=== PATIENT | female | born 1960 | race Caucasian/White ===

== ENCOUNTER 2019-09-04 18:54 | Emergency (ER) | payer OTHER, SELFPAY ==
[2019-09-04 18:58] VITALS: BP 138/65; PULSE 106; RESP 16; TEMP 36.7; O2SAT 99
--- NOTE | 2019-09-04 19:03 | ED.LOWEXIN ---
HPI - Extremity Injury (Lower) General Chief Complaint: Back Pain/Injury Stated Complaint: shooting pain from butt down leg Time Seen by Provider: 09/04/19 19:04 Source: patient and RN notes reviewed History of Present Illness HPI Narrative: Patient is a 58-year-old female presents the urgent care with complaints of right low back pain radiating down the right leg to the ankle. Patient states she has a history of low back pain. States the pain feels like a burning ache. Denies any recent fall, injury, trauma. Patient states she is also having pain through the buttocks. Patient states that she is taken Tylenol and Advil for the pain. Patient states that she normally takes Vicodin for her pain but she is between pain management doctors at this time and is requesting a refill of her Vicodin. No other acute complaints. No acute distress noted. Patient read the plan of care. Related Data Home Medications Medication Instructions Recorded Confirmed atorvastatin 40 mg tablet 40 mg PO DAILY 07/25/19 09/04/19 lisinopril 20 1 tablet PO DAILY 07/25/19 09/04/19 mg-hydrochlorothiazide 25 mg tablet metformin 1,000 mg tablet 1,000 mg PO BID 07/25/19 09/04/19 ranitidine HCl 300 mg tablet 300 mg PO DAILY 07/25/19 09/04/19 Allergies Allergy/AdvReac Type Severity Reaction Status Date / Time Penicillins Allergy Unknown Unknown Verified 09/04/19 19:06 Review of Systems Review of Systems: Narrative: CONSTITUTIONAL: Denies fever, chills, or sweats. EYES: Denies visual changes, redness, or discharge. ENT: Denies rhinorrhea, congestion, sore throat, or otalgia. CARDIOVASCULAR: Denies chest pain, palpitations, or edema. RESPIRATORY: Denies cough or dyspnea. GASTROINTESTINAL: Denies abdominal pain, nausea, vomiting, or diarrhea. GENITOURINARY: Denies dysuria or hematuria. SKIN: Denies rash or itching. MUSCULOSKELETAL: Reports of right-sided low back pain radiating down the right leg NEUROLOGIC: Denies headache, numbness, or weakness. [facility] Social History Social History Smoking packs per day: 1 Smoking cigarettes per day: 20.0 Years smoked: 35 Smoking pack-years: 35.00 Smoking status: Current every day smoker Tobacco type: cigarettes Second hand tobacco smoke exposure: No Alcohol intake: never Additional living arrangements comments: Lives with partner of over 30yrs Vinny Deng. 1 son. 1 daughter. 4 grandkids. 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 Gender identity (if verbalized by the patient): Female Comments At the time of my signature, I reviewed and agree with the nursing past medical, surgical, social, and family history. There is no relevant family history pertinent to the patient complaint. Exam Narrative: Exam Narrative: GENERAL: This is a well-nourished, well-developed patient, in no apparent distress. HEAD: normocephalic, atraumatic. EYES: PERRL. Sclera clear/white. Vision is grossly intact. EARS: External ears normal NOSE: External nose normal with no obvious nasal discharge THROAT: Mucous membranes moist NECK: Neck supple CARDIOVASCULAR: Regular rate and rhythm without murmurs, gallops, or rubs. RESPIRATORY: Clear to auscultation. Breath sounds equal bilaterally. No wheezes, rales, or rhonchi. SKIN: warm, intact with no suspicious lesions or rash, good texture and turgor. NEURO: awake, alert, and oriented to person, place and time. There were no obvious focal neurologic abnormalities. EXTREMITIES: No clubbing, cyanosis, or edema. BACK: Moderate tenderness to the right piriformis region with right-sided positive SLE Course Vital Signs Vital signs: Vital Signs Temperature 98.0 F 09/04/19 18:58 Pulse Rate 106 H 09/04/19 18:58 Respiratory Rate 16 09/04/19 18:58 Blood Pressure 138/65 09/04/19 18:58 Pulse Oximetry 99 09/04/19 18:58 Temperature 98.0
== END 2019-09-04 19:17 | disposition home or self-care (01) ==
PROVIDERS: Emergency Provider Nurse Practitioner Family
DX: M54.31 Sciatica, right side (principal); I10 Essential (primary) hypertension; E78.00 Pure hypercholesterolemia, unspecified
CPT/HCPCS: 99213; G0463

== ENCOUNTER 2020-02-02 13:36 | Outpatient (CLI) | payer OTHER, SELFPAY ==
[2020-02-02 14:02] LABS: Hemoglobin A1C 7.6 % (<5.7)
[2020-02-02 14:39] LABS: Alanine Aminotransferase 48 U/L (14-59); Alkaline Phosphatase 83 U/L (46-116); Anion Gap 12.1 mmol/L (7-16); Aspartate Amino Transferase 27 U/L (15-37); Bilirubin,Total 0.3 mg/dL (0.00-1.00); Blood Urea Nitrogen 15 mg/dL (7-18); Calcium 9.5 mg/dL (8.5-10.1); Carbon Dioxide 32 mmol/L (21-32); Chloride 97 mmol/L (98-108); Estimated Glomerular Filt Rate > 60; Glucose 146 mg/dL (70-99); Osmolality Calculated 287 mOsm/kg (285-295); Potassium 4.1 mmol/L (3.5-5.1); Sodium 137 mmol/L (136-145); Total Protein 7.5 g/dL (6.4-8.2)
== END 2020-02-02 13:37 | disposition home or self-care (01) ==
LOC: CHSLAB 13:41
PROVIDERS: PCP Family Medicine; Visit Provider Family Medicine
DX: E11.9 Type 2 diabetes mellitus without complications (principal)
CPT/HCPCS: 36415; 80053; 83036

== ENCOUNTER → 2020-02-03 12:18 | Outpatient (CLI) | payer OTHER, SELFPAY ==
--- NOTE | ~2020-02-03 | XR_ITS ---
[id number] 02/03/2020 12:40 Indication: Neck pain Procedure: 5 views cervical spine Comparison: No prior studies for comparison. Findings: Vertebral body heights are maintained. No significant disc narrowing. No prevertebral soft tissue swelling. There are mild facet degenerative changes at C5-6 and C6-7. Odontoid process within normal limits. Impression: 1: Mild cervical spondylosis. Reviewed, dictated and finalized at location A. Impression: 1: Mild cervical spondylosis.
== END ==
PROVIDERS: PCP Family Medicine; Visit Provider Family Medicine
DX: E11.9 Type 2 diabetes mellitus without complications (principal); M47.812 Spondylosis without myelopathy or radiculopathy, cervical region
CPT/HCPCS: 72040

== ENCOUNTER 2020-09-30 13:35 | Outpatient (CLI) | payer OTHER, SELFPAY ==
--- NOTE | ~2020-09-30 | MM_ITS ---
EXAMINATION: MM screening [facility] BI w eli HISTORY: Screening mammogram TECHNIQUE: Craniocaudal and mediolateral oblique 3-D tomosynthesis images were obtained and synthetic 2-D images were generated. CAD analysis was submitted and interpreted. COMPARISON: 08/16/2015, 08/09/2007 BREAST PARENCHYMAL COMPOSITION: The breasts are heterogeneously dense, which may obscure small masses . FINDINGS: There is no evidence of suspicious mass, calcification, or architectural distortion to sugg est malignancy in either breast. There has been no suspicious interval change. IMPRESSION: 1. No mammographic evidence of malignancy. 2. Recommend routine screening mammography in one year. BI-RADS Category 1: Negative Reviewed, dictated and finalized at location A. PSYCH
== END 2020-09-30 13:36 | disposition home or self-care (01) ==
LOC: CHSIMG 13:36
PROVIDERS: PCP Family Medicine; Visit Provider Obstetrics & Gynecology
DX: Z12.31 Encounter for screening mammogram for malignant neoplasm of breast (principal)
CPT/HCPCS: 77063; 77067

== ENCOUNTER 2020-12-29 12:55 | Emergency (ER) | payer OTHER, SELFPAY ==
[2020-12-29 13:04] VITALS: BP 145/58; PULSE 120; RESP 16; TEMP 36.7; O2SAT 98
--- NOTE | 2020-12-29 13:14 | ED.FEMALEGU ---
HPI - Female Genitourinary General Chief complaint: Urogenital-Female Stated complaint: bladder and yeast infection Time Seen by Provider: 12/29/20 13:15 Source: patient and RN notes reviewed Mode of arrival: ambulatory Limitations: no limitations History of Present Illness HPI Narrative: 60-year-old female presents with concern for yeast infection and possible UTI. Reports she was seen by her tax assessor yesterday for yeast infection, she was given fluconazole. Reports she is taken 1 pill and symptoms have worsened. She reports labial redness, swelling, itching. She also reports yesterday she started having burning with urination, difficulty urinating. She denies using any [id number] interventions. She denies fever, flank pain, abnormal vaginal discharge, abnormal vaginal bleeding, abdominal pain, nausea. Denies any sexual activity, no concern for STDs. MD elicited complaint: UTI Related Data Allergies Allergy/AdvReac Type Severity Reaction Status Date / Time Penicillins Allergy Unknown Unknown Verified 12/29/20 13:14 Review of Systems Review of Systems: Narrative: CONSTITUTIONAL: Denies malaise, chills, sweats, or fever. CARDIOVASCULAR: Denies chest pain, palpitations, or edema. RESPIRATORY: Denies cough or dyspnea. GASTROINTESTINAL: Denies abdominal pain, nausea, vomiting, diarrhea GENITOURINARY: Reports dysuria, difficulty urinating. Denies urgency, frequency, flank pain, or hematuria. SKIN: Reports red, irritated, swollen, itchy labia, vagina MUSCULOSKELETAL: Denies back pain, joint pain, or myalgia. All systems reviewed & are unremarkable except as noted in HPI and below PMFSH Past Medical History Medical History (Updated 12/29/20 @ 13:26 by Kiera Diggs NP) Asthma B12 deficiency Chronic low back pain DM2 (diabetes mellitus, type 2) GERD (gastroesophageal reflux disease) Hypertension Nicotine dependence Overweight Surgical History Surgical History No history of previous surgery Family History Family History Father , Age 62 Carcinoma of colon, Onset Age: 61 Mother , Age 92 Family history of dementia, Onset Age: 92 Sibling , Age 63 Liver cancer Social History Social History (Reviewed 08/19/20 @ 08:00 by Ladi Cooper Smoking packs per day: 1 Smoking cigarettes per day: 20.0 Years smoked: 35 Smoking pack-years: 35.00 Smoking status: Current every day smoker Tobacco type: cigarettes Second hand tobacco smoke exposure: No Alcohol intake: never Additional living arrangements comments: Lives with partner of over 30yrs Vinny Deng. 1 son. 1 daughter. 4 grandkids. 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 Gender identity (if verbalized by the patient): Female Comments At time of signature, agree with nursing past medical, surgical, social and family history. There is no relevant family history pertinent to the presenting complaint Exam Narrative: Exam Narrative: GENERAL: Well-appearing, well-nourished, and in no acute distress. HEAD: Normocephalic. EYES: PERRLA, conjunctivae clear. NECK: Supple. No lymphadenopathy CHEST: Clear to auscultation. No respiratory distress. HEART: Regular rate and rhythm. ABDOMEN: Soft, nontender upon palpation, nondistended, normal active bowel sounds, no palpable or pulsatile masses, no guarding. No CVA tenderness SKIN: Warm, dry, no rash. NEURO: Alert and oriented x3. PSYCH: Normal mood and affect : External Female Exam: erythema and external swelling Speculum Exam - Vagina: abnormal vaginal discharge white and erythematous Course Course Emergency Course: Patient is aware of diagnosis, understands and agrees to treatment plan. Anticipatory guidance given. Patient agrees to follow-up as directed and is aware of r
== END 2020-12-29 13:30 | disposition home or self-care (01) ==
PROVIDERS: Emergency Provider Nurse Practitioner; PCP Family Medicine
DX: R30.0 Dysuria (principal); R39.198 Other difficulties with micturition; N76.0 Acute vaginitis; F17.210 Nicotine dependence, cigarettes, uncomplicated; J45.909 Unspecified asthma, uncomplicated; E11.9 Type 2 diabetes mellitus without complications; K21.9 Gastro-esophageal reflux disease without esophagitis; I10 Essential (primary) hypertension
CPT/HCPCS: 81003; 87077; 87086; 87088; 99213; G0463

== ENCOUNTER 2021-02-06 13:55 | Emergency (ER) | payer OTHER, SELFPAY ==
--- NOTE | ~2021-02-06 | XR_ITS ---
EXAMINATION: XR chest 2V EXAM DATE: 02/06/2021 14:36 INDICATION: Cough and wheezing. TECHNIQUE: Frontal and lateral projections of the chest obtained and reviewed. Comparison is made to prior examination from 02/04/2014. FINDINGS: The lungs are clear. There are no pleural effusions. The cardiomediastinal silhouette is within normal limits. There is no pneumothorax suspected. The bones and soft tissues are unremarkab le. There are cholecystectomy clips. IMPRESSION: No acute cardiopulmonary findings. Reviewed, dictated and finalized at location A.
[2021-02-06 14:01] VITALS: BP 140/68; PULSE 103; RESP 20; TEMP 37.1; O2SAT 98
--- NOTE | 2021-02-06 14:19 | ED.URI ---
HPI - URI/Sore Throat General Chief Complaint: Upper Respiratory Infection Stated Complaint: nose eyes throat Time Seen by Provider: 02/06/21 14:15 Source: patient, RN notes reviewed and old records reviewed Mode of arrival: ambulatory Limitations: no limitations History of Present Illness HPI Narrative: 60 year old [facility] complaints of cough, sneezing and watery eyes since Sunday. Patient states that she has been taking Benadryl for her symptoms and some Robitussin cough syrup. Patient states that she thinks she might of had a fever last night and she took some Tylenol. Patient does have a history of asthma denies needing to use her inhaler, continues to use Tobacco daily. Patient states that her head feels like it is underwater. MD elicited complaint: cough and other Onset (ago): day(s) (3) Consistency: progressively worsening Able to tolerate fluids by mouth: Yes Exacerbating factors: exertion Relieving factors: nothing Associated symptoms: fever, cough and other (sneezing, watery eyes) Treatments prior to arrival: other (benadryl and Robitussin cough syrup and Tylenol) Related Data Home Medications Medication Instructions Recorded Confirmed pregabalin 75 mg PO HS 02/06/21 02/06/21 Allergies Allergy/AdvReac Type Severity Reaction Status Date / Time Penicillins Allergy Unknown Unknown Verified 02/06/21 14:18 Review of Systems Review of Systems: Narrative: CONSTITUTIONAL: reports tactile fever, chills, or sweats. EYES: Denies visual changes, redness, or discharge. ENT: Positive rhinorrhea, congestion, no sore throat, no otalgia just pressure CARDIOVASCULAR: Denies chest pain, palpitations, or edema. RESPIRATORY: Positive cough denies any acute dyspnea. GASTROINTESTINAL: Denies abdominal pain, nausea, vomiting, or diarrhea. GENITOURINARY: Denies dysuria or hematuria. SKIN: Denies rash or itching. MUSCULOSKELETAL: Denies acute back pain, joint pain, or myalgia. NEUROLOGIC: Denies headache, numbness, or weakness. PSYCHIATRIC: Denies anxiety or depression. All systems reviewed & are unremarkable except as noted in HPI and below PMFSH Past Medical History Medical History (Updated 02/06/21 @ 15:04 by Saba Martínez NP) Asthma B12 deficiency Chronic low back pain DM2 (diabetes mellitus, type 2) Elevated cholesterol GERD (gastroesophageal reflux disease) Hypertension Nicotine dependence Overweight Surgical History Surgical History (Updated 02/06/21 @ 15:04 by Saba Martínez NP) Hx of cholecystectomy Previous section Family History Family History Father , Age 62 Carcinoma of colon, Onset Age: 61 Mother , Age 92 Family history of dementia, Onset Age: 92 Sibling , Age 63 Liver cancer Social History Social History Smoking packs per day: 1 Smoking cigarettes per day: 20.0 Years smoked: 35 Smoking pack-years: 35.00 Smoking status: Current every day smoker Tobacco type: cigarettes Second hand tobacco smoke exposure: No Alcohol intake: never Additional living arrangements comments: Lives with partner of over 30yrs Vinny Deng. 1 son. 1 daughter. 4 grandkids. 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 Gender identity (if verbalized by the patient): Female Comments At time of signature, agree with nursing past medical, surgical, social and family history. There is no relevant family history pertinent to the presenting complaint Exam Narrative: Exam Narrative: GENERAL: Well-appearing, well-nourished, and in no acute distress. HEAD: Normocephalic, atraumatic. EYES: PERRLA and EOMI. ENT: Nares light red with some clear nasal drainage, no epistaxis. Mucous membranes moist. TM's normal with dull light reflex, throat pink with no
== END 2021-02-06 15:07 | disposition home or self-care (01) ==
PROVIDERS: Emergency Provider Registered Nurse
DX: J06.9 Acute upper respiratory infection, unspecified (principal); J20.9 Acute bronchitis, unspecified; F17.210 Nicotine dependence, cigarettes, uncomplicated; J45.909 Unspecified asthma, uncomplicated; E11.9 Type 2 diabetes mellitus without complications; E78.00 Pure hypercholesterolemia, unspecified; K21.9 Gastro-esophageal reflux disease without esophagitis; I10 Essential (primary) hypertension
CPT/HCPCS: 71046; 99213; G0463

== ENCOUNTER 2021-07-18 11:12 | Outpatient (CLI) | payer OTHER, SELFPAY ==
--- NOTE | 2021-07-18 11:17 | ECG_ITS ---
Measurements Intervals [place] Rate: 101 P: 77 [place]: 154 QRS: 85 QRSD: 102 T: 37 QT: 344 QTc: 447 Interpretive Statements SINUS TACHYCARDIA MINIMAL Q WAVES- INFERIOR LEADS NONSPECIFIC T-WAVE ABNORMALITY- INFERIOR LEADS BORDERLINE ECG Electronically Signed On 07-18-2021 12:12:21 BACK CLOSER by lCifford Mensah D.O.
== END 2021-07-18 11:13 | disposition home or self-care (01) ==
LOC: CHSCARD 11:17
PROVIDERS: PCP Family Medicine; Visit Provider Family Medicine
DX: R00.0 Tachycardia, unspecified (principal)
CPT/HCPCS: 93005

== ENCOUNTER 2021-09-22 10:10 | Emergency (ER) | payer OTHER, SELFPAY ==
--- NOTE | ~2021-09-22 | XR_ITS ---
EXAMINATION: XR knee LT 2V DATE: 09/22/2021 10:49 INDICATION: Left knee pain TECHNIQUE: Two views of the left knee were obtained. COMPARISON: 08/22/2012 FINDINGS: Alignment is normal. No fracture or osteochondral lesion. There is mild tricompartmental os teoarthritis characterized by tiny marginal osteophytes. No joint effusion/synovitis. Soft tissues a re unremarkable. IMPRESSION: 1. No acute osseous abnormality. Reviewed, dictated and finalized at location A. Y LEVEL ACCOUNTING CLERK
--- NOTE | 2021-09-22 10:38 | ED.LOWEXIN ---
HPI - Extremity Injury (Lower) General Chief Complaint: Extremity Injury, Lower Stated Complaint: heard a pop in lt leg, cannot walk now Time Seen by Provider: 09/22/21 10:38 Source: patient Mode of arrival: ambulatory Limitations: no limitations History of Present Illness HPI Narrative: this is a 60-year-old female that inadvertently twisted her knee and heard a pop in the posterior knee has limited range of motion secondary to pain with some posterior knee tenderness, has some no calf swelling no redness no erythema no calf tenderness, denies any hip pain has good range of motion in her left hip. complaint: knee injury Onset (ago): day(s) Injury: Left: knee ( knee pain) Type of Injury: other Place: home Severity: moderate Severity scale (1-10): 6 Relieving factors: nothing Exacerbating factors: movement and palpation Associated symptoms: snap/pop sensation Other symptoms: none Related Data Home Medications Medication Instructions Recorded Confirmed pregabalin 75 mg PO HS 02/06/21 09/22/21 Allergies Allergy/AdvReac Type Severity Reaction Status Date / Time Penicillins Allergy Unknown Unknown Verified 07/18/21 06:48 Review of Systems Review of Systems: All systems reviewed & are unremarkable except as noted in HPI and below PMFSH Past Medical History Medical History Asthma B12 deficiency Chronic low back pain DM2 (diabetes mellitus, type 2) Elevated cholesterol GERD (gastroesophageal reflux disease) Hypertension Nicotine dependence Overweight Surgical History Surgical History Hx of cholecystectomy Previous section Family History Family History Father , Age 62 Carcinoma of colon, Onset Age: 61 Mother , Age 92 Family history of dementia, Onset Age: 92 Sibling , Age 63 Liver cancer Social History Social History Smoking packs per day: 1 Smoking cigarettes per day: 20.0 Years smoked: 35 Smoking pack-years: 35.00 Smoking status: Current every day smoker Tobacco type: cigarettes Second hand tobacco smoke exposure: No Alcohol intake: never Additional living arrangements comments: Lives with partner of over 30yrs Vinny Deng. 1 son. 1 daughter. 4 grandkids. 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 Gender identity (if verbalized by the patient): Female Exam Const: General: no acute distress and alert Orientation/consciousness: patient oriented x3 HENMT: Head: normal to inspection Eyes: Conjunctivae: conjunctivae normal Pupils: Equal, round and reactive pupils present Neck: Neck: normal visual inspection, no lymphadenopathy and no meningeal signs Chest: Chest palpation & inspection: normal inspection of the chest Resp: Effort & Inspection: normal respiratory effort Auscultation: clear to auscultation bilaterally Cardio: Rate: regular rate Rhythm: regular rhythm GI: GI Palp: Yes Soft to palpation : General: Yes no CVA tenderness Back/Spine/Pelvis: Back: no CVA tenderness Skin: General skin exam: normal color Rashes: no rashes Neuro: General: patient oriented x3 and moves all extremities Extrem: General: normal to inspection and no pedal edema Other: Tenderness posteriorly with palpation is limited range of motion secondary to pain with no calf swelling no calf redness no erythema no warmth or tenderness in the calf. Psych: Mental Status: mental status grossly normal Affect: normal affect Attitude: cooperative Course Course Emergency Course: Patient received IM Toradol 60mg, had x-ray performed of the left knee and reviewed with patient. Critical Care Time Critical Care Time Critical Care Time: No Discharg
[2021-09-22] MEDS: KETOROLAC (*BKC) 60 MG/2 ML VIAL IM (10:54)
[2021-09-22 11:00] VITALS: BP 123/74; PULSE 103; RESP 20; TEMP 36.3; O2SAT 97
[2021-09-22 11:01] VITALS: BP 129/64; PULSE 103; RESP 20; TEMP 36.3; O2SAT 97
== END 2021-09-22 11:11 | disposition home or self-care (01) ==
PROVIDERS: Emergency Provider Emergency Medicine; PCP Family Medicine
DX: S86.912A Strain of unspecified muscle(s) and tendon(s) at lower leg level, left leg, initial encounter (principal)
CPT/HCPCS: 73560; 96372; 99283; J1885

== ENCOUNTER 2021-12-26 11:28 | Outpatient (CLI) | payer OTHER, SELFPAY | END 2021-12-26 11:29 | disposition home or self-care (01) | LOC: CHSLAB 11:31 | PROVIDERS: PCP Family Medicine; Visit Provider Family Medicine | DX: E11.9 Type 2 diabetes mellitus without complications (principal) | CPT/HCPCS: 99199; 80053; 80061 ==

== ENCOUNTER 2022-03-10 10:38 | Emergency (ER) | payer OTHER, SELFPAY ==
[2022-03-10 10:51] VITALS: BP 106/81; PULSE 115; RESP 16; TEMP 36.5; O2SAT 97
--- NOTE | 2022-03-10 11:26 | ED.GENADULT ---
HPI - General Adult General Chief complaint: Extremity Injury, Lower Stated complaint: pain in left leg cant put weight on it History of Present Illness HPI narrative: The patient is a 61-year-old woman who saw her primary care provider 03/01/2022 for pain in the left knee that had been ongoing for several days prior. An MRI was scheduled. Her examination at that time was unremarkable. There was no swelling. No history of recent trauma. She did fall 2 months prior but there was no immediate pain in the left knee or elsewhere at that time. She now presents due to continued pain in the left, for the past week, making it difficult for her to ambulate and bear weight on the left knee. The MRI has not been performed yet. She takes Advil 2 tablets every 6 hours as needed, most recently at 8 am today. There is no relief in the pain. No pain in the right knee. No pain elsewhere in the left or right legs. She took several doses of Advil yesterday for the same. She is not on any other pain medications. No swelling of the legs. No difficulty breathing. No other complaints. Related Data Home Medications Medication Instructions Recorded Confirmed vit A 5,000 unit-vit C 60 mg-vit E 1 tablet PO BID 03/10/22 03/10/22 30 [id number]-[id number]-yuxrakio-copper tablet (Prosight) Allergies Allergy/AdvReac Type Severity Reaction Status Date / Time Penicillins Allergy Unknown Unknown Verified 03/10/22 10:56 Review of Systems Review of Systems: All systems reviewed & are unremarkable except as noted in HPI and below Constitutional: Constitutional: Reports no additional constitutional complaints, Denies anorexia, Denies body ache(s), Denies chills, Denies excessive sweating, Denies fatigue, Denies fever(s), Denies frequent falls, Denies headache(s), Denies malaise and Denies poor appetite Eyes: Eyes: Reports no additional eye complaints, Denies blurry vision, Denies change in vision, Denies irritation, Denies itchy eyes and Denies photophobia ENT: Reports system reviewed and no additional complaints, except as documented, Reports Normal hearing present, Denies change in voice, Denies dysphagia, Denies vertigo, Denies dizziness, Denies ear discharge, Denies headache(s), Denies hearing loss, Denies hoarseness, Denies nasal congestion, Denies neck pain, Denies sinus pressure, Denies sore throat and Denies throat swelling Cardiovascular: Cardiovascular: Reports no additional cardiovascular complaints, Denies chest pain, Denies syncope, Denies rapid heart rate, Denies irregular heart rhythm, Denies leg edema, Denies dyspnea and Denies slow heart rate Respiratory: Respiratory: Reports no additional respiratory complaints, Denies cough, Denies dyspnea, Denies stridor and Denies wheezing Gastrointestinal: Gastrointestinal: Reports no additional gastrointestinal complaints, Denies abdominal pain, Denies melena, Denies hematochezia, Denies dysphagia, Denies diarrhea, Denies nausea and Denies vomiting Genitourinary: Genitourinary: Denies hematuria, Denies urinary frequency, Denies dysuria, Denies flank pain and Denies urinary urgency Musculoskeletal: Musculoskeletal: Reports no additional musculoskeletal complaints, Reports abnormal gait (due to left knee pain), Denies back pain, Denies myalgias, Reports arthralgias (in left knee), Denies joint swelling, Reports limited range of motion (in the left knee secondary to pain), Denies muscle cramps, Denies muscle weakness, Denies neck pain and Denies numbness Integumentary/Breasts: Skin/Breast: Reports system reviewed and no additional complaints, except as docu, Denies breast pain, Denies change in pigmentation, Denies pruritus, Denies erythema and Denies wounds Neurologic: Reports system reviewed and no additional complaints, except as documented, Reports Normal hearing present, Denies Abnormal speech present, Denies abnormal gait, Denies confusion, Denies vertigo, Denies dizziness, Denies syncope, Denies frequent falls,
[2022-03-10] MEDS: ACETAMINOPHEN 500 MG TABLET 1000 MG PO (11:39)
[2022-03-10] MEDS: traMADol HCL (*CRX) 50 MG TABLET 100 MG PO (11:40)
[2022-03-10] MEDS: KETOROLAC (*BKC) 60 MG/2 ML VIAL IM (11:43)
[2022-03-10 12:26] VITALS: BP 132/83; PULSE 107; RESP 16; TEMP 36.2; O2SAT 97
--- NOTE | 2022-03-10 12:32 | PC.NURSE ---
Originally only took one Tramadol from Pyxis. Clarified with THEODORA NGUYEN to give 100 mg total. Override in OCT to take additional tramadol to administer prescribed dose.
== END 2022-03-10 12:26 | disposition home or self-care (01) ==
PROVIDERS: Emergency Provider Emergency Medicine; PCP Family Medicine
DX: M25.562 Pain in left knee (principal)
CPT/HCPCS: 96372; 99283; A9270; J1885

== ENCOUNTER 2022-03-13 13:43 | Outpatient (CLI) | payer OTHER, SELFPAY ==
--- NOTE | ~2022-03-13 | MR_ITS ---
EXAMINATION: MR knee LT wo con DATE: 03/13/2022 14:33 INDICATION: Left knee pain. TECHNIQUE: Magnetic resonance imaging (MRI) of the left knee was performed without intravenous contra st. Sequences included axial PD-weighted FS FSE, coronal PD-weighted FSE and PD-weighted FS FSE, sagi ttal PD-weighted FSE, and sagittal T2-weighted FS FSE. COMPARISON: Left knee radiographs 09/22/2021 FINDINGS: Medial compartment: There is a radial tear of posterior horn of medial meniscus. There is full-thickness cartilage loss o f tibial condyle involving the central and medial articular surface with cortical irregularity and mi ld subchondral edema-like marrow signal intensity. There is full-thickness cartilage loss of femoral condyle involving the central, medial, and posterior articular surface with cortical irregularity. Os teophytes are noted. Lateral compartment: There is a vertical tear of body of lateral meniscus. There is cartilage surface irregularity of tibi al condyle and femoral condyle. Osteophytes are noted. Patellofemoral compartment: There is full-thickness cartilage loss of patellar median ridge and medial facet and partial thicknes s cartilage loss of patellar lateral facet with mild subchondral edema-like marrow signal intensity. There is shallow partial-thickness cartilage loss of trochlea. Osteophytes are noted. Ligaments and tendons: The anterior and posterior cruciate ligaments are normal. There are changes of prior sprains of media l collateral ligament and fibular collateral ligament characterized by thickening and increased signa l intensity proximally. There is mild patellar tendinopathy. Fluid: There is a moderate-sized knee joint effusion with loose body. There is a small Key's cyst. There i s a 1.7 x 1.1 cm ganglion cyst posterior to the knee joint. There is mild prepatellar and superficial infrapatellar bursitis. IMPRESSION: 1. Severe chondrosis of medial and patellofemoral compartments and mild chondrosis of lateral compart ment. 2. Tears of medial and lateral menisci. 3. Moderate-sized knee joint effusion with loose body. 4. Small Key's cyst. 5. Ganglion cyst posterior to the knee joint. Reviewed, dictated and finalized at location A. IMPRESSION: 1. Severe chondrosis of medial and patellofemoral compartments and mild chondro sis of lateral compartment. 2. Tears of medial and lateral menisci. 3. Moderate-sized knee joint effusion with loose body. 4. Small Key's cyst. 5. Ganglion cyst posterior to the knee joint.
== END 2022-03-13 13:44 | disposition home or self-care (01) ==
PROVIDERS: PCP Family Medicine; Visit Provider Family Medicine
DX: S83.289A Other tear of lateral meniscus, current injury, unspecified knee, initial encounter (principal); M22.2X2 Patellofemoral disorders, left knee; S83.282A Other tear of lateral meniscus, current injury, left knee, initial encounter; S83.242A Other tear of medial meniscus, current injury, left knee, initial encounter; M25.462 Effusion, left knee; M23.42 Loose body in knee, left knee; M71.22 Synovial cyst of popliteal space [Baker], left knee; M67.462 Ganglion, left knee
CPT/HCPCS: 73721

== ENCOUNTER 2022-09-28 11:16 | Outpatient (CLI) | payer OTHER, SELFPAY ==
--- NOTE | ~2022-09-28 | XR_ITS ---
Lumbosacral Spine: AP and lateral views Clinical History: Pain Findings: The normal lordotic curve is maintained. The vertebral bodies and posterior elements are i ntact. There is mild degenerative disc change at L2-L3, L3-L4, L4-L5. Probable facet joint degenerati ve changes are present from L3 through S1. The sacroiliac joints are normally outlined. Impression: Mild degenerative spondylitic changes, as above. Reviewed, dictated and finalized at location M. [facility] Impression: Mild degenerative spondylitic changes, as above.
== END 2022-09-28 11:17 | disposition home or self-care (01) ==
LOC: CHSIMG 11:18
PROVIDERS: PCP Family Medicine; Visit Provider Nurse Practitioner Family
DX: M54.32 Sciatica, left side (principal)
CPT/HCPCS: 72100

== ENCOUNTER → 2023-01-13 12:27 | Outpatient (CLI) | payer OTHER, SELFPAY ==
--- NOTE | ~2023-01-13 | XR_ITS ---
[id number] 01/13/2023 12:42 Indication: Left knee pain Procedure: 2 views left knee Comparison: No prior studies for comparison. Findings: There is mild osteoarthritis of the left knee. There is an old proximal fibular avulsion fr acture. No significant joint effusion. No acute fracture or traumatic malalignment. Impression: 1: No acute bone or joint abnormality. Reviewed, dictated and finalized at location A. Impression: 1: No acute bone or joint abnormality.
== END ==
PROVIDERS: PCP Nurse Practitioner Family; Visit Provider Nurse Practitioner Family
DX: M25.562 Pain in left knee (principal)
CPT/HCPCS: 73560

== ENCOUNTER 2023-01-23 15:52 | Outpatient (CLI) | payer OTHER, SELFPAY ==
--- NOTE | ~2023-01-23 | MR_ITS ---
MRI of the lumbar spine Clinical History: Back pain, left sciatica Technique: Axial T2-weighted images, and sagittal T1-weighted, T2-weighted, and T2 fat-sat images wer e acquired. COMPARISON: 02/17/2019 Findings: No fracture. 3 mm anterolisthesis of L4 over L5 present. No bone marrow signal abnormality seen. At L1-L2, there is advanced facet arthropathy. No disc bulge or herniation. No spinal canal stenosis or neural foraminal narrowing. At L2-L3, there is diffuse disc bulge with advanced facet arthropathy, resulting in moderate to sever e spinal canal stenosis/thecal sac compression. There is moderate left neural foraminal narrowing and mild right neural foraminal narrowing. At L3-L4, disc bulge and facet arthropathy result in moderate to severe spinal canal stenosis/thecal sac compression. There is mild to moderate right neural foraminal narrowing. Left neural foramen pres erved. At L4-L5, disc bulge and facet arthropathy result in severe spinal canal stenosis/thecal sac compress ion. There is severe left neural foraminal narrowing and mild to moderate right neural foraminal narr owing. At L5-S1, there is no disc bulge or herniation. There is moderate facet arthropathy. No spinal canal stenosis or neural foraminal narrowing. Paravertebral soft tissues are unremarkable. Impression: Advanced degenerative spondylosis, as detailed above. There is multilevel moderate to severe spinal c anal stenosis/thecal sac compression, as well as multilevel neural foraminal narrowing. 3 mm anterolisthesis of L4 over L5. Reviewed, dictated and finalized at location . Impression: Advanced degenerative spondylosis, as detailed above. There is multilevel moder ate to severe spinal canal stenosis/thecal sac compression, as well as multilev el neural foraminal narrowing. 3 mm anterolisthesis of L4 over L5.
== END 2023-01-23 15:53 | disposition home or self-care (01) ==
PROVIDERS: PCP Nurse Practitioner Family
DX: M48.061 Spinal stenosis, lumbar region without neurogenic claudication (principal); M47.816 Spondylosis without myelopathy or radiculopathy, lumbar region; M43.16 Spondylolisthesis, lumbar region; M54.42 Lumbago with sciatica, left side; G89.29 Other chronic pain; M51.36 Other intervertebral disc degeneration, lumbar region
CPT/HCPCS: 72148

== ENCOUNTER 2023-02-22 14:40 | Emergency (ER) | payer OTHER, SELFPAY ==
[2023-02-22 14:43] VITALS: BP 121/66; PULSE 20; RESP 20; TEMP 35.8; O2SAT 97
--- NOTE | 2023-02-22 14:52 | ED.FEMALEGU ---
HPI - Female Genitourinary General Chief complaint: Urogenital-Female Stated complaint: POss UTI Time Seen by Provider: 02/22/23 14:52 Source: patient Mode of arrival: ambulatory Limitations: no limitations History of Present Illness HPI Narrative: 62-year-old female presents with complaint of burning, itching to vaginal area for the past 2-3 days. Reports some swelling to labia. States history vaginal yeast infections. Patient unable to check her blood sugars at home, does not have a machine. Patient has been taking metformin for approximately 15 years and also recently started on Jardiance. Does not feel her blood sugar is high. All systems reviewed and negative except as noted above. Related Data Home Medications Medication Instructions Recorded Confirmed empagliflozin 10 mg tablet 10 mg PO DAILY 02/22/23 02/22/23 (Jardiance) Allergies Allergy/AdvReac Type Severity Reaction Status Date / Time Penicillins Allergy Unknown Unknown Verified 02/22/23 14:51 Review of Systems Review of Systems: CONSTITUTIONAL: Denies fever, chills, or sweats. EYES: Denies visual changes, redness, or discharge. ENT: Denies rhinorrhea, congestion, sore throat, or otalgia. CARDIOVASCULAR: Denies chest pain, palpitations, or edema. RESPIRATORY: Denies cough or dyspnea. GASTROINTESTINAL: Denies abdominal pain, nausea, vomiting, or diarrhea. GENITOURINARY: Denies dysuria or hematuria. reports vaginal itching and burning SKIN: Denies rash or itching. MUSCULOSKELETAL: Denies back pain, joint pain, or myalgia. NEUROLOGIC: Denies headache, numbness, or weakness. PSYCHIATRIC: Denies anxiety or depression. All other systems reviewed are negative, except as documented in HPI. [facility] Past Medical History Medical History Asthma B12 deficiency Chronic low back pain DM2 (diabetes mellitus, type 2) Elevated cholesterol GERD (gastroesophageal reflux disease) Hypertension Nicotine dependence Overweight Surgical History Surgical History Hx of cholecystectomy Previous section Family History Family History Father , Age 62 Carcinoma of colon, Onset Age: 61 Mother , Age 92 Family history of dementia, Onset Age: 92 Sibling , Age 63 Liver cancer Social History Social History Smoking packs per day: 1 Smoking cigarettes per day: 20.0 Years smoked: 35 Smoking pack-years: 35.00 Smoking status: Current every day smoker Tobacco type: cigarettes Second hand tobacco smoke exposure: No Alcohol intake: never Lack of Transportation: No Lack of Food: Never True Current Housing: I Have Housing Concerned About Future Housing: No Difficulty Paying Gas/Electric Bills: No Difficulty Paying for Meds: No Currently Unemployed: No Education: High School Diploma/GED Difficulty w/ Childcare or Family Care: No Additional living arrangements comments: Lives with partner of over 30yrs Vinny Deng. 1 son. 1 daughter. 4 grandkids. 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 Gender identity (if verbalized by the patient): Female Comments At time of signature, agree with nursing past medical, surgical, social and family history. There is no relevant family history pertinent to the presenting complaint. Exam Narrative: GENERAL: This is a well-nourished, well-developed patient, in no apparent distress. HEAD: normocephalic, atraumatic. EYES: PERRL. Sclera clear/white. Vision is grossly intact. EARS: External ears normal NOSE: External nose normal NECK: Neck supple, non-tender without lymphadenopathy, masses or thyromegaly. CARDIOVASCULAR: Regular rate and rhythm without murmurs, gallops, or rubs.
[2023-02-22 14:53] VITALS: BP 121/66; PULSE 20; RESP 20; TEMP 35.8; O2SAT 97
[2023-02-22 15:05] LABS: Glucose Point of Care 129 mg/dl (65-105)
== END 2023-02-22 15:10 | disposition home or self-care (01) ==
PROVIDERS: Emergency Provider Nurse Practitioner Family
DX: B37.31 Acute candidiasis of vulva and vagina (principal); F17.210 Nicotine dependence, cigarettes, uncomplicated; J45.909 Unspecified asthma, uncomplicated; E11.9 Type 2 diabetes mellitus without complications; E78.00 Pure hypercholesterolemia, unspecified; K21.9 Gastro-esophageal reflux disease without esophagitis; I10 Essential (primary) hypertension
CPT/HCPCS: 81003; 82948; 87077; 87086; 87088; 99213; G0463

== ENCOUNTER 2023-04-30 08:47 | Outpatient (CLI) | payer OTHER, SELFPAY ==
--- NOTE | 2023-04-30 08:57 | ECHO_ITS ---
Patient Info Name: Dilia Molina Age: 62 years : 1960 Gender: Female Ht: 62 in Wt: 165 lbs BSA: 1.84 m2 HR: 95 bpm BP: 136 / 73 mmHg Heart Rhythm: Sinus Rhythm Technical Quality: Fair Exam Date: 04/30/2023 9:11 AM Exam Location: [facility] Patient Status: Outpatient Admit Date: 04/30/2023 Staff Ordering Physician: Clifford Mensah DO Administrative Services Coordinator: Mari Clemons RDCS Attending Provider: Clifford Mensah DO Referring Physician: Rodrick REGAN; Exam Type: CA echo doppler color flow Study Info Indications R01.1 - Cardiac murmur, unspecified Complete two-dimensional, color flow and Doppler transthoracic echocardiogram is performed. Summary 1. Complete two-dimensional, color flow and Doppler transthoracic echocardiogram is performed. 2. Left ventricular chamber dimension is normal. 3. Left ventricular systolic function is normal, estimated at 60-65%. 4. There is mild concentric increased left ventricular wall thickness. 5. The left ventricular diastolic function is grade I diastolic dysfunction. 6. E/e' 6 is not elevated. 7. There is moderate aortic valve sclerosis. 8. There is mild to moderate aortic valve stenosis with a peak velocity of 173 cm/s, mean gradient of 6 mmHg, and aortic valve area of 1.4 cm2. 9. There is trace mitral valve regurgitation. 10. No pulmonary hypertension, estimated pulmonary arterial systolic pressure is 21 mmHg. Left Ventricle E/e' 6 is not elevated. Left ventricular chamber dimension is normal. Left ventricular systolic function is normal, estimated at 60-65%. There is mild concentric increased left ventricular wall thickness. The left ventricular diastolic function is grade I diastolic dysfunction. Right Ventricle Right ventricular systolic function is normal and with normal TAPSE 2.5 cm. Right ventricular chamber dimension is normal. Left Atria Left atrial chamber dimension is normal. Right Atria Right atrial chamber dimension is normal. Aortic Valve The aortic valve is trileaflet. There is moderate aortic valve sclerosis. There is mild to moderate aortic valve stenosis with a peak velocity of 173 cm/s, mean gradient of 6 mmHg, and aortic valve area of 1.4 cm2. There is no aortic valve regurgitation. Pulmonic Valve There is no pulmonic regurgitation. Mitral Valve There is no mitral valve stenosis. There is trace mitral valve regurgitation. Tricuspid Valve There is no tricuspid valve regurgitation. No pulmonary hypertension, estimated pulmonary arterial systolic pressure is 21 mmHg. Pericardium/Pleural There is no pericardial effusion. Inferior Vena Cava Normal inferior vena cava with >50% collapse upon inspiration consistent with normal right atrial pressure, 5 mmHg. Aorta The aortic root size at the sinus of Valsalva is normal. Left Ventricular Outflow Tract Name Value Normal LVOT 2D LVOT Diameter 2.0 cm LVOT Doppler LVOT Peak Gradient 3 mmHg LVOT Mean Gradient 1 mmHg LVOT VTI 15 cm LVOT VTI/AV VTI Ratio 0.5 LVOT Stroke Volume 44 ml LVOT CO 3.6 l/min
== END 2023-04-30 08:48 | disposition home or self-care (01) ==
LOC: ANHCARD 08:48
PROVIDERS: PCP Family Medicine; Visit Provider Internal Medicine Cardiovascular Disease
DX: R01.1 Cardiac murmur, unspecified (principal); I51.7 Cardiomegaly; R93.1 Abnormal findings on diagnostic imaging of heart and coronary circulation; I35.8 Other nonrheumatic aortic valve disorders; I35.0 Nonrheumatic aortic (valve) stenosis; I34.0 Nonrheumatic mitral (valve) insufficiency
CPT/HCPCS: 93306

== ENCOUNTER 2023-06-21 09:56 | Outpatient (CLI) | payer OTHER, SELFPAY ==
--- NOTE | ~2023-06-21 | NM_ITS ---
EXAMINATION: NM demi stress w perfusion DATE: 06/21/2023 12:14 INDICATION: Dyspnea on exertion. TECHNIQUE: Rest images were obtained following intravenous administration of 9.0 mCi Tc99m tetrofosmi n (Myoview). The patient was infused intravenously with Lexiscan (regadenoson). Then, 27.0 mCi Tc99m tetrofosmin (Myoview) was administered intravenously, and stress images were obtained. Data was recon structed into short axis and horizontal and vertical long axis SPECT images. Gated SPECT images were also obtained. COMPARISON: None. FINDINGS: There is no definite reversible or fixed perfusion abnormality to suggest ischemia or infar ction. There is no segmental wall motion abnormality. Left ventricular ejection fraction measures 6 6%. IMPRESSION: 1. No definite ischemia or infarct. 2. Normal left ventricular ejection fraction measuring 66%. Reviewed, dictated and finalized at location A. CENTER NURSE
--- NOTE | 2023-06-21 09:53 | EST_ITS ---
Patient Info Name: Dilia Molina Age: 62 years : 1960 Gender: Female Ht: 62 in Wt: 165 lbs BSA: 1.84 m2 Heart Rhythm: Sinus Rhythm Exam Date: 06/21/2023 11:08 AM Exam Location: Echo Lab Patient Status: Outpatient Admit Date: 06/21/2023 Staff Ordering Physician: Clifford Mensah DO Attending Provider: Clifford Mensah DO Exercise Technologist: Dinorah Miramontes CT Exercise Physician: Clifford Mensah DO Exam Type: CA stress demi w NM Study Info Indications R06.09 - Other forms of dyspnea A regadenoson stress test was performed. Summary 1. 1. Negative lexiscan stress test for ischemic ST changes by ECG criteria. 2. 2. Stable hemodynamics throughout the test. 3. 3. Nuclear scan to follow and will be reported separately. Please correlate with it. 4. 4. Patient informed of the above results. Protocol: Lexiscan Stress ECG Details Stage: REST Duration (min): 0 min : 50 sec HR (bpm): 90 SBP (mmHg): 128 DBP (mmHg): 65 Stage: REST Duration (min): 5 min : 7 sec HR (bpm): 92 SBP (mmHg): 128 DBP (mmHg): 65 Stage: STAGE 1 Duration (min): 1 min : 0 sec HR (bpm): 109 SBP (mmHg): 132 DBP (mmHg): 68 Stage: RECOVERY Duration (min): 1 min : 0 sec HR (bpm): 111 SBP (mmHg): 132 DBP (mmHg): 68 Stage: RECOVERY Duration (min): 2 min : 0 sec HR (bpm): 104 SBP (mmHg): 132 DBP (mmHg): 68 Stage: RECOVERY Duration (min): 3 min : 0 sec HR (bpm): 106 SBP (mmHg): 126 DBP (mmHg): 65 Stage: RECOVERY Duration (min): 3 min : 52 sec HR (bpm): 98 SBP (mmHg): 126 DBP (mmHg): 65 Rest HR: 92 bpm Peak HR: 116 bpm Rest Sys BP: 128 mmHg Peak Sys BP: 132 mmHg Max Pred HR: 157 bpm % Max Pred HR: 74 % Target HR: 133 bpm Max RPP: 15,312 bpm*mmHg Termination Reason: Completed protocol Cardiac Symptoms: Shortness of breath Total Time: 1 min : 0 sec Rest Florez BP: 65 mmHg Peak Florez BP: 68 mmHg Total Dose: 0.4 mg Resting ECG Sinus rhythm. Stress ECG No ST changes. Arrhythmias None. Report Signatures
[2023-06-21 11:12] LABS: Alanine Aminotransferase 32 U/L (6-35); Albumin Level 4.6 g/dL (3.5-5.1); Alkaline Phosphatase 60 U/L (38-126); Anion Gap 13 mmol/L (8-16); Aspartate Amino Transferase 26 U/L (14-36); Bilirubin,Total 0.5 mg/dL (0.2-1.3); Blood Urea Nitrogen 15 mg/dL (7-17); Carbon Dioxide 25 mmol/L (22-30); Chloride 102 mmol/L (98-107); Cholesterol 104 mg/dL (0-200); Estimated Glomerular Filt Rate > 60; Glucose 165 mg/dL (65-110); HDL Direct 36 mg/dL; Potassium 4.2 mmol/L (3.4-5.0); Sodium 140 mmol/L (137-145); Triglycerides 148 mg/dL (<150)
[2023-06-21 11:23] LABS: LDL Cholesterol Direct 52 mg/dL
== END 2023-06-21 09:57 | disposition home or self-care (01) ==
PROVIDERS: PCP Family Medicine; Visit Provider Internal Medicine Cardiovascular Disease
DX: R06.09 Other forms of dyspnea (principal); E78.00 Pure hypercholesterolemia, unspecified
CPT/HCPCS: 36415; 78452; 80053; 80061; 93017; A9502; J2785

== ENCOUNTER 2023-09-10 17:45 | Emergency (ER) | payer OTHER, SELFPAY ==
[2023-09-10 17:54] VITALS: BP 138/75; PULSE 112; RESP 20; TEMP 36.5; O2SAT 98
--- NOTE | 2023-09-10 18:07 | ED.GENADULT ---
HPI - General Adult General Chief complaint: Urogenital-Female Stated complaint: Poss kidney infection Source: patient, RN notes reviewed and old records reviewed Mode of arrival: ambulatory Limitations: no limitations History of Present Illness HPI narrative: 62-year-old female presents to [facility] with complaints of urinary frequency, urinary urgency, burning with urination this started today. Patient denies back pain, abdominal pain, fever. Patient states worried she has UTI. Related Data Home Medications Medication Instructions Recorded Confirmed omega 6-tgh-irf-fish oil 1,000 mg 2 cap PO DAILY 03/22/23 08/09/23 (120 mg-180 mg) capsule (Fish Oil) hydrocodone 7.5 mg-acetaminophen 1 tablet PO QHS PRN 08/09/23 08/09/23 325 mg tablet vit A 5,000 unit-vit C 60 mg-vit E 1 tablet PO DAILY 08/09/23 08/09/23 30 cmnl-micr-ryyibrbz-copper tablet (Prosight) Allergies Allergy/AdvReac Type Severity Reaction Status Date / Time Penicillins Allergy Unknown Unknown Verified 07/25/23 11:59 Review of Systems Constitutional: Constitutional: Reports no additional constitutional complaints, Denies body ache(s), Denies chills, Denies fatigue, Denies fever(s) and Denies headache(s) Eyes: Eyes: Reports no additional eye complaints and Denies blurry vision ENT: Reports system reviewed and no additional complaints, except as documented, Denies vertigo, Denies dizziness, Denies ear discharge, Denies otalgia, Denies facial pain, Denies headache(s), Denies nasal congestion, Denies nasal discharge, Denies sinus pain, Denies sinus pressure and Denies sore throat Cardiovascular: Cardiovascular: Reports no additional cardiovascular complaints, Denies chest pain, Denies chest pain at rest, Denies rapid heart rate and Denies dyspnea Respiratory: Respiratory: Reports no additional respiratory complaints, Denies chest congestion, Denies cough, Denies pain on inspiration, Denies pain with cough and Denies dyspnea Gastrointestinal: Gastrointestinal: Denies abdominal pain, Denies diarrhea, Denies nausea and Denies vomiting Genitourinary: Genitourinary: Reports as per HPI, Reports nocturia, Reports dysuria and Reports urinary urgency Integumentary/Breasts: Skin/Breast: Denies rash Neurologic: Reports system reviewed and no additional complaints, except as documented, Denies vertigo, Denies dizziness and Denies headache(s) Endocrine: Endocrine: Denies fatigue PMFSH Past Medical History Medical History Asthma B12 deficiency Chronic low back pain DM2 (diabetes mellitus, type 2) Elevated cholesterol GERD (gastroesophageal reflux disease) Hypertension Nicotine dependence Overweight Surgical History Surgical History History of knee surgery left Hx of cholecystectomy Previous section Family History Family History Father , Age 62 Carcinoma of colon, Onset Age: 61 Mother , Age 92 Family history of dementia, Onset Age: 92 Sibling , Age 63 Liver cancer Social History Social History Smoking packs per day: 1 Smoking cigarettes per day: 20.0 Years smoked: 35 Smoking pack-years: 35.00 Smoking status: Current every day smoker Tobacco type: cigarettes Second hand tobacco smoke exposure: No Alcohol intake: never Substance use type: does not use Do You Feel Safe in your Home?: Yes Lack of Transportation: No Lack of Food: Never True Current Housing: I Have Housing Concerned About Future Housing: No Difficulty Paying Gas/Electric Bills: No Difficulty Paying for Meds: No Currently Unemployed: No Education: High School Diploma/GED Difficulty w/ Childcare or Family Care: No Living arrangements: alone Occupation/Education: unemployed
== END 2023-09-10 18:20 | disposition home or self-care (01) ==
PROVIDERS: Emergency Provider Registered Nurse; PCP Family Medicine
DX: N30.01 Acute cystitis with hematuria (principal); B96.89 Other specified bacterial agents as the cause of diseases classified elsewhere; E11.9 Type 2 diabetes mellitus without complications; E78.00 Pure hypercholesterolemia, unspecified; K21.9 Gastro-esophageal reflux disease without esophagitis; I10 Essential (primary) hypertension; J45.909 Unspecified asthma, uncomplicated
CPT/HCPCS: 81003; 87077; 87086; 87186; 99213; G0463

== ENCOUNTER 2023-09-19 19:18 | Emergency (ER) | payer OTHER, SELFPAY ==
[2023-09-19 19:24] VITALS: BP 121/52; PULSE 100; RESP 18; TEMP 36.7; O2SAT 98
--- NOTE | 2023-09-19 19:39 | ED.GENADULT ---
HPI - General Adult General Chief complaint: Upper Respiratory Infection Stated complaint: cough/aches/fever Source: patient, RN notes reviewed and old records reviewed Mode of arrival: ambulatory Limitations: no limitations History of Present Illness HPI narrative: 62-year-old female presents to [facility] with complaints cough, congestion, myalgia, fever this started 2 days ago. Patient taking zflo-mmc-odsqxxc medications with headache. Patient denies chest pain, shortness of breath, dizziness, weakness. Related Data Home Medications Medication Instructions Recorded Confirmed omega 6-pzb-tag-fish oil 1,000 mg 2 cap PO DAILY 03/22/23 09/19/23 (120 mg-180 mg) capsule (Fish Oil) vit A 5,000 unit-vit C 60 mg-vit E 1 tablet PO DAILY 08/09/23 09/19/23 30 ligm-xrek-kicmijhb-copper tablet (Prosight) lisinopril 20 1 tablet PO DAILY 09/19/23 09/19/23 mg-hydrochlorothiazide 25 mg tablet vit A 5,000 unit-vit C 60 mg-vit E tablet 09/19/23 09/19/23 30 nvxd-xizp-smiamhog-copper tablet (Prosight) Allergies Allergy/AdvReac Type Severity Reaction Status Date / Time Penicillins Allergy Unknown Unknown Verified 07/25/23 11:59 Review of Systems Constitutional: Constitutional: Reports no additional constitutional complaints, Reports body ache(s), Denies chills, Reports fatigue, Reports fever(s) and Denies headache(s) Eyes: Eyes: Reports no additional eye complaints and Denies blurry vision ENT: Reports system reviewed and no additional complaints, except as documented, Denies vertigo, Denies dizziness, Denies ear discharge, Denies otalgia, Denies facial pain, Denies headache(s), Reports nasal congestion, Denies nasal discharge, Denies sinus pain, Denies sinus pressure and Denies sore throat Cardiovascular: Cardiovascular: Reports no additional cardiovascular complaints, Denies chest pain, Denies chest pain at rest, Denies rapid heart rate and Denies dyspnea Respiratory: Respiratory: Reports no additional respiratory complaints, Reports chest congestion, Reports cough, Denies pain on inspiration, Denies pain with cough and Denies dyspnea Gastrointestinal: Gastrointestinal: Denies abdominal pain, Denies diarrhea, Denies nausea and Denies vomiting Integumentary/Breasts: Skin/Breast: Denies rash Neurologic: Reports system reviewed and no additional complaints, except as documented, Denies vertigo, Denies dizziness and Denies headache(s) Endocrine: Endocrine: Denies fatigue PMFSH Past Medical History Medical History Asthma B12 deficiency Chronic low back pain DM2 (diabetes mellitus, type 2) Elevated cholesterol GERD (gastroesophageal reflux disease) Hypertension Nicotine dependence Overweight Surgical History Surgical History History of knee surgery left Hx of cholecystectomy Previous section Family History Family History Father , Age 62 Carcinoma of colon, Onset Age: 61 Mother , Age 92 Family history of dementia, Onset Age: 92 Sibling , Age 63 Liver cancer Social History Social History Smoking packs per day: 1 Smoking cigarettes per day: 20.0 Years smoked: 35 Smoking pack-years: 35.00 Smoking status: Current every day smoker Tobacco type: cigarettes Second hand tobacco smoke exposure: No Alcohol intake: never Substance use type: does not use Do You Feel Safe in your Home?: Yes Lack of Transportation: No Lack of Food: Never True Current Housing: I Have Housing Concerned About Future Housing: No Difficulty Paying Gas/Electric Bills: No Difficulty Paying for Meds: No Currently Unemployed: No Education: High School Diploma/GED Difficulty w/ Childcare or Family Care: No Living arrangements: alone
== END 2023-09-19 19:45 | disposition home or self-care (01) ==
PROVIDERS: Emergency Provider Registered Nurse
DX: J10.1 Influenza due to other identified influenza virus with other respiratory manifestations (principal); Z20.822 Contact with and (suspected) exposure to COVID-19; F17.210 Nicotine dependence, cigarettes, uncomplicated; E11.9 Type 2 diabetes mellitus without complications; E78.00 Pure hypercholesterolemia, unspecified; K21.9 Gastro-esophageal reflux disease without esophagitis; I10 Essential (primary) hypertension; J45.909 Unspecified asthma, uncomplicated
CPT/HCPCS: 87426; 87804; 99213; G0463

== ENCOUNTER 2024-01-17 13:18 | Outpatient (CLI) | payer OTHER, SELFPAY ==
--- NOTE | ~2024-01-17 | MM_ITS ---
EXAMINATION: MM screening sana BI w eli HISTORY: Screening TECHNIQUE: Craniocaudal and mediolateral oblique 3-D tomosynthesis images were obtained and synthetic 2-D images were generated. CAD analysis was submitted and interpreted. COMPARISON: Comparison to multiple prior studies sequentially, with oldest reviewed study dated 08/16. BREAST PARENCHYMAL COMPOSITION: Not dense: There are scattered areas of fibroglandular density. FINDINGS: There is no evidence of suspicious mass, calcification, or architectural distortion to sugg est malignancy in either breast. There has been no suspicious interval change. IMPRESSION: 1. No mammographic evidence of malignancy. 2. Recommend routine screening mammography in one year. BI-RADS Category 1: Negative Reviewed, dictated and finalized at location B.
== END 2024-01-17 13:19 | disposition home or self-care (01) ==
PROVIDERS: PCP Internal Medicine Gastroenterology; Visit Provider Internal Medicine Gastroenterology
DX: Z12.31 Encounter for screening mammogram for malignant neoplasm of breast (principal)
CPT/HCPCS: 77063; 77067

== ENCOUNTER 2024-02-06 14:01 | Emergency (ER) | payer OTHER, SELFPAY ==
[2024-02-06 14:15] VITALS: BP 133/59; PULSE 100; RESP 18; TEMP 36.7; O2SAT 98
--- NOTE | 2024-02-06 14:22 | ED.GENADULT ---
HPI - General Adult General Chief complaint: Extremity Injury, Lower Stated complaint: left ankle swollen Source: patient Mode of arrival: ambulatory Limitations: no limitations History of Present Illness HPI narrative: 63-year-old female presents for complaint of left ankle pain and swelling. Onset today when she woke up. She denies known injury; pt states she has does minimal activity due to chronic left knee pain. Pain is worse when up walking. Denies redness, warmth or decreased range of motion to the ankle, denies numbness, tingling or weakness of the extremity, toes and foot with normal sensation reported. Has not taken anything for pain. Rates pain 12/13. Related Data Home Medications Medication Instructions Recorded Confirmed omega 8-yem-ykf-fish oil 1,000 mg 2 cap PO DAILY 03/22/23 02/06/24 (120 mg-180 mg) capsule (Fish Oil) vit A 5,000 unit-vit C 60 mg-vit E 1 tablet PO DAILY 08/09/23 02/06/24 30 fxzj-otwl-gcyojjrj-copper tablet (Prosight) lisinopril 20 1 tablet PO DAILY 09/19/23 02/06/24 mg-hydrochlorothiazide 25 mg tablet vit A 5,000 unit-vit C 60 mg-vit E See Rx Instructions .Route .COMPLEX 09/19/23 02/06/24 30 njml-irqz-mckpweok-copper tablet (Prosight) hydrocodone 7.5 mg-acetaminophen See Rx Instructions .Route 02/06/24 02/06/24 325 mg tablet .COMPLEX PRN Pain Allergies Allergy/AdvReac Type Severity Reaction Status Date / Time Penicillins Allergy Unknown Unknown Verified 02/06/24 14:15 Review of Systems Review of Systems: CONSTITUTIONAL: Denies body aches, fever, chills CARDIOVASCULAR: Denies chest pain, palpitations, or edema. RESPIRATORY: Denies cough or dyspnea. GASTROINTESTINAL: Denies abdominal pain, nausea, vomiting, or diarrhea. SKIN: Denies rash, itching, or wounds. MUSCULOSKELETAL: reports left ankle pain, swelling Denies back pain, or myalgia. NEUROLOGIC: Denies headache, numbness, tingling, or weakness. All systems reviewed & are unremarkable except as noted in HPI and below PMFSH Past Medical History Medical History Asthma B12 deficiency Chronic low back pain DM2 (diabetes mellitus, type 2) Elevated cholesterol GERD (gastroesophageal reflux disease) Hypertension Nicotine dependence Overweight Surgical History Surgical History History of knee surgery left Hx of cholecystectomy Previous section Family History Family History Father , Age 62 Carcinoma of colon, Onset Age: 61 Mother , Age 92 Family history of dementia, Onset Age: 92 Sibling , Age 63 Liver cancer Social History Social History Smoking packs per day: 1 Smoking cigarettes per day: 20.0 Years smoked: 35 Smoking pack-years: 35.00 Smoking status: Current every day smoker Tobacco type: cigarettes Second hand tobacco smoke exposure: No Alcohol intake: never Substance use type: does not use Do You Feel Safe in your Home?: Yes Lack of Transportation: No Lack of Food: Never True Current Housing: I Have Housing Concerned About Future Housing: No Difficulty Paying Gas/Electric Bills: No Difficulty Paying for Meds: No Currently Unemployed: No Education: High School Diploma/GED Difficulty w/ Childcare or Family Care: No Living arrangements: alone Occupation/Education: unemployed Gender identity (if verbalized by the patient): Female Comments At time of signature, I have reviewed and agree with nursing past medical, surgical, social and family history unless otherwise noted. Please see nursing chart for further information. There is no relevant family history pertinent to the presenting complaint Exam Narrative: GENERAL: Well-appearing CHEST: Speaks in full sentences. No respirat
== END 2024-02-06 14:40 | disposition home or self-care (01) ==
PROVIDERS: Emergency Provider Nurse Practitioner Family; PCP Internal Medicine Gastroenterology
DX: M25.572 Pain in left ankle and joints of left foot (principal); M25.472 Effusion, left ankle; F17.210 Nicotine dependence, cigarettes, uncomplicated; J45.909 Unspecified asthma, uncomplicated; E11.9 Type 2 diabetes mellitus without complications; E78.00 Pure hypercholesterolemia, unspecified; K21.9 Gastro-esophageal reflux disease without esophagitis; I10 Essential (primary) hypertension
CPT/HCPCS: 99212; G0463

== ENCOUNTER 2024-03-08 11:57 | Emergency (ER) | payer OTHER, SELFPAY ==
[2024-03-08 12:02] VITALS: BP 135/65; PULSE 93; RESP 20; TEMP 36.7; O2SAT 99
--- NOTE | 2024-03-08 12:36 | ED.GENADULT ---
HPI - General Adult General Chief complaint: Upper Respiratory Infection Stated complaint: Fever/Body Ache Source: patient Mode of arrival: ambulatory Limitations: no limitations History of Present Illness HPI narrative: Patient presents for evaluation of sick symptoms since yesterday. Symptoms include fever, scratchy throat, generalized body aches, sinus congestion and rhinorrhea. No shortness of breath, nausea, vomiting diarrhea cough. No recent sick contacts to her knowledge. She is not taking any medication to assist with her symptoms. She smokes quarter pack per day. Related Data Home Medications Medication Instructions Recorded Confirmed omega 4-fep-tal-fish oil 1,000 mg 2 cap PO DAILY 03/22/23 02/06/24 (120 mg-180 mg) capsule (Fish Oil) vit A 5,000 unit-vit C 60 mg-vit E 1 tablet PO DAILY 08/09/23 02/06/24 30 bqbv-lnvd-itgerbbr-copper tablet (Prosight) lisinopril 20 1 tablet PO DAILY 09/19/23 02/06/24 mg-hydrochlorothiazide 25 mg tablet vit A 5,000 unit-vit C 60 mg-vit E See Rx Instructions .Route .COMPLEX 09/19/23 02/06/24 30 urps-fhos-eqftfupu-copper tablet (Prosight) hydrocodone 7.5 mg-acetaminophen See Rx Instructions .Route 02/06/24 02/06/24 325 mg tablet .COMPLEX PRN Pain Allergies Allergy/AdvReac Type Severity Reaction Status Date / Time Penicillins Allergy Unknown Unknown Verified 03/08/24 12:00 Review of Systems Review of Systems: CONSTITUTIONAL: Reports fever. Denies chills, or sweats. EYES: Denies visual changes, redness, or discharge. ENT: Reports sinus congestion, scratchy throat and rhinorrhea. Denies otalgia CARDIOVASCULAR: Denies chest pain, palpitations, or edema. RESPIRATORY: Denies cough or dyspnea. GASTROINTESTINAL: Denies abdominal pain, nausea, vomiting, or diarrhea. GENITOURINARY: Denies dysuria or hematuria. SKIN: Denies rash or itching. MUSCULOSKELETAL: Reports generalized body aches NEUROLOGIC: Denies headache, numbness, dizziness, or weakness. PSYCHIATRIC: Denies anxiety or depression. [facility] Past Medical History Medical History Asthma B12 deficiency Chronic low back pain DM2 (diabetes mellitus, type 2) Elevated cholesterol GERD (gastroesophageal reflux disease) Hypertension Nicotine dependence Overweight Surgical History Surgical History History of knee surgery left Hx of cholecystectomy Previous section Family History Family History Father , Age 62 Carcinoma of colon, Onset Age: 61 Mother , Age 92 Family history of dementia, Onset Age: 92 Sibling , Age 63 Liver cancer Social History Social History Smoking packs per day: 0.25 Smoking cigarettes per day: 5.0 Years smoked: 35 Smoking pack-years: 8.75 Smoking status: Current every day smoker Tobacco type: cigarettes Second hand tobacco smoke exposure: No Alcohol intake: never Substance use type: does not use Do You Feel Safe in your Home?: Yes Lack of Transportation: No Lack of Food: Never True Current Housing: I Have Housing Concerned About Future Housing: No Difficulty Paying Gas/Electric Bills: No Difficulty Paying for Meds: No Currently Unemployed: No Education: High School Diploma/GED Difficulty w/ Childcare or Family Care: No Living arrangements: alone Occupation/Education: unemployed Gender identity (if verbalized by the patient): Female Exam Narrative: GENERAL: Well-appearing, well-nourished, and in no acute distress. HEAD: Normocephalic, atraumatic. EYES: PERRLA and EOMI. ENT: Nares clear, no rhinorrhea or epistaxis. Mucous membranes moist. Oropharynx without tonsillar hypertrophy exudate or other lesions. Bilateral TMs pearly reyes nonbulg
[2024-03-08 12:41] LABS: EDINFLUASCREEN Negative; EDINFLUBSCREEN Negative
== END 2024-03-08 12:33 | disposition home or self-care (01) ==
PROVIDERS: Emergency Provider Nurse Practitioner
DX: U07.1 COVID-19 (principal); F17.210 Nicotine dependence, cigarettes, uncomplicated; J45.909 Unspecified asthma, uncomplicated; E11.9 Type 2 diabetes mellitus without complications; E78.00 Pure hypercholesterolemia, unspecified; K21.9 Gastro-esophageal reflux disease without esophagitis; I10 Essential (primary) hypertension
CPT/HCPCS: 87426; 87804; 99213; G0463

== ENCOUNTER 2024-05-07 08:51 | Emergency (ER) | payer OTHER, SELFPAY ==
[2024-05-07 08:59] VITALS: BP 132/61; PULSE 92; RESP 16; TEMP 36.5; O2SAT 98
--- NOTE | 2024-05-07 09:54 | ED.FEMALEGU ---
HPI - Female Genitourinary General Chief complaint: Urogenital-Female Stated complaint: poss bladder infection Time Seen by Provider: 05/07/24 09:54 Source: patient Mode of arrival: ambulatory Limitations: no limitations History of Present Illness HPI Narrative: 63-year-old female presents with complaint of suprapubic cramping, dysuria, urinary frequency and urgency since yesterday. Denies nausea vomiting. Afebrile. All systems reviewed and negative except as noted above. Related Data Home Medications Medication Instructions Recorded Confirmed omega 0-acv-voy-fish oil 1,000 mg 2 cap PO DAILY 03/22/23 05/07/24 (120 mg-180 mg) capsule (Fish Oil) vit A 5,000 unit-vit C 60 mg-vit E 1 tablet PO DAILY 08/09/23 05/07/24 30 jwmg-khzz-ugmuociu-copper tablet (Prosight) lisinopril 20 1 tablet PO DAILY 09/19/23 05/07/24 mg-hydrochlorothiazide 25 mg tablet vit A 5,000 unit-vit C 60 mg-vit E See Rx Instructions .Route .COMPLEX 09/19/23 05/07/24 30 yfwn-evre-qfwhfuep-copper tablet (Prosight) hydrocodone 7.5 mg-acetaminophen See Rx Instructions .Route 02/06/24 05/07/24 325 mg tablet .COMPLEX PRN Pain Allergies Allergy/AdvReac Type Severity Reaction Status Date / Time Penicillins Allergy Unknown Unknown Verified 05/07/24 09:24 Review of Systems Review of Systems: CONSTITUTIONAL: Denies fever, chills, or sweats. EYES: Denies visual changes, redness, or discharge. ENT: Denies rhinorrhea, congestion, sore throat, or otalgia. CARDIOVASCULAR: Denies chest pain, palpitations, or edema. RESPIRATORY: Denies cough or dyspnea. GASTROINTESTINAL: Reports suprapubic abdominal pain. Denies nausea, vomiting, or diarrhea. GENITOURINARY: Reports dysuria, urgency, frequency. SKIN: Denies rash or itching. MUSCULOSKELETAL: Denies back pain, joint pain, or myalgia. NEUROLOGIC: Denies headache, numbness, or weakness. PSYCHIATRIC: Denies anxiety or depression. All other systems reviewed are negative, except as documented in HPI. [facility] Past Medical History Medical History Asthma B12 deficiency Chronic low back pain DM2 (diabetes mellitus, type 2) Elevated cholesterol GERD (gastroesophageal reflux disease) Hypertension Nicotine dependence Overweight Surgical History Surgical History History of knee surgery left Hx of cholecystectomy Previous section Family History Family History Father , Age 62 Carcinoma of colon, Onset Age: 61 Mother , Age 92 Family history of dementia, Onset Age: 92 Sibling , Age 63 Liver cancer Social History Social History Smoking packs per day: 0.25 Smoking cigarettes per day: 5.0 Years smoked: 35 Smoking pack-years: 8.75 Smoking status: Current every day smoker Tobacco type: cigarettes Second hand tobacco smoke exposure: No Alcohol intake: never Substance use type: does not use Do You Feel Safe in your Home?: Yes Lack of Transportation: No Lack of Food: Never True Current Housing: I Have Housing Concerned About Future Housing: No Difficulty Paying Gas/Electric Bills: No Difficulty Paying for Meds: No Currently Unemployed: No Education: High School Diploma/GED Difficulty w/ Childcare or Family Care: No Living arrangements: alone Occupation/Education: unemployed Gender identity (if verbalized by the patient): Female Comments At time of signature, agree with nursing past medical, surgical, social and family history. There is no relevant family history pertinent to the presenting complaint. Exam Narrative: GENERAL: This is a well-nourished, well-developed patient, in no apparent distress. HEAD: normocephalic, atraumatic. EYES: PERRL. Sclera christopher
[2024-05-07 10:03] LABS: EDUAAPPEAR Clots; EDUABILI Negative (Negative); EDUABLOOD 3+ (Negative); EDUACOLOR1 Dark; EDUAGLUCOSE Negative (Negative); EDUAKETONE Negative (Negative); EDUALEUKO 2+ (Negative); EDUANITRATE Negative (Negative); EDUAPH 5.5; EDUAPROTEIN 2+ (Negative); EDUAUROBILI 0.2
== END 2024-05-07 10:05 | disposition home or self-care (01) ==
PROVIDERS: Emergency Provider Nurse Practitioner Family; PCP Internal Medicine Gastroenterology
DX: N39.0 Urinary tract infection, site not specified (principal); B96.20 Unspecified Escherichia coli [E. coli] as the cause of diseases classified elsewhere; F17.210 Nicotine dependence, cigarettes, uncomplicated; J45.909 Unspecified asthma, uncomplicated; E11.9 Type 2 diabetes mellitus without complications; E78.00 Pure hypercholesterolemia, unspecified; K21.9 Gastro-esophageal reflux disease without esophagitis; I10 Essential (primary) hypertension
CPT/HCPCS: 81003; 87077; 87086; 87186; 99213; G0463

== ENCOUNTER 2024-05-19 19:02 | Emergency (ER) | payer OTHER, SELFPAY ==
[2024-05-19 19:10] VITALS: BP 140/64; PULSE 103; RESP 20; TEMP 36.9; O2SAT 98
--- NOTE | 2024-05-19 19:21 | ED.FEMALEGU ---
HPI - Female Genitourinary General Chief complaint: Urogenital-Female Stated complaint: bladder infection Time Seen by Provider: 05/19/24 19:21 Source: patient, RN notes reviewed and old records reviewed Mode of arrival: ambulatory Limitations: no limitations History of Present Illness HPI Narrative: 63 year old female presents to [facility] care with complaints of symptoms of urinary tract infection which includes urgency of urination,then seems to not be able to go and just dribbles for the past 4 days. She also states that she has burning with urination and some suprapubic discomfort. Patient reports that she was recently treated for an UTI but doesn't think it cleared completely. She reports that she also thinks she has yeast infection with some thick white discharge that is itchy. Patient reports no known fevers chills or sweats and denies any CVA tenderness. MD elicited complaint: dysuria Pertinent past history: other (previous uti) Onset (ago): day(s) (4) Location of symptoms: suprapubic and urethra Severity scale (1-10): 4 Vaginal discharge: thick/cheesy Vaginal bleeding: none Urinary symptoms: Dysuria, Urgency and Difficulty Urinating Treatment prior to arrival: none Related Data Home Medications Medication Instructions Recorded Confirmed omega 4-jsx-ofn-fish oil 1,000 mg 2 cap PO DAILY 03/22/23 05/07/24 (120 mg-180 mg) capsule (Fish Oil) vit A 5,000 unit-vit C 60 mg-vit E 1 tablet PO DAILY 08/09/23 05/07/24 30 ruqj-fhun-zjhrgigr-copper tablet (Prosight) lisinopril 20 1 tablet PO DAILY 09/19/23 05/07/24 mg-hydrochlorothiazide 25 mg tablet vit A 5,000 unit-vit C 60 mg-vit E See Rx Instructions .Route .COMPLEX 09/19/23 05/07/24 30 wzof-qtgg-acztdjwu-copper tablet (Prosight) hydrocodone 7.5 mg-acetaminophen See Rx Instructions .Route 02/06/24 05/07/24 325 mg tablet .COMPLEX PRN Pain Allergies Allergy/AdvReac Type Severity Reaction Status Date / Time Penicillins Allergy Unknown Unknown Verified 05/07/24 09:24 Review of Systems Review of Systems: CONSTITUTIONAL: Denies fever, chills, or sweats. CARDIOVASCULAR: Denies chest pain, palpitations, or edema. RESPIRATORY: Denies cough or dyspnea. GASTROINTESTINAL: Reports suprapubic pain,no nausea, vomiting, or diarrhea. GENITOURINARY: Reports dysuria, frequency, urgency. Denies flank pain or hematuria.reports thick white discharge that is itchy SKIN: Denies rash or itching. MUSCULOSKELETAL: Denies back pain or myalgia. Denies CVA tenderness NEUROLOGIC: Denies headache All systems reviewed & are unremarkable except as noted in HPI and below PMFSH Past Medical History Medical History Asthma B12 deficiency Chronic low back pain DM2 (diabetes mellitus, type 2) Elevated cholesterol GERD (gastroesophageal reflux disease) Hypertension Nicotine dependence Overweight Surgical History Surgical History History of knee surgery left Hx of cholecystectomy Previous section Family History Family History Father , Age 62 Carcinoma of colon, Onset Age: 61 Mother , Age 92 Family history of dementia, Onset Age: 92 Sibling , Age 63 Liver cancer Social History Social History Smoking packs per day: 0.25 Smoking cigarettes per day: 5.0 Years smoked: 35 Smoking pack-years: 8.75 Smoking status: Current every day smoker Tobacco type: cigarettes Second hand tobacco smoke exposure: No Alcohol intake: never Substance use type: does not use Do You Feel Safe in your Home?: Yes Lack of Transportation: No Lack of Food: Never True Current Housing: I Have Housing Concerned About Future Housing: No Difficulty Paying Gas/Electric Bills: No Difficulty Paying for Meds: No
[2024-05-19 19:40] LABS: EDUAAPPEAR Clear; EDUABILI Negative (Negative); EDUABLOOD 3+ (Negative); EDUACOLOR1 Yellow; EDUAGLUCOSE Negative (Negative); EDUAKETONE Negative (Negative); EDUALEUKO 1+ (Negative); EDUANITRATE Negative (Negative); EDUAPROTEIN Trace (Negative); EDUASPGRAVITY 1.015; EDUAUROBILI 0.2
== END 2024-05-19 19:56 | disposition home or self-care (01) ==
PROVIDERS: Emergency Provider Registered Nurse; PCP Internal Medicine Gastroenterology
DX: N39.0 Urinary tract infection, site not specified (principal); B37.31 Acute candidiasis of vulva and vagina; F17.210 Nicotine dependence, cigarettes, uncomplicated; J45.909 Unspecified asthma, uncomplicated; E11.9 Type 2 diabetes mellitus without complications; E78.00 Pure hypercholesterolemia, unspecified; I10 Essential (primary) hypertension; K21.9 Gastro-esophageal reflux disease without esophagitis
CPT/HCPCS: 81003; 87086; 99213; G0463

== ENCOUNTER 2024-06-30 15:09 | Outpatient (CLI) | payer OTHER, SELFPAY ==
--- NOTE | 2024-06-30 15:15 | ECHO_ITS ---
Patient Info Name: Dilia Molina Age: 63 years : 1960 Gender: Female Ht: 62 in Wt: 165 lbs BSA: 1.84 m2 HR: 70 bpm BP: 130 / 78 mmHg Heart Rhythm: Sinus Rhythm Technical Quality: Good Exam Date: 06/30/2024 3:42 PM Exam Location: Echo Lab Patient Status: Outpatient Admit Date: 06/30/2024 Staff Ordering Physician: Clifford Mensah DO [employer] Head: Della Miner RDCS Attending Provider: Clifford Mensah DO Referring Physician: Rodrick REGAN; Exam Type: CA echo doppler color flow Study Info Indications - nonrheumatic aortic valve stenosis Complete two-dimensional, color flow and Doppler transthoracic echocardiogram is performed. Summary 1. Complete two-dimensional, color flow and Doppler transthoracic echocardiogram is performed. 2. Left ventricular chamber dimension is normal. 3. Left ventricular systolic function is normal, estimated at 60-65%. 4. The left ventricular diastolic function is grade I diastolic dysfunction. 5. E/e' 13 is mildly elevated. 6. The aortic valve is not well visualized. Cannot determine number of aortic valve leaflets. 7. There is mild aortic valve stenosis based on a peak velocity of 224 cm/s, mean gradient of 10 mmHg, and aortic valve area of 1.6 cm2. 8. There is mild aortic valve sclerosis. 9. No pulmonary hypertension, estimated pulmonary arterial systolic pressure is 23 mmHg. Left Ventricle E/e' 13 is mildly elevated. Left ventricular chamber dimension is normal. Left ventricular systolic function is normal, estimated at 60-65%. The left ventricular diastolic function is grade I diastolic dysfunction. Right Ventricle Right ventricular systolic function is normal and with normal TAPSE 2.8 cm. Right ventricular chamber dimension is normal. Left Atria Left atrial chamber dimension is normal. Right Atria Right atrial chamber dimension is normal. Aortic Valve The aortic valve is not well visualized. Cannot determine number of aortic valve leaflets. There is mild aortic valve stenosis based on a peak velocity of 224 cm/s, mean gradient of 10 mmHg, and aortic valve area of 1.6 cm2. There is mild aortic valve sclerosis. There is no aortic valve regurgitation. Pulmonic Valve There is no pulmonic regurgitation. Mitral Valve There is no mitral valve stenosis. There is no mitral valve regurgitation. Tricuspid Valve There is no tricuspid valve regurgitation. No pulmonary hypertension, estimated pulmonary arterial systolic pressure is 23 mmHg. Pericardium/Pleural There is no pericardial effusion. Inferior Vena Cava Normal inferior vena cava with >50% collapse upon inspiration consistent with normal right atrial pressure, 5 mmHg. Aorta The aortic root size at the sinus of Valsalva is normal. Left Ventricular Outflow Tract Name Value Normal LVOT 2D LVOT Diameter 1.8 cm LVOT Doppler LVOT Peak Gradient 5 mmHg LVOT Mean Gradient 3 mmHg LVOT VTI 26 cm LVOT VTI/AV VTI Ratio 0.6 LVOT Stroke Volume 67 ml LVOT CO 6.0 l/min LVOT CI 3.3 l/min/m2 Mitral Valve Name Value Normal MV Doppler MV Decel Hunt 595 cm/s2 MV PHT 38 ms MV Area (PHT) 5.7 cm2 4.0-5.0 MV Diastolic Function MV E Peak Velocity 79 cm/s MV A Peak Velocity 81 cm/s MV E/A 1.0 MV Decel Time 132 ms MV Annular TDI MV E/e' (Septal) 18.7 <=8.0 MV E/e' (Lateral) 10.1 <=8.0 MV E/e' (Average) 14.4 Tricuspid Valve Name Value Normal TV Regurgitation Doppler TR Peak Velocity 209 cm/s TR Peak Gradient 18 mmHg Estimated PAP/RSVP RA Pressure 5 mmHg <=5 PA Systolic Pressure 23 mmHg <36 RV Systolic Pressure 23 mmHg <36 Aortic Valve Name Value Normal AV Doppler AV Peak Velocity 224 cm/s AV Peak Gradient 17 mmHg AV Mean Gradient 10 mmHg AV VTI 42 cm AV Area (Cont Eq VTI) 1.6 cm2 >=3.0 AV Area (Cont Eq Francisco) 1.4 cm2 AV Regurgitation 2D LVOT Area 2.6 cm2 Ventricles Name Value Normal LV Dimensions 2D/MM IVS Diastolic Thickness (2D) 1.1 cm 0.6-1.0 LVID Diastole (2D) 4.4 cm 3.8-5.2 LVIW Diastolic Thickness (2D) 1.1 cm 0.6-0.9 LVID Systole (2D) 2.5 cm 2.2-3.5 LVOT Diameter 1.8 cm LV Mass (2D Cubed) 167.35 g 67.00-162.00 LV Mass Index (2D Cubed) 91 g/m2 43-95 Relative Wall Thickness (2D) 0.50 LV Fractional Shortening/Ejection Fraction 2D/MM LV Fractional Shortening (2D) 42 % 27-45 LV EF (2D Teicholz) 73 % 54-74 LV Diastolic Volume (4C MOD) 115 ml LV EF (4C MOD) 57 % LV Diastolic Volume (2C MOD) 104 ml LV EF (2C MOD) 60 % LV Diastolic Volume (BP MOD) 112 ml 46-106 LV Diastolic Volume Index (BP MOD) 61 ml/m2 29-61 LV Systolic Volume (BP MOD) 46 ml 14-42 LV Systolic Volume Index (BP MOD) 25 ml/m2 8-24 LV EF (BP MOD) 59 % 54-74 LV Diastolic Length (4C) 7.4 cm LV Systolic Length (4C) 5.4 cm LV Stroke Volume (4C MOD) 65 ml Atria Name Value Normal LA Dimensions LA Volume (4C A-L) 26 ml LA Volume (BP A-L) 29 ml RA Dimensions RA Area (4C) 12.5 cm2 <=18.0 Report Signatures
== END 2024-06-30 15:10 | disposition home or self-care (01) ==
LOC: ANHCARD 15:10
PROVIDERS: PCP Internal Medicine Gastroenterology; Visit Provider Internal Medicine Cardiovascular Disease
DX: I35.0 Nonrheumatic aortic (valve) stenosis (principal); I35.8 Other nonrheumatic aortic valve disorders
CPT/HCPCS: 93306

== ENCOUNTER 2024-10-30 19:04 | Emergency (ER) | payer OTHER, SELFPAY ==
--- OUTSIDE RECORDS SUMMARY | 2024-10-30 19:06 | XMS_ITS | Data Portability ---
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 Plan of Treatment Reminders Order Date Submit Date Provider Last Modified By Organization Details Last Modified Time Details Appointments ANY 15 2024 01:45P M Nereida Oneill MD Not available Not available Not available Lab HbA1c (hemoglob in A1c), blood 2023 024 [place] [id number] In-Office Order, Internal Use Only DO Not Attach Compendium DO Not Attach Compendium, Do Not Delete/merge, [id number] 06/23/2024 13:05:11 HbA1c (hemoglob in A1c), blood 2023 024 [place] In-Office Order, Internal Use Only DO Not Attach Compendium DO Not Attach Compendium, Do Not Delete/merge, [id number] 11/26/2023 13:19:53 Referral orthopedi c surgeon referral [address] [facility], [address], [place], [address], 07/09/2024 16:26:01 Procedures None recorded. Surgeries None recorded. Imaging None recorded. Medication Orders naproxen 500 mg tablet 2023 024 [facility], [address], [place], [address], 06/23/2024 13:08:07 hydrocodo ne 7.5 mg-acetam inophen 325 mg tablet 2023 024 [facility] [place] [address], [place], [address], 03/05/2024 16:12:43 lisinopri l 20 mg-hydroc hlorothia zide 12.5 mg tablet 2023 024 [place] [address], [place], [address], 03/05/2024 16:12:31 Patient TargetsNo targets recorded. Patient Instructions Encounter Date Encounter Id Patient Instructions Last Modified By Organization Details Last Modified Time 11/26/2023 [id number] learning about high blood pressure [email or web address] Not available 11/26/2023 13:13:12 12/24/2023 [id number] learning about high blood pressure [email or web address] Not available 12/24/2023 18:12:50 03/05/2024 [id number] learning about high blood pressure [email or web address] Not available 03/05/2024 16:12:25 04/16/2024 [id number] learning about high blood pressure Not available 04/16/2024 15:06:06 06/23/2024 [id number] A healthy lifestyle: care instructions [email or web address] Not available 06/23/2024 14:12:07 A healthy lifestyle: care instructions [email or web address] Not available 06/23/2024 13:08:05 learning about high blood pressure [email or web address] Not available 06/23/2024 13:05:09 Reason for Referral Orthopedic Surgeon Referral for Pain of left knee region Increased left knee pain. Had repair medial meniscus tear in 2021 Referring Physician: Nereida Oneill, Internal Medicine, Encounter Date: 06/23/2024 Results Created Date Observation Date Name Description Value Unit Range Abnormal Flag Note LastModifiedBy Organization Detail LastModifiedTime 11/26/19 24 11/26/2023 HbA1c (hemo globi n A1c), blood HbA1c 7.9% Not Available In-Office Order Internal Use Only DO Not Attach Compendium DO Not Attach Compendium, Do Not Delete/merge, [id number] 11/26/2023 13:11:22 06/23/20 24 06/23/2024 HbA1c (hemo globi n A1c), blood HbA1c 7.5 Not Available In-Office Order Internal Use Only DO Not Attach Compendium DO Not Attach Compendium, Do Not Delete/merge, [id number] 06/23/2024 13:04:57 01/17/20 24 01/17/2024 MAMMO , scree neftali, digit al, bilat eral No observ ation record ed. [facility] [address] [place], [address], 01/29/2024 09:21:11 01/18/20 24 01/17/2024 MAMMO , scree neftali, digit al, bilat eral No observ ation record ed. [facility] [address] [place], [address], 01/29/2024 09:21:12 06/30/20 24 06/30/2024 trans -thor acic echoc ardio gram (TTE) (PROC ) No observ ation record ed. [place] [address], [place], [address], 07/22/2024 13:53:20 Result Notes None recorded. Problems Name Problem SNOMED Code Status Onset Date Resolution Date Notes Provider Name and Address Organization Details Recorded Time Diverticu lar disease 945553467 Active 2023 Nereida Oneill MD Attn: Shayne donato,[address] [facility], [place], [address], [place] - [facility] 4 14:35:32 Medicatio n monitorin g Active 2023 Nereida Oneill MD Attn: Shayne donato,[address] [facility], [place], [address], [facility] - [facility] 4 14:41:19 Multiple joint pain 76192712 Active 2023 Back/L knee Nereida Oneill MD Attn: Shayne kinga,[address] [facility], [place], [address], [place] - [facility] 4 14:45:35 Pain of left knee region 054681574803 109 Active 2023 Nereida Oneill MD Attn: Patrickvng donato,[address] [facility], [place], [address], [place] [facility] 4 13:04:37 Diabetes mellitus 61907012 Active Jordan Moreno MD Attn: Shayne kinga,[address] [facility], [place], [address], [place] [facility] 6 11:16:28 Essential hypertens ion 00726585 Active Jordan Moreno MD Attn: Patrickvng donato,[address] [facility], [place], [address], [place] - [facility] 6 11:16:28 Gastroeso phageal reflux disease 121277060 Completed 09/04/2023 Nereida Oneill MD Attn: Shayne kinga,[address] [facility], [place], [address], [place] [facility] 4 14:35:49 Asthma 815460914 Completed 09/04/2023 Nereida Oneill MD Attn: Shayne kinga,[address] [facility], [place], [address], [place] - [facility] 4 14:46:23 Pain in left lower limb 890605495 Active Carlie Storey MA null, [place] - [facility] 6 10:46:19 Diverticu litis 249748748 Completed 09/04/2023 Nereida Oneill MD Attn: Patrickvng donato,[address] [facility], [place], [address], [place] - [facility] 4 14:41:43 Problem Notes None recorded. Procedures Surgical History Date Name Laterality Status Provider Name and Address Organization Details Recorded Time Most Recent Mammogram completed Ute Boyce [place] - [place] 12/28/2020 14:46:04 1 Date of Last Pap Smear completed Ute Boyce MA [facility] 12/28/2020 14:45:31 1 cataract surgery completed Ute Boyce MA [facility] 09/29/2020 08:57:05 9 colonoscopy completed Ute Boyce MA [facility] 09/29/2020 08:57:29 5 Colonoscopy with biopsy completed Jordan Moreno MD Attn: Accounting,[address] [facility], [place], [address], [facility] 07/26/2015 11:04:39 Caesarean Section completed Ute Boyce [facility] 11/15/2015 11:51:59 Other completed Ute Boyce [facility] 11/15/2015 11:51:59 Imaging Results Imaging Date Name Status LastModified by Organization Details LastModified Time 01/17/2024 MAMMO, screening, digital, bilateral completed [facility] [address] [place], [address], 01/29/2024 09:21:11 01/17/2024 MAMMO, screening, digital, bilateral completed [facility] [address] [place], [address], 01/29/2024 09:21:12 06/30/2024 trans-thoracic echocardiogram (TTE) (PROC) completed [address], [address], 07/22/2024 13:53:20 Procedure Notes None recorded. Medical Equipment None Reported. Allergies Allergen ID Allergen Name Allergen Category Reaction Reaction Severity Criticality Documentation Date Start Date Code Code System Note Provider Name and Address Organization Details Recorded Time 39465 Product containin g penicilli n (product) medicatio n hives Not available Not available 10/02/2016 71279 [id number] SNOMED Not Available Not Available Not Available Medications Name Sig Start Date Stop Date Status Note LastModified by Organization Details LastModified Time celecoxib 200 mg capsule active Not Available Not Available Not Available cyclobenzap rine 10 mg tablet TK 1 T PO TID PRF MUSCLE SPASM 09/04 completed Not Available Not Available Not Available atorvastati n 40 mg tablet TAKE 1 TABLET BY MOUTH DAILY 09/04 completed Not Available Not Available Not Available metformin 500 mg tablet Take 1 tablet twice a day by oral route for 30 days. active Not Available Not Available No t Available atorvastati n 80 mg tablet TAKE 1 TABLET EVERY DAY BY MOUTH IN THE EVENING. 2024 active Not Available Not Available Not Avai lable prednisone 10 mg tablet 04/16 completed Not Available Not Available Not Available doxycycline hyclate 100 mg capsule 04/16 completed Not Available Not Available Not Available loperamide 2 mg capsule 09/04 completed Not Available Not Available Not Available lisinopril 20 mg-hydrochl orothiazide 12.5 mg tablet TAKE TWO (2) TABLETS EVERY DAY BY ORAL ROUTE. 2024 active Not Available Not Available Not Avai lable azithromyci n 250 mg tablet 09/29 completed Not Available Not Available Not Available ibuprofen 800 mg tablet 05/13 completed Not Available Not Available Not Available ofloxacin 0.3 % eye drops 12/28 completed Not Available Not Available Not Available tizanidine 4 mg tablet active Not Available Not Available Not Available fluconazole 150 mg tablet TAKE 1 TABLET EVERY WEEK BY ORAL ROUTE. 06/23 completed Not Available Not Available Not Available ranitidine 300 mg tablet TAKE 1 TABLET BY MOUTH DAILY 05/13 completed Not Available Not Available Not Available hydrocodone 5 mg-acetamin ophen 325 mg tablet TAKE 1 TABLET BY MOUTH EVERY 8 HOURS NEEDED FOR PAIN 09/04 completed Not Available Not Available Not Available meloxicam 15 mg tablet Take 1 tablet every day by oral route as needed with meal for pain. active Not Available Not Available No t Available phenazopyri dine 200 mg tablet active Not Available Not Available Not Available ondansetron HCl 4 mg tablet 10/02 completed Not Available Not Available Not Available prednisone 20 mg tablet 09/04 completed Not Available Not Available Not Available ciprofloxac in 500 mg tablet 10/02 completed Not Available Not Available Not Available sulfamethox azole 800 mg-trimetho prim 160 mg tablet TAKE 1 TABLET BY MOUTH EVERY 12 HOURS 06/23 completed Not Available Not Available Not Available triamcinolo ne acetonide 0.1 % topical cream APPLY BY TOPICAL ROUTE TO AFFECTED AREA THREE TIMES A DAY FOR 7 DAYS (MIX EQUAL AMOUNTS OF NYSTATIN CREAM) 09/04 completed Not Available Not Available Not Available glimepiride 1 mg tablet active Not Available Not Available Not Available ketorolac 0.5 % eye drops 12/28 completed Not Available Not Available Not Available meloxicam 7.5 mg tablet pain mx 05/13 completed Not Available Not Available Not Available amitriptyli ne 25 mg tablet 09/29 completed Not Available Not Available Not Available prednisolon e acetate 1 % eye drops,suspe nsion SHAKE LIQUID AND INSTILL 1 DROP SURGICAL EYE THREE TIMES DAILY STARTING AFTER SURGERY 12/28 completed Not Available Not Available Not Available Flagyl 500 mg tablet Take 1 tablet twice a day by oral route for 7 days. 09/29 completed Not Available Not Available Not Available hydrocodone 7.5 mg-acetamin ophen 325 mg tablet TAKE 1 TABLET TWICE a DAY BY ORAL ROUTE NEEDED. active Not Available Not Available No t Available cephalexin 500 mg capsule TAKE ONE CAPSULE BY MOUTH FOUR TIMES A DAY FOR 10 DAYS 06/23 completed Not Available Not Available Not Available metformin 1,000 mg tablet TAKE ONE TABLET BY MOUTH TWO TIMES a DAY active Not Available Not Available No t Available nystatin 100,000 unit/gram topical cream APPLY TO AFFECTED AREA(S) BY TOPICAL ROUTE THREE TIMES A DAY FOR 7 DAYS (MIX EQUAL AMOUNTS OF TRIAMCINO LONE CREAM) 09/04 completed Not Available Not Available Not Available lidocaine 5 % topical patch 09/04 completed Not Available Not Available Not Available diclofenac potassium 50 mg tablet 05/13 completed Not Available Not Available Not Available gabapentin 300 mg capsule pain mx 09/04 completed Not Available Not Available Not Available lisinopril 20 mg-hydrochl orothiazide 25 mg tablet TAKE 1 TABLET BY MOUTH DAILY 04/16 completed Not Available Not Available Not Available pravastatin 20 mg tablet TAKE ONE TABLET BY MOUTH AT BEDTIME 10/02 completed Not Available Not Available Not Available diclofenac sodium 50 mg tablet,samara yed release TK 1 T PO TID PRF PAIN 09/04 completed Not Available Not Available Not Available levofloxaci n 500 mg tablet active Not Available Not Available Not Available methylpredn isolone 4 mg tablets in a dose pack 09/29 completed Not Available Not Available Not Available naproxen 500 mg tablet Take 1 tablet twice a day by oral route with meal(s). active Not Available Not Available No t Available Ventolin HFA 90 mcg/actuati on aerosol inhaler INHALE 2 PUFFS BY MOUTH THREE TIMES DAILY NEEDED 09/29 completed Not Available Not Available Not Available nitrofurant oin monohydrate /macrocryst als 100 mg capsule TAKE 1 CAPSULE BY MOUTH EVERY 12 HOURS FOR 7 DAYS 11/25 completed Not Available Not Available Not Available pregabalin 75 mg capsule TAKE ONE CAPSULE BY MOUTH AT BEDTIME 09/04 completed Not Available Not Available Not Available diclofenac 1 % topical gel 09/04 completed Not Available Not Available Not Available Jardiance 10 mg tablet 09/04 completed Not Available Not Available Not Available Prosight 5,000 unit-60 mg-30 unit tablet TAKE ONE TABLET BY MOUTH TWO TIMES A DAY active Not Available Not Available No t Available Vitals Date Recorded Body height Body temperature Oxygen saturation Oxygen saturation in Arterial blood by Pulse oximetry Body mass index (BMI) Body weight Heart rate Systolic blood pressure Diastolic blood pressure Provider Name and Address Organization Details Last Updated DateTime 4 157.48 cm 98 [degF] 98 % 98 % 30.5 kg/m2 83083.9 3 g 113 /min 150 mm[Hg] 68 mm[Hg] Tiki Arizmendi [place] - [facility] 4 12:49:33 Date Recorded Body height Body mass index (BMI) Body weight Oxygen saturation Oxygen saturation in Arterial blood by Pulse oximetry Heart rate Systolic blood pressure Diastolic blood pressure Provider Name and Address Organization Details Last Updated DateTime 4 157.48 cm 30.4 kg/m2 43565.3 3 g 98 % 98 % 110 /min 156 mm[Hg] 80 mm[Hg] Tiki Arizmendi [place] [facility] 4 17:52:35 Date Recorded Body height Body mass index (BMI) Body weight Oxygen saturation Oxygen saturation in Arterial blood by Pulse oximetry Heart rate Systolic blood pressure Diastolic blood pressure Provider Name and Address Organization Details Last Updated DateTime 4 157.48 cm 30 kg/m2 03860.1 5 g 98 % 98 % 105 /min 156 mm[Hg] 74 mm[Hg] Tiki Arizmendi MA [facility] 4 15:31:40 Date Recorded Body height Body mass index (BMI) Body weight Heart rate Oxygen saturation Oxygen saturation in Arterial blood by Pulse oximetry Systolic blood pressure Diastolic blood pressure Provider Name and Address Organization Details Last Updated DateTime 4 157.48 cm 30.7 kg/m2 20753.4 4 g 89 /min 95 % 95 % 133 mm[Hg] 72 mm[Hg] Alok Rivas MA [facility] 4 14:55:49 Date Recorded Body height Body mass index (BMI) Body weight Oxygen saturation Oxygen saturation in Arterial blood by Pulse oximetry Heart rate Systolic blood pressure Diastolic blood pressure Provider Name and Address Organization Details Last Updated DateTime 4 157.48 cm 30 kg/m2 35712.1 5 g 95 % 95 % 92 /min 129 mm[Hg] 74 mm[Hg] Alok Rivas MA [facility] 4 12:38:18 Social History Question Answer Notes LastModified by Organizat ion Details LastModified Time Tobacco Smoking Status Current Every Day Smoker Ute Boyce MA [facility] 09/29/2020 08:56:02 What Is Your Level Of Alcohol Consumption? None [email or web address] Information not available 10/28/2014 Is Blood Transfusion Acceptable In An Emergency? Yes Information not available 11/15/2015 What Is Your Level Of Caffeine Consumption? Heavy Information not available 11/15/2015 How Much Tobacco Do You Chew? None Information not available 11/15/2015 In The 14 Days Before Symptom Onset, Have You Had Close Contact With A Laboratory-confirm ed COVID-19 While That Case Was Ill? No Information n ot available 09/29/2020 In The 14 Days Before Symptom Onset, Have You Had Close Contact With A Person Who Is Under Investigation For COVID-19 While That Person Was Ill? No Information not available 09/29/2020 Have You Been To An Area Known To Be High Risk For COVID-19? No Information not available 09/29/2020 Are You Currently Employed? No Information not available 11/15/2015 What Type Of Diet Are You Following? REGULAR Information n ot available 11/15/2015 Which Illicit Or Recreational Drugs Have You Used? No Information not available 11/15/2015 Education 12 Information no t available 11/15/2015 What Is The Highest Grade Or Level Of School You Have Completed Or The Highest Degree You Have Received? [id number] Information not available 09/29/2020 Live Alone Or With Others? Alone Information not available 11/15/2015 What Was The Date Of Your Most Recent Tobacco Screening? 06/23/2024 Information not available 06/23/2024 How Many Children Do You Have? 2 Information not available 11/15/2015 What Is Your Current Pack Years? 30ormorepack years Information not available 09/29/2020 Performs Monthly Self-breast Exam? No Information no t available 11/15/2015 Do You Use Protection During Sex? No Information not available 11/15/2015 What Is Your Relationship Status? Single Information not available 11/15/2015 Do You Use Your Seat Belt Or Car Seat Routinely? Yes Information not available 09/29/2020 Seat Belts Used Routinely Yes Information not available 11/15/2015 Are You Sexually Active? Yes Information not available 11/15/2015 At What Age Did You Start Smoking Tobacco? 24 Information not available 11/15/2015 How Much Tobacco Do You Smoke? 0.25 PPD [email or web address] Information not available 03/05/2024 General Stress Level Low Information not available 11/15/2015 Do You Feel Stressed (tense, Restless, Nervous, Or Anxious, Or Unable To Sleep At Night)? [id number] Information not available 09/29/2020 Do You Use Any Illicit Or Recreational Drugs? No Information not available 09/29/2020 Do You Use Sunscreen Routinely? No Information not available 11/15/2015 Has Tobacco Cessation Counseling Been Provided? Yes Information not available 09/29/2020 On What Date Was Tobacco Cessation Counseling Provided? 06/23/2024 Information not available 06/23/2024 How Many Years Have You Smoked Tobacco? 35 Information not available 09/29/2020 Do You Or Have You Ever Used Any Other Forms Of Tobacco Or Nicotine? No Information not available 09/29/2020 Sex: Female Functional Status Question Answer Note LastModified by Organization D etails LastModified Time What is your exercise level? None Information not available 09/29/2020 Mental Status None recorded. Family History Relationship Description Onset Age of this Age Resolved Age Notes LastModified by Organization Details LastModified Time Father Hypertensive disorder [email or web address] Not available 2015 10:46:19 Father Malignant tumor of colon [email or web address] Not available 2015 10:46:19 Mother Hypertensive disorder sattebery Not available 2015 10:46:19 Mother Heart disease [email or web address] Not available 2015 10:46:19 Mother Diabetes mellitus [email or web address] Not available 09/29 08:55:01 Sister Malignant tumor of ovary x2 sattebery Not available 2015 10:46:19 Sister Malignant neoplasm of liver sattebery Not available 2015 10:46:19 Sister Malignant tumor of lung sattebery Not available 2015 10:46:19 Paternal Grandmother Malignant neoplasm of brain sattebery Not available 2015 10:46:19 Medical History Condition Response Other N High Blood Pressure Y Breast Cancer N Thyroid Problems N Kidney or Bladder Problems N GI Problems N Depression N Blood Clots N Lung Disease N Acne Y Eating Disorder N Breast Problem N Anemia N Anesthesia Complications N Headaches/Migraines N Anxiety Disorder N Diabetes Y Ovarian Cancer N Muscle, Joint, or Bone Problems Y Blood Transfusions N Seizures/Epilepsy N Polyps N Infertility N Acid Reflux (GERD) Y Cancer Y Abuse/Domestic Violence N Asthma Y Endometriosis N High Cholesterol Y Hepatitis N Liver Disease N Heart Disease N Pre-Eclampsia N Osteoporosis N Gynecological History Statement/Question Response Abnormal Pap N On BCP's at Conception? N STIs/STDs N HPV Vaccine N Most Recent Mammogram 09/30/2020 Age at Menarche 12 Current Control Method Menopause Age at First Child 19 If Post Menopausal, Age at Menopause 47 Sexually Active? Y Menses Monthly N Date of Last Pap Smear 09/29/2020 Sexual Problems? N LMP Approximate Obstetrics History GPAL:G 2 P 2 0 0 2 Type Value Multiple Births 0 Full Term 2 Induced 0 Spontaneous 0 Premature 0 Living 2 Ectopics 0 Total 2 Immunizations Vaccine Type Date Status Note Provider Nam e and Address Organization Details Recorded Time pneumococcal polysaccharide PPV23 5 completed Not Available [facility] 08/23/2019 02:49:51 Past Encounters Encounter ID Performer Location Encounter Start Date Encounter Closed Date Diagnosis/Indication Diagnosis SNOMED-CT Code Diagnosis ICD10 Code Diagnosis Note [id number] [facility] [address] [place] [address] 10/28/2014 10:53:55 10/28/2014 12:33:57 Diabetes mellitus 22475602 Continue same Essential hypertension 42610968 continue same Gastroesop hageal reflux disease 597307395 stable on Ranitine Family his tory of cancer of colon 591916355 last colonoscop y 11/16 pt is going to have another one this spring Asthma 536885334 stable on Albuterol prn [id number] Yesi Scott RN [facility] (Adult Med) [address] [place] [address] 11/26/2014 10:48:44 11/26/2014 12:02:00 Diabetes mellitus 63234727 A1c-7.2 Increase Metformine 1000mg bid Add statin Essential hypertension 63512997 continue same Screening mammography 49385477 Family his tory of cancer of colon 283605047 last colonoscop y 11/16 pt is going to have another one in 12/18 Administra tion of pneumococcal vaccine 77913478 [id number] [facility] [address] [place] [address] 03/29/2015 10:49:18 03/29/2015 11:23:12 Essential hypertension 96283729 continue same Diabetes mellitus 28493636 A1c-7.2 Increased Metformine 1000mg bid continue statin Family his tory of cancer of colon 020213534 last colonoscop y 11/16 pt supposed to have another one in 12/18-will do the referral [id number] Jordan Moreno MD [facility] (Adult Med) [address] [place] [address] 07/14/2015 08:58:36 07/16/2015 17:01:42 Pain in left lower limb 243940118 M79.605 possibly related to chronic back problem for which pt is seeing pain mx -on gabapentin /Zanaflex/ hydrocodon e Add Mobic pt to f/u with pain mx-has apt on 07/23 [id number] MD Fara [facility] (Adult Med) [address] [place] [address] 07/26/2015 10:49:26 07/28/2015 11:03:04 Essential hypertension 53909714 I10 continue same Diabetes mellitus 825815 09 E11.9 A1c-7.0 Increased Metformine 1000mg bid continue statin [id number] Carlos Boyle (3RD MATE) [address] [place] [address] 11/15/2015 11:25:48 11/15/2015 15:45:02 Gynecologic examination 27731992 Z01.419 Screening for malignant neoplasm of breast 347722191 Z12.39 UTD Screening for malignant neoplasm of colon 372824779 Z12.11 UTD [id number] [facility] [address] [place] [address] 11/25/2015 10:32:52 11/25/2015 11:34:25 Diverticulitis 565706444 K57.92 with LLQ tenderness and diarrhea pt to continue Cipro and Flagyl pt to hold Metformine for now Diabetes mellitus 051789 09 E11.9 A1c-7.0 Hold Metformine 1000mg bid due to diarrhea continue statin Essential hypertension 33763600 I10 continue same [id number] Carlos Boyle (3RD MATE) [address] [facility] [address] 10/02/2016 10:54:34 10/03/2016 11:20:42 Tinea corporis 49985687 B35.4 Pt. with yeast in the skin of the vulva, dwp. Rx sent to pharmacy. Walt bennett discussed. Pruritus of vulva 708646 00 L29.2 culture sent [id number] Carlos Boyle (3RD MATE) [address] [place] [address] 05/13/2018 11:02:42 06/13/2018 16:38:35 Vaginal discharge 547559428 N89.8 Normal exam dwp. Culture sent. [id number] Carlos Boyle (3RD MATE) [address] [place] [address] 09/29/2020 08:34:57 10/01/2020 06:33:39 Gynecologic examination 81201130 Z01.419 Last pap done 04/23/13 was negative with negative hr-HPV. Therefore, pap due. Pap done. STD testing declined Screening for malignant neoplasm of breast 901884289 Z12.39 Last mammogram 2015. Mammogram ordered. Screening for malignant neoplasm of colon 340017656 Z12.11 UTD. Due 2021 Cigarette smoker 1346038 7 F17.210 Pt. down from 1 PPD to 1/2 PPD Type 2 maribeth betes mellitus 14054154 E11.9 Last HbA1c 2 mo ago and good P.t sees Dr Mayco Koch in [place] Candidal vulvovaginitis 90865045 B37.3 Diagnosis d/w pt. Rx sent to pharmacy. Instructio ns discussed. Obesity 042077567 E66.9 Nutrition and exercise discussed. [id number] Carlos Boyle (3RD MATE) [address] [place] [address] 12/28/2020 14:27:22 12/30/2020 09:42:22 Tinea corporis 62703500 B35.4 Pt. with yeast in the skin of the vulva, dwp. Rx sent to pharmacy. Instructio sabrina discussed. Pruritus of vulva 295557 00 L29.2 culture sent [id number] MD Jorge Alberto Becerra (Adult Med) [address] [place] [phone] 09/04/2023 13:41:27 09/06/2023 15:44:37 Diabetes mellitus 42323540 E11.9 Essential hypertension 05441453 I10 Gastroesop hageal reflux disease 058833020 K21.00 Diverticular disease 397 952235 K57.90 Suggested stool softener Medication monitoring 39 4617549 Z51.81 Stool softener recommende d Multiple joint pain 3567 8005 M25.50 [id number] Nereida [facility]ill [facility] [address] [place] [phone] 11/26/2023 12:40:21 11/28/2023 12:40:33 Diabetes mellitus 80163723 E11.9 Cont current regimen Diverticular disease 397 113703 K57.90 Suggested stool softener Multiple joint pain 3567 8005 M25.50 Essential hypertension 45270142 I10 Continue to monitor BP [id number] [facility] [address] [place] [phone] 12/24/2023 16:44:02 12/26/2023 14:11:23 Essential hypertension 63259211 I10 Continue to monitor BP Medication monitoring 39 3474627 Z51.81 Stool softener recommende d Multiple joint pain 3567 8005 M25.50 Pain in le ft lower limb 768985556 M79.605 Diverticular disease 397 165981 K57.90 Suggested stool softener Diabetes mellitus 427970 09 E11.9 Cont current regimen [id number] MD Jorge Alberto Becerra (Adult Med) [address] [place] [phone] 03/05/2024 15:20:16 03/06/2024 12:48:38 Essential hypertension 91160975 I10 Unchanged . Will start lisinopril /Hct 25/07.5 twice daily Multiple joint pain 3567 8005 M25.50 [id number] MD Jorge Alberto Becerra (Adult Med) [address] [place] [phone] 0 04/16/2024 14:34:15 04/17/2024 12:11:48 Essential hypertension 07192808 I10 Well controlled Diabetes mellitus 240523 09 E11.9 Cont current regimen Diverticular disease 397 155746 K57.90 Suggested stool softener [id number] MD Jorge Alberto Becerra (Adult Med) [address] [place] [phone] 06/23/2024 12:22:47 07/01/2024 15:16:59 Obesity 264027333 E66.9 Diabetes mellitus 236525 09 E11.9 Cont current regimen Essential hypertension 94178248 I10 Well controlled Pain of le ft knee region 7708791289 85104 M25.562 Health Concerns Section Related Observation LastModified by Organization Detai ls LastModified Time None Recorded Concern Status LastModified by Organization Details LastModified Time None Recorded Advance Directives Directive None Recorded Payers Encounter Date Sequence Insurance Name Policy Number Policy Padilla Covered Member ID Padilla Member ID Guarantor Name 11/26/2023 1 [facility] ON OR AFTER 02/03/21 (MEDICAID REPLACEMENT - HMO) Dilia S Molina [id number] Dilia S Molina 12/24/2023 1 [facility] ON OR AFTER 02/03/21 (MEDICAID REPLACEMENT - HMO) Dilia S Molina [id number] Dilia S Molina 03/05/2024 1 [facility] ON OR AFTER 02/03/21 (MEDICAID REPLACEMENT - HMO) Dilia S Molina [id number] Dilia S Molina 04/16/2024 1 [facility] ON OR AFTER 02/03/21 (MEDICAID REPLACEMENT - HMO) Dilia S Molina [id number] Dilia S Molina 06/23/2024 1 [facility] ON OR AFTER 02/03/21 (MEDICAID REPLACEMENT - HMO) Dilia S Molina [id number] Dilia S Molina Notes Date Note Type Note Provider Name and Address Organization Details Recorded Time 11/26/2023 text/html Here for regular check up. No new complaints. Left knee continues to swell Nereida Oneill MD Attn: [address] [place], [address], [facility] 11/26/2023 13:25:28 12/24/2023 text/html Complaining of pain in her legs. She pain ion the left from hip to ankle. Nereida Oneill MD Attn: Accounting[address] [place], [address], [facility] 12/24/2023 18:13:18 03/05/2024 text/html Here for BP f/u. No headaches, dizziness. Nereida Oneill MD Attn: [address] [place], [address], [place] [facility] 03/05/2024 16:13:39 04/16/2024 text/html Here for BP f/u. Tolerating med well Nereida Oneill MD Attn: Accounting[address] [facility], [place], [address], [place] [facility] 04/16/2024 15:06:09 06/23/2024 text/html has increased pa in in her left knee. pt is s/p repair of medial meniscus two years ago Nereida Oneill MD Attn: Accounting[address] [facility], [place], [address], [place] [facility] 06/23/2024 13:09:46 OBGyn Episode Ob Episode Information Episode Created Date Number of Fetuses Patient Bloodtype Patient rh Status Prepregnancy Weight lbs Domestic Partner Domestic Partner Phone Father Name Claims Consultant Status 11/15/19 16 1 CLOSED Fetus Data First Name Last Name Admitted to NICU Weight (g) Sex Living Outcome Pediatric Complications Fetus ID Race Codes Race Delivery Type 3685.43 5 M Full Term [id number] Miguel A Calculation Initial Miguel A Date Initial Exam Date Initial Exam Provider Initial Ultrasound Date Last Menstrual Period Date Ultra Sound Weeks Gestation 0 Eighteen To Twenty Week Miguel A Update Ultra Sound Date Fundal Height At Umbil Quickening Date Ultra Sound Latest Weeks Gestation Final Miguel A Confirmed By Final Miguel A Confirmed Date Final Miguel A Date Ultra Sound Latest Days Gestation 0 0 Menstrual History Last Menstrual Date Menses Monthly On Bcp Conception Prior Menses Frequency Hcg Plus Date Menarche Onset Age Delivery Information Delivery Date Delivery Type Labor Anesthesia Weeks Gestation Incision Type Labor Labor Length Hrs Delivered By Post Complications Tubal Sterilization Discharge Date Comments 3 Discharge Information Feeding Method Contraceptive Method Maternal HG B and HCT Levels Ob Episode Information Episode Created Date Number of Fetuses Patient Bloodtype Patient rh Status Prepregnancy Weight lbs Domestic Partner Domestic Partner Phone Father Name Claims Consultant Status 11/15/19 16 1 CLOSED Fetus Data First Name Last Name Admitted to NICU Weight (g) Sex Living Outcome Pediatric Complications Fetus ID Race Codes Race Delivery Type 3883.88 15 F Full Term [id number] Miguel A Calculation Initial Miguel A Date Initial Exam Date Initial Exam Provider Initial Ultrasound Date Last Menstrual Period Date Ultra Sound Weeks Gestation 0 Eighteen To Twenty Week Miguel A Update Ultra Sound Date Fundal Height At Umbil Quickening Date Ultra Sound Latest Weeks Gestation Final Miguel A Confirmed By Final Miguel A Confirmed Date Final Miguel A Date Ultra Sound Latest Days Gestation 0 0 Menstrual History Last Menstrual Date Menses Monthly On Bcp Conception Prior Menses Frequency Hcg Plus Date Menarche Onset Age Delivery Information Delivery Date Delivery Type Labor Anesthesia Weeks Gestation Incision Type Labor Labor Length Hrs Delivered By Post Complications Tubal Sterilization Discharge Date Comments 1 Discharge Information Feeding Method Contraceptive Method Maternal HG B and HCT Levels
--- OUTSIDE RECORDS SUMMARY | 2024-10-30 19:06 | XMS_ITS | Clinical Summary ---
Author Organization [facility] Address [address] [place] [address] Phone Care Team Providers Care Molding Machine Operator Name Role Phone KHAI TOLBERT, HAYLIE Jhaveri Unavailable [phone] HERI SHANKS Primary Care Provider [phone] BARRY SANTA MD Unavailable [phone] Reason for Visit and Chief Complaint RX ISSUE/REFILL Plan of Treatment No Plan of Treatment Recorded Assessments Includes: Assessments from this encounter No Assessments Recorded Medical Equipment - Implanted Devices Includes: Current Devices No Medical Equipment Recorded Medications Includes: Medications discussed during this encounter and other current Medications Discontinued / Stopped on this date HAYLIE TOLBERT on 08/15/2021 HYDROcodone-Acetaminophen 7. 5-325 MG Oral Tablet Provider: HAYLIE TOLBERT Diagnosis: Other spondylosi s with radiculopathy, lumbar region Last Documented On 2 12:03PM By HAYLIE TOLBERT ; [facility] New / Renewed during this visit HAYLIE TOLBERT on 09/19/2021 HYDROcodone-Acetaminophen 7. 5-325 MG Oral Tablet Provider: HAYLIE TOLBERT 30 day supply: 90 tablet, 0 refills Diagnosis: Other spondylosis with radiculopathy, lumbar region 1 po TID prn Pharmacy: [facility] [address] [place] [address], [address] - Last Documented On 2 2:16PM By CATHY DICK ; [facility] Current Medications (continue as prescribed) HYDROcodone-Acetaminophen 7. 5-325 MG Oral Tablet 10/21/2021 Provider: CATHY [facility]- Diagnosis: Other spondylosi s with radiculopathy, lumbar region 1 po TID prn Last Documented On 2 2:25PM By CATHY GUDINO DOORS PREFITTER- ; [facility] Pregabalin 75 MG Oral Capsule 07/05/2021 Provider: HAYLIE ESPITIA Diagnosis: One tablet at bed time Last Documented On 1 8:31AM By HAYLIE ESPITIA ; [facility] Gabapentin 300MG Oral Capsule 09/30/2018 Provider: HAYLIE ESPITIA Diagnosis: TAKE 1 CAPSULE BY MOUTH THREE TIMES DAILY Last Documented On 2 10:40AM By Leyda Aj Alec ; [facility] Ventolin HFA 108 (90 Base)MCG/ACT Inhalation Aer osol, solution 12/20/2017 Provider: Diagnosis: Last Documented On 8 2:23PM By YONATHAN DONNELLY Alec ; [facility] Medications Administered Includes: Administered Medications from this encounter No Administered Medications Recorded Results Includes: Results discussed during this encounter No Results Recorded For Specified Dates History of Present Illness Includes: History of Present Illness from this encounter No History of Present Illness Recorded Social History Description Last Updated Current smoker 10/11/2020 Last Documented On 2 11:53AM ; [facility] Smoker 12/16/2019 Last Documented On 2 11:53AM ; [facility] Single 12/20/2017 Last Documented On 2 11:53AM ; [facility] Smoking status : Current everyday smoker 12/20/2017 Last Documented On 2 11:53AM ; [facility] Medical History Includes: Medical History addressed during this encounter No Medical History Recorded Family History Includes: Family History addressed during this encounter No Family History Recorded Review of Systems Includes: Review of Systems from this encounter No Review of Systems Recorded Mental Status Includes: Mental Status from this encounter No Mental Status Recorded Functional Status Includes: Functional Status from this encounter No Functional Status Recorded Physical Exam Includes: Physical Exam from this encounter No Physical Exam Recorded Allergies Includes: Active Allergies Substance Type Reaction Onset Date Resolved Date Statu s Penicillins Allergy Hives / Urticaria 11/14/2018 Active Last Documented On 10:26AM ; [facility] Encounters Encounter Provider Location Date Check-In Time Check-Out Time Diagnosis RX ISSUE/REFILL HAYLIE ALMANZAR-CYNTHIA 09/19/2021 11:52AM 11:59PM Insurance Includes: Active Insurance Policies Plan Name Member ID Group # Subscriber Relationship Effect tawanna Dates 1 - [facility] [id number] RALEIGH BERMUDEZ Self Clinical Notes Includes: Clinical Notes from this encounter No Clinical Notes Recorded
--- OUTSIDE RECORDS SUMMARY | 2024-10-30 19:06 | XMS_ITS | Clinical Summary ---
Author Organization [facility] Address [address] [place] [address] Phone Care Team Providers Care Customer Professional Name Role Phone KHAI TOLBERT, HAYLIE Jhaveri Unavailable [phone] HERI SHANKS Primary Care Provider [phone] BARRY ASNTA MD Unavailable [phone] Reason for Visit and Chief Complaint * PHONE CALL Plan of Treatment No Plan of Treatment Recorded Assessments Includes: Assessments from this encounter No Assessments Recorded Medical Equipment - Implanted Devices Includes: Current Devices No Medical Equipment Recorded Medications Includes: Medications discussed during this encounter and other current Medications Current Medications (continue as prescribed) HYDROcodone-Acetaminophen 7. 5-325 MG Oral Tablet 10/21/2021 Provider: MAYELIN HOPSON Diagnosis: Other spondylosi s with radiculopathy, lumbar region 1 po TID prn Last Documented On 2 2:25PM By CATHY DICK ; [facility] Pregabalin 75 MG Oral Capsule 07/05/2021 Provider: HAYLIE TOLBERT Diagnosis: One tablet at bed time Last Documented On 1 8:31AM By HAYLIE TOLBERT ; [facility] Gabapentin 300MG Oral Capsule 09/30/2018 Provider: HAYLIE TOLBERT Diagnosis: TAKE 1 CAPSULE BY MOUTH THREE TIMES DAILY Last Documented On 2 10:40AM By Leyda FELIPE ; [facility] Ventolin HFA 108 (90 Base)MCG/ACT Inhalation Aer osol, solution 12/20/2017 Provider: Diagnosis: Last Documented On 8 2:23PM By YONATHAN FELIPE ; [facility] Medications Administered Includes: Administered Medications from this encounter No Administered Medications Recorded Results Includes: Results discussed during this encounter No Results Recorded For Specified Dates History of Present Illness Includes: History of Present Illness from this encounter No History of Present Illness Recorded Social History Description Last Updated Current smoker 10/11/2020 Last Documented On 2 9:25AM ; [facility] Smoker 12/16/2019 Last Documented On 2 9:25AM ; [facility] Single 12/20/2017 Last Documented On 2 9:25AM ; [facility] Smoking status : Current everyday smoker 12/20/2017 Last Documented On 2 9:25AM ; [facility] Medical History Includes: Medical History addressed [...] / Urticaria 11/14/2018 Active Last Documented On 2 10:26AM ; [facility] Encounters Encounter Provider Location Date Check-In Time Check-Out Time Diagnosis * PHONE CALL HAYLIE ALMANZAR-CYNTHIA 11/10/2021 9:25AM 11:59PM Insurance Includes: Active Insurance Policies Plan Name Member ID Group # Subscriber Relationship Effect tawanna Dates 1 - [facility] [id number] RALEIGH BERMUDEZ Self Clinical Notes Includes: Clinical Notes from this encounter No Clinical Notes Recorded
--- OUTSIDE RECORDS SUMMARY | 2024-10-30 19:07 | XMS_ITS | Clinical Summary ---
Author Organization [facility] Address [address] [place] [address] Phone Care Team Providers Care Patient Support Associate Name Role Phone KHAI TOLBERT, HAYLIE Jhaveri Unavailable [phone] HERI SHANKS Primary Care Provider [phone] BARRY SANTA MD Unavailable [phone] Reason for Visit and Chief Complaint RX ISSUE/REFILL Plan of Treatment No Plan of Treatment Recorded Assessments Includes: Assessments from this encounter No Assessments Recorded Medical Equipment - Implanted Devices Includes: Current Devices No Medical Equipment Recorded Medications Includes: Medications discussed during this encounter and other current Medications Discontinued / Stopped on this date HAYLIE TOLBERT on 09/19/2021 HYDROcodone-Acetaminophen 7. 5-325 MG Oral Tablet Provider: HAYLIE TOLBERT Diagnosis: Other spondylosi s with radiculopathy, lumbar region Last Documented On 2 2:16PM By CATHY DICK ; [facility] New / Renewed during this visit MYAELIN HOPSON on 10/21/2021 HYDROcodone-Acetaminophen 7. 5-325 MG Oral Tablet Provider: MAYELIN HOPSON 30 day supply: 90 tablet, 0 refills Diagnosis: Other spondylosis with radiculopathy, lumbar region 1 po TID prn Pharmacy: [facility] ([place] - [address] , [facility], [phone] - Last Documented On 2 2:25PM By CATHY VENEGAS-BC ; [facility] Current Medications (continue as prescribed) Pregabalin 75 MG Oral Capsule 07/05/2021 Provider: HAYLIE TOLBERT Diagnosis: One tablet at bed time Last Documented On 1 8:31AM By HAYLIE TOLBERT ; [facility] Gabapentin 300MG Oral Capsule 09/30/2018 Provider: HAYLIE TOLBERT Diagnosis: TAKE 1 CAPSULE BY MOUTH THREE TIMES DAILY Last Documented On 2 10:40AM By Leyda Aj Alec ; [facility] Ventolin HFA 108 (90 Base)MCG/ACT Inhalation Aer osol, solution 12/20/2017 Provider: Diagnosis: Last Documented On 8 2:23PM By YONATHAN DONNELLY Alec ; [facility] Medications Administered Includes: Administered Medications from this encounter No Administered Medications Recorded Results Includes: Results discussed during this encounter No Results Recorded For Specified Dates History of Present Illness Includes: History of Present Illness from this encounter No History of Present Illness Recorded Social History Description Last Updated Current smoker 10/11/2020 Last Documented On 2 8:46AM ; [facility] Smoker 12/16/2019 Last Documented On 2 8:46AM ; [facility] Not using drugs 12/20/2017 Last Documented On 2 8:46AM ; [facility] Single 12/20/2017 Last Documented On 2 8:46AM ; [facility] Smoking status : Current everyday smoker 12/20/2017 Last Documented On 2 8:46AM ; [facility] Medical History Includes: Medical History addressed during this encounter Description Last Updated Has had no fall in the last 12 months. 0 08/15/2021 Last Documented On 2 8:46AM ; [facility] Denies a fear of falling. 08/15/2021 Last Documented On 2 8:46AM ; [facility] Reviewed and Unchanged 10/16/2019 Last Documented On 2 8:46AM ; [facility] Currently wearing eyeglasses 12/20/2017 Last Documented On 2 8:46AM ; [facility] Wearing contact lenses 12/20/2017 Last Documented On 2 8:46AM ; [facility] History of cancer skin 12/20/2017 Last Documented On 2 8:46AM ; [facility] History of hypertension 12/20/2017 Last Documented On 2 8:46AM ; [facility] Asthma 12/20/2017 Last Documented On 2 8:46AM ; [facility] History of diabetes mellitus 12/20/2017 Last Documented On 2 8:46AM ; [facility] Born by section 12/20/2017 Last Documented On 2 8:46AM ; [facility] Family History Includes: Family History addressed during this encounter Description Last Updated Family history of cancer 12/20/2017 Last Documented On 2 8:46AM ; [facility] Review of Systems Includes: Review of Systems [...] Active Last Documented On 2 10:26AM ; [facility] Encounters Encounter Provider Location Date Check-In Time Check-Out Time Diagnosis RX ISSUE/REFILL CATHY GUDINO [facility] [employer], HOSPITAL CHIEF EXECUTIVE OFFICER-BC 10/21/2021 8:46AM 11:59PM Insurance Includes: Active Insurance Policies Plan Name Member ID Group # Subscriber Relationship Effect tawanna Dates - [facility] [id number] RALEIGH BERMUDEZ Self Clinical Notes Includes: Clinical Notes from this encounter No Clinical Notes Recorded
--- OUTSIDE RECORDS SUMMARY | 2024-10-30 19:07 | XMS_ITS | CONTINUITY OF CARE DOCUMENT ---
Author Name mark flores Address Unknown Organization [facility] Address [address] [place] [address] Phone [phone] Care Team Providers Care Manager Quality Improvement Name Role Phone Lane Babra MD Unavailable [phone] Barba MD Unavailable [phone] [employer] Payer name Policy type / Coverage type [employer] party ID [place] MED[place] (2) Medicaid [id number]
--- OUTSIDE RECORDS SUMMARY | 2024-10-30 19:07 | XMS_ITS ---
Author Organization [facility] Address [address] [place] [address] Phone Care Team Providers Care Conveyor Man Name Role Phone KHAI TOLBERT, HAYLIE Jhaveri Unavailable [phone] HERI SHANKS Primary Care Provider [phone] BARRY SANTA MD Unavailable [phone] Plan of Treatment Referrals To Diagnosis Pain Management [facility] - [address], [place] - Radiculopathy, lumbar region Note: consent for right L3-4 , L4-5 transforaminal epidural Last Documented On 8 2:06PM ; [facility] Pain Management [facility] - [address] [place] [address] - Radiculopathy, lumbar region Note: consent for right L3-4 , L4-5 transforaminal epiduralneeds a Sunday appt Last Documented On 9 11:44AM ; [facility] Pain Management [facility] - [address] [place] [address] - Radiculopathy, lumbar region Note: consent for right L3-4 , L4-5 transforaminal epidural Last Documented On 0 3:15PM ; [facility] Pain Management [facility] - [address] [place] [address] - Other spondylosis with radiculopathy, lumbar region Note: consent for right L3-4 , L4-5 transforaminal epidural Last Documented On 0 3:14PM ; [facility] Instructions to patient Intervention and counseling on cessation of tobacco use : Patient recieved smoking cessation handout Last Documented On 2 10:25AM ; [facility] Intervention and counseling on cessation of tobacco use : Patient recieved smoking cessation handout Last Documented On 1 2:00PM ; [facility] Intervention and counseling on cessation of tobacco use : Patient recieved smoking cessation handout Last Documented On 1 3:33PM ; [facility] Intervention and counseling on cessation of tobacco use : Patient recieved smoking cessation handout Last Documented On 1 11:43AM ; [facility] Intervention and counseling on cessation of tobacco use : Patient recieved smoking cessation handout Last Documented On 0 2:47PM ; [facility] Intervention and counseling on cessation of tobacco use : Patient recieved smoking cessation handout Last Documented On 0 1:48PM ; [facility] Intervention and counseling on cessation of tobacco use : Patient recieved smoking cessation handout Last Documented On 0 2:53PM ; [facility] Intervention and counseling on cessation of tobacco use : Patient recieved smoking cessation handout Last Documented On 0 4:07PM ; [facility] Intervention and counseling on cessation of tobacco use : Patient recieved smoking cessation handout Last Documented On 0 2:49PM ; [facility] Education and Decision Aids were provided during visit for: Pill Count: 20 Hydrocodone Last Documented On 2 10:39AM ; [facility] Pill Count: twelve Appropria te Last Documented On 1 2:01PM ; [facility] Pill Count: two Appropriate Last Documented On 1 3:33PM ; [facility] Pill Count: 89 Appropriate Last Documented On 1 11:17PM ; [facility] Pill Count: two Appropriate Last Documented On 1 11:56AM ; [facility] No Pill Count: two Appropria te Last Documented On 0 2:49PM ; [facility] Pill Count: two Appropriate Last Documented On 0 2:05PM ; [facility] Pill Count: Patient did not bring pain medication to appointment for pill count, per policy. Advised in order to continue to safely prescribe opioids, medication must be brought to each appointment Last Documented On 0 2:54PM ; [facility] Pill Count: eight Appropriat e PT COUNTED Last Documented On 0 4:32PM ; [facility] Pill Count: Patient did not bring pain medication to appointment for pill count, per policy. Advised in order to continue to safely prescribe opioids, medication must be brought to each appointment Last Documented On 0 4:09PM ; [facility] Pill Count: one Appropriate Last Documented On 0 10:15AM ; [facility] Pill Count: Patient did not bring pain medication to appointment for pill count, per policy. Advised in order to continue to safely prescribe opioids, medication must be brought to each appointment Last Documented On 0 4:11PM ; [facility] Assessments Includes: Assessments for all patient encounters Findings Encounter Date Chronic pain syndrome PAIN MANAGEMENT FO LLOW UP with HAYLIE ALMANZAR- 08/15/2021 Last Documented On 2 1:24PM ; [facility] assisted 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 PAIN M ANAGEMENT FOLLOW UP with HAYLIE [facility] 08/15/2021 Last Documented On 2 1:24PM ; [facility] Lumbar spondylosis with radiculopathy PA IN MANAGEMENT FOLLOW UP with HAYLIE RIDLEY ANP-BC 08/15/2021 Last Documented On 2 1:24PM ; [facility] Lumbosacral spinal stenosis PAIN MANAGEM ENT FOLLOW UP with HAYLIE RIDLEY ANP-BC 08/15/2021 Last Documented On 2 1:24PM ; [facility] Myalgia PAIN MANAGEMENT FOLLOW UP with Azul ALMANZAR-BC 08/15/2021 Last Documented On 2 1:24PM ; [facility] Sacroiliitis PAIN MANAGEMENT FOLLOW UP with T CHIKIS HERNANDEZS [facility] 08/15/2021 Last Documented On 2 1:24PM ; [facility] Chronic pain syndrome PAIN MANAGEMENT FO LLOW UP with HAYLIE L KHAI [facility] 04/20/2021 Last Documented On 1 2:28PM ; [facility] assisted 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 PAIN M ANAGEMENT FOLLOW UP with HAYLIE L KHAI [facility] 04/20/2021 Last Documented On 1 2:28PM ; [facility] Lumbar spondylosis with radiculopathy PA IN MANAGEMENT FOLLOW UP with HAYLIE L KHAI [facility] 04/20/2021 Last Documented On 1 2:28PM ; [facility] Lumbosacral spinal stenosis PAIN MANAGEM ENT FOLLOW UP with HAYLIE L KHAI [facility] 04/20/2021 Last Documented On 1 2:28PM ; [facility] Myalgia PAIN MANAGEMENT FOLLOW UP with T CHIKIS L KHAI [facility] 04/20/2021 Last Documented On 1 2:28PM ; [facility] Sacroiliitis PAIN MANAGEMENT FOLLOW UP with T CHIKIS L KHAI [facility] 04/20/2021 Last Documented On 1 2:28PM ; [facility] Chronic pain syndrome PAIN MANAGEMENT FO LLOW UP with HAYLIE L KHAI [facility] 02/17/2021 Last Documented On 1 4:37PM ; [facility] terminal superintendent 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 PAIN M ANAGEMENT FOLLOW UP with HAYLIE L KHAI [facility] 02/17/2021 Last Documented On 1 4:37PM ; [facility] Lumbar spondylosis with radiculopathy PA IN MANAGEMENT FOLLOW UP with HAYLIE L KHAI [facility] 02/17/2021 Last Documented On 1 4:37PM ; [facility] Lumbosacral spinal stenosis PAIN MANAGEM ENT FOLLOW UP with HAYLIE L KAHI [facility] 02/17/2021 Last Documented On 1 4:37PM ; [facility] Myalgia PAIN MANAGEMENT FOLLOW UP with T CHIKIS L KHAI ANP-BC 02/17/2021 Last Documented On 1 4:37PM ; [facility] Sacroiliitis PAIN MANAGEMENT FOLLOW UP with T CHIKIS L KHAI ANP-BC 02/17/2021 Last Documented On 1 4:37PM ; [facility] Chronic pain syndrome FOLLOW UP with HAYLIE L BL EVINS ANP-BC 11/11/2020 Last Documented On 1 11:17PM ; [facility] assisted 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 FOLLOW UP with HAYLIE L KHAI ANP-BC 11/11/2020 Last Documented On 1 11:17PM ; [facility] Lumbar spondylosis with radiculopathy FO LLOW UP with HAYLIE L KHAI ANP-BC 11/11/2020 Last Documented On 1 11:17PM ; [facility] Lumbosacral spinal stenosis FOLLOW UP with GERALD E L KHAI ANP-BC 11/11/2020 Last Documented On 1 11:17PM ; [facility] Myalgia FOLLOW UP with HAYLIE L KHAI ANP-BC 11/11/2020 Last Documented On 1 11:17PM ; [facility] Sacroiliitis FOLLOW UP with HAYLIE L KHAI ANP-BC 11/11/2020 Last Documented On 1 11:17PM ; [facility] Chronic pain syndrome TELEHEALTH with HAYLIE L B LEXIE ANP-BC 10/11/2020 Last Documented On 1 11:58AM ; [facility] assisted 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 TELEHEALTH wit h HAYLIE L KHAI ANP-BC 10/11/2020 Last Documented On 1 11:58AM ; [facility] Lumbar spondylosis with radiculopathy TE LEHEALTH with HAYLIE L KHAI ANP-BC 10/11/2020 Last Documented On 1 11:58AM ; [facility] Lumbosacral spinal stenosis TELEHEALTH with TAMM IE L KHAI ANP-BC 10/11/2020 Last Documented On 1 11:58AM ; [facility] Myalgia TELEHEALTH with HAYLIE Shakila HERNANDEZS [facility] 10/11/2020 Last Documented On 1 11:58AM ; [facility] Oriented to time, place, and person TELE HEALTH with HAYLIE Shakila BATISTAKHAI [facility] 10/11/2020 Last Documented On 1 11:58AM ; [facility] Sacroiliitis TELEHEALTH with HAYLIE Shakila HERNANDEZS [facility] 10/11/2020 Last Documented On 1 11:58AM ; [facility] Chronic pain syndrome PAIN MANAGEMENT FO LLOW UP with HAYLIE L KHAI [facility] 07/13/2020 Last Documented On 0 1:09PM ; [facility] terminal superintendent 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 PAIN M ANAGEMENT FOLLOW UP with HAYLIE L KHAI [facility] 07/13/2020 Last Documented On 0 1:09PM ; [facility] Lumbar spondylosis with radiculopathy PA IN MANAGEMENT FOLLOW UP with HAYLIE L KHAI [facility] 07/13/2020 Last Documented On 0 1:09PM ; [facility] Lumbosacral spinal stenosis PAIN MANAGEM ENT FOLLOW UP with HAYLIE L KHAI [facility] 07/13/2020 Last Documented On 0 1:09PM ; [facility] Myalgia PAIN MANAGEMENT FOLLOW UP with T CHIKIS L KHAI [facility] 07/13/2020 Last Documented On 0 1:09PM ; [facility] Sacroiliitis PAIN MANAGEMENT FOLLOW UP with T CHIKIS L KHAI [facility] 07/13/2020 Last Documented On 0 1:09PM ; [facility] Chronic pain syndrome PAIN MANAGEMENT FO LLOW UP with HAYLIE L KHAI [facility] 04/14/2020 Last Documented On 0 2:09PM ; [facility] assisted 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 PAIN M ANAGEMENT FOLLOW UP with HAYLIE L KHAI [facility] 04/14/2020 Last Documented On 0 2:09PM ; [facility] Lumbar spondylosis with radiculopathy PA IN MANAGEMENT FOLLOW UP with HAYLIE Shakila BATISTAKHAI [facility] 04/14/2020 Last Documented On 0 2:09PM ; [facility] Lumbosacral spinal stenosis PAIN MANAGEM ENT FOLLOW UP with HAYLIE Shakila BATISTAKHAI [facility] 04/14/2020 Last Documented On 0 2:09PM ; [facility] Myalgia PAIN MANAGEMENT FOLLOW UP with T CHIKIS L KHAI [facility] 04/14/2020 Last Documented On 0 2:09PM ; [facility] Sacroiliitis PAIN MANAGEMENT FOLLOW UP with T CHIKIS L KHAI [facility] 04/14/2020 Last Documented On 0 2:09PM ; [facility] Chronic pain syndrome PAIN MANAGEMENT FO LLOW UP with HAYLIE Shakila KHAI [facility] 03/15/2020 Last Documented On 0 3:12PM ; [facility] assisted 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 PAIN M ANAGEMENT FOLLOW UP with HAYLIE Shakila KHAI [facility] 03/15/2020 Last Documented On 0 3:12PM ; [facility] Lumbar spondylosis with radiculopathy PA IN MANAGEMENT FOLLOW UP with HAYLIE Shakila BATISTAKHAI [facility] 03/15/2020 Last Documented On 0 3:12PM ; [facility] Lumbosacral spinal stenosis PAIN MANAGEM ENT FOLLOW UP with HAYLIE Shakila BATISTAKHAI [facility] 03/15/2020 Last Documented On 0 3:12PM ; [facility] Myalgia PAIN MANAGEMENT FOLLOW UP with T CHIKIS L KHAI [facility] 03/15/2020 Last Documented On 0 3:12PM ; [facility] Sacroiliitis PAIN MANAGEMENT FOLLOW UP with T CHIKIS L KHAI [facility] 03/15/2020 Last Documented On 0 3:12PM ; [facility] Chronic pain syndrome TELEHEALTH with HAYLIEABBY OWEN [facility] 02/12/2020 Last Documented On 0 4:34PM ; [facility] assisted 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 TELEHEALTH wit h HAYLIE Shakila HERNANDEZS [facility] 02/12/2020 Last Documented On 0 4:34PM ; [facility] Lumbar spondylosis with radiculopathy TE LEHEALTH with HAYLIE L KHAI [facility] 02/12/2020 Last Documented On 0 4:34PM ; [facility] Lumbosacral spinal stenosis TELEHEALTH with TAMTaylor IE Shakila KHAI [facility] 02/12/2020 Last Documented On 0 4:34PM ; [facility] Myalgia TELEHEALTH with HAYLIE L KHAI [facility] 02/12/2020 Last Documented On 0 4:34PM ; [facility] Oriented to time, place, and person TELE HEALTH with HAYLIE L KHAI [facility] 02/12/2020 Last Documented On 0 4:34PM ; [facility] Sacroiliitis TELEHEALTH with HAYLIE L KHAI [facility] 02/12/2020 Last Documented On 0 4:34PM ; [facility] Chronic pain syndrome PAIN MANAGEMENT FO LLOW UP with HAYLIE L KHAI [facility] 01/13/2020 Last Documented On 0 4:36PM ; [facility] assisted 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 PAIN M ANAGEMENT FOLLOW UP with HAYLIE L KHAI [facility] 01/13/2020 Last Documented On 0 4:36PM ; [facility] Lumbar spondylosis with radiculopathy PA IN MANAGEMENT FOLLOW UP with HAYLIE L KHAI [facility] 01/13/2020 Last Documented On 0 4:36PM ; [facility] Lumbosacral spinal stenosis PAIN MANAGEM ENT FOLLOW UP with HAYLIE L KHAI [facility] 01/13/2020 Last Documented On 0 4:36PM ; [facility] Myalgia PAIN MANAGEMENT FOLLOW UP with T CHIKIS L KHAI [facility] 01/13/2020 Last Documented On 0 4:36PM ; [facility] Sacroiliitis PAIN MANAGEMENT FOLLOW UP with T CHIKIS L KHAI [facility] 01/13/2020 Last Documented On 0 4:36PM ; [facility] Chronic pain syndrome TELEHEALTH with HAYLIE L B LEXIE [facility] 12/16/2019 Last Documented On 0 10:17AM ; [facility] assisted 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 TELEHEALTH wit h HAYLIE L KHAI [facility] 12/16/2019 Last Documented On 0 10:17AM ; [facility] Lumbar spondylosis with radiculopathy TE LEHEALTH with HAYLIE L KHAI [facility] 12/16/2019 Last Documented On 0 10:17AM ; [facility] Lumbosacral spinal stenosis TELEHEALTH with TAMM IE L KHAI [facility] 12/16/2019 Last Documented On 0 10:17AM ; [facility] Myalgia TELEHEALTH with HAYLIE L KHAI [facility] 12/16/2019 Last Documented On 0 10:17AM ; [facility] Sacroiliitis TELEHEALTH with HAYLIE L KHAI [facility] 12/16/2019 Last Documented On 0 10:17AM ; [facility] Chronic pain syndrome PAIN MANAGEMENT FO LLOW UP with HAYLIE L KHAI [facility] 10/16/2019 Last Documented On 0 4:36PM ; [facility] terminal superintendent 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 PAIN M ANAGEMENT FOLLOW UP with HAYLIE L KHAI [facility] 10/16/2019 Last Documented On 0 4:36PM ; [facility] Lumbar spondylosis with radiculopathy PA IN MANAGEMENT FOLLOW UP with HAYLIE L KHAI [facility] 10/16/2019 Last Documented On 0 4:36PM ; [facility] Lumbosacral spinal stenosis PAIN MANAGEM ENT FOLLOW UP with HAYLIE L KHAI [facility] 10/16/2019 Last Documented On 0 4:36PM ; [facility] Myalgia PAIN MANAGEMENT FOLLOW UP with T CHIKIS L KHAI [facility] 10/16/2019 Last Documented On 0 4:36PM ; [facility] Sacroiliitis PAIN MANAGEMENT FOLLOW UP with T CHIKIS L KHAI [facility] 10/16/2019 Last Documented On 0 4:36PM ; [facility] Lumbar radiculopathy PAIN MANAGEMENT FOL LOW UP with HAYLIE L KHAI ANP-BC 09/01/2019 Last Documented On 0 11:04AM ; [facility] Lumbar spondylosis with radiculopathy PA IN MANAGEMENT FOLLOW UP with HAYLIE L KHAI ANP-BC 09/01/2019 Last Documented On 0 11:04AM ; [facility] Lumbosacral spinal stenosis PAIN MANAGEM ENT FOLLOW UP with HAYLIE L KHAI ANP-BC 09/01/2019 Last Documented On 0 11:04AM ; [facility] Myalgia PAIN MANAGEMENT FOLLOW UP with T CHIKIS L KHAI ANP-BC 09/01/2019 Last Documented On 0 11:04AM ; [facility] Sacroiliitis PAIN MANAGEMENT FOLLOW UP with T CHIKIS L KHAI ANP-BC 09/01/2019 Last Documented On 0 11:04AM ; [facility] Lumbar radiculopathy PAIN MANAGEMENT FOL LOW UP with HAYLIE L KHAI ANP-BC 11/14/2018 Last Documented On 9 11:16AM ; [facility] Lumbar spondylosis with radiculopathy PA IN MANAGEMENT FOLLOW UP with HAYLIE L KHAI ANP-BC 11/14/2018 Last Documented On 9 11:16AM ; [facility] Lumbosacral spinal stenosis PAIN MANAGEM ENT FOLLOW UP with HAYLIE L KHAI ANP-BC 11/14/2018 Last Documented On 9 11:16AM ; [facility] Myalgia PAIN MANAGEMENT FOLLOW UP with T CHIKIS L KHAI ANP-BC 11/14/2018 Last Documented On 9 11:16AM ; [facility] Sacroiliitis PAIN MANAGEMENT FOLLOW UP with T CHIKIS L KHAI ANP-BC 11/14/2018 Last Documented On 9 11:16AM ; [facility] Lumbar radiculopathy PAIN MANAGEMENT FOL LOW UP with HAYLIE L KHAI ANP-BC 10/09/2018 Last Documented On 9 11:17AM ; [facility] Lumbar spondylosis with radiculopathy PA IN MANAGEMENT FOLLOW UP with HAYLIE L KHAI ANP-BC 10/09/2018 Last Documented On 9 11:17AM ; [facility] Lumbosacral spinal stenosis PAIN MANAGEM ENT FOLLOW UP with HAYLIE L KHAI ANP-BC 10/09/2018 Last Documented On 9 11:17AM ; [facility] Myalgia PAIN MANAGEMENT FOLLOW UP with T CHIKIS L KHAI ANP-BC 10/09/2018 Last Documented On 9 11:17AM ; [facility] Sacroiliitis PAIN MANAGEMENT FOLLOW UP with T CHIKIS L KHAI ANP-BC 10/09/2018 Last Documented On 9 11:17AM ; [facility] Lumbar radiculopathy PAIN MANAGEMENT FOL LOW UP with HAYLIE L KHAI ANP-BC 09/11/2018 Last Documented On 9 2:12PM ; [facility] Lumbar spondylosis with radiculopathy PA IN MANAGEMENT FOLLOW UP with HAYLIE L KHAI ANP-BC 09/11/2018 Last Documented On 9 2:12PM ; [facility] Lumbosacral spinal stenosis PAIN MANAGEM ENT FOLLOW UP with HAYLIE L KHAI ANP-BC 09/11/2018 Last Documented On 9 2:12PM ; [facility] Myalgia PAIN MANAGEMENT FOLLOW UP with T CHIKIS L KHAI ANP-BC 09/11/2018 Last Documented On 9 2:12PM ; [facility] Sacroiliitis PAIN MANAGEMENT FOLLOW UP with T CHIKIS L KHAI ANP-BC 09/11/2018 Last Documented On 9 2:12PM ; [facility] Lumbar radiculopathy PAIN MANAGEMENT FOL LOW UP with HAYLIE L KHAI ANP-BC 07/09/2018 Last Documented On 8 11:25AM ; [facility] Lumbar spondylosis with radiculopathy PA IN MANAGEMENT FOLLOW UP with HAYLIE L KHAI ANP-BC 07/09/2018 Last Documented On 8 11:25AM ; [facility] Lumbosacral spinal stenosis PAIN MANAGEM ENT FOLLOW UP with HAYLIE L KHAI ANP-BC 07/09/2018 Last Documented On 8 11:25AM ; [facility] Myalgia PAIN MANAGEMENT FOLLOW UP with T CHIKIS L KHAI ANP-BC 07/09/2018 Last Documented On 8 11:25AM ; [facility] Sacroiliitis PAIN MANAGEMENT FOLLOW UP with T CHIKIS L KHAI ANP-BC 07/09/2018 Last Documented On 8 11:25AM ; [facility] Lumbar radiculopathy PAIN MANAGEMENT FOL LOW UP with HAYLIE L KHAI ANP-BC 04/16/2018 Last Documented On 8 1:50PM ; [facility] Lumbar spondylosis with radiculopathy PA IN MANAGEMENT FOLLOW UP with HAYLIE L KHAI ANP-BC 04/16/2018 Last Documented On 8 1:50PM ; [facility] Lumbosacral spinal stenosis PAIN MANAGEM ENT FOLLOW UP with HAYLIE L KHAI ANP-BC 04/16/2018 Last Documented On 8 1:50PM ; [facility] Myalgia PAIN MANAGEMENT FOLLOW UP with T CHIKIS L KHAI ANP-BC 04/16/2018 Last Documented On 8 1:50PM ; [facility] Sacroiliitis PAIN MANAGEMENT FOLLOW UP with T CHIKIS L KHAI ANP-BC 04/16/2018 Last Documented On 8 1:50PM ; [facility] Lumbar radiculopathy PAIN MANAGEMENT FOL LOW UP with HAYLIE L KHAI ANP-BC 03/05/2018 Last Documented On 8 11:21AM ; [facility] Lumbar spondylosis with radiculopathy PA IN MANAGEMENT FOLLOW UP with HAYLIE L KHAI ANP-BC 03/05/2018 Last Documented On 8 11:21AM ; [facility] Lumbosacral spinal stenosis PAIN MANAGEM ENT FOLLOW UP with HAYLIE L KHAI ANP-BC 03/05/2018 Last Documented On 8 11:21AM ; [facility] Myalgia PAIN MANAGEMENT FOLLOW UP with T CHIKIS L KHAI ANP-BC 03/05/2018 Last Documented On 8 11:21AM ; [facility] [facility] Sacroiliitis PAIN MANAGEMENT FOLLOW UP with T CHIKIS L KHAI ANP-BC 03/05/2018 Last Documented On 8 11:21AM ; [facility] Lumbar radiculopathy PAIN MANAGEMENT FOL LOW UP with HAYLIE L KHAI ANP-BC 01/22/2018 Last Documented On 8 4:46PM ; [facility] Lumbar spondylosis with radiculopathy PA IN MANAGEMENT FOLLOW UP with HAYLIE L KHAI ANP-BC 01/22/2018 Last Documented On 8 4:46PM ; [facility] Lumbosacral spinal stenosis PAIN MANAGEM ENT FOLLOW UP with HAYLIE L KHAI ANP-BC 01/22/2018 Last Documented On 8 4:46PM ; [facility] Myalgia PAIN MANAGEMENT FOLLOW UP with T CHIKIS L KHAI ANP-BC 01/22/2018 Last Documented On 8 4:46PM ; [facility] Sacroiliitis PAIN MANAGEMENT FOLLOW UP with T CHIKIS L KHAI ANP-BC 01/22/2018 Last Documented On 8 4:46PM ; [facility] Lumbar radiculopathy PAIN MANAGEMENT NEW CONSULT with HAYLIE L KHAI ANP-BC 12/20/2017 Last Documented On 8 1:05PM ; [facility] Lumbar spondylosis with radiculopathy PA IN MANAGEMENT NEW CONSULT with HAYLIE L KHAI ANP-BC 12/20/2017 Last Documented On 8 1:05PM ; [facility] Lumbosacral spinal stenosis PAIN MANAGEM ENT NEW CONSULT with HAYLIE L KHAI ANP-BC 12/20/2017 Last Documented On 8 1:05PM ; [facility] Myalgia PAIN MANAGEMENT NEW CONSULT with HAYLIE L KHAI ANP-BC 12/20/2017 Last Documented On 8 1:05PM ; [facility] Sacroiliitis PAIN MANAGEMENT NEW CONSULT with HAYLIE L KHAI ANP-CYNTHIA 12/20/2017 Last Documented On 8 1:05PM ; [facility] Instructions Includes: Instructions for all patient encounters Instructions to patient Intervention and counseling on cessation of tobacco use : Patient recieved smoking cessation handout Last Documented On 2 10:25AM ; [facility] Intervention and counseling on cessation of tobacco use : Patient recieved smoking cessation handout Last Documented On 1 2:00PM ; [facility] Intervention and counseling on cessation of tobacco use : Patient recieved smoking cessation handout Last Documented On 1 3:33PM ; [facility] Intervention and counseling on cessation of tobacco use : Patient recieved smoking cessation handout Last Documented On 1 11:43AM ; [facility] Intervention and counseling on cessation of tobacco use : Patient recieved smoking cessation handout Last Documented On 0 2:47PM ; [facility] Intervention and counseling on cessation of tobacco use : Patient recieved smoking cessation handout Last Documented On 0 1:48PM ; [facility] Intervention and counseling on cessation of tobacco use : Patient recieved smoking cessation handout Last Documented On 0 2:53PM ; [facility] Intervention and counseling on cessation of tobacco use : Patient recieved smoking cessation handout Last Documented On 0 4:07PM ; [facility] Intervention and counseling on cessation of tobacco use : Patient recieved smoking cessation handout Last Documented On 0 2:49PM ; [facility] Education and Decision Aids were provided during visit for: Pill Count: 20 Hydrocodone Last Documented On 2 10:39AM ; [facility] Pill Count: twelve Appropria te Last Documented On 1 2:01PM ; [facility] Pill Count: two Appropriate Last Documented On 1 3:33PM ; [facility] Pill Count: 89 Appropriate Last Documented On 1 11:17PM ; [facility] Pill Count: two Appropriate Last Documented On 1 11:56AM ; [facility] No Pill Count: two Appropria te Last Documented On 0 2:49PM ; [facility] Pill Count: two Appropriate Last Documented On 0 2:05PM ; [facility] Pill Count: Patient did not bring pain medication to appointment for pill count, per policy. Advised in order to continue to safely prescribe opioids, medication must be brought to each appointment Last Documented On 0 2:54PM ; [facility] Pill Count: eight Appropriat e PT COUNTED Last Documented On 0 4:32PM ; [facility] Pill Count: Patient did not bring pain medication to appointment for pill count, per policy. Advised in order to continue to safely prescribe opioids, medication must be brought to each appointment Last Documented On 0 4:09PM ; [facility] Pill Count: one Appropriate Last Documented On 0 10:15AM ; [facility] Pill Count: Patient did not bring pain medication to appointment for pill count, per policy. Advised in order to continue to safely prescribe opioids, medication must be brought to each appointment Last Documented On 0 4:11PM ; [facility] Medical Equipment - Implanted Devices Includes: Current and historical Devices No Medical Equipment Recorded Medications Includes: Current and historical Medications Current Medications (continue as prescribed) HYDROcodone-Acetaminophen 7. 5-325 MG Oral Tablet 10/21/2021 Provider: CATHY GUDINO APRN-MARY GRACE, ROLLOUT MANAGER-BC Diagnosis: Other spondylosi s with radiculopathy, lumbar region 1 po TID prn Last Documented On 2 2:25PM By CATHY MAHARAJP-BC ; [facility] Pregabalin 75 MG Oral Capsule 07/05/2021 Provider: HAYLIE RIDLEY ANP-BC Diagnosis: One tablet at bed time Last Documented On 1 8:31AM By HAYLIE ALMANZAR-BC ; [facility] Gabapentin 300MG Oral Capsule 09/30/2018 Provider: HAYLIE RIDLEY ANP-BC Diagnosis: TAKE 1 CAPSULE BY MOUTH THREE TIMES DAILY Last Documented On 2 10:40AM By Leyda Aj Alec ; [facility] Ventolin HFA 108 (90 Base)MCG/ACT Inhalation Aer osol, solution 12/20/2017 Provider: Diagnosis: Last Documented On 8 2:23PM By YONATHAN FELIPE ; [facility] Past Medications on file HYDROcodone-Acetaminophen 7. 5-325 MG Oral Tablet 09/19/2021 - 10/21/2021 Provider: HAYLIE TOLBERT Diagnosis: Other spondylosi s with radiculopathy, lumbar region 1 po TID prn Last Documented On 2 2:16PM By CATHY MAHARAJP-BC ; [facility] HYDROcodone-Acetaminophen 7. 5-325 MG Oral Tablet 08/15/2021 - 09/19/2021 Provider: HAYLIE TOLBERT Diagnosis: Other spondylosi s with radiculopathy, lumbar region 1 po TID prn Last Documented On 2 12:03PM By HAYLIE TOLBERT ; [facility] HYDROcodone-Acetaminophen 7. 5-325 MG Oral Tablet 07/21/2021 - 08/15/2021 Provider: HAYLIE TOLBERT Diagnosis: 1 po TID prn Last Documented On 2 11:01AM By HAYLIE TOLBERT ; [facility] Pregabalin 75 MG Oral Capsule 07/04/2021 - 07/05/2021 Provider: HAYLIE TOLBERT Diagnosis: TAKE ONE CAPSULE BY MOUTH AT BEDTIME Last Documented On 1 8:22AM By HAYLIE TOLBERT ; [facility] HYDROcodone-Acetaminophen 7. 5-325 MG Oral Tablet 06/20/2021 - 07/20/2021 Provider: HAYLIE TOLBERT Diagnosis: 1 po TID prn1/17 Last Documented On 1 2:03PM By HAYLIE TOLBERT ; [facility] HYDROcodone-Acetaminophen 7. 5-325 MG Oral Tablet 05/23/2021 - 06/20/2021 Provider: HAYLIE TOLBERT Diagnosis: Other spondylosis, lumbar region 1 po TID prn9/20 Last Documented On 1 1:49PM By HAYLIE TOLBERT ; [facility] HYDROcodone-Acetaminophen 7. 5-325 MG Oral Tablet 04/20/2021 - 05/19/2021 Provider: HAYLIE TOLBERT Diagnosis: 1 po TID pr Last Documented On 1 8:22AM By HAYLIE TOLBERT ; [facility] HYDROcodone-Acetaminophen 7. 5-325 MG Oral Tablet 03/24/2021 - 04/20/2021 Provider: HAYLIE TOLBERT Diagnosis: Radiculopathy, lumbar region 1 po TID prnfill 03/26 Last Documented On 1 2:28PM By HAYLIE TOLBERT ; [facility] HYDROcodone-Acetaminophen 7. 5-325 MG Oral Tablet 03/23/2021 - 03/24/2021 Provider: HAYLIE TOLBERT Diagnosis: 1 po TID prnfill 03/26 Last Documented On 1 4:18PM By HAYLIE TOLBERT ; [facility] HYDROcodone-Acetaminophen 7. 5-325 MG Oral Tablet 02/22/2021 - 03/23/2021 Provider: HAYLIE TOLBERT Diagnosis: Other spondylosi s with radiculopathy, lumbar region 1 po TID prnfill 02/24 Last Documented On 1 1:14PM By HAYLIE TOLBERT ; [facility] HYDROcodone-Acetaminophen 7. 5-325 MG Oral Tablet 02/17/2021 - 02/22/2021 Provider: HAYLIE TOLBERT Diagnosis: 1 po TID prnfill 02/10 Last Documented On 1 9:48AM By HAYLIE TOLBERT ; [facility] Pregabalin 75 MG Oral Capsule 02/17/2021 - 07/04/2021 Provider: HAYLIE TOLBERT Diagnosis: TAKE ONE CAPSULE BY MOUTH AT BEDTIME Last Documented On 1 2:28PM By HAYLIE TOLBERT ; [facility] Pregabalin 75 MG Oral Capsule 02/08/2021 - 02/17/2021 Provider: HAYLIE TOLBERT Diagnosis: Other spondylosi s with radiculopathy, lumbar region TAKE ONE CAPSULE BY MOUTH AT BEDTIME Last Documented On 1 3:49PM By HAYLIE TOLBERT ; [facility] HYDROcodone-Acetaminophen 7. 5-325 MG Oral Tablet 02/08/2021 - 02/17/2021 Provider: HAYLIE TOLBERT Diagnosis: 1 po TID prnfill 02/10 Last Documented On 1 3:50PM By HAYLIE TOLBERT ; [facility] HYDROcodone-Acetaminophen 7. 5-325 MG Oral Tablet 01/06/2021 - 02/08/2021 Provider: HAYLIE TOLBERT Diagnosis: Other spondylosi s with radiculopathy, lumbar region 1 po TID prn Last Documented On 1 1:08PM By HAYLIE TOLBERT ; [facility] Pregabalin 75 MG Oral Capsule 12/14/2020 - 02/08/2021 Provider: HAYLIE TOLBERT Diagnosis: Other spondylosi s with radiculopathy, lumbar region TAKE ONE CAPSULE BY MOUTH AT BEDTIME Last Documented On 1 1:35PM By HAYLIE TOLBERT ; [facility] HYDROcodone-Acetaminophen 7. 5-325 MG Oral Tablet 12/07/2020 - 01/06/2021 Provider: HAYLIE TOLBERT Diagnosis: Other spondylosi s with radiculopathy, lumbar region 1 po TID prn Last Documented On 1 2:18PM By HAYLIE TOLBERT ; [facility] HYDROcodone-Acetaminophen 7. 5-325 MG Oral Tablet 11/11/2020 - 12/07/2020 Provider: HAYLIE TOLBERT Diagnosis: Other spondylosi s with radiculopathy, lumbar region 1 po TID prn Last Documented On 1 2:02PM By HAYLIE TOLBERT ; [facility] HYDROcodone-Acetaminophen 7. 5-325 MG Oral Tablet 10/11/2020 - 11/09/2020 Provider: HAYLIE TOLBERT Diagnosis: Other spondylosi s with radiculopathy, lumbar region 1 po TID prn Last Documented On 1 8:17AM By HAYLIE TOLBERT ; [facility] Pregabalin 75 MG Oral Capsule 09/15/2020 - 12/14/2020 Provider: HAYLIE TOLBERT Diagnosis: Other spondylosi s with radiculopathy, lumbar region One tablet at bed time Last Documented On 1 10:23AM By HAYLIE TOLBERT ; [facility] HYDROcodone-Acetaminophen 7. 5-325 MG Oral Tablet 09/09/2020 - 10/11/2020 Provider: HAYLIE TOLBERT Diagnosis: Other spondylosi s with radiculopathy, lumbar region 1 po TID prnto fill 09/11/20 Last Documented On 1 11:57AM By HAYLIE TOLBERT ; [facility] HYDROcodone-Acetaminophen 7. 5-325 MG Oral Tablet 08/12/2020 - 09/09/2020 Provider: HAYLIE TOLBERT Diagnosis: Other spondylosi s with radiculopathy, lumbar region 1 po TID prnfill when due Last Documented On 1 2:27PM By HAYLIE TOLBERT ; [facility] HYDROcodone-Acetaminophen 7. 5-325 MG Oral Tablet 07/14/2020 - 08/12/2020 Provider: HAYLIE TOLBERT Diagnosis: Other spondylosi s with radiculopathy, lumbar region 1 po TID prnfill when due Last Documented On 1 12:21PM By HAYLIE TOLBERT ; [facility] Pregabalin 75 MG Oral Capsule 06/15/2020 - 09/14/2020 Provider: HAYLIE TOLBERT Diagnosis: Other spondylosi s with radiculopathy, lumbar region One tablet at bed time Last Documented On 1 1:41PM By HAYLIE TOLBERT ; [facility] HYDROcodone-Acetaminophen 7. 5-325 MG Oral Tablet 06/11/2020 - 07/13/2020 Provider: HAYLIE TOLBERT Diagnosis: Other spondylosi s with radiculopathy, lumbar region 1 po TID prnfill when due Last Documented On 0 1:08PM By HAYLIE TOLBERT ; [facility] HYDROcodone-Acetaminophen 7. 5-325 MG Oral Tablet 05/13/2020 - 06/11/2020 Provider: HAYLIE TOLBERT Diagnosis: Other spondylosi s with radiculopathy, lumbar region 1 po TID prnfill when due Last Documented On 0 1:00PM By HAYLIE TOLBERT ; [facility] HYDROcodone-Acetaminophen 7. 5-325 MG Oral Tablet 04/14/2020 - 05/13/2020 Provider: HAYLIE TOLBERT Diagnosis: Other spondylosi s with radiculopathy, lumbar region 1 po TID prn Last Documented On 0 11:59AM By HAYLIE TOLBERT ; [facility] Lyrica 75 MG Oral Capsule 03/15/2020 - 06/15/2020 Provider: HAYLIE TOLBERT Diagnosis: Other spondylosi s with radiculopathy, lumbar region One tablet at bed time Last Documented On 0 9:37AM By HAYLIE TOLBERT ; [facility] HYDROcodone-Acetaminophen 7. 5-325 MG Oral Tablet 03/15/2020 - 04/14/2020 Provider: HAYLIE TOLBERT Diagnosis: Other spondylosi s with radiculopathy, lumbar region 1 po TID prn Last Documented On 0 2:08PM By HAYLIE TOLBERT ; [facility] HYDROcodone-Acetaminophen 7. 5-325 MG Oral Tablet 02/12/2020 - 03/15/2020 Provider: HAYLIE TOLBERT Diagnosis: Other spondylosi s with radiculopathy, lumbar region 1 po TID prnto fill 02/14/20 Last Documented On 0 3:11PM By HAYLIE TOLBERT ; [facility] HYDROcodone-Acetaminophen 7. 5-325 MG Oral Tablet 01/13/2020 - 02/12/2020 Provider: HAYLIE TOLBERT Diagnosis: Other spondylosi s with radiculopathy, lumbar region 1 po TID prnto fill 01/16/20 Last Documented On 0 4:34PM By HAYLIE TOLBERT ; [facility] Lyrica 75 MG Oral Capsule 01/13/2020 - 03/15/2020 Provider: HAYLIE TOLBERT Diagnosis: Chronic pain syn drome 1 po qhs x 7 days then BID Last Documented On 0 3:11PM By HAYLIE TOLBERT ; [facility] HYDROcodone-Acetaminophen 7. 5-325 MG Oral Tablet 12/17/2019 - 01/13/2020 Provider: HAYLIE TOLBERT Diagnosis: Other spondylosi s with radiculopathy, lumbar region 1 po TID prn Last Documented On 0 4:26PM By HAYLIE TOLBERT ; [facility] HYDROcodone-Acetaminophen 7. 5-325 MG Oral Tablet 11/13/2019 - 12/16/2019 Provider: HAYLIE TOLBERT Diagnosis: Other spondylosi s with radiculopathy, lumbar region 1 po TID prnto fill 11/14/19 Last Documented On 0 10:16AM By HAYLIE TOLBERT ; [facility] HYDROcodone-Acetaminophen 7. 5-325 MG Oral Tablet 10/16/2019 - 11/13/2019 Provider: HAYLIE TOLBERT Diagnosis: Other spondylosi s with radiculopathy, lumbar region 1 po TID prn Last Documented On 0 4:16PM By HAYLIE TOLBERT ; [facility] HYDROcodone-Acetaminophen 7. 5-325 MG Oral Tablet 10/01/2019 - 10/16/2019 Provider: HAYLIE TOLBERT Diagnosis: Low back pain 1 po TID prn Last Documented On 0 4:35PM By HAYLIE TOLBERT ; [facility] HYDROcodone-Acetaminophen 7. 5-325 MG Oral Tablet 09/17/2019 - 10/01/2019 Provider: HAYLIE ESPITIABC Diagnosis: Low back pain 1 po TID prn Last Documented On 0 12:27PM By HAYLIE ALMANZAR-BC ; [facility] HYDROcodone-Acetaminophen 7.5-325MG Oral Tablet 11/20/2018 - 09/01/2019 Provider: HAYLIE RIDLEY ANP- Diagnosis: Chronic pain syndrome 1 po q 8 hours prn/ max 2 per day Last Documented On 0 2:48PM By Concepcion Cross Alec ; [facility] Lyrica 150MG Oral Capsule, conventional 11/14/2018 - 09/01/2019 Provider: HAYLIE ESPITIABC Diagnosis: Radiculopathy, l umbar region 1 CAPSULE TWO TIMES A DAY Last Documented On 0 2:48PM By Concepcion FELIPE ; [facility] Lyrica 75MG Oral Capsule, conventional 11/14/2018 - 09/01/2019 Provider: HAYLIE ESPITIA Diagnosis: Radiculopathy, l umbar region 1 CAPSULE TWO TIMES A DAY Last Documented On 0 2:48PM By Concepcion FELIPE ; [facility] HYDROcodone-Acetaminophen 7.5-325MG Oral Tablet 10/23/2018 - 11/20/2018 Provider: HAYILE ESPITIABC Diagnosis: Chronic pain syndrome 1 po q 8 hours prn/ max 2 per day Last Documented On 9 3:15PM By HAYLIE ALMANZAR-BC ; [facility] HYDROcodone-Acetaminophen 7.5-325MG Oral Tablet 09/27/2018 - 10/23/2018 Provider: HAYLIE RIDLEY ANP-BC Diagnosis: Chronic pain syndrome 1 po q 8 hours prn/ max 2 per day Last Documented On 9 4:33PM By HAYLIE ALMANZAR-BC ; [facility] Gabapentin 300MG Oral Capsule 09/04/2018 - 09/30/2018 Provider: HAYLIE RIDLEY ANP-BC Diagnosis: One tablet three times a day Last Documented On 9 2:17PM By HAYLIE ALMANZAR- ; [facility] Hydrocodone-Acetaminophen 7.5-325MG Oral Tablet 08/29/2018 - 09/26/2018 Provider: HAYLIE RIDLEY ANP- Diagnosis: Chronic pain syndrome 1 po q 8 hours prn Last Documented On 9 8:24AM By HAYLIE ALMANZAR- ; [facility] Hydrocodone-Acetaminophen 7.5-325MG Oral Tablet 08/01/2018 - 08/01/2018 Provider: LUCY CARMONA MD Diagnosis: Chronic pain syndrome 1 po q 8 hours prn Last Documented On 8 12:21PM By Benton BELL ; [facility] Hydrocodone-Acetaminophen 7.5-325MG Oral Tablet 08/01/2018 - 08/29/2018 Provider: BENTON BELL Diagnosis: Chronic pain syndrome 1 po q 8 hours prn Last Documented On 9 1:09PM By HAYLIE RIDLEY [facility] ; [facility] Hydrocodone-Acetaminophen 7.5-325MG Oral Tablet 07/02/2018 - 08/01/2018 Provider: HAYLIE ALMANZAR- Diagnosis: Chronic pain syndrome 1 po q 8 hours prn Last Documented On 08/01/2018 9:48AM By LUCY CARMONA MD ; [facility] Gabapentin 300MG Oral Capsule, conventional 05/31/2018 - 09/04/2018 Provider: HAYLIE BROOKS ANP- Diagnosis: TAKE 1 CAPSULE BY MOUTH THREE TIMES DAILY Last Documented On 9 10:52AM By HAYLIE RIDLEY [facility]- ; [facility] Hydrocodone-Acetaminophen 7.5-325MG Oral Tablet 05/29/2018 - 07/02/2018 Provider: HAYLIE RIDLEY ANP- Diagnosis: Chronic pain syndrome 1 po q 8 hours prnto fill 06/02/18 Last Documented On 8 12:10PM By HAYLIE ALMANZAR- ; [facility] Gabapentin 300MG Oral Capsule 05/02/2018 - 05/31/2018 Provider: HAYLIEABBY TOLBERT Diagnosis: TAKE 1 CAPSULE BY MOUTH THREE TIMES DAILY Last Documented On 8 8:31AM By HAYLIE TOLBERT ; [facility] Hydrocodone-Acetaminophen 7.5-325MG Oral Tablet 05/02/2018 - 05/29/2018 Provider: HAYLIE TOLBERT Diagnosis: Chronic pain syndrome 1 po q 8 hours prnto fill 05/03/18 Last Documented On 8 11:13AM By HAYLIE TOLBERT ; [facility] Gabapentin 300MG Oral Capsule 04/02/2018 - 05/02/2018 Provider: HAYLIE TOLBERT Diagnosis: One tablet three times a day Last Documented On 8 4:10PM By HAYLIE TOLBERT ; [facility] Hydrocodone-Acetaminophen 7.5-325MG Oral Tablet 04/01/2018 - 05/01/2018 Provider: HAYLIE TOLBERT Diagnosis: Chronic pain syndrome 1 po q 8 hours prnto fill 04/03/18 Last Documented On 8 11:01AM By HAYLIE TOLBERT ; [facility] Gabapentin 300MG Oral Capsule 03/05/2018 - 04/02/2018 Provider: HAYLIE TOLBERT Diagnosis: Radiculopathy, l umbar region as directed QHS x 3 days, BI D x 3 days then TID Last Documented On 8 4:06PM By HAYLIE TOLBERT ; [facility] Hydrocodone-Acetaminophen 7.5-325MG Oral Tablet 02/27/2018 - 04/01/2018 Provider: HAYLIE TOLBERT Diagnosis: Chronic pain syndrome 1 po q 8 hours prnto fill 03/03/18 Last Documented On 8 1:09PM By HAYLIE TOLBERT ; [facility] Hydrocodone-Acetaminophen 7.5-325MG Oral Tablet 01/31/2018 - 02/27/2018 Provider: HAYLIE TOLBERT Diagnosis: Chronic pain syndrome 1 po q 8 hours prn Last Documented On 8 9:46AM By HAYLIE TOLBERT ; [facility] Hydrocodone-Acetaminophen 7.5-325MG Oral Tablet 01/01/2018 - 01/31/2018 Provider: HAYLIE TOLBERT Diagnosis: Chronic pain syndrome 1 po q 8 hours prn Last Documented On 8 3:36PM By HAYLIE TOLBERT ; [facility] Amitriptyline HCl 25MG Oral Tablet 12/20/2017 - 2018 Provider: Diagnosis: 1 tab at bedtime Last Documented On 9 11:48AM By HAYLIE TOLBERT ; [facility] Hydrocodone-Acetaminophen 7.5-325MG Oral Tablet 12/20/2017 - 01/01/2018 Provider: Diagnosis: 1 tab every 8 hours as needed Last Documented On 8 11:39AM By HAYLIE TOLBERT ; [facility] MetFORMIN HCl 1000MG Oral Tablet 12/20/2017 - 07/05/20 Provider: Diagnosis: 1 tab BID Last Documented On 1 8:23AM By HAYLIE TOLBERT ; [facility] Lisinopril-Hydrochlorothiazi de 20-25MG Oral Tablet 12/20/2017 - 09/01/2019 Provider: Diagnosis: 1 tab daily Last Documented On 0 2:49PM By Concepcion FELIPE ; [facility] RaNITidine HCl 300MG Oral Tablet 12/20/2017 - 04/20/20 Provider: Diagnosis: 1 tab daily Last Documented On 04/20/2021 2:00PM By Peggy FELIPE ; [facility] Medications Administered Includes: Administered Medications in patient's chart No Administered Medications Recorded Results Includes: Results from 10/31/2023 through 10/30/2024 No Results Recorded For Specified Dates History of Present Illness History of Present Illness not supported for this document type No History of Present Illness Recorded Social History Description Last Updated Current smoker 10/11/2020 Last Documented On 1 11:58AM ; [facility] Smoker 12/16/2019 Last Documented On 0 10:17AM ; [facility] Not using drugs 12/20/2017 Last Documented On 8 1:05PM ; [facility] Single 12/20/2017 Last Documented On 8 1:05PM ; [facility] Smoking status : Current everyday smoker 12/20/2017 Last Documented On 8 1:05PM ; [facility] Medical History Includes: Medical History in patient's chart Description Last Updated Has had no fall in the last 12 months. 0 08/15/2021 Last Documented On 2 1:24PM ; [facility] Denies a fear of falling. 08/15/2021 Last Documented On 2 1:24PM ; [facility] Reviewed and Unchanged 10/16/2019 Last Documented On 0 4:36PM ; [facility] Currently wearing eyeglasses 12/20/2017 Last Documented On 8 1:05PM ; [facility] Wearing contact lenses 12/20/2017 Last Documented On 8 1:05PM ; [facility] History of cancer skin 12/20/2017 Last Documented On 8 1:05PM ; [facility] History of hypertension 12/20/2017 Last Documented On 8 1:05PM ; [facility] Asthma 12/20/2017 Last Documented On 8 1:05PM ; [facility] History of diabetes mellitus 12/20/2017 Last Documented On 8 1:05PM ; [facility] Born by section 12/20/2017 Last Documented On 8 1:05PM ; [facility] Family History Includes: Family History in patient's chart Description Last Updated Family history of cancer 12/20/2017 Last Documented On 8 1:05PM ; [facility] Review of Systems Review of Systems not supported for this document type No Review of Systems Recorded Mental Status No Mental Status Recorded Functional Status No Functional Status Recorded Physical Exam Physical Exam not supported for this document type No Physical Exam Recorded Allergies Includes: Active, inactive, and resolved Allergies Substance Type Reaction Onset Date Resolved Date Statu s Penicillins Allergy Hives / Urticaria 11/14/2018 Active Last Documented On 2 10:26AM ; [facility] Insurance Includes: Active Insurance Policies Plan Name Member ID Group # Subscriber Relationship Effect tawanna Dates 1 - [facility] [id number] RALEIGH BERMUDEZ Self Clinical Notes Includes: Signed Clinical Notes starting from 08/25/2022 No Clinical Notes Recorded
--- OUTSIDE RECORDS SUMMARY | 2024-10-30 19:07 | XMS_ITS | Clinical Summary ---
Author Organization [facility] Address [address] [place] [address] Phone Care Team Providers Care Scheduler Conveyor Name Role Phone Mayco Belcher MD Primary Care Provider [phone] Allergies No known active allergies Medications metFORMIN (GLUCOPHAGE) 1000 MG Tablet Take 1,000 mg by mouth 2 times daily (with meals). Active lisinopril-hydro chlorothiazide (PRINZIDE, ZESTORETIC) 20-25 MG Tablet Take 1 Tab by mouth daily. 10/27/2015 Active ranitidine (ZANTAC) 300 MG Tablet Take 300 mg by mouth daily. 10/27/2015 Active metroNIDAZOLE (FLAGYL) 500 MG Tablet Take 1 Tab by mouth 3 times daily. 30 Tab 0 11/21/2015 Active ondansetron (ZOFRAN) 4 MG Tablet Take 1 Tab by mouth every 8 hours as needed for Nausea. 10 Tab 0 11/21/2015 Active Family History Medical History Relation Name Comments Breast Cancer Maternal Aunt 1 Breast Cancer Maternal Aunt 2 Relation Name Status Comments Maternal Aunt 1 Maternal Aunt 2 Social History Tobacco Use Types Packs/Day Years Used Date Smoking Tobacco: Every Day Cigarettes Alcohol Use Standard Drinks/Week Comments No 0 (1 standard drink = 0.6 oz pur e alcohol) Comments No Sex and Gender Information Value Date Recorded Sex Assigned at Not on file Legal Sex Female 9:29 PM CDT Gender Identity Not on file Sexual Orientation Not on file Last Filed Vital Signs Vital Sign Reading Time Taken Comments Blood Pressure 145/86 11/21/2015 12:49 PM CDT Pulse 114 11/21/2015 12:49 PM CDT Temperature 37 C (98.6 F) 11/21/2015 12:49 PM CDT Respiratory Rate 18 11/21/2015 12:49 PM CDT Oxygen Saturation 98% 11/21/2015 12:49 PM CDT Inhaled Oxygen Concentration - - Weight 81.6 kg (180 lb) 11/21/2015 12:49 PM CDT Height 157.5 cm (5' 2 ) 11/21/2015 12:49 PM CDT Body Mass Index 32.92 11/21/2015 12:49 PM CDT Plan of Treatment Health Maintenance Due Date Last Done Comments Hepatitis C Virus (HCV) Screening 1960 TdaP Immunization 1960 Cologuard 11/16/2009 Immunochemical Fecal Occult Blood 11/16/2009 Zoster Immunization (1 of 2) 11/16/2009 Pneumococcal Immunization (5 0+ years) (2 of 2 - PCV) 12/03/2015 12/02/2014 Influenza Immunization (#1) 2024 SARS-COV-2 Immunization (3 - season) 2024 11/19/2020, 10/22/2020 Colonoscopy 06/06/2025 06/06/2015 Colorectal Cancer Screening 06/06/2025 Respiratory Syncytial Virus (RSV) Immunization (Adult) (1 - 1-dose 75+ series) 11/16/2034 06/06/2015 Pneumococcal Immunization Combined Discontinued 12/02/2014 Mammogram Discontinued 08/16/2015 Hepatitis B Immunization Aged Out No longer eligible based on patient's age to complete this topic Meningococcal Immunization (ACWY) Aged Out No longer eligible based on patient's age to complete this topic Rotavirus Immunization Aged Out No lo nger eligible based on patient's age to complete this topic Procedures Procedure Name Priority Date/Time Associated Diagnosis Comments MINI SCREENING BILATERAL DIGITAL W CAD Routine 08/16/2015 10:44 AM PHYSIOGNOMIST Visit for screening mammogram from Last 3 Months or Most Recently Relevant to Health Maintenance Results * MINI SCREENING BILATERAL DIGITAL W CAD (08/16/2015 10:44 AM PHYSIOGNOMIST) Anatomical Region Laterality Modality breast Bilateral Mammography 08/16/2015 10:2 4 AM PHYSIOGNOMIST Narrative 08/21/2015 7:55 AM PHYSIOGNOMIST - [facility] SCREENING BILATERAL DIGITAL W CAD BILATERAL DIGITAL SCREENING MAMMOGRAM WITH CAD WITH MEDIOLATERAL OBLIQUE CRANIOCAUDAL: 08/16/2015 The study was acquired using digital technology and interpreted from soft copy. Current study was also evaluated with ICAD version 7.2. CLINICAL: Routine screening. Patient has no complaints. No personal history of cancer. Two maternal aunts and five maternal cousins have had breast cancer. COMPARISONS: Comparison is made to exam dated: 04/29/2013 [facility]. BREAST TISSUE:There are scattered fibroglandular densities in both breasts. FINDINGS: No significant masses, calcifications, or other findings are seen in either breast. There has been no significant interval change. IMPRESSION: BI-RAD 1 NEGATIVE There is no mammographic evidence of malignancy. A 1 year screening mammogram is recommended. The patient has been or will be contacted. The patient will be entered into an automated reminder system to schedule a mammogram in one year. Electronically signed by: Jose love/loren:08/19/2015 16:07:52 Coating And Baking Operator: Roseann SUAZO(Kizzy)(Taylor), [facility] letter sent: Normal Exam Reading location: [facility] BI-RADS: 1 Negative Procedure Note Jose Randolph MD - 08/21/2015 - [facility] SCREENING BILATERAL DIGITAL W CAD BILATERAL DIGITAL SCREENING MAMMOGRAM WITH CAD WITH MEDIOLATERAL OBLIQUE CRANIOCAUDAL: 08/16/2015 The study was acquired using digital technology and interpreted from soft copy. Current study was also evaluated with ICAD version 7.2. CLINICAL: Routine screening. Patient has no complaints. No personal history of cancer. Two maternal aunts and five maternal cousins have had breast cancer. COMPARISONS: Comparison is made to exam dated: 04/29/2013 [facility]. BREAST TISSUE:There are scattered fibroglandular densities in both breasts. FINDINGS: No significant masses, calcifications, or other findings are seen in either breast. There has been no significant interval change. IMPRESSION: BI-RAD 1 NEGATIVE There is no mammographic evidence of malignancy. A 1 year screening mammogram is recommended. The patient has been or will be contacted. The patient will be entered into an automated reminder system to schedule a mammogram in one year. Electronically signed by: Jose love/loren:08/19/2015 16:07:52 Coating And Baking Operator: Roseann Cortez RT(R)(M), [facility] letter sent: Normal Exam Reading location: [facility] BI-RADS: 1 Negative us Jordan Moreno MD IMG MAMMO ORDERABLES Final Re sult from Last 3 Months or Most Recently Relevant to Health Maintenance Insurance MEDICAID [employer] Care Teams Scheduler Conveyor Relationship Specialty Start Date End Date Mayco Belcher MD [address] [place] [address] PCP - General Family Medicine 02/22/18
--- OUTSIDE RECORDS SUMMARY | 2024-10-30 19:07 | XMS_ITS | Clinical Summary ---
Author Organization [facility] Address [facility] [place] [address] Care Team Providers Care General Production Worker Name Role Phone Mayco Belcher MD Primary Care Provider [phone] Social History Tobacco Use Types Packs/Day Years Used Date Smoking Tobacco: Never Assessed Comments Unknown Sex and Gender Information Value Date Recorded Sex Assigned at Not on file Legal Sex Female 2:23 PM CDT Gender Identity Not on file Sexual Orientation Not on file Plan of Treatment Health Maintenance Due Date Last Done Comments Cervical Cancer Screening Pa p Smear (Age 30 to 64) Every 3 Years 1960 Colorectal Cancer Screening Colonoscopy (10 Years) 1960 Annual Physical 11/16/1962 Hepatitis C 11/16/1977 DTaP, Tdap and Td Vaccines ( 1 - Tdap) 11/16/1978 Cervical Cancer Screening Pa p with HPV Testing (Age 30 to 64) Every 5 Years 11/16/1989 Cervical Cancer Screening with HPV 11/16/1989 Mammogram Screening 1999 Zoster Vaccines (1 of 2) 11/16/2009 COVID-19 Vaccine (2023-2 5 season) 2024 Influenza Adult (#1) 2024 RSV Immunization or 60+ Years (1 - 1-dose 75+ series) 11/16/2034 Meningococcal B Vaccine Aged Out No l onger eligible based on patient's age to complete this topic Meningococcal Vaccine Aged Out No chelly cinthia eligible based on patient's age to complete this topic Pneumococcal Vaccine: Pediat rics (0 to 5 Years) and At-Risk Patients (6 to 64 Years) Aged Out No longer eligible b ased on patient's age to complete this topic RSV Immunizations Under 20 Months Aged Out No longer eligible based on patient's age to complete this topic Insurance Care Teams General Production Worker Relationship Specialty Start Date End Date Mayco Belcher MD [address] [place] [address] PCP - General FAMILY PRACTICE 01/11/19
--- OUTSIDE RECORDS SUMMARY | 2024-10-30 19:07 | XMS_ITS | Referral Summary ---
Author Organization [facility] [address] Address [address] [place] [address] Phone Care Team Providers Care Car Porter Name Role Phone Pritesh Lew Primary Care Provider Allergies Active Allergy Reactions Criticality Noted Date Comments Penicillins Hives,Urticaria Medium 09/05/2019 Medications metFORMIN (GLUCOPHAGE) 1,000 mg tablet metformin 1,000 mg tablet TAKE ONE TABLET BY MOUTH TWO TIMES A DAY Active lisinopril-hydr oCHLOROthiazide (ZESTORETIC) 20-25 mg per tablet 6 Active atorvastatin (LIPITOR) 40 mg tablet Take 1 tablet (40 mg total) by mouth daily 2 Active Prosight 5,000-60-30 [id number] tablet Take 1 tablet by mouth 2 (two) times a day 2 Active acetaminophen (TYLENOL) 500 mg tablet Take 3 tablets (1,500 mg total) by mouth every 6 (six) hours as needed for pain Active HYDROcodone-jade taminophen (NORCO) 5-325 mg per tabletIndicatio ns:Pain Take 1-2 tablets every 4-6 hours as needed for pain 50 tablet 2 Active diclofenac sodium (VOLTAREN) 1 % gel Apply 4 g topically 4 (four) times a day 150 g 2 2 Active ibuprofen (ADVIL,MOTRIN) 600 mg tablet Take 1 tablet (600 mg total) by mouth every 6 (six) hours as needed for pain 60 tablet 2 Active naproxen (Naprosyn) 500 mg tabletIndicatio ns:Anti-inflamm atory Take 1 tablet (500 mg total) by mouth 2 (two) times a day with meals 60 tablet 3 Active cyclobenzaprine (FLEXERIL) 10 mg tablet [address] (VOLTAREN) 50 mg EC tablet 3 Active Active Problems Problem Noted Date Diagnosed Date Patellar tendonitis of left knee 08/23/2022 Left hip pain 08/23/2022 Asthma 04/27/2022 Diabetes mellitus 04/27/2022 Diverticulitis 04/27/2022 Essential hypertension 04/27/2022 Gastroesophageal reflux disease 04/27/2022 Pain of left lower extremity 04/27/2022 Acute medial meniscus tear of left knee 04/11/20 Complex tear of lateral meniscus of left knee Immunizations Immunization Administration Dates Next Due Pneumococcal Polysaccharide PPV23 12/02/2014 Social History Tobacco Use Types Packs/Day Years Used Date Smoking Tobacco: Every Day Cigarettes Smokeless Tobacco: Never Tobacco Cessation:Ready to Q uit: Not Asked; Counseling Given: Not Answered AUDIT-C Answer Date Recorded Q1: How often do you have a drink containing alc ohol? Never 10/27/2022 Average Number of Drinks Not on file 023 Q3: How often do you have si x or more drinks on one occasion? Never 10/27/2022 Comments Unknown Sex and Gender Information Value Date Recorded Sex Assigned at Not on file Legal Sex Female 3:37 PM APNS Gender Identity Not on file Sexual Orientation Not on file Occupation Industry Job Start Date Job End Date disabled Not on file Not on file Not on file Last Filed Vital Signs Vital Sign Reading Time Taken Comments Blood Pressure 140/84 03/14/2024 11:32 AM CDT Pulse 91 03/14/2024 11:32 AM CDT Temperature 36.7 C (98 F) 03/14/2024 11:32 AM CDT Respiratory Rate 16 03/14/2024 11:32 AM CDT Oxygen Saturation 98% 03/14/2024 11:32 AM CDT Inhaled Oxygen Concentration - - Weight 78.5 kg (173 lb) 03/14/2024 11:32 AM CDT Height 157.5 cm (5' 2 ) 03/14/2024 11:32 AM CDT Body Mass Index 31.64 03/14/2024 11:32 AM CDT Plan of Treatment Not on file Procedures Procedure Name Priority Date/Time Associated Diagnosis Comments EGFR Routine 04/03/2022 10:32 AM CDT Preop testing from Last 3 Months or Most Recently Relevant to Health Maintenance Results * eGFR (04/03/2022 10:32 AM CDT) eGFR 99 mL/min/1. 73 m2 CHELI MANUEL ([facility]BERT) Comment: Interpretive Data Reference Interval Normal >/= 90 mL/min/1.73m2 Mildly decreased* 60 - 89 mL/min/1.73m2 Mildly to moderately decreased 45 - 59 mL/min/1.73m2 Moderately to severely decreased 30 - 44 mL/min/1.73m2 Severely decreased 15 - 29 mL/min/1.73m2 Kidney Failure < 15 mL/min/1.73m2 *Relative to young adult level Estimated glomerular filtration rate is determined by the 2020 CKD-EPI equation recommended by the National Kidney Foundation (A Unifying Approach to GFR Estimation: Recommendations of the NKF-ASK Task Force on Reassessing the Inclusion of Race in Diagnosing Kidney Disease, JASN 2020). The CKD-EPI equation should not be used for patients with unstable renal function and has not been validated in children and those over 70. Current interpretive data was last reviewed 2021. Testing performed by: [place] [facility], [address] [place] [address]., [id number] Blood 04/03/2022 10:3 2 AM CDT 04/03/2022 5:14 PM CDT us Wili Restrepo Jr., MD LAB BLOOD ORDERABLE S Final Result CHELI KALEB ([facility]) [facility] Department [place] [address] from Last 3 Months or Most Recently Relevant to Health Maintenance Insurance [facility] [place] [facility] Care Teams Car Porter Relationship Specialty Start Date End Date Pritesh Lew DO [address] [place] [address] PCP - General Family Medicine 03/15/22
--- OUTSIDE RECORDS SUMMARY | 2024-10-30 19:07 | XMS_ITS | Continuity of Care Document ---
Author Organization [facility] Address [address] [place] [address] Phone Care Team Providers Care Pantograph Machine Operator Name Role Phone Alexys Navarro MD Unavailable Unavailable Allergies, Adverse Reactions, Alerts Substance Reaction Status Criticality penicillin G Active No Information Medications Medication Instructions Dosage Effective Dates (start - stop) Status Comments lisinopril 20 mg-hydrochlorothiaz davida 25 mg tablet take 1 tablet by oral route every day 1.00 tablet - Active metformin 1,000 mg tablet take 1 tablet by oral route 2 times every day with morning and evening meals 1000 MG - Active Zantac 300 mg tablet take 1 tablet (300MG) by oral route every day at bedtime - Active Procedures Procedure Date OFFICE/OUTPATIENT VISIT, EST PREV VISIT, EST, AGE 40-64 OFFICE/OUTPATIENT VISIT, EST OFFICE/OUTPATIENT VISIT, EST OFFICE/OUTPATIENT VISIT, EST OFFICE/OUTPATIENT VISIT, EST OFFICE/OUTPATIENT VISIT, EST OFFICE/OUTPATIENT VISIT, EST OFFICE/OUTPATIENT VISIT, EST OFFICE/OUTPATIENT VISIT, EST OFFICE/OUTPATIENT VISIT, EST PREV VISIT, NEW, AGE 40-64 Advance Directives Directive Yes / No Effective Date File Name No Information Encounters Encounter Description Practice Location Reason(s) For Visit Diagnoses Date Provider Providers Copied on Encounter OFFICE/OUTPA TIENT VISIT, EST [facility], [address] [place], [id number], [place] tel:[phone] [facility] back pain (chief complaint) Low back pain 7 Ramon Reardon. [address], [place], [place], [address] , [place]. [phone] Referring Provider: Anand Brar [address], [place], [place], [address]. tel:[phone] PREV VISIT, EST, AGE 40-64 [facility], [address], [place], [place], [address], [place] [phone] [facility] PHysical (chief complaint) Encounter for general adult medical exam w abnormal findingsGERD w/o esophagitisType 2 diabetes mellitus without complicationsLow back pain 7 Ramon Moralez [address], [address], [place], [place], [address] , [place]. [phone] Referring Provider: Anand Brar [address], [place], [place], [address]. tel:[phone] OFFICE/OUTPA TIENT VISIT, EST [facility], [address], [place], [place], [address], [place] [phone] [facility] DM (chief complaint) chornic pain (chief complaint) GERD (chief complaint) COPD (chief complaint) Dietary surveillance and counselingDiabetes Mellitus, Adult Onset, UncontrolledLumbago COPD [address], [place], [place], [address] , [place]. [phone] Referring Provider: Anand Brar [address], [place], [place], [address]. tel:[phone] OFFICE/OUTPA TIENT VISIT, EST [facility], [address], [place], [place], [address], [place] [phone] [facility] pneumonia (chief complaint) back pain (chief complaint) DM (chief complaint) Dietary surveillance and counselingPneumonia LumbagoDiabetes Mellitus, Adult Onset, Uncontrolled 4 Navarro Alexys. [address], [address], [place], [place], [address] , [place]. tel:[phone] Referring Provider: Anand Brar [address], [place], [place], [address]. tel:[phone] OFFICE/OUTPA TIENT VISIT, [facility], [address], [place], [place], [address], [place] tel:[phone] [facility] chornic pain (chief complaint) HTN (chief complaint) GERD (chief complaint) COPD (chief complaint) Dietary surveillance and counselingCOPDLumba goHypertension, UnspecifiedGERD Jan-0 9 4 Ramon Moralez [address], [address], [place], [place], [address] , [place]. [phone] Referring Provider: Anand Brar [address], [place], [place], [address]. tel:[phone] OFFICE/OUTPA TIENT VISIT, [facility], [address], [place], [place], [address], [place] tel:[phone] [facility] back pain (chief complaint) knee pain (chief complaint) GERD (chief complaint) DM (chief complaint) Dietary surveillance and counselingLumbagoGE RDPain in joint involving lower leg 0 4 Ramon Moralez [address], [place], [place], [address] , [place]. [phone] Referring Provider: Anand Brar [address], [place], [place], [address]. tel:[phone] OFFICE/OUTPA TIENT VISIT, [facility], [address], [place], [place], [address], [place] tel:[phone] [facility] GERD (chief complaint) back pain (chief complaint) DM (chief complaint) HTN (chief complaint) Dietary surveillance and counselingGERDLumba goHypertension, UnspecifiedDiabetes Mellitus, Adult Onset, Uncontrolled Nov-0 4 Ramon Moralez [address], [place], [place], [address] , [place]. tel:[phone] Referring Provider: Anand Brar [address], [place], [place], [address]. tel:[phone] OFFICE/OUTPA TIENT VISIT, [facility], [address], [place], [place], [address], [place] tel:[phone] [facility] edema (chief complaint) back pain (chief complaint) HTN (chief complaint) COPD (chief complaint) Dietary surveillance and counselingEdemaCOPD Hypertension, UnspecifiedLumbago 4 Ramon Reardon. [address], [place], [place], [address] , [place]. [phone] Referring Provider: Anand Brar [address], [place], [place], [address]. tel:[phone] OFFICE/OUTPA TIENT VISIT, [facility], [address], [place], [place], [address], [place] tel:[phone] [facility] DM (chief complaint) cough (chief complaint) back pain (chief complaint) HTN (chief complaint) Dietary surveillance and counselingDiabetes Mellitus, Adult Onset, UncontrolledBronchi tis, AcuteLumbagoHyperte nsion, Unspecified 4 Ramon Reardon. [address], [place], [place], [address] , [place]. tel: [phone] Referring Provider: Anand Brar [address], [place], [place], [address]. tel:[phone] OFFICE/OUTPA TIENT VISIT, [facility], [address], [place], [place], [address], [place] tel:[phone] [facility] back pain (chief complaint) DM (chief complaint) COPD (chief complaint) COPDDietary surveillance and counselingLumbagoDi abetes Mellitus, Adult Onset, Uncontrolled 4 Ramon Reardon. [address], [place], [place], [address] , [place]. [phone] Referring Provider: Anand Brar [address], [place], [place], [address]. tel:[phone] PREV VISIT, NEW, AGE 40-64 [facility], [address], [place], [place], [address], tel:[phone] [facility] Medicine Physical (chief complaint) Dietary surveillance and counselingRoutine Medical ExamRoutine Medical Exam 3 Ramon Reardon. [address], [place], [place], [address] , [place]. tel:[phone] Family History Family Member Type Diagnosis Age At Onset Father Problem (finding) Cancer - colon CA Brother Problem (finding) Coronary artery disease Mother Problem (finding) CHF and dementia Payers Payer name Insurance type Covered republican ID Authoriza tion(s) No Information Social History Type Description Quantity Date Captured Comments Alcohol Use Details No Caffeine Use Details Unknown Tobacco Use Status Cigarette smoker Smoking Status Current every day smoker 2016 Sex Female Vital Signs Date / Time: Height Weight BMI Pulse Rate Blood Pressure Temperature Respiratory Rate Body Surface Area Head Circumference BMI percentile Pulse Ox Inhaled Ox 12:42 PM 158.75 cm 181.80 lbs 32.7 2 kg/m eter (2) 99 /min 130/73 mm[Hg] 98.0 F 18 /min Chief Complaint And Reason For Visit From encounter dated '12/21/2016 11:00'. back pain (chief complaint). Description: Additional information: Pt has sil chornic low back pain .Pt denies any worsening pain. Pt denies any loss of bowel or bladder control. Plan Of Treatment Date Type Action Status Goal FOBT. Due on due Goal Td vaccine. Due on 17 due Goal Sigmoidoscopy. Due on due Goal Tdap. Due on due Goal Colonoscopy. Due on 017 due Goal Influenza vaccine. Due on due Goal Pap/HPV testing. Due on due Goal Depression screening. Due on due Goal Colonoscopy. Due on 017 due Goal Depression screening. Due on due Goal FOBT. Due on due Goal Influenza vaccine. Due on due Goal Pap/HPV testing. Due on due Goal Sigmoidoscopy. Due on due Goal Td vaccine. Due on 17 due Goal Tdap. Due on due Goal Tobacco cessation counseling completed Goal Tobacco cessation counseling completed Goal Tobacco cessation counseling completed Goal Tobacco cessation counseling completed Goal Tobacco cessation counseling completed Goal Tobacco cessation counseling completed Goal Tobacco cessation counseling completed Goal Tobacco cessation counseling completed Goal Tobacco cessation counseling completed Referral Ordered: MAMMOGRAM, SCREENING ordered Referral Ordered: Referral: Ortho Surg. Evaluate and treat. ordered Referral Ordered: MRI LOWER EXTREMITY W/O DYE ordered Referral Ordered: UPPER GI W/ SMALL BOWEL SERIES ordered Referral Ordered: CHEST X-RAY PA/LAT TWO-VIEWS ordered History Of Present Illness Encounter Date Complaint History Of Prese nt Illness back pain Additional infor mation: Pt has sil chornic low back pain .Pt denies any worsening pain. Pt denies any loss of bowel or bladder control. PHysical Pt needs annual physical. Pt has DM. Pt take metfrmin only now. Pt just moved back in town. Pt states that her BG is around 120s. Pt no longer takes amaryl. Pt also has chronic GERd and she takes zatnac and doing ok. Pt also takes lisinopril.hctz for HTN. Pt has chronic low back pain. Pt denies any worsening pain. Pt denies any loss of bladder control Pt has sciatica and right leg numbness sometimes. Her BP is stable Pt denies any other complaints Instructions Date Instruction Additional Infor mation Prescribed Diet Educ ation/Lifestyle Education Regarding Diet Related to Dietary Surveillance and Counseling Prescribed Activity and Exercise Education Related to Dietary Surveillance and Counseling Decrease caloric intake Related to Dietary surveillance counseling Dietary counseling Related to Di etary surveillance counseling Dietary counseling Related to Di etary surveillance counseling Decrease caloric intake Related to Dietary surveillance counseling Dietary counseling Related to Di etary surveillance counseling Decrease caloric intake Related to Dietary surveillance counseling Decrease caloric intake Related to Dietary surveillance counseling Dietary counseling Related to Di etary surveillance counseling Dietary counseling Related to Di etary surveillance counseling Decrease caloric intake Related to Dietary surveillance counseling Dietary counseling Related to Di etary surveillance counseling Decrease caloric intake Related to Dietary surveillance counseling Decrease caloric intake Related to Dietary surveillance counseling Dietary counseling Related to Di etary surveillance counseling Dietary counseling Related to Di etary surveillance counseling Decrease caloric intake Related to Dietary surveillance counseling Dietary counseling Related to Di etary surveillance counseling Decrease caloric intake Related to Dietary surveillance counseling Assessments Type Assessment Date assessment Low back pain Mental Status Date Cognitive Assessment Orientation - [place] ed to time, place, person, situation.
--- OUTSIDE RECORDS SUMMARY | 2024-10-30 19:07 | XMS_ITS ---
Care Plan - [facility] Created on: October 30, 2024 AIDANRALEIGH Nathan : 1960 Sex: Female Author Organization [facility] Address [address] [place] [address] Phone Care Team Providers Care Technical Recruiter Name Role Phone HAYLIE RUTLEDGE Unavailable [phone] HERI SHANKS Primary Care Provider [phone] BARRY SANTA MD Unavailable [phone]
--- OUTSIDE RECORDS SUMMARY | 2024-10-30 19:07 | XMS_ITS | Clinical Summary ---
Author Organization [facility] [address] Address [address] [place] [address] Phone Care Team Providers Care Funeral Home Location Manager Name Role Phone Pritesh Lew Primary Care [...] by mouth daily 2 Active Prosight 5,000-60-30 [id number]-[id number] tablet Take 1 tablet by mouth 2 [...] Dates Next Due Pneumococcal Polysaccharide PPV23 12/02/2014 Surgical History Surgery Date Site/Laterality Comments CHOLECYSTECTOMY SECTION X2 KNEE ARTHROSCOPY 04/11/2022 Left ARTHROSCOPY left KNEE PARTIAL MEDIAL / lateral MENISECTOMY Medical History Medical History Date Comments Hyperlipidemia Hypertension Covid 12/2021 Type 2 diabetes mellitus (HCC) Anterolisthesis of lumbar sp ine, grade 1 L2 on L3, L3 on L4, L4 on L5 10/27/2022 DDD (degenerative disc disease), lumbar Lumbar facet arthropathy Family History Medical History Relation Name Comments Colon cancer Father Dementia Mother Relation Name Status Comments Father Mother Social History Tobacco Use Types Packs/Day Years [...] on file 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 Gender Identity Not on file Sexual Orientation Not on file Occupation Industry Job Start Date Job End Date disabled Not on file Not on file Not on file Obstetrics History Last Filed Vital Signs Vital Sign [place] [...] 03/14/2024 11:32 AM CDT Plan of Treatment Health Maintenance Due Date Last Done Comments Albumin Creatinine Ratio, Urine 1960 Cervical Cancer Screening 1960 Colon Cancer Screening-Colonoscopy 1960 Depression Screening 1960 Hemoglobin A1C 1960 Hepatitis C Screening 1960 Dilated Eye Exam 1960 Foot Exam 1960 Lipid Panel 1960 DTaP/Tdap/Td Vaccine (1 - Tdap) 11/16/1970 Hepatitis B Screening 11/16/1977 Regular Well Visit/Exam 18-64 11/16/1977 Zoster Vaccine (1 of 2) 11/16/2009 Pneumococcal vaccine <65 (2 of 2 - PCV) 12/03/2015 0 12/02/2014 Breast Cancer Screening-Mammogram 08/16/2016 016, 08/16/2015 eGFR 04/03/2023 04/03/2022 Covid-19 Vaccine ( season) 2024, 10/22/2020 Influenza Vaccine (#1) 2024 Procedures Procedure Name Priority Date/Time Associated Diagnosis [...] was last reviewed 2021. Testing performed by: [facility], [address] [place] [address]., [id number] Blood 04/03/2022 10:3 2 AM CDT 04/03/2022 5:14 PM CDT Wili Restrepo Jr., MD LAB BLOOD ORDERABLE S Final Result [facility] Department [place] [address] from Last 3 Months or Most Recently Relevant to Health Maintenance Insurance [facility] Care Teams Funeral Home Location Manager Relationship Specialty Start Date End Date Pritesh Lew DO [address] [place] [address] PCP - General Family Medicine 03/15/22
--- OUTSIDE RECORDS SUMMARY | 2024-10-30 19:07 | XMS_ITS | Clinical Summary ---
Author Organization [facility] Address [address] [place] [address] Phone Care Team Providers Care Motion Study Engineer Name Role Phone KHAI TOLBERT, HAYLIE Jhaveri Unavailable [phone] HERI SHANKS Primary Care Provider [phone] BARRY SANTA MD Unavailable [phone] Reason for Visit and Chief Complaint [Patient Encounter] Plan of Treatment No Plan of Treatment [...] On 2 2:25PM By CATHY DICK ; [facility] Pregabalin 75 MG Oral Capsule 07/05/2021 Provider: HAYLIE TOLBERT Diagnosis: One tablet at bed time Last Documented On 1 8:31AM By HAYLIE TOLBERT ; [facility] Gabapentin 300MG Oral Capsule 09/30/2018 Provider: HAYLIE TOLBERT Diagnosis: TAKE 1 CAPSULE BY MOUTH THREE TIMES DAILY Last Documented On 2 10:40AM By Leyda FELIPE ; [facility] Ventolin HFA 108 (90 Base)MCG/ACT Inhalation Aer osol, solution 12/20/2017 Provider: Diagnosis: Last Documented On 8 2:23PM By YONATHAN FELIPE ; [facility] Medications Administered Includes: Administered Medications from this encounter No Administered Medications Recorded Results Includes: Results discussed during this encounter No Results Recorded For Specified Dates History of Present Illness Includes: History of Present Illness from this encounter No History of Present Illness Recorded Social History No Social History Recorded - Smoking Status Unknown Medical History Includes: Medical History addressed during [...] Active Last Documented On 2 10:26AM ; [facility] Encounters Encounter Provider Location Date Check-In Time Check-Out Time Diagnosis [Patient Encounter] HAYLIE ALMANZAR- 11/10/2021 3:18PM 11:59PM Insurance Includes: Active Insurance Policies Plan Name Member ID Group # Subscriber Relationship Effect tawanna Dates 1 - [facility] [id number] RALEIGH Hatch Clinical Notes Includes: Clinical Notes from this encounter No Clinical Notes Recorded
--- OUTSIDE RECORDS SUMMARY | 2024-10-30 19:08 | XMS_ITS | Clinical Summary ---
Author Organization [facility] Address [address] [place] [address] Phone Care Team Providers Care Relief Salesperson Name Role Phone KHAI TOLBERT, HAYLIE Jhaveri Unavailable [phone] HERI SHANKS Primary Care Provider [phone] BARRY SANTA MD Unavailable [phone] Reason for Visit and Chief [...] On 2 2:16PM By CATHY DICK ; [facility] New / Renewed during this visit MAYELIN HOPSON on 10/21/2021 HYDROcodone-Acetaminophen 7. 5-325 MG Oral Tablet Provider: MAYELIN HOPSON 30 day supply: 90 tablet, 0 refills Diagnosis: Other spondylosis with radiculopathy, lumbar region 1 po TID prn Pharmacy: [facility] ([facility] - [address] , [facility], [id number] - Last Documented On 2 2:25PM By CATHY VENEGAS-BC ; [facility] Current Medications (continue as prescribed) Pregabalin 75 MG Oral Capsule 07/05/2021 Provider: HAYLIE TOLBERT Diagnosis: One tablet at bed time Last Documented On 1 8:31AM By HAYLIE TOLBERT ; [facility] Gabapentin 300MG Oral Capsule 09/30/2018 Provider: HAYLIE TOLBERT Diagnosis: TAKE 1 CAPSULE BY MOUTH THREE TIMES DAILY Last Documented On 2 10:40AM By Leyda Aj Alec ; [facility] Ventolin HFA 108 (90 Base)MCG/ACT Inhalation Aer osol, solution 12/20/2017 Provider: Diagnosis: Last Documented On 8 2:23PM By YONATHAN DONNELLY Alec ; [facility] Medications Administered Includes: Administered Medications from this encounter No Administered Medications Recorded Results Includes: Results discussed during this encounter No Results Recorded For Specified Dates History of Present Illness Includes: History of Present Illness from this encounter No History of Present Illness Recorded Social History Description Last Updated Current smoker 10/11/2020 Last Documented On 2 8:46AM ; [facility] Smoker 12/16/2019 Last Documented On 2 8:46AM ; [facility] Not using drugs 12/20/2017 Last Documented On 2 8:46AM ; [facility] Single 12/20/2017 Last Documented On 2 8:46AM ; [facility] Smoking status : Current everyday smoker 12/20/2017 Last Documented On 2 8:46AM ; [facility] Medical History Includes: Medical History addressed during this encounter Description Last Updated Has had no fall in the last 12 months. 0 08/15/2021 Last Documented On 2 8:46AM ; [facility] Denies a fear of falling. 08/15/2021 Last Documented On 2 8:46AM ; [facility] Reviewed and Unchanged 10/16/2019 Last Documented On 2 8:46AM ; [facility] Currently wearing eyeglasses 12/20/2017 Last Documented On 2 8:46AM ; [facility] Wearing contact lenses 12/20/2017 Last Documented On 2 8:46AM ; [facility] History of cancer skin 12/20/2017 Last Documented On 2 8:46AM ; [facility] History of hypertension 12/20/2017 Last Documented On 2 8:46AM ; [facility] Asthma 12/20/2017 Last Documented On 2 8:46AM ; [facility] History of diabetes mellitus 12/20/2017 Last Documented On 2 8:46AM ; [facility] Born by section 12/20/2017 Last Documented On 2 8:46AM ; [facility] Family History Includes: Family History addressed during this encounter Description Last Updated Family history of cancer 12/20/2017 Last Documented On 2 8:46AM ; [facility] Review of Systems Includes: Review of [...] Active Last Documented On 2 10:26AM ; [facility] Encounters Encounter Provider Location Date Check-In Time Check-Out Time Diagnosis RX ISSUE/REFILL CATHY GUDINO ACCOUNTING INSTRUCTOR-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
--- OUTSIDE RECORDS SUMMARY | 2024-10-30 19:08 | XMS_ITS ---
Care Plan - [facility] Created on: October 30, 2024 AIDANRALEIGH Nathan : 1960 Sex: Female Author Organization [facility] Address [address] [place] [address] Phone Care Team Providers Care Embroidery Cutter Name Role Phone HAYLIE RUTLEDGE Unavailable [phone] HERI SHANKS Primary Care Provider [phone] BARRY SANTA MD Unavailable [phone]
--- OUTSIDE RECORDS SUMMARY | 2024-10-30 19:08 | XMS_ITS | Clinical Summary ---
Author Organization [facility] Address [address] [place] [address] Care Team Providers Care Steam Service Inspector Name Role Phone Unavailable Primary Care Provider Unavailabl e Source Comments [facility],non-owned Affiliates and Associated Physician Practices is amultiple site organization consisting of ambulatory clinics and hospital sitesin [place], [place], [place] and [place]. This disclosure is being madepursuant to the Care Everywhere program and may not contain all information available regarding this patient. Last updated 18.[facility] Allergies Active Allergy Reactions Criticality Noted Date Comments Penicillins Urticaria Medium 09/05/2019 Medications * Be aware that medications may not be up to date on this document. Alwaysverify current medications with the patient. Medication Sig Dispensed Refills Start Date End Date Status LISINOPRIL PO Active METFORMIN HCL ER, MOD, PO Active meloxicam (MOBIC) 15 MG tablet Take 1 tablet by mouth once daily 30 tablet 09/05/2019 Active tiZANidine (ZANAFLEX) 4 MG tablet Take 1 tablet by mouth every 8 hours as needed for Muscle Spasms 30 tablet 09/05/2019 Active Social History Tobacco Use Types Packs/Day Years Used Date Smoking Tobacco: Every Day Cigarettes 0.5 30 Smokeless Tobacco: Never Sex and Gender Information Value Date Recorded Sex Assigned at Not on file Gender Identity Not on file Sexual Orientation Not on file Last Filed Vital Signs Vital Sign Reading Time Taken Comments Blood Pressure 133/76 09/05/2019 1:47 PM CRA OFFICER Pulse 86 09/05/2019 1:47 PM CRA OFFICER Temperature 36.3 C (97.4 F) 09/05/2019 1:47 PM CRA OFFICER Respiratory Rate 16 09/05/2019 1:47 PM CRA OFFICER Oxygen Saturation 100% 09/05/2019 1:47 PM CRA OFFICER Inhaled Oxygen Concentration - - Weight 81.6 kg (180 lb) 09/05/2019 1:47 PM CRA OFFICER Height 160 cm (5' 3 ) 09/05/2019 1:47 PM CRA OFFICER Body Mass Index 31.89 09/05/2019 1:47 PM CRA OFFICER Plan of Treatment Health Maintenance Due Date Last Done Comments COLOGUARD (AGES 45-75) - COL ON CA SCREENING [address] COLONOGRAPHY - COLON CA SCREENING 1959 FIT - COLON CA SCREENING 1959 FLEX SIG - COLON CA SCREENING 1959 LIPID TESTING 1959 MAMMOGRAM 1959 PAP SMEAR 1959 HIV SCREENING 11/16/1974 HEPATITIS C SCREENING 11/12/1977 DTAP/TDAP/TD VACCINES (1 - Tdap) 11/16/1978 PNEUMOCOCCAL VACCINE (1 of 2 - PCV) 11/16/1978 PNEUMOCOCCAL VACCINE 50+ (1 of 1 - PCV) 11/16/2009 ZOSTER VACCINE (1 of 2) 11/16/2009 COVID-19 VACCINE ( - 2023-2 5 season) 2024 INFLUENZA VACCINE (#1) 2024 DEPRESSION SCREENING 08/06/2024 COLONOSCOPY - COLON CA SCREENING 06/06/2025 06/06/20 15 Colorectal Cancer Screening 06/06/2025 Respiratory Syncytial Virus (RSV) Vaccine Pt: or over 60 yrs (1 - 1-dose 75+ series) 11/16/2034 HEPATITIS B VACCINE Aged Out No longe r eligible based on patient's age to complete this topic HIB VACCINE Aged Out No longer eligi ble based on patient's age to complete this topic HPV VACCINE Aged Out No longer eligi ble based on patient's age to complete this topic MENINGOCOCCAL (Group B) VACC INE SHARED DECISION-MAKING Aged Out No longer eligibl e based on patient's age to complete this topic MENINGOCOCCAL GROUPS A/C/Y/W VACCINE Aged Out No longer eligible b ased on patient's age to complete this topic
--- OUTSIDE RECORDS SUMMARY | 2024-10-30 19:08 | XMS_ITS | Clinical Summary ---
Author Organization [facility] Address [address] [place] [address] Phone Care Team Providers Care Manager Internet Name Role Phone KHAI TOLBERT, HAYLIE Jhaveri Unavailable [phone] HERI SHANKS Primary Care Provider [phone] BARRY SANTA MD Unavailable [phone] Reason for Visit and Chief [...] On 2 2:25PM By CATHY DICK ; [facility] Pregabalin 75 MG Oral Capsule 07/05/2021 Provider: HAYLIE TOLBERT Diagnosis: One tablet at bed time Last Documented On 1 8:31AM By HAYLIE TOLBERT ; [facility] Gabapentin 300MG Oral Capsule 09/30/2018 Provider: HAYLIE TOLBERT Diagnosis: TAKE 1 CAPSULE BY MOUTH THREE TIMES DAILY Last Documented On 2 10:40AM By Leyda FELIPE ; [facility] Ventolin HFA 108 (90 Base)MCG/ACT Inhalation Aer osol, solution 12/20/2017 Provider: Diagnosis: Last Documented On 8 2:23PM By YONATHAN FELIPE ; [facility] Medications Administered Includes: Administered Medications from this encounter No Administered Medications Recorded Results Includes: Results discussed during this encounter No Results Recorded For Specified Dates History of Present Illness Includes: History of Present Illness from this encounter No History of Present Illness Recorded Social History Description Last Updated Current smoker 10/11/2020 Last Documented On 2 2:58PM ; [facility] Smoker 12/16/2019 Last Documented On 2 2:58PM ; [facility] Single 12/20/2017 Last Documented On 2 2:58PM ; [facility] Smoking status : Current everyday smoker 12/20/2017 Last Documented On 2 2:58PM ; [facility] Medical History Includes: Medical History [...] Active Last Documented On 2 10:26AM ; [facility] Encounters Encounter Provider Location Date Check-In Time Check-Out Time Diagnosis * PHONE CALL HAYLIE TOLBERT 10/05/2021 2:58PM 11:59PM Insurance Includes: Active Insurance Policies Plan Name Member ID Group # Subscriber Relationship Effect tawanna Dates 1 - [facility] [id number] RALEIGH BERMUDEZ Self Clinical Notes Includes: Clinical Notes from this encounter No Clinical Notes Recorded
--- OUTSIDE RECORDS SUMMARY | 2024-10-30 19:08 | XMS_ITS | Continuity of Care Document ---
Author Organization [facility] Address [address] [place] [address] Phone Care Team Providers Care Short Range Air [employer] Artillery Name Role Phone Alexys Navarro MD Unavailable Unavailable Allergies, Adverse Reactions, Alerts Substance Reaction Status Criticality penicillin G Active No Information Medications Medication Instructions Dosage Effective Dates (start - stop) Status Comments Zantac 300 mg tablet take 1 tablet (300MG) by oral route every day at bedtime - Active metformin 1,000 mg tablet take 1 tablet by oral route 2 times every day with morning and evening meals 1000 MG - Active lisinopril 20 mg-hydrochlorothiaz davida 25 mg tablet take 1 tablet by oral route every day 1.00 tablet - Active Procedures Procedure Date OFFICE/OUTPATIENT VISIT, [...] Copied on Encounter OFFICE/OUTPA TIENT VISIT, EST [facility], [address], [address], [place] tel:[phone] [facility] back pain (chief complaint) Low back pain 7 [address] Reardon. [address], [place], [place], [address] , [place]. [phone] Referring Provider: Anand Brar [address], [place], [place], [address]. tel:[phone] PREV VISIT, EST, AGE 40-64 [facility], [address], [place], [place], [address], [place] [phone] [facility] PHysical (chief complaint) Encounter for general adult medical exam w abnormal findingsGERD w/o esophagitisType 2 diabetes mellitus without complicationsLow back pain 7 Ramon Moralez [address], [address], [place], [place], [address] , [place]. tel:[phone] Referring Provider: Anand Brar [address], [place], [place], [address]. tel:[phone] OFFICE/OUTPA TIENT VISIT, EST [facility], [address], [place], [place], [address], [place] [phone] [facility] DM (chief complaint) chornic pain (chief complaint) GERD (chief complaint) COPD (chief complaint) Dietary surveillance and counselingDiabetes Mellitus, Adult Onset, UncontrolledLumbago COPD [address], [place], [place], [address] , [place]. [phone] Referring Provider: Anand Brar [address], [place], [place], [address]. tel:[phone] OFFICE/OUTPA TIENT VISIT, EST [facility], [address], [place], [place], [address], [place] [phone] [facility] pneumonia (chief complaint) back pain (chief complaint) DM (chief complaint) Dietary surveillance and counselingPneumonia LumbagoDiabetes Mellitus, Adult Onset, Uncontrolled 4 Navarro Alexys. [address], [place], [place], [address] , [place]. tel:[phone] Referring Provider: Anand Brar [address], [place], [place], [address]. tel:[phone] OFFICE/OUTPA TIENT VISIT, [facility], [address], [place], [place], [address], [place] tel:[phone] [facility] chornic pain (chief complaint) HTN (chief complaint) GERD (chief complaint) COPD (chief complaint) Dietary surveillance and counselingCOPDLumba goHypertension, UnspecifiedGERD Jan-0 9 4 Ram[address] Moralez [address], [address], [place], [place], [address] , [place]. [phone] Referring Provider: Anand Brar [address], [place], [place], [address]. tel:[phone] OFFICE/OUTPA TIENT VISIT, [facility], [address], [place], [place], [address], [place] tel:[phone] [facility] back pain (chief complaint) knee pain (chief complaint) GERD (chief complaint) DM (chief complaint) Dietary surveillance and counselingLumbagoGE RDPain in joint involving lower leg 0 4 Ram[address] Moralez [address], [place], [place], [address] , [place]. [phone] Referring Provider: Anand Brar [address], [place], [place], [address]. tel:[phone] OFFICE/OUTPA TIENT VISIT, [facility], [address], [place], [place], [address], [place] tel:[phone] [facility] GERD (chief complaint) back pain (chief complaint) DM (chief complaint) HTN (chief complaint) Dietary surveillance and counselingGERDLumba goHypertension, UnspecifiedDiabetes Mellitus, Adult Onset, Uncontrolled Nov-0 4 Ramon Moralez [address], [address], [place], [place], [address] , [place]. tel:[phone] Referring Provider: Anand Brar [address], [place], [place], [address]. tel:[phone] OFFICE/OUTPA TIENT VISIT, [facility], [address], [place], [place], [address], [place] tel:[phone] [facility] edema (chief complaint) back pain (chief complaint) HTN (chief complaint) COPD (chief complaint) Dietary surveillance and counselingEdemaCOPD Hypertension, UnspecifiedLumbago 4 Ramon Reardon. [address], [place], [place], [address] , [place]. [phone] Referring Provider: Anand Brar [address], [place], [place], [address]. tel:[phone] OFFICE/OUTPA TIENT VISIT, [facility], [address], [place], [place], [address], [place] tel:[phone] [facility] DM (chief complaint) cough (chief complaint) back pain (chief complaint) HTN (chief complaint) Dietary surveillance and counselingDiabetes Mellitus, Adult Onset, UncontrolledBronchi tis, AcuteLumbagoHyperte nsion, Unspecified 4 Ram[address] Reardon. [address], [place], [place], [address] , [place]. [phone] Referring Provider: Anand Brar [address], [place], [place], [address]. tel:[phone] OFFICE/OUTPA TIENT VISIT, [facility], [address], [place], [place], [address], [place] tel:[phone] [facility] back pain (chief complaint) DM (chief complaint) COPD (chief complaint) COPDDietary surveillance and counselingLumbagoDi abetes Mellitus, Adult Onset, Uncontrolled 4 Ramon Reardon. [address], [place], [place], [address] , [place]. [phone] Referring Provider: Anand Brar [address], [place], [place], [address]. tel:[phone] PREV VISIT, NEW, AGE 40-64 [facility], [address], [place], [place], [address], tel:[phone] [facility] Medicine Physical (chief complaint) Dietary surveillance and counselingRoutine Medical ExamRoutine Medical Exam 3 Ramon Reardon. [address], [place], [place], [address] , [place]. tel:[phone] Family History Family Member Type Diagnosis Age At Onset Father Problem (finding) Cancer - colon CA Brother Problem (finding) Coronary artery disease Mother Problem (finding) CHF and dementia Payers Payer name Insurance type Covered libertarian ID Authoriza tion(s) No Information Social History [...] Instructions Date Instruction Additional Infor mation Prescribed Activity and Exercise Education Related to Dietary Surveillance and Counseling Prescribed Diet Educ ation/Lifestyle Education Regarding Diet Related to Dietary Surveillance and Counseling Dietary counseling Related to Di etary surveillance [...] Mental Status Date Cognitive Assessment Orientation - Alma ed to time, place, person, situation.
--- OUTSIDE RECORDS SUMMARY | 2024-10-30 19:08 | XMS_ITS | Clinical Summary ---
Author Organization [facility] Address [address] [place] [address] Phone Care Team Providers Care Sample Maker Name Role Phone HKAI TOLBERT, HAYLIE Jhaveri Unavailable [phone] HERI SHANKS Primary Care Provider [phone] BARRY SANTA MD Unavailable [phone] Reason for Visit and Chief [...] On 2 2:25PM By CATHY DICK ; [facility] Pregabalin 75 MG Oral Capsule 07/05/2021 Provider: HAYLIE TOLBERT Diagnosis: One tablet at bed time Last Documented On 1 8:31AM By HAYLIE TOLBERT ; [facility] Gabapentin 300MG Oral Capsule 09/30/2018 Provider: HAYLIE TOLBERT Diagnosis: TAKE 1 CAPSULE BY MOUTH THREE TIMES DAILY Last Documented On 2 10:40AM By Leyda FELIPE ; [facility] Ventolin HFA 108 (90 Base)MCG/ACT Inhalation Aer osol, solution 12/20/2017 Provider: Diagnosis: Last Documented On 8 2:23PM By YONATHAN FELIPE ; [facility] Medications Administered Includes: Administered Medications from this encounter No Administered Medications Recorded Results Includes: Results discussed during this encounter No Results Recorded For Specified Dates History of Present Illness Includes: History of Present Illness from this encounter No History of Present Illness Recorded Social History Description Last Updated Current smoker 10/11/2020 Last Documented On 2 2:58PM ; [facility] Smoker 12/16/2019 Last Documented On 2 2:58PM ; [facility] Single 12/20/2017 Last Documented On 2 2:58PM ; [facility] Smoking status : Current everyday smoker 12/20/2017 Last Documented On 2 2:58PM ; [facility] Medical History Includes: Medical History addressed during [...] Active Last Documented On 2 10:26AM ; [facility] Encounters Encounter Provider Location Date Check-In Time Check-Out Time Diagnosis * PHONE CALL HAYLIE TOLBERT 10/05/2021 2:58PM 11:59PM Insurance Includes: Active Insurance Policies Plan Name Member ID Group # Subscriber Relationship Effect tawanna Dates 1 - [facility] [id number] RALEIGH BERMUDEZ Self Clinical Notes Includes: Clinical Notes from this encounter No Clinical Notes Recorded
--- OUTSIDE RECORDS SUMMARY | 2024-10-30 19:08 | XMS_ITS | CONTINUITY OF CARE DOCUMENT ---
Author Name mark flores Address Unknown Organization [facility] Address [address] [place] [address] Phone [phone] Care Team Providers Care Venetian Blind Installer Name Role Phone Lane Barba MD Unavailable [phone] Barba MD Unavailable [phone] INSURANCE PROVIDERS Payer name Policy type / Coverage type [place]ale red democrat [id number] MEDICAID (2) Medicaid [id number]
--- OUTSIDE RECORDS SUMMARY | 2024-10-30 19:08 | XMS_ITS ---
Author Organization [facility] Address [address] [place] [address] Phone Care Team Providers Care [employer] Applier Name Role Phone KHAI TOLBERT, HAYLIE Jhaveri Unavailable [phone] HERI SHANKS Primary Care Provider [phone] BARRY SANTA MD Unavailable [phone] Plan of Treatment Referrals To Diagnosis Pain Management [facility] - [address], [place] - Radiculopathy, lumbar region Note: consent for right L3-4 , L4-5 transforaminal epidural Last Documented On 8 2:06PM ; [facility] Pain Management [facility] - [address] [place] [address] - Radiculopathy, lumbar region Note: consent for right L3-4 , L4-5 transforaminal epiduralneeds a Sunday appt Last Documented On 9 11:44AM ; [facility] Pain Management [facility] [address] [place] [address] - Radiculopathy, lumbar region Note: consent for right L3-4 , L4-5 transforaminal epidural Last Documented On 0 3:15PM ; [facility] Pain Management [facility] [address] [place] [address] - Other spondylosis with radiculopathy, lumbar region Note: consent for right L3-4 , L4-5 transforaminal epidural Last Documented On 0 3:14PM ; [facility] Instructions to patient Intervention and counseling on cessation of tobacco use : Patient recieved smoking cessation handout Last Documented On 2 10:25AM ; [facility] Intervention and counseling on cessation of tobacco use : Patient recieved smoking cessation handout Last Documented On 1 2:00PM ; [facility] Intervention and counseling on cessation of tobacco use : Patient recieved smoking cessation handout Last Documented On 1 3:33PM ; [facility] Intervention and counseling on cessation of tobacco use : Patient recieved smoking cessation handout Last Documented On 1 11:43AM ; [facility] Intervention and counseling on cessation of tobacco use : Patient recieved smoking cessation handout Last Documented On 0 2:47PM ; [facility] Intervention and counseling on cessation of tobacco use : Patient recieved smoking cessation handout Last Documented On 0 1:48PM ; [facility] Intervention and counseling on cessation of tobacco use : Patient recieved smoking cessation handout Last Documented On 0 2:53PM ; [facility] Intervention and counseling on cessation of tobacco use : Patient recieved smoking cessation handout Last Documented On 0 4:07PM ; [facility] Intervention and counseling on cessation of tobacco use : Patient recieved smoking cessation handout Last Documented On 0 2:49PM ; [facility] Education and Decision Aids were provided during visit for: Pill Count: 20 Hydrocodone Last Documented On 2 10:39AM ; [facility] Pill Count: twelve Appropria te Last Documented On 1 2:01PM ; [facility] Pill Count: two Appropriate Last Documented On 1 3:33PM ; [facility] Pill Count: 89 Appropriate Last Documented On 1 11:17PM ; [facility] Pill Count: two Appropriate Last Documented On 1 11:56AM ; [facility] No Pill Count: two Appropria te Last Documented On 0 2:49PM ; [facility] Pill Count: two Appropriate Last Documented On 0 2:05PM ; [facility] Pill Count: Patient did not bring pain medication to appointment for pill count, per policy. Advised in order to continue to safely prescribe opioids, medication must be brought to each appointment Last Documented On 0 2:54PM ; [facility] Pill Count: eight Appropriat e PT COUNTED Last Documented On 0 4:32PM ; [facility] Pill Count: Patient did not bring pain medication to appointment for pill count, per policy. Advised in order to continue to safely prescribe opioids, medication must be brought to each appointment Last Documented On 0 4:09PM ; [facility] Pill Count: one Appropriate Last Documented On 0 10:15AM ; [facility] Pill Count: Patient did not bring pain medication to appointment for pill count, per policy. Advised in order to continue to safely prescribe opioids, medication must be brought to each appointment Last Documented On 0 4:11PM ; [facility] Assessments Includes: Assessments for all patient encounters Findings Encounter Date Chronic pain syndrome PAIN MANAGEMENT FO LLOW UP with HAYLIE ALMANZAR- 08/15/2021 Last Documented On 2 1:24PM ; [facility] group home 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 PAIN M ANAGEMENT [facility]21 Last Documented On 2 1:24PM ; [facility] Lumbar spondylosis with radiculopathy PA IN MANAGEMENT FOLLOW UP with HAYLIE RIDLEY ANP-BC 08/15/2021 Last Documented On 2 1:24PM ; [facility] Lumbosacral spinal stenosis PAIN MANAGEM ENT FOLLOW UP with HAYLIE RIDLEY ANP-BC 08/15/2021 Last Documented On 2 1:24PM ; [facility] Myalgia PAIN MANAGEMENT FOLLOW UP with Auzl ALMANZAR-BC 08/15/2021 Last Documented On 2 1:24PM ; [facility] Sacroiliitis PAIN MANAGEMENT FOLLOW UP with T CHIKIS HERNANDEZS [facility] 08/15/2021 Last Documented On 2 1:24PM ; [facility] Chronic pain syndrome PAIN MANAGEMENT FO LLOW UP with HAYLIE L KHAI [facility] 04/20/2021 Last Documented On 1 2:28PM ; [facility] group home 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 PAIN M ANAGEMENT FOLLOW UP with HAYLIE L KHAI [facility] 04/20/2021 Last Documented On 1 2:28PM ; [facility] Lumbar spondylosis with radiculopathy PA IN MANAGEMENT FOLLOW UP with HAYLIE L KHAI [facility] 04/20/2021 Last Documented On 1 2:28PM ; [facility] Lumbosacral spinal stenosis PAIN MANAGEM ENT FOLLOW UP with HAYLIE L KHAI [facility] 04/20/2021 Last Documented On 1 2:28PM ; [facility] Myalgia PAIN MANAGEMENT FOLLOW UP with T CHIKIS L KHAI [facility] 04/20/2021 Last Documented On 1 2:28PM ; [facility] Sacroiliitis PAIN MANAGEMENT FOLLOW UP with T CHIKIS L KHAI [facility] 04/20/2021 Last Documented On 1 2:28PM ; [facility] Chronic pain syndrome PAIN MANAGEMENT FO LLOW UP with HAYLIE L KHAI [facility] 02/17/2021 Last Documented On 1 4:37PM ; [facility] 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 PAIN M ANAGEMENT FOLLOW UP with HAYLIE L KHAI [facility] 02/17/2021 Last Documented On 1 4:37PM ; [facility] Lumbar spondylosis with radiculopathy PA IN MANAGEMENT FOLLOW UP with HAYLIE L KHAI [facility] 02/17/2021 Last Documented On 1 4:37PM ; [facility] Lumbosacral spinal stenosis PAIN MANAGEM ENT FOLLOW UP with HAYLIE L KHAI [facility] 02/17/2021 Last Documented On 1 4:37PM ; [facility] Myalgia PAIN MANAGEMENT FOLLOW UP with T CHIKIS L KHAI ANP-BC 02/17/2021 Last Documented On 1 4:37PM ; [facility] Sacroiliitis PAIN MANAGEMENT FOLLOW UP with T CHIKIS L KHAI ANP-BC 02/17/2021 Last Documented On 1 4:37PM ; [facility] Chronic pain syndrome FOLLOW UP with HAYLIE L BL EVINS ANP-BC 11/11/2020 Last Documented On 1 11:17PM ; [facility] group home 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 FOLLOW UP with HAYLIE L KHAI ANP-BC 11/11/2020 Last Documented On 1 11:17PM ; [facility] Lumbar spondylosis with radiculopathy FO LLOW UP with HAYLIE L KHAI ANP-BC 11/11/2020 Last Documented On 1 11:17PM ; [facility] Lumbosacral spinal stenosis FOLLOW UP with GERALD E L KHAI ANP-BC 11/11/2020 Last Documented On 1 11:17PM ; [facility] Myalgia FOLLOW UP with HAYLIE L KHAI ANP-BC 11/11/2020 Last Documented On 1 11:17PM ; [facility] Sacroiliitis FOLLOW UP with HAYLIE L KHAI ANP-BC 11/11/2020 Last Documented On 1 11:17PM ; [facility] Chronic pain syndrome TELEHEALTH with HAYLIE L B LEXIE ANP-BC 10/11/2020 Last Documented On 1 11:58AM ; [facility] group home 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 TELEHEALTH wit h HAYLIE L KHAI ANP-BC 10/11/2020 Last Documented On 1 11:58AM ; [facility] Lumbar spondylosis with radiculopathy TE LEHEALTH with HAYLIE L KHAI ANP-BC 10/11/2020 Last Documented On 1 11:58AM ; [facility] Lumbosacral spinal stenosis TELEHEALTH with TAMM IE L KHAI ANP-BC 10/11/2020 Last Documented On 1 11:58AM ; [facility] Myalgia TELEHEALTH with HAYLIE Shakila HERNANDEZS [facility] 10/11/2020 Last Documented On 1 11:58AM ; [facility] Oriented to time, place, and person TELE HEALTH with HAYLIE Shakila BATISTAKHAI [facility] 10/11/2020 Last Documented On 1 11:58AM ; [facility] Sacroiliitis TELEHEALTH with HAYLIE Shakila HERNANDEZS [facility] 10/11/2020 Last Documented On 1 11:58AM ; [facility] Chronic pain syndrome PAIN MANAGEMENT FO LLOW UP with HAYLIE L KHAI [facility] 07/13/2020 Last Documented On 0 1:09PM ; [facility] 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 PAIN M ANAGEMENT FOLLOW UP with HAYLIE L KHAI [facility] 07/13/2020 Last Documented On 0 1:09PM ; [facility] Lumbar spondylosis with radiculopathy PA IN MANAGEMENT FOLLOW UP with HAYLIE L KHAI [facility] 07/13/2020 Last Documented On 0 1:09PM ; [facility] Lumbosacral spinal stenosis PAIN MANAGEM ENT FOLLOW UP with HAYLIE L KHAI [facility] 07/13/2020 Last Documented On 0 1:09PM ; [facility] Myalgia PAIN MANAGEMENT FOLLOW UP with T CHIKIS L KHAI [facility] 07/13/2020 Last Documented On 0 1:09PM ; [facility] Sacroiliitis PAIN MANAGEMENT FOLLOW UP with T CHIKIS L KHAI [facility] 07/13/2020 Last Documented On 0 1:09PM ; [facility] Chronic pain syndrome PAIN MANAGEMENT FO LLOW UP with HAYLIE L KHAI [facility] 04/14/2020 Last Documented On 0 2:09PM ; [facility] group home 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 PAIN M ANAGEMENT FOLLOW UP with HAYLIE L KHAI [facility] 04/14/2020 Last Documented On 0 2:09PM ; [facility] Lumbar spondylosis with radiculopathy PA IN MANAGEMENT FOLLOW UP with HAYLIE Shakila BATISTAKHAI [facility] 04/14/2020 Last Documented On 0 2:09PM ; [facility] Lumbosacral spinal stenosis PAIN MANAGEM ENT FOLLOW UP with HAYLIE Shakila BATISTAKHAI [facility] 04/14/2020 Last Documented On 0 2:09PM ; [facility] Myalgia PAIN MANAGEMENT FOLLOW UP with T CHIKIS L KHAI [facility] 04/14/2020 Last Documented On 0 2:09PM ; [facility] Sacroiliitis PAIN MANAGEMENT FOLLOW UP with T CHIKIS L KHAI [facility] 04/14/2020 Last Documented On 0 2:09PM ; [facility] Chronic pain syndrome PAIN MANAGEMENT FO LLOW UP with HAYLIE Shakila KHAI [facility] 03/15/2020 Last Documented On 0 3:12PM ; [facility] group home 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 PAIN M ANAGEMENT FOLLOW UP with HAYLIE Shakila KHAI [facility] 03/15/2020 Last Documented On 0 3:12PM ; [facility] Lumbar spondylosis with radiculopathy PA IN MANAGEMENT FOLLOW UP with HAYLIE Shakila BATISTAKHAI [facility] 03/15/2020 Last Documented On 0 3:12PM ; [facility] Lumbosacral spinal stenosis PAIN MANAGEM ENT FOLLOW UP with HAYLIE Shakila BATISTAKHAI [facility] 03/15/2020 Last Documented On 0 3:12PM ; [facility] Myalgia PAIN MANAGEMENT FOLLOW UP with T CHIKIS L KHAI [facility] 03/15/2020 Last Documented On 0 3:12PM ; [facility] Sacroiliitis PAIN MANAGEMENT FOLLOW UP with T CHIKIS L KHAI [facility] 03/15/2020 Last Documented On 0 3:12PM ; [facility] Chronic pain syndrome TELEHEALTH with HAYLIEABBY OWEN [facility] 02/12/2020 Last Documented On 0 4:34PM ; [facility] group home 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 TELEHEALTH wit h HAYLIE Shakila HERNANDEZS [facility] 02/12/2020 Last Documented On 0 4:34PM ; [facility] Lumbar spondylosis with radiculopathy TE LEHEALTH with HAYLIE L KHAI [facility] 02/12/2020 Last Documented On 0 4:34PM ; [facility] Lumbosacral spinal stenosis TELEHEALTH with TAMTaylor IE Shakila KHAI [facility] 02/12/2020 Last Documented On 0 4:34PM ; [facility] Myalgia TELEHEALTH with HAYLIE L KHAI [facility] 02/12/2020 Last Documented On 0 4:34PM ; [facility] Oriented to time, place, and person TELE HEALTH with HAYLIE L KHAI [facility] 02/12/2020 Last Documented On 0 4:34PM ; [facility] Sacroiliitis TELEHEALTH with HAYLIE L KHAI [facility] 02/12/2020 Last Documented On 0 4:34PM ; [facility] Chronic pain syndrome PAIN MANAGEMENT FO LLOW UP with HAYLIE L KHAI [facility] 01/13/2020 Last Documented On 0 4:36PM ; [facility] group home 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 PAIN M ANAGEMENT FOLLOW UP with HAYLIE L KHAI [facility] 01/13/2020 Last Documented On 0 4:36PM ; [facility] Lumbar spondylosis with radiculopathy PA IN MANAGEMENT FOLLOW UP with HAYLIE L KHAI [facility] 01/13/2020 Last Documented On 0 4:36PM ; [facility] Lumbosacral spinal stenosis PAIN MANAGEM ENT FOLLOW UP with HAYLIE L KHAI [facility] 01/13/2020 Last Documented On 0 4:36PM ; [facility] Myalgia PAIN MANAGEMENT FOLLOW UP with T CHIKIS L KHAI [facility] 01/13/2020 Last Documented On 0 4:36PM ; [facility] Sacroiliitis PAIN MANAGEMENT FOLLOW UP with T CHIKIS L KHAI [facility] 01/13/2020 Last Documented On 0 4:36PM ; [facility] Chronic pain syndrome TELEHEALTH with HAYLIE L B LEXIE [facility] 12/16/2019 Last Documented On 0 10:17AM ; [facility] group home 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 TELEHEALTH wit h HAYLIE L KHAI [facility] 12/16/2019 Last Documented On 0 10:17AM ; [facility] Lumbar spondylosis with radiculopathy TE LEHEALTH with HAYLIE L KHAI [facility] 12/16/2019 Last Documented On 0 10:17AM ; [facility] Lumbosacral spinal stenosis TELEHEALTH with TAMM IE L KHAI [facility] 12/16/2019 Last Documented On 0 10:17AM ; [facility] Myalgia TELEHEALTH with HAYLIE L KHAI [facility] 12/16/2019 Last Documented On 0 10:17AM ; [facility] Sacroiliitis TELEHEALTH with HAYLIE L KHAI [facility] 12/16/2019 Last Documented On 0 10:17AM ; [facility] Chronic pain syndrome PAIN MANAGEMENT FO LLOW UP with HAYLIE L KHAI [facility] 10/16/2019 Last Documented On 0 4:36PM ; [facility] 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 PAIN M ANAGEMENT FOLLOW UP with HAYLIE L KHAI [facility] 10/16/2019 Last Documented On 0 4:36PM ; [facility] Lumbar spondylosis with radiculopathy PA IN MANAGEMENT FOLLOW UP with HAYLIE L KHAI [facility] 10/16/2019 Last Documented On 0 4:36PM ; [facility] Lumbosacral spinal stenosis PAIN MANAGEM ENT FOLLOW UP with HAYLIE L KHAI [facility] 10/16/2019 Last Documented On 0 4:36PM ; [facility] Myalgia PAIN MANAGEMENT FOLLOW UP with T CHIKIS L KHAI [facility] 10/16/2019 Last Documented On 0 4:36PM ; [facility] Sacroiliitis PAIN MANAGEMENT FOLLOW UP with T CHIKIS L KHAI [facility] 10/16/2019 Last Documented On 0 4:36PM ; [facility] Lumbar radiculopathy PAIN MANAGEMENT FOL LOW UP with HAYLIE L KHAI ANP-BC 09/01/2019 Last Documented On 0 11:04AM ; [facility] Lumbar spondylosis with radiculopathy PA IN MANAGEMENT FOLLOW UP with HAYLIE L KHAI ANP-BC 09/01/2019 Last Documented On 0 11:04AM ; [facility] Lumbosacral spinal stenosis PAIN MANAGEM ENT FOLLOW UP with HAYLIE L KHAI ANP-BC 09/01/2019 Last Documented On 0 11:04AM ; [facility] Myalgia PAIN MANAGEMENT FOLLOW UP with T CHIKIS L KHAI ANP-BC 09/01/2019 Last Documented On 0 11:04AM ; [facility] Sacroiliitis PAIN MANAGEMENT FOLLOW UP with T CHIKIS L KHAI ANP-BC 09/01/2019 Last Documented On 0 11:04AM ; [facility] Lumbar radiculopathy PAIN MANAGEMENT FOL LOW UP with HAYLIE L KHAI ANP-BC 11/14/2018 Last Documented On 9 11:16AM ; [facility] Lumbar spondylosis with radiculopathy PA IN MANAGEMENT FOLLOW UP with HAYLIE L KHAI ANP-BC 11/14/2018 Last Documented On 9 11:16AM ; [facility] Lumbosacral spinal stenosis PAIN MANAGEM ENT FOLLOW UP with HAYLIE L KHAI ANP-BC 11/14/2018 Last Documented On 9 11:16AM ; [facility] Myalgia PAIN MANAGEMENT FOLLOW UP with T CHIKIS L KHAI ANP-BC 11/14/2018 Last Documented On 9 11:16AM ; [facility] Sacroiliitis PAIN MANAGEMENT FOLLOW UP with T CHIKIS L KHAI ANP-BC 11/14/2018 Last Documented On 9 11:16AM ; [facility] Lumbar radiculopathy PAIN MANAGEMENT FOL LOW UP with HAYLIE L KHAI ANP-BC 10/09/2018 Last Documented On 9 11:17AM ; [facility] Lumbar spondylosis with radiculopathy PA IN MANAGEMENT FOLLOW UP with HAYLIE L KHAI ANP-BC 10/09/2018 Last Documented On 9 11:17AM ; [facility] Lumbosacral spinal stenosis PAIN MANAGEM ENT FOLLOW UP with HAYLIE L KHAI ANP-BC 10/09/2018 Last Documented On 9 11:17AM ; [facility] Myalgia PAIN MANAGEMENT FOLLOW UP with T CHIKIS L KHAI ANP-BC 10/09/2018 Last Documented On 9 11:17AM ; [facility] Sacroiliitis PAIN MANAGEMENT FOLLOW UP with T CHIKIS L KHAI ANP-BC 10/09/2018 Last Documented On 9 11:17AM ; [facility] Lumbar radiculopathy PAIN MANAGEMENT FOL LOW UP with HAYLIE L KHAI ANP-BC 09/11/2018 Last Documented On 9 2:12PM ; [facility] Lumbar spondylosis with radiculopathy PA IN MANAGEMENT FOLLOW UP with HAYLIE L KHAI ANP-BC 09/11/2018 Last Documented On 9 2:12PM ; [facility] Lumbosacral spinal stenosis PAIN MANAGEM ENT FOLLOW UP with HAYLIE L KHAI ANP-BC 09/11/2018 Last Documented On 9 2:12PM ; [facility] Myalgia PAIN MANAGEMENT FOLLOW UP with T CHIKIS L KHAI ANP-BC 09/11/2018 Last Documented On 9 2:12PM ; [facility] Sacroiliitis PAIN MANAGEMENT FOLLOW UP with T CHIKIS L KHAI ANP-BC 09/11/2018 Last Documented On 9 2:12PM ; [facility] Lumbar radiculopathy PAIN MANAGEMENT FOL LOW UP with HAYLIE L KHAI ANP-BC 07/09/2018 Last Documented On 8 11:25AM ; [facility] Lumbar spondylosis with radiculopathy PA IN MANAGEMENT FOLLOW UP with HAYLIE L KHAI ANP-BC 07/09/2018 Last Documented On 8 11:25AM ; [facility] Lumbosacral spinal stenosis PAIN MANAGEM ENT FOLLOW UP with HAYLIE L KHAI ANP-BC 07/09/2018 Last Documented On 8 11:25AM ; [facility] Myalgia PAIN MANAGEMENT FOLLOW UP with T CHIKIS L KHAI ANP-BC 07/09/2018 Last Documented On 8 11:25AM ; [facility] Sacroiliitis PAIN MANAGEMENT FOLLOW UP with T CHIKIS L KHAI ANP-BC 07/09/2018 Last Documented On 8 11:25AM ; [facility] Lumbar radiculopathy PAIN MANAGEMENT FOL LOW UP with HAYLIE L KHAI ANP-BC 04/16/2018 Last Documented On 8 1:50PM ; [facility] Lumbar spondylosis with radiculopathy PA IN MANAGEMENT FOLLOW UP with HAYLIE L KHAI ANP-BC 04/16/2018 Last Documented On 8 1:50PM ; [facility] Lumbosacral spinal stenosis PAIN MANAGEM ENT FOLLOW UP with HAYLIE L KHAI ANP-BC 04/16/2018 Last Documented On 8 1:50PM ; [facility] Myalgia PAIN MANAGEMENT FOLLOW UP with T CHIKIS L KHAI ANP-BC 04/16/2018 Last Documented On 8 1:50PM ; [facility] Sacroiliitis PAIN MANAGEMENT FOLLOW UP with T CHIKIS L KHAI ANP-BC 04/16/2018 Last Documented On 8 1:50PM ; [facility] Lumbar radiculopathy PAIN MANAGEMENT FOL LOW UP with HAYLIE L KHAI ANP-BC 03/05/2018 Last Documented On 8 11:21AM ; [facility] Lumbar spondylosis with radiculopathy PA IN MANAGEMENT FOLLOW UP with HAYLIE L KHAI ANP-BC 03/05/2018 Last Documented On 8 11:21AM ; [facility] Lumbosacral spinal stenosis PAIN MANAGEM ENT FOLLOW UP with HAYLIE L KHAI ANP-BC 03/05/2018 Last Documented On 8 11:21AM ; [facility] Myalgia PAIN MANAGEMENT FOLLOW UP with T CHIKIS L KHAI ANP-BC 03/05/2018 Last Documented On 8 11:21AM ; [facility] Sacroiliitis PAIN MANAGEMENT FOLLOW UP with T CHIKIS L KHAI ANP-BC 03/05/2018 Last Documented On 8 11:21AM ; [facility] Lumbar radiculopathy PAIN MANAGEMENT FOL LOW UP with HAYLIE L KHAI ANP-BC 01/22/2018 Last Documented On 8 4:46PM ; [facility] Lumbar spondylosis with radiculopathy PA IN MANAGEMENT FOLLOW UP with HAYLIE L KHAI ANP-BC 01/22/2018 Last Documented On 8 4:46PM ; [facility] Lumbosacral spinal stenosis PAIN MANAGEM ENT FOLLOW UP with HAYLIE L KHAI ANP-BC 01/22/2018 Last Documented On 8 4:46PM ; [facility] Myalgia PAIN MANAGEMENT FOLLOW UP with T CHIKIS L KHAI ANP-BC 01/22/2018 Last Documented On 8 4:46PM ; [facility] Sacroiliitis PAIN MANAGEMENT FOLLOW UP with T CHIKIS L KHAI ANP-BC 01/22/2018 Last Documented On 8 4:46PM ; [facility] Lumbar radiculopathy PAIN MANAGEMENT NEW CONSULT with HAYLIE L KHAI ANP-BC 12/20/2017 Last Documented On 8 1:05PM ; [facility] Lumbar spondylosis with radiculopathy PA IN MANAGEMENT NEW CONSULT with HAYLIE L KHAI ANP-BC 12/20/2017 Last Documented On 8 1:05PM ; [facility] Lumbosacral spinal stenosis PAIN MANAGEM ENT NEW CONSULT with HAYLIE L KHAI ANP-BC 12/20/2017 Last Documented On 8 1:05PM ; [facility] Myalgia PAIN MANAGEMENT NEW CONSULT with HAYLIE L KHAI ANP-BC 12/20/2017 Last Documented On 8 1:05PM ; [facility] Sacroiliitis PAIN MANAGEMENT NEW CONSULT with HAYLIE L KHAI ANP-CYNTHIA 12/20/2017 Last Documented On 8 1:05PM ; [facility] Instructions Includes: Instructions for all patient encounters Instructions to patient Intervention and counseling on cessation of tobacco use : Patient recieved smoking cessation handout Last Documented On 2 10:25AM ; [facility] Intervention and counseling on cessation of tobacco use : Patient recieved smoking cessation handout Last Documented On 1 2:00PM ; [facility] Intervention and counseling on cessation of tobacco use : Patient recieved smoking cessation handout Last Documented On 1 3:33PM ; [facility] Intervention and counseling on cessation of tobacco use : Patient recieved smoking cessation handout Last Documented On 1 11:43AM ; [facility] Intervention and counseling on cessation of tobacco use : Patient recieved smoking cessation handout Last Documented On 0 2:47PM ; [facility] Intervention and counseling on cessation of tobacco use : Patient recieved smoking cessation handout Last Documented On 0 1:48PM ; [facility] Intervention and counseling on cessation of tobacco use : Patient recieved smoking cessation handout Last Documented On 0 2:53PM ; [facility] Intervention and counseling on cessation of tobacco use : Patient recieved smoking cessation handout Last Documented On 0 4:07PM ; [facility] Intervention and counseling on cessation of tobacco use : Patient recieved smoking cessation handout Last Documented On 0 2:49PM ; [facility] Education and Decision Aids were provided during visit for: Pill Count: 20 Hydrocodone Last Documented On 2 10:39AM ; [facility] Pill Count: twelve Appropria te Last Documented On 1 2:01PM ; [facility] Pill Count: two Appropriate Last Documented On 1 3:33PM ; [facility] Pill Count: 89 Appropriate Last Documented On 1 11:17PM ; [facility] Pill Count: two Appropriate Last Documented On 1 11:56AM ; [facility] No Pill Count: two Appropria te Last Documented On 0 2:49PM ; [facility] Pill Count: two Appropriate Last Documented On 0 2:05PM ; [facility] Pill Count: Patient did not bring pain medication to appointment for pill count, per policy. Advised in order to continue to safely prescribe opioids, medication must be brought to each appointment Last Documented On 0 2:54PM ; [facility] Pill Count: eight Appropriat e PT COUNTED Last Documented On 0 4:32PM ; [facility] Pill Count: Patient did not bring pain medication to appointment for pill count, per policy. Advised in order to continue to safely prescribe opioids, medication must be brought to each appointment Last Documented On 0 4:09PM ; [facility] Pill Count: one Appropriate Last Documented On 0 10:15AM ; [facility] Pill Count: Patient did not bring pain medication to appointment for pill count, per policy. Advised in order to continue to safely prescribe opioids, medication must be brought to each appointment Last Documented On 0 4:11PM ; [facility] Medical Equipment - Implanted Devices Includes: Current and historical Devices No Medical Equipment Recorded Medications Includes: Current and historical Medications Current Medications (continue as prescribed) HYDROcodone-Acetaminophen 7. 5-325 MG Oral Tablet 10/21/2021 Provider: CATHY GUDINO APRN-MARY GRACE, POLYGRAPH EXAMINER-BC Diagnosis: Other spondylosi s with radiculopathy, lumbar region 1 po TID prn Last Documented On 2 2:25PM By CATHY MAHARAJP-BC ; [facility] Pregabalin 75 MG Oral Capsule 07/05/2021 Provider: HAYLIE RIDLEY ANP-BC Diagnosis: One tablet at bed time Last Documented On 1 8:31AM By HAYLIE ALMANZAR-BC ; [facility] Gabapentin 300MG Oral Capsule 09/30/2018 Provider: HAYLIE RIDLEY ANP-BC Diagnosis: TAKE 1 CAPSULE BY MOUTH THREE TIMES DAILY Last Documented On 2 10:40AM By Leyda Aj Alec ; [facility] Ventolin HFA 108 (90 Base)MCG/ACT Inhalation Aer osol, solution 12/20/2017 Provider: Diagnosis: Last Documented On 8 2:23PM By YONATHAN FELIPE ; [facility] Past Medications on file HYDROcodone-Acetaminophen 7. 5-325 MG Oral Tablet 09/19/2021 - 10/21/2021 Provider: HAYLIE TOLBERT Diagnosis: Other spondylosi s with radiculopathy, lumbar region 1 po TID prn Last Documented On 2 2:16PM By CATHY MAHARAJP-BC ; [facility] HYDROcodone-Acetaminophen 7. 5-325 MG Oral Tablet 08/15/2021 - 09/19/2021 Provider: HAYLIE TOLBERT Diagnosis: Other spondylosi s with radiculopathy, lumbar region 1 po TID prn Last Documented On 2 12:03PM By HAYLIE TOLBERT ; [facility] HYDROcodone-Acetaminophen 7. 5-325 MG Oral Tablet 07/21/2021 - 08/15/2021 Provider: HAYLIE TOLBERT Diagnosis: 1 po TID prn Last Documented On 2 11:01AM By HAYLIE TOLBERT ; [facility] Pregabalin 75 MG Oral Capsule 07/04/2021 - 07/05/2021 Provider: HAYLIE TOLBERT Diagnosis: TAKE ONE CAPSULE BY MOUTH AT BEDTIME Last Documented On 1 8:22AM By HAYLIE TOLBERT ; [facility] HYDROcodone-Acetaminophen 7. 5-325 MG Oral Tablet 06/20/2021 - 07/20/2021 Provider: HAYLIE TOLBERT Diagnosis: 1 po TID prn1/17 Last Documented On 1 2:03PM By HAYLIE TOLBERT ; [facility] HYDROcodone-Acetaminophen 7. 5-325 MG Oral Tablet 05/23/2021 - 06/20/2021 Provider: HAYLIE TOLBERT Diagnosis: Other spondylosis, lumbar region 1 po TID prn9/20 Last Documented On 1 1:49PM By HAYLIE TOLBERT ; [facility] HYDROcodone-Acetaminophen 7. 5-325 MG Oral Tablet 04/20/2021 - 05/19/2021 Provider: HAYLIE TOLBERT Diagnosis: 1 po TID pr Last Documented On 1 8:22AM By HAYLIE TOLBERT ; [facility] HYDROcodone-Acetaminophen 7. 5-325 MG Oral Tablet 03/24/2021 - 04/20/2021 Provider: HAYLIE TOLBERT Diagnosis: Radiculopathy, lumbar region 1 po TID prnfill 03/26 Last Documented On 1 2:28PM By HAYLIE TOLBERT ; [facility] HYDROcodone-Acetaminophen 7. 5-325 MG Oral Tablet 03/23/2021 - 03/24/2021 Provider: HAYLIE TOLBERT Diagnosis: 1 po TID prnfill 03/26 Last Documented On 1 4:18PM By HAYLIE TOLBERT ; [facility] HYDROcodone-Acetaminophen 7. 5-325 MG Oral Tablet 02/22/2021 - 03/23/2021 Provider: HAYLIE TOLBERT Diagnosis: Other spondylosi s with radiculopathy, lumbar region 1 po TID prnfill 02/24 Last Documented On 1 1:14PM By HAYLIE TOLBERT ; [facility] HYDROcodone-Acetaminophen 7. 5-325 MG Oral Tablet 02/17/2021 - 02/22/2021 Provider: HAYLIE TOLBERT Diagnosis: 1 po TID prnfill 02/10 Last Documented On 1 9:48AM By HAYLIE TOLBERT ; [facility] Pregabalin 75 MG Oral Capsule 02/17/2021 - 07/04/2021 Provider: HAYLIE TOLBERT Diagnosis: TAKE ONE CAPSULE BY MOUTH AT BEDTIME Last Documented On 1 2:28PM By HAYLIE TOLBERT ; [facility] Pregabalin 75 MG Oral Capsule 02/08/2021 - 02/17/2021 Provider: HAYLIE TOLBERT Diagnosis: Other spondylosi s with radiculopathy, lumbar region TAKE ONE CAPSULE BY MOUTH AT BEDTIME Last Documented On 1 3:49PM By HAYLIE TOLBERT ; [facility] HYDROcodone-Acetaminophen 7. 5-325 MG Oral Tablet 02/08/2021 - 02/17/2021 Provider: HAYLIE TOLBERT Diagnosis: 1 po TID prnfill 02/10 Last Documented On 1 3:50PM By HAYLIE TOLBERT ; [facility] HYDROcodone-Acetaminophen 7. 5-325 MG Oral Tablet 01/06/2021 - 02/08/2021 Provider: HAYLIE TOLBERT Diagnosis: Other spondylosi s with radiculopathy, lumbar region 1 po TID prn Last Documented On 1 1:08PM By HAYLIE TOLBERT ; [facility] Pregabalin 75 MG Oral Capsule 12/14/2020 - 02/08/2021 Provider: HAYLIE TOLBERT Diagnosis: Other spondylosi s with radiculopathy, lumbar region TAKE ONE CAPSULE BY MOUTH AT BEDTIME Last Documented On 1 1:35PM By HAYLIE TOLBERT ; [facility] HYDROcodone-Acetaminophen 7. 5-325 MG Oral Tablet 12/07/2020 - 01/06/2021 Provider: HAYLIE TOLBERT Diagnosis: Other spondylosi s with radiculopathy, lumbar region 1 po TID prn Last Documented On 1 2:18PM By HAYLIE TOLBERT ; [facility] HYDROcodone-Acetaminophen 7. 5-325 MG Oral Tablet 11/11/2020 - 12/07/2020 Provider: HAYLIE TOLBERT Diagnosis: Other spondylosi s with radiculopathy, lumbar region 1 po TID prn Last Documented On 1 2:02PM By HAYLIE TOLBERT ; [facility] HYDROcodone-Acetaminophen 7. 5-325 MG Oral Tablet 10/11/2020 - 11/09/2020 Provider: HAYLIE TOLBERT Diagnosis: Other spondylosi s with radiculopathy, lumbar region 1 po TID prn Last Documented On 1 8:17AM By HAYILE TOLBERT ; [facility] Pregabalin 75 MG Oral Capsule 09/15/2020 - 12/14/2020 Provider: HAYLIE TOLBERT Diagnosis: Other spondylosi s with radiculopathy, lumbar region One tablet at bed time Last Documented On 1 10:23AM By HAYLIE TOLBERT ; [facility] HYDROcodone-Acetaminophen 7. 5-325 MG Oral Tablet 09/09/2020 - 10/11/2020 Provider: HAYLIE TOLBERT Diagnosis: Other spondylosi s with radiculopathy, lumbar region 1 po TID prnto fill 09/11/20 Last Documented On 1 11:57AM By HAYLIE TOLBERT ; [facility] HYDROcodone-Acetaminophen 7. 5-325 MG Oral Tablet 08/12/2020 - 09/09/2020 Provider: HAYLIE TOLBERT Diagnosis: Other spondylosi s with radiculopathy, lumbar region 1 po TID prnfill when due Last Documented On 1 2:27PM By HAYLIE TOLBERT ; [facility] HYDROcodone-Acetaminophen 7. 5-325 MG Oral Tablet 07/14/2020 - 08/12/2020 Provider: HAYLIE TOLBERT Diagnosis: Other spondylosi s with radiculopathy, lumbar region 1 po TID prnfill when due Last Documented On 1 12:21PM By HAYLIE TOLBERT ; [facility] Pregabalin 75 MG Oral Capsule 06/15/2020 - 09/14/2020 Provider: HAYLIE TOLBERT Diagnosis: Other spondylosi s with radiculopathy, lumbar region One tablet at bed time Last Documented On 1 1:41PM By HAYLIE TOLBERT ; [facility] HYDROcodone-Acetaminophen 7. 5-325 MG Oral Tablet 06/11/2020 - 07/13/2020 Provider: HAYLIE TOLBERT Diagnosis: Other spondylosi s with radiculopathy, lumbar region 1 po TID prnfill when due Last Documented On 0 1:08PM By HAYLIE TOLBERT ; [facility] HYDROcodone-Acetaminophen 7. 5-325 MG Oral Tablet 05/13/2020 - 06/11/2020 Provider: HAYLIE TOLBERT Diagnosis: Other spondylosi s with radiculopathy, lumbar region 1 po TID prnfill when due Last Documented On 0 1:00PM By HAYLIE TOLBERT ; [facility] HYDROcodone-Acetaminophen 7. 5-325 MG Oral Tablet 04/14/2020 - 05/13/2020 Provider: HAYLIE TOLBERT Diagnosis: Other spondylosi s with radiculopathy, lumbar region 1 po TID prn Last Documented On 0 11:59AM By HAYLIE TOLBERT ; [facility] Lyrica 75 MG Oral Capsule 03/15/2020 - 06/15/2020 Provider: HAYLIE TOLBERT Diagnosis: Other spondylosi s with radiculopathy, lumbar region One tablet at bed time Last Documented On 0 9:37AM By HAYLIE TOLBERT ; [facility] HYDROcodone-Acetaminophen 7. 5-325 MG Oral Tablet 03/15/2020 - 04/14/2020 Provider: HAYLIE TOLBERT Diagnosis: Other spondylosi s with radiculopathy, lumbar region 1 po TID prn Last Documented On 0 2:08PM By HAYLIE TOLBERT ; [facility] HYDROcodone-Acetaminophen 7. 5-325 MG Oral Tablet 02/12/2020 - 03/15/2020 Provider: HAYLIE TOLBERT Diagnosis: Other spondylosi s with radiculopathy, lumbar region 1 po TID prnto fill 02/14/20 Last Documented On 0 3:11PM By HAYLIE TOLBERT ; [facility] HYDROcodone-Acetaminophen 7. 5-325 MG Oral Tablet 01/13/2020 - 02/12/2020 Provider: HAYLIE TOLBERT Diagnosis: Other spondylosi s with radiculopathy, lumbar region 1 po TID prnto fill 01/16/20 Last Documented On 0 4:34PM By HAYLIE TOLBERT ; [facility] Lyrica 75 MG Oral Capsule 01/13/2020 - 03/15/2020 Provider: HAYLIE TOLBERT Diagnosis: Chronic pain syn drome 1 po qhs x 7 days then BID Last Documented On 0 3:11PM By HAYLIE TOLBERT ; [facility] HYDROcodone-Acetaminophen 7. 5-325 MG Oral Tablet 12/17/2019 - 01/13/2020 Provider: HAYLIE TOLBERT Diagnosis: Other spondylosi s with radiculopathy, lumbar region 1 po TID prn Last Documented On 0 4:26PM By HAYLIE TOLBERT ; [facility] HYDROcodone-Acetaminophen 7. 5-325 MG Oral Tablet 11/13/2019 - 12/16/2019 Provider: HAYLIE TOLBERT Diagnosis: Other spondylosi s with radiculopathy, lumbar region 1 po TID prnto fill 11/14/19 Last Documented On 0 10:16AM By HAYLIE TOLBERT ; [facility] HYDROcodone-Acetaminophen 7. 5-325 MG Oral Tablet 10/16/2019 - 11/13/2019 Provider: HAYLIE TOLBERT Diagnosis: Other spondylosi s with radiculopathy, lumbar region 1 po TID prn Last Documented On 0 4:16PM By HAYLIE TOLBERT ; [facility] HYDROcodone-Acetaminophen 7. 5-325 MG Oral Tablet 10/01/2019 - 10/16/2019 Provider: HAYLIE TOLBERT Diagnosis: Low back pain 1 po TID prn Last Documented On 0 4:35PM By HAYLIE TOLBERT ; [facility] HYDROcodone-Acetaminophen 7. 5-325 MG Oral Tablet 09/17/2019 - 10/01/2019 Provider: HAYLIE ESPITIABC Diagnosis: Low back pain 1 po TID prn Last Documented On 0 12:27PM By HAYLIE ALMANZAR-BC ; [facility] HYDROcodone-Acetaminophen 7.5-325MG Oral Tablet 11/20/2018 - 09/01/2019 Provider: HAYLIE RIDLEY ANP- Diagnosis: Chronic pain syndrome 1 po q 8 hours prn/ max 2 per day Last Documented On 0 2:48PM By Concepcion Cross Alec ; [facility] Lyrica 150MG Oral Capsule, conventional 11/14/2018 - 09/01/2019 Provider: HAYLIE ESPITIABC Diagnosis: Radiculopathy, l umbar region 1 CAPSULE TWO TIMES A DAY Last Documented On 0 2:48PM By Concepcion FELIPE ; [facility] Lyrica 75MG Oral Capsule, conventional 11/14/2018 - 09/01/2019 Provider: HAYLIE ESPITIA Diagnosis: Radiculopathy, l umbar region 1 CAPSULE TWO TIMES A DAY Last Documented On 0 2:48PM By Concepcion FELIPE ; [facility] HYDROcodone-Acetaminophen 7.5-325MG Oral Tablet 10/23/2018 - 11/20/2018 Provider: HAYLIE ESPITIABC Diagnosis: Chronic pain syndrome 1 po q 8 hours prn/ max 2 per day Last Documented On 9 3:15PM By HAYLIE ALMANZAR-BC ; [facility] HYDROcodone-Acetaminophen 7.5-325MG Oral Tablet 09/27/2018 - 10/23/2018 Provider: HAYLIE RIDLEY ANP-BC Diagnosis: Chronic pain syndrome 1 po q 8 hours prn/ max 2 per day Last Documented On 9 4:33PM By HAYLIE ALMANZAR-BC ; [facility] Gabapentin 300MG Oral Capsule 09/04/2018 - 09/30/2018 Provider: HAYLIE RIDLEY ANP-BC Diagnosis: One tablet three times a day Last Documented On 9 2:17PM By HAYLIE ALMANZAR- ; [facility] Hydrocodone-Acetaminophen 7.5-325MG Oral Tablet 08/29/2018 - 09/26/2018 Provider: HAYLIE RIDLEY ANP- Diagnosis: Chronic pain syndrome 1 po q 8 hours prn Last Documented On 9 8:24AM By HAYLIE ALMANZAR- ; [facility] Hydrocodone-Acetaminophen 7.5-325MG Oral Tablet 08/01/2018 - 08/01/2018 Provider: LUCY CARMONA MD Diagnosis: Chronic pain syndrome 1 po q 8 hours prn Last Documented On 8 12:21PM By Benton BELL ; [facility] Hydrocodone-Acetaminophen 7.5-325MG Oral Tablet 08/01/2018 - 08/29/2018 Provider: BENTON BELL Diagnosis: Chronic pain syndrome 1 po q 8 hours prn Last Documented On 9 1:09PM By HAYLIE RIDLEY [facility] ; [facility] Hydrocodone-Acetaminophen 7.5-325MG Oral Tablet 07/02/2018 - 08/01/2018 Provider: HAYLIE ALMANZAR- Diagnosis: Chronic pain syndrome 1 po q 8 hours prn Last Documented On 08/01/2018 9:48AM By LUCY CARMONA MD ; [facility] Gabapentin 300MG Oral Capsule, conventional 05/31/2018 - 09/04/2018 Provider: HAYLIE BROOKS ANP- Diagnosis: TAKE 1 CAPSULE BY MOUTH THREE TIMES DAILY Last Documented On 9 10:52AM By HAYLIE RIDLEY [facility]- ; [facility] Hydrocodone-Acetaminophen 7.5-325MG Oral Tablet 05/29/2018 - 07/02/2018 Provider: HAYLIE RIDLEY ANP- Diagnosis: Chronic pain syndrome 1 po q 8 hours prnto fill 06/02/18 Last Documented On 8 12:10PM By HAYLIE ALMANZAR- ; [facility] Gabapentin 300MG Oral Capsule 05/02/2018 - 05/31/2018 Provider: HAYLIEABBY TOLBERT Diagnosis: TAKE 1 CAPSULE BY MOUTH THREE TIMES DAILY Last Documented On 8 8:31AM By HAYLIE TOLBERT ; [facility] Hydrocodone-Acetaminophen 7.5-325MG Oral Tablet 05/02/2018 - 05/29/2018 Provider: HAYLIE TOLBERT Diagnosis: Chronic pain syndrome 1 po q 8 hours prnto fill 05/03/18 Last Documented On 8 11:13AM By HAYLIE TOLBERT ; [facility] Gabapentin 300MG Oral Capsule 04/02/2018 - 05/02/2018 Provider: HAYLIE TOLBERT Diagnosis: One tablet three times a day Last Documented On 8 4:10PM By HAYLIE TOLBERT ; [facility] Hydrocodone-Acetaminophen 7.5-325MG Oral Tablet 04/01/2018 - 05/01/2018 Provider: HAYLIE TOLBERT Diagnosis: Chronic pain syndrome 1 po q 8 hours prnto fill 04/03/18 Last Documented On 8 11:01AM By HAYLIE TOLBERT ; [facility] Gabapentin 300MG Oral Capsule 03/05/2018 - 04/02/2018 Provider: HAYLIE TOLBERT Diagnosis: Radiculopathy, l umbar region as directed QHS x 3 days, BI D x 3 days then TID Last Documented On 8 4:06PM By HAYLIE TOLBERT ; [facility] Hydrocodone-Acetaminophen 7.5-325MG Oral Tablet 02/27/2018 - 04/01/2018 Provider: HAYLIE TOLBERT Diagnosis: Chronic pain syndrome 1 po q 8 hours prnto fill 03/03/18 Last Documented On 8 1:09PM By HAYLIE TOLBERT ; [facility] Hydrocodone-Acetaminophen 7.5-325MG Oral Tablet 01/31/2018 - 02/27/2018 Provider: HAYLIE TOLBERT Diagnosis: Chronic pain syndrome 1 po q 8 hours prn Last Documented On 8 9:46AM By HAYLIE TOLBERT ; [facility] Hydrocodone-Acetaminophen 7.5-325MG Oral Tablet 01/01/2018 - 01/31/2018 Provider: HAYLIE TOLBERT Diagnosis: Chronic pain syndrome 1 po q 8 hours prn Last Documented On 8 3:36PM By HAYLIE TOLBERT ; [facility] Amitriptyline HCl 25MG Oral Tablet 12/20/2017 - 2018 Provider: Diagnosis: 1 tab at bedtime Last Documented On 9 11:48AM By HAYLIE TOLBERT ; [facility] Hydrocodone-Acetaminophen 7.5-325MG Oral Tablet 12/20/2017 - 01/01/2018 Provider: Diagnosis: 1 tab every 8 hours as needed Last Documented On 8 11:39AM By HAYLIE TOLBERT ; [facility] MetFORMIN HCl 1000MG Oral Tablet 12/20/2017 - 07/05/20 Provider: Diagnosis: 1 tab BID Last Documented On 1 8:23AM By HAYLIE TOLBERT ; [facility] Lisinopril-Hydrochlorothiazi de 20-25MG Oral Tablet 12/20/2017 - 09/01/2019 Provider: Diagnosis: 1 tab daily Last Documented On 0 2:49PM By Concepcion FELIPE ; [facility] RaNITidine HCl 300MG Oral Tablet 12/20/2017 - 04/20/20 Provider: Diagnosis: 1 tab daily Last Documented On 04/20/2021 2:00PM By Peggy FELIPE ; [facility] Medications Administered Includes: Administered Medications in patient's chart No Administered Medications Recorded Results Includes: Results from 10/31/2023 through 10/30/2024 No Results Recorded For Specified Dates History of Present Illness History of Present Illness not supported for this document type No History of Present Illness Recorded Social History Description Last Updated Current smoker 10/11/2020 Last Documented On 1 11:58AM ; [facility] Smoker 12/16/2019 Last Documented On 0 10:17AM ; [facility] Not using drugs 12/20/2017 Last Documented On 8 1:05PM ; [facility] Single 12/20/2017 Last Documented On 8 1:05PM ; [facility] Smoking status : Current everyday smoker 12/20/2017 Last Documented On 8 1:05PM ; [facility] Medical History Includes: Medical History in patient's chart Description Last Updated Has had no fall in the last 12 months. 0 08/15/2021 Last Documented On 2 1:24PM ; [facility] Denies a fear of falling. 08/15/2021 Last Documented On 2 1:24PM ; [facility] Reviewed and Unchanged 10/16/2019 Last Documented On 0 4:36PM ; [facility] Currently wearing eyeglasses 12/20/2017 Last Documented On 8 1:05PM ; [facility] Wearing contact lenses 12/20/2017 Last Documented On 8 1:05PM ; [facility] History of cancer skin 12/20/2017 Last Documented On 8 1:05PM ; [facility] History of hypertension 12/20/2017 Last Documented On 8 1:05PM ; [facility] Asthma 12/20/2017 Last Documented On 8 1:05PM ; [facility] History of diabetes mellitus 12/20/2017 Last Documented On 8 1:05PM ; [facility] Born by section 12/20/2017 Last Documented On 8 1:05PM ; [facility] Family History Includes: Family History in patient's chart Description Last Updated Family history of cancer 12/20/2017 Last Documented On 8 1:05PM ; [facility] Review of Systems Review of Systems not [...] Active Last Documented On 2 10:26AM ; [facility] Insurance Includes: Active Insurance Policies Plan Name Member ID Group # Subscriber Relationship Effect tawanna Dates 1 - [facility] [id number] RALEIGH BERMUDEZ Self Clinical Notes Includes: Signed Clinical Notes starting from 08/25/2022 No Clinical Notes Recorded
--- OUTSIDE RECORDS SUMMARY | 2024-10-30 19:08 | XMS_ITS | Clinical Summary ---
Author Organization [facility] Address [address] [place] [address] Phone Care Team Providers Care Developer Programmer Analyst Name Role Phone KHAI TOLBERT, HAYLIE Jhaveri Unavailable [phone] HERI SHANKS Primary Care Provider [phone] BARRY SANTA MD Unavailable [phone] Reason for Visit and Chief [...] 2:25PM By CATHY DICK ; [facility] Pregabalin 75 MG Oral Capsule 07/05/2021 Provider: HAYLIE TOLBERT Diagnosis: One tablet at bed time Last Documented On 1 8:31AM By HAYLIE TOLBERT ; [facility] Gabapentin 300MG Oral Capsule 09/30/2018 Provider: HAYLIE TOLBERT Diagnosis: TAKE 1 CAPSULE BY MOUTH THREE TIMES DAILY Last Documented On 2 10:40AM By Leyda FELIPE ; [facility] Ventolin HFA 108 (90 Base)MCG/ACT Inhalation Aer osol, solution 12/20/2017 Provider: Diagnosis: Last Documented On 8 2:23PM By YONATHAN FELIPE ; [facility] Medications Administered Includes: Administered [...] Documented On 2 10:26AM ; [facility] Encounters Encounter Provider Location Date Check-In Time Check-Out Time Diagnosis [Patient Encounter] HAYLIE ALMANZAR- 11/10/2021 3:18PM 11:59PM Insurance Includes: Active Insurance Policies Plan Name Member ID Group # Subscriber Relationship Effect tawanna Dates 1 - [facility] [id number] RALEIGH Hatch Clinical Notes Includes: Clinical Notes from this encounter No Clinical Notes Recorded
--- OUTSIDE RECORDS SUMMARY | 2024-10-30 19:08 | XMS_ITS | Clinical Summary ---
Author Organization [facility] Address [address] [place] [address] Phone Care Team Providers Care Coat Padder Name Role Phone KHAI TOLBERT, HAYLIE Jhaveri Unavailable [phone] HERI SHANKS Primary Care Provider [phone] BARRY SANTA MD Unavailable [phone] Reason for Visit and Chief [...] On 2 2:25PM By CATHY DICK ; [facility] Pregabalin 75 MG Oral Capsule 07/05/2021 Provider: HAYLIE TOLBERT Diagnosis: One tablet at bed time Last Documented On 1 8:31AM By HAYLIE TOLBERT ; [facility] Gabapentin 300MG Oral Capsule 09/30/2018 Provider: HAYLIE TOLBERT Diagnosis: TAKE 1 CAPSULE BY MOUTH THREE TIMES DAILY Last Documented On 2 10:40AM By Leyda FELIPE ; [facility] Ventolin HFA 108 (90 Base)MCG/ACT Inhalation Aer osol, solution 12/20/2017 Provider: Diagnosis: Last Documented On 8 2:23PM By YONATHAN FELIPE ; [facility] Medications Administered Includes: Administered Medications from this encounter No Administered Medications Recorded Results Includes: Results discussed during this encounter No Results Recorded For Specified Dates History of Present Illness Includes: History of Present Illness from this encounter No History of Present Illness Recorded Social History Description Last Updated Current smoker 10/11/2020 Last Documented On 2 9:25AM ; [facility] Smoker 12/16/2019 Last Documented On 2 9:25AM ; [facility] Single 12/20/2017 Last Documented On 2 9:25AM ; [facility] Smoking status : Current everyday smoker 12/20/2017 Last Documented On 2 9:25AM ; [facility] Medical History Includes: Medical History addressed [...] Active Last Documented On 2 10:26AM ; [facility] Encounters Encounter Provider Location Date Check-In Time Check-Out Time Diagnosis * PHONE CALL HAYLIE ALMANZAR-CYNTHIA 11/10/2021 9:25AM 11:59PM Insurance Includes: Active Insurance Policies Plan Name Member ID Group # Subscriber Relationship Effect tawanna Dates 1 - [facility] [id number] RALEIGH BERMUDEZ Self Clinical Notes Includes: Clinical Notes from this encounter No Clinical Notes Recorded
--- OUTSIDE RECORDS SUMMARY | 2024-10-30 19:08 | XMS_ITS | Clinical Summary ---
Author Organization [facility] Address [address] [place] [address] Phone Care Team Providers Care White Washer Piler Name Role Phone KHAI TOLBERT, HAYLIE Jhaveri Unavailable [phone] HERI SHANKS Primary Care Provider [phone] BARRY SANTA MD Unavailable [phone] Reason for Visit and Chief [...] On 2 12:03PM By HAYLIE TOLBERT ; [facility] New / Renewed during this visit HAYLIE TOLBERT on 09/19/2021 HYDROcodone-Acetaminophen 7. 5-325 MG Oral Tablet Provider: HAYLIE TOLBERT 30 day supply: 90 tablet, 0 refills Diagnosis: Other spondylosis with radiculopathy, lumbar region 1 po TID prn Pharmacy: [facility] - [address] [place] [address], [id number] - Last Documented On 2 2:16PM By CATHY DICK ; [facility] Current Medications (continue as prescribed) HYDROcodone-Acetaminophen 7. 5-325 MG Oral Tablet 10/21/2021 Provider: CATHY [facility]- Diagnosis: Other spondylosi s with radiculopathy, lumbar region 1 po TID prn Last Documented On 2 2:25PM By CATHY GUDINO RECREATION MANAGER- ; [facility] Pregabalin 75 MG Oral Capsule 07/05/2021 Provider: HAYLIE ESPITIA Diagnosis: One tablet at bed time Last Documented On 1 8:31AM By HAYLIE ESPITIA ; [facility] Gabapentin 300MG Oral Capsule 09/30/2018 Provider: HAYLIE ESPITIA Diagnosis: TAKE 1 CAPSULE BY MOUTH THREE TIMES DAILY Last Documented On 2 10:40AM By Leyda Aj Alec ; [facility] Ventolin HFA 108 (90 Base)MCG/ACT Inhalation Aer osol, solution 12/20/2017 Provider: Diagnosis: Last Documented On 8 2:23PM By YONATHAN DONNELLY Alec ; [facility] Medications Administered Includes: Administered Medications from this encounter No Administered Medications Recorded Results Includes: Results discussed during this encounter No Results Recorded For Specified Dates History of Present Illness Includes: History of Present Illness from this encounter No History of Present Illness Recorded Social History Description Last Updated Current smoker 10/11/2020 Last Documented On 2 11:53AM ; [facility] Smoker 12/16/2019 Last Documented On 2 11:53AM ; [facility] Single 12/20/2017 Last Documented On 2 11:53AM ; [facility] Smoking status : Current everyday smoker 12/20/2017 Last Documented On 2 11:53AM ; [facility] Medical History [...] 11/14/2018 Active Last Documented On 10:26AM ; [facility] Encounters Encounter Provider Location Date Check-In Time Check-Out Time Diagnosis RX ISSUE/REFILL HAYLIE ALMANZAR-CYNTHIA 09/19/2021 11:52AM 11:59PM Insurance Includes: Active Insurance Policies Plan Name Member ID Group # Subscriber Relationship Effect tawanna Dates 1 - [facility] [id number] RALEIGH BERMUDEZ Self Clinical Notes Includes: Clinical Notes from this encounter No Clinical Notes Recorded
[2024-10-30 19:10] VITALS: BP 136/68; PULSE 108; RESP 20; TEMP 36.7; O2SAT 96
--- NOTE | 2024-10-30 19:44 | ED_ITS ---
HPI - Dizziness General Chief Complaint: Ear Stated Complaint: dizzy Time Seen by Provider: 10/30/24 19:44 Source: patient, RN notes reviewed and old records reviewed Mode of arrival: ambulatory Limitations: no limitations Related Data Home Medications ?Medication ?Instructions ?Recorded ?Confirmed ?Last Taken ?Type omega 3-wha-new-fish oil 1,000 mg 2 cap PO DAILY 03/22/23 05/22/24 Unknown History (120 mg-180 mg) capsule (Fish Oil) vit A 5,000 unit-vit C 60 mg-vit E 1 tablet PO DAILY 08/09/23 05/22/24 Unknown History 30 svtw-jzyc-nsnfreea-copper tablet (Prosight) vit A 5,000 unit-vit C 60 mg-vit E See Rx Instructions .Route .COMPLEX 09/19/23 05/22/24 Unknown History 30 tjkn-ndnr-fzuybyjq-copper tablet (Prosight) lisinopril 20 tablet 10/30/24 Unknown History mg-hydrochlorothiazide 12.5 mg tablet Allergies Allergy/AdvReac Type Severity Reaction Status Date / Time Penicillins Allergy Unknown Unknown Verified 10/30/24 19:41 Review of Systems Review of Systems: CONSTITUTIONAL: Denies malaise, chills, sweats, or fever. EYES: Denies visual changes, redness, or discharge. ENT: Reports rhinorrhea, congestion, sinus pain, otalgia and sore throat. CARDIOVASCULAR: Denies chest pain, palpitations, or edema. RESPIRATORY: Reports cough.? Denies dyspnea. GASTROINTESTINAL: Denies abdominal pain, nausea, vomiting, diarrhea SKIN: Denies rash or itching. MUSCULOSKELETAL: Denies myalgia. NEUROLOGIC: Denies headache. All systems reviewed & are unremarkable except as noted in HPI and below PMFSH Past Medical History Medical History Asthma B12 deficiency Chronic low back pain DM2 (diabetes mellitus, type 2) Elevated cholesterol GERD (gastroesophageal reflux disease) Hypertension Nicotine dependence Overweight Surgical History Surgical History History of knee surgery left Hx of cholecystectomy Previous section Family History Family History Father , Age 62 Carcinoma of colon, Onset Age: 61 Mother , Age 92 Family history of dementia, Onset Age: 92 Sibling , Age 63 Liver cancer Social History Social History Smoking packs per day: 0.25 Smoking cigarettes per day: 5.0 Years smoked: 35 Smoking pack-years: 8.75 Smoking status: Current every day smoker Tobacco type: cigarettes Second hand tobacco smoke exposure: No Alcohol intake: never Substance use type: does not use Do You Feel Safe in your Home?: Yes Lack of Transportation: No Lack of Food: Never True Current Housing: I Have Housing Concerned About Future Housing: No Difficulty Paying Gas/Electric Bills: No Difficulty Paying for Meds: No Currently Unemployed: No Education: High School Diploma/GED Difficulty w/ Childcare or Family Care: No Living arrangements: alone Occupation/Education: unemployed Gender identity (if verbalized by the patient): Female Comments At time of signature, agree with nursing past medical, surgical, social and family history. There is no relevant family history pertinent to the presenting complaint Exam Narrative: GENERAL: Well-appearing, well-nourished, and in no acute distress. HEAD: Normocephalic EYES: PERRLA, conjunctivae clear ENT: Nares clear, turbinates edematous and erythematous, clear discharge. Mucous membranes moist. TM pearly reyes with dull light reflex bilaterally; no tragal tenderness. Oropharynx erythematous without lesions. Tonsils not enlarged and without exudate, no drooling, no hoarseness, no trismus, uvula midline. NECK: Supple. No lymphadenopathy CHEST: Clear to auscultation, breath sounds equal. No wheezing, rhonchi, rales, or stridor. No respiratory distress, speaks in full sentences. HEART: Regular rate and rhythm. No murmur heard. SKIN: Warm, dry, no rash. NEURO: Alert and oriented x3. PSYCH: Normal mood and affect Course Course Emergency Course: Patient is aware of diagnosis, understands and agrees to treatment plan.? Anticipatory guidance given.? Patient agrees to follow-up as directed and is aware of reasons to seek care at the emergency department. Portions of this record may have been created with voice recognition software Level of Care: Express Care Visit Vital Signs Vital signs: Vital Signs Temperature 36.7 C 10/30/24 19:10 Pulse Rate 108 H 10/30/24 19:10 Respiratory Rate 20 10/30/24 19:10 Blood Pressure 136/68 10/30/24 19:10 Pulse Oximetry 96 10/30/24 19:10 Oxygen Delivery Room Air 10/30/24 19:10 Temperature 36.7 C 10/30/24 19:10 Pulse Rate 108 H 10/30/24 19:10 Respiratory Rate 20 10/30/24 19:10 Blood Pressure 136/68 10/30/24 19:10 Pulse Oximetry 96 10/30/24 19:10 Oxygen Delivery Room Air 10/30/24 19:10 Reviewed MDM - Dizziness Lab Data Attestation: I reviewed the patient's lab results. Discharge Plan Discharge Clinical Impression: Acute infection of left ear, Dizziness Patient Disposition: Home, Self-Care Condition: Stable Instructions: Antibiotic Form, Ear Infection (GEN), Dizziness (ED) Additional Instructions: Increase fluids especially juices and water Nncb-plx-etalsvb cough and cold medicine of your choice for your symptoms Prescription cough medicine as directed--caution drowsiness and no driving or alcohol Zyrtec Claritin or Jud Antivert as needed for dizziness heat to the face 20-30 minutes 4-6 times a day for pain Salt water gargles, throat lozenges or throat sprays as desired Antibiotic as directed--finished the medication Tylenol or ibuprofen for any fever pain If your symptoms persist, change or worsen significantly before you can contact your personal physician then please, without delay, go to the emergency department for further evaluation. Follow-up with PCP in 7-10 days or sooner if needed Follow up with PCP soon in regards to your blood pressure which is elevated above threshold for referral. Blood pressure above 120/80 may indicate pre- hypertension. Patient Language: Greenlandic Prescriptions: No Action Prosight 5,000-60-30 dzhb-mh-qrqp tablet See Rx Instructions .ROUTE .COMPLEX Rx Instructions: as prescribed lisinopril-hydrochlorothiazide 20-12.5 mg tablet omega 6-qyp-qna-fish oil [Fish Oil] 1,000 mg (120 mg-180 mg) capsule 2 cap PO DAILY Prosight 5,000-60-30 mwdm-lu-wfzk tablet 1 tablet PO DAILY atorvastatin 80 mg tablet 80 mg PO QHS 90 Days Qty: 90 1RF metformin 1,000 mg tablet See Rx Instructions .ROUTE .COMPLEX Qty: 180 3RF Dose Instruction: TAKE ONE TABLET BY MOUTH TWO TIMES a DAY Rx Instructions: TAKE ONE TABLET BY MOUTH TWO TIMES a DAY Follow-up/Referrals: PHYSICIAN NOT ON STAFF,NONSTAFF [Primary Care Provider] -
== END 2024-10-30 20:10 | disposition home or self-care (01) ==
PROVIDERS: Emergency Provider Registered Nurse
DX: H66.92 Otitis media, unspecified, left ear (principal); R42 Dizziness and giddiness; F17.210 Nicotine dependence, cigarettes, uncomplicated; I10 Essential (primary) hypertension; E11.9 Type 2 diabetes mellitus without complications; Z79.84 Long term (current) use of oral hypoglycemic drugs; J45.909 Unspecified asthma, uncomplicated; E78.00 Pure hypercholesterolemia, unspecified; K21.9 Gastro-esophageal reflux disease without esophagitis
CPT/HCPCS: 99213; G0463

== ENCOUNTER 2024-11-26 13:34 | Emergency (ER) | payer OTHER, SELFPAY ==
[2024-11-26 13:43] VITALS: BP 134/69; PULSE 110; RESP 20; TEMP 36.6; O2SAT 95
--- NOTE | 2024-11-26 13:44 | ED_ITS ---
HPI - Ear Problem General Chief complaint: Ear Stated complaint: Ear Pain Time Seen by Provider: 11/26/24 13:47 Source: patient Mode of arrival: ambulatory Limitations: no limitations History of Present Illness HPI Narrative: 64-year-old female presented for complaint of bilateral ear pain and fullness. Onset over 2 weeks. Says the pain is mostly at night. She denies tinnitus, dizziness, nausea, vomiting, fevers or chills. Patient was treated with a Z-Anselmo on 11/02 for URI, left AOM. MD Complaint: ear pain Related Data Home Medications ?Medication ?Instructions ?Recorded ?Confirmed ?Last Taken ?Type omega 2-ovj-vaq-fish oil 1,000 mg 2 cap PO DAILY 03/22/23 11/26/24 Unknown History (120 mg-180 mg) capsule (Fish Oil) vit A 5,000 unit-vit C 60 mg-vit E 1 tablet PO DAILY 08/09/23 11/26/24 Unknown History 30 xezg-mblz-ytwpltua-copper tablet (Prosight) vit A 5,000 unit-vit C 60 mg-vit E See Rx Instructions .Route .COMPLEX 09/19/23 11/26/24 Unknown History 30 qcic-uist-yeinmkye-copper tablet (Prosight) lisinopril 20 tablet 10/30/24 Unknown History mg-hydrochlorothiazide 12.5 mg tablet Allergies Allergy/AdvReac Type Severity Reaction Status Date / Time Penicillins Allergy Unknown Unknown Verified 11/26/24 13:44 Review of Systems Review of Systems: All systems reviewed & are unremarkable except as noted in HPI and below PMFSH Past Medical History Medical History Asthma B12 deficiency Chronic low back pain DM2 (diabetes mellitus, type 2) Elevated cholesterol GERD (gastroesophageal reflux disease) Hypertension Nicotine dependence Overweight Surgical History Surgical History History of knee surgery left Hx of cholecystectomy Previous section Family History Family History Father , Age 62 Carcinoma of colon, Onset Age: 61 Mother , Age 92 Family history of dementia, Onset Age: 92 Sibling , Age 63 Liver cancer Social History Social History Smoking packs per day: 0.25 Smoking cigarettes per day: 5.0 Years smoked: 35 Smoking pack-years: 8.75 Smoking status: Current every day smoker Tobacco type: cigarettes Second hand tobacco smoke exposure: No Alcohol intake: never Substance use type: does not use Do You Feel Safe in your Home?: Yes Lack of Transportation: No Lack of Food: Never True Current Housing: I Have Housing Concerned About Future Housing: No Difficulty Paying Gas/Electric Bills: No Difficulty Paying for Meds: No Currently Unemployed: No Education: High School Diploma/GED Difficulty w/ Childcare or Family Care: No Living arrangements: alone Occupation/Education: unemployed Gender identity (if verbalized by the patient): Female Comments At time of signature, agree with nursing past medical, surgical, social and family history. There is no relevant family history pertinent to the presenting complaint Exam Narrative: GENERAL: Well-appearing EYES: PERRLA, conjunctivae clear ENT: Nares clear. Mucous membranes moist. Right TM without erythema, normal light reflex, small amount cerumen. Left TM unable to visualize due to excess cerumen, no drainage, no tragal tenderness. NECK: Supple. No lymphadenopathy CHEST: Clear to auscultation, breath sounds equal. HEART: Regular rate and rhythm. No murmur heard. SKIN: Warm, dry, no rash. NEURO: Alert and oriented x3. PSYCH: Normal mood and affect Course Course Emergency Course: Patient is aware of diagnosis, understands and agrees to treatment plan. Anticipatory guidance given. Patient agrees to follow-up as directed and is aware of reasons to seek care at the emergency department. Portions of this record may have been created with voice recognition software Level of Care: Express Care Visit Vital Signs Vital signs: Vital Signs Temperature 98 F 11/26/24 13:43 Pulse Rate 110 H 11/26/24 13:43 Respiratory Rate 20 11/26/24 13:43 Blood Pressure 134/69 11/26/24 13:43 Pulse Oximetry 95 11/26/24 13:43 Oxygen Delivery Room Air 11/26/24 13:43 Temperature 98 F 11/26/24 13:43 Pulse Rate 110 H 11/26/24 13:43 Respiratory Rate 20 11/26/24 13:43 Blood Pressure 134/69 11/26/24 13:43 Pulse Oximetry 95 11/26/24 13:43 Oxygen Delivery Room Air 11/26/24 13:43 Reviewed Procedures Ear Wax Removal Left Ear: Ear Wax Removal Date: 11/26/24 Cerumenolytic Used: other ( Equal parts warm water and hydrogen peroxide) Results: Re-examined: cerumen removed completely TM Examination: TM(s) intact, normal appearance Ear Canal Exam: atraumatic Patient Tolerated Procedure: well and no complications Technique: ear canal irrigated and ear canal curetted Additional Comments: Reports improvement in hearing after cerumen is removed from Left. Right Ear: Cerumenolytic Used: other (warm water/hydrogen peroxide) Results: Re-examined: cerumen removed completely TM Examination: TM(s) intact, normal appearance Ear Canal Exam: atraumatic Patient Tolerated Procedure: well and no complications Additional Comments: Small amount of dried cerumen noted to the canal prior to irrigation, pt requested attempt to remove it due to the muffled hearing. Medical Decision Making MDM Narrative Medical decision making narrative: Discussed physical exam findings. Left TM irrigated and pt reported improvement after large amount of cerumen removed. Small amount of dried cerumen noted to the right canal prior to irrigation, pt requested attempt to remove it due to the muffled hearing, no significant change per pt. Advised supportive measures and signs/symptoms to go to the ER. Patient is appropriate for outpatient treatment and follow-up. Differential Diagnosis Differential Diagnosis: Coronavirus, strep pharyngitis, allergic rhinitis, upper respiratory tract infection, sinusitis, rhinosinusitis, nasopharyngitis, viral pharyngitis, otitis media, otitis externa, eustachian tube dysfunction, foreign body, cerumen impaction. Vital Signs Vital Signs: Vital Signs Temperature 98 F 11/26/24 13:43 Pulse Rate 110 H 11/26/24 13:43 Respiratory Rate 20 11/26/24 13:43 Blood Pressure 134/69 11/26/24 13:43 Pulse Oximetry 95 11/26/24 13:43 Oxygen Delivery Room Air 11/26/24 13:43 Temperature 98 F 11/26/24 13:43 Pulse Rate 110 H 11/26/24 13:43 Respiratory Rate 20 11/26/24 13:43 Blood Pressure 134/69 11/26/24 13:43 Pulse Oximetry 95 11/26/24 13:43 Oxygen Delivery Room Air 11/26/24 13:43 Discharge Plan Discharge Clinical Impression: Impacted cerumen of left ear Patient Disposition: Home Condition: Stable Instructions: Antibiotic Form, Earache (ED) Additional Instructions: use a earwax softening agent such as gdpj-wac-bcyagtv Debrox or a mixture of 1 part hydrogen peroxide in 1 part warm water several times weekly to keep your earwax soft and prevent further impaction. Please follow-up with your primary care doctor if you develop new symptoms. If you have urgent concerns please go to the ER. Patient Language: Greenlandic Prescriptions: No Action Prosight 5,000-60-30 xxao-qp-ricj tablet See Rx Instructions .ROUTE .COMPLEX Rx Instructions: as prescribed lisinopril-hydrochlorothiazide 20-12.5 mg tablet omega 5-dla-aae-fish oil [Fish Oil] 1,000 mg (120 mg-180 mg) capsule 2 cap PO DAILY Prosight 5,000-60-30 oeig-gh-bpzf tablet 1 tablet PO DAILY atorvastatin 80 mg tablet 80 mg PO QHS 90 Days Qty: 90 1RF metformin 1,000 mg tablet See Rx Instructions .ROUTE .COMPLEX Qty: 180 3RF Dose Instruction: TAKE ONE TABLET BY MOUTH TWO TIMES a DAY Rx Instructions: TAKE ONE TABLET BY MOUTH TWO TIMES a DAY Follow-up/Referrals: PHYSICIAN NOT ON STAFF,NONSTAFF [Primary Care Provider] - Time of Disposition: 14:22
--- OUTSIDE RECORDS SUMMARY | 2024-11-26 15:19 | XMS_ITS | Data Portability ---
Author Organization [facility] Address [address] [place] [address] Care Team Providers Care It Sales Consultant Name Role Phone CARLOS HARDY Oil Spot Washer NEREIDA ONEILL Primary Care Provider [phone] Assessment No assessment recorded. Plan of Treatment Reminders Order Date Submit Date Provider Last Modified By Organization Details Last Modified Time Details Appointments None recorded. Lab HbA1c (hemoglobi n A1c), blood 2024 025 [facility], [address] [place] [address] [place], [place], [address], 5 15:37:53 lipid panel, serum 2024 025 [facility], [address] [place] [address] 2, [place], [address], 5 15:37:53 CMP, serum or plasma 2024 025 [facility], [address] [place] [address] 2, [place], [address], 5 15:37:53 HbA1c (hemoglobi n A1c), blood 2023 024 [email or web address] In-Office Order, Internal Use Only DO Not Attach Compendium DO Not Attach Compendium, Do Not Delete/merge, [id number] 4 13:05:11 Referral otolaryngo logist referral 2024 025 ATHENAFAX Kurtis Hernadez MD, [address], [place], [address], 5 18:00:53 orthopedic surgeon referral 2023 024 [facility], [address], [place], [address], 4 16:26:01 Procedures None recorded. Surgeries None recorded. Imaging None recorded. Medication Orders hydrocodon e 7.5 mg-acetami nophen 325 mg tablet 2024 025 [place] [address] [place], [address], 5 15:36:47 naproxen 500 mg tablet 2023 024 [place] [address] [place], [address], 4 13:08:07 hydrocodon e 7.5 mg-acetami nophen 325 mg tablet [address] [place] Villavicencio, [place], [address], 4 16:12:43 lisinopril 20 mg-hydroch lorothiazi de 12.5 mg tablet 2023 024 [place] [address] [place], [address], 4 16:12:31 Patient TargetsNo targets recorded. Patient Instructions Encounter Date Encounter Id Patient Instructions Last Modified By Organization Details Last Modified Time 12/24/2023 [id number] learning about high blood pressure [email or web address] Not available 12/24/2023 18:12:50 03/05/2024 [id number] learning about high blood pressure [email or web address] Not available 03/05/2024 16:12:25 04/16/2024 [id number] learning about high blood pressure Not available 04/16/2024 15:06:06 06/23/2024 [id number] A healthy lifestyle: care instructions [email or web address] Not available 06/23/2024 14:12:07 A healthy lifestyle: care instructions [email or web address] Not available 06/23/2024 13:08:05 learning about high blood pressure [email or web address] Not available 06/23/2024 13:05:09 11/24/2024 [id number] learning about high blood pressure [email or web address] Not available 11/24/2024 15:36:46 Reason for Referral Orthopedic Surgeon Referral for Pain of left knee region Increased left knee pain. Had repair medial meniscus tear in 2021 Referring Physician: Nereida Oneill, Internal Medicine, Encounter Date: 06/23/2024 Research/Program Director Referral fo r Impacted cerumen of bilateral ears Persistent pain. recently treated with antibiotics with no improvement. Referring Physician: Nereida Oneill, Internal Medicine, Encounter Date: 11/24/2024 Results Created Date Observation Date Name Description Value Unit Range Abnormal Flag Note LastModifiedBy Organization Detail LastModifiedTime 11/26/19 24 11/26/2023 HbA1c (hemo globi n A1c), blood HbA1c 7.9% Not Available In-Office Order Internal Use Only DO Not Attach Compendium DO Not Attach Compendium, Do Not Delete/merge, [id number] 11/26/2023 13:11:22 06/23/20 24 06/23/2024 HbA1c (hemo globi n A1c), blood HbA1c 7.5 Not Available In-Office Order Internal Use Only DO Not Attach Compendium DO Not Attach Compendium, Do Not Delete/merge, [id number] 06/23/2024 13:04:57 10/29/19 25 11/04/2024 COMPL IANCE DRUG MARQUIS SIS, UR summary report (summary) FINAL ===== ===== ===== ===== ===== ===== ===== ===== ===== ===== ===== ===== ===== === TOXAS SURE COMP DRUG MARQUIS SIS,U R ===== ===== ===== ===== ===== ===== ===== ===== ===== ===== ===== ===== ===== === Test Resul t Flag Units Drug Prese nt [place] codon e 2571 ng/mg creat [place] morph one 2359 ng/mg creat Dihyd rocod eine 374 ng/mg creat Norhy droco done 1109 ng/mg creat Sourc es of hydro codon e inclu de sched uled presc ripti on medic ation s. [place] morph one, dihyd rocod eine and norhy droco done are expec tere metab olite s of hydro codon e. [place] morph one and dihyd rocod eine are also avail able as sched uled presc ripti on medic ation s. Aceta minop hen PRESE NT Napro xen PRESE NT ===== ===== ===== ===== ===== ===== ===== ===== ===== ===== ===== ===== ===== === Test Resul t Flag Units Ref Range Creat inine 76 mg/dL >=20 ===== ===== ===== ===== ===== ===== ===== ===== ===== ===== ===== ===== ===== === Decla red Medic ation s: Medic ation list was not provi ded. ===== ===== ===== ===== ===== ===== ===== ===== ===== ===== ===== ===== ===== === For clini sho consu ltati on, pleas e call . ===== ===== ===== ===== ===== ===== ===== ===== ===== ===== ===== ===== ===== === Not Available [facility] ([facility]) [address] [facility] [address], [place], [address], 11/04/2024 09:14:06 10/29/19 25 11/04/2024 COMPL IANCE DRUG MARQUIS SIS, UR pdf . Not Available [facility] ([facility]) [address] [facility] [address], [place], [address], 11/04/2024 09:14:06 01/17/20 24 01/17/2024 MAMMO , scree neftali, digit al, bilat eral No observ ation record ed. [facility] [address] [place], [address], 01/29/2024 09:21:11 01/18/20 24 01/17/2024 MAMMO , andreae neftali, digit al, bilat eral No observ ation record ed. [facility] [address] [place], [address], 01/29/2024 09:21:12 06/30/20 24 06/30/2024 trans -thor acic echoc ardio gram (TTE) (PROC ) No observ ation record ed. [address], [place], [address], 07/22/2024 13:53:20 Result Notes None recorded. Problems Name Problem SNOMED Code Status Onset Date Resolution Date Notes Provider Name and Address Organization Details Recorded Time Diverticu lar disease 112377374 Active 2023 Nereida Oneill MD Attn: Accountin g,[address], [place], [address], [facility] 14:35:32 Medicatio n monitorin g Active 2023 Nereida Oneill MD Attn: Accountin g,[address] [facility], [place], [address], [place] [facility] 4 14:41:19 Multiple joint pain 40561676 Active 2023 Back/L knee Nereida Oneill MD Attn: Shayne donato,[address] [facility], [place], [address], [place] [facility] 4 14:45:35 Pain of left knee region 817472094565 109 Active 2023 Nereida Oneill MD Attn: Patrickvng donato,[address] [facility], [place], [address], [place] [facility] 4 13:04:37 Diabetes mellitus 03720276 Active Jordan Moreno MD Attn: Shayne kinga,[address] [facility], [place], [address], [place] [facility] 6 11:16:28 Essential hypertens ion 32063074 Active Jordan Moreno MD Attn: Shayne kinga,[address] [facility], [place], [address], [place] [facility] 6 11:16:28 Gastroeso phageal reflux disease 123832538 Completed 09/04/2023 Nereida Oneill MD Attn: Shayne donato,[address] [place], [address], [place] [facility] 4 14:35:49 Asthma 342708869 Completed 09/04/2023 Nereida Oneill MD Attn: Shayne donato,[address] [place], [address], [place] [facility] 4 14:46:23 Bilateral earache 352835715 Active 2024 Nereida Oneill MD Attn: Shayne donato,[address] [place], [address], [place] [facility] 5 15:27:29 Impacted cerumen of bilateral ears 448163828187 9108 Active 2024 Nereida Oneill MD Attn: Shayne donato,[address], [place], [address], [facility] 5 15:30:02 Pain in left lower limb 737427753 Active Carlie Raleigh YULISSA null, [place] - [facility] 6 10:46:19 Diverticu litis 579503411 Completed 09/04/2023 Nereida Oneill MD Attn: Shayne donato,[address], [place], [address], [facility] 4 14:41:43 Problem Notes None recorded. Procedures Surgical History Date Name Laterality Status Provider Name and Address Organization Details Recorded Time 1 Most Recent Mammogram completed Ute Boyce [place] 12/28/2020 14:46:04 1 Date of Last Pap Smear completed Ute Boyce MA [facility] 12/28/2020 14:45:31 1 cataract surgery completed Ute Boyce [place] [facility] 09/29/2020 08:57:05 9 colonoscopy completed Ute YULISSA Boyce [facility] 09/29/2020 08:57:29 5 Colonoscopy with biopsy completed Jordan Moreno MD Attn: Accounting,[address] , [place], [address], [facility] - [facility] 07/26/2015 11:04:39 Caesarean Section completed Ute Olivaford [place] [facility] 11/15/2015 11:51:59 Other completed Ute Olivaford [place] [facility] 11/15/2015 11:51:59 Imaging Results Imaging Date Name Status LastModified by Organization Details LastModified Time 01/17/2024 MAMMO, screening, digital, bilateral completed [facility] [address] [place], [address], 01/29/2024 09:21:11 01/17/2024 MAMMO, screening, digital, bilateral completed [facility] [address] [place], [address], 01/29/2024 09:21:12 06/30/2024 trans-thoracic echocardiogram (TTE) (PROC) completed [place] [address], [place], [address], 07/22/2024 13:53:20 Procedure Notes None recorded. Medical Equipment None Reported. Allergies Allergen ID Allergen Name Allergen Category Reaction Reaction Severity Criticality Documentation Date Start Date Code Code System Note Provider Name and Address Organization Details Recorded Time 86367 Product containin g penicilli n (product) medicatio n hives Not available Not available 10/02/2016 16608 8001 SNOMED Not Available Not Available Not [...] completed Not Available Not Available Not Available meclizine 25 mg tablet TAKE 1 TABLET BY MOUTH THREE TIMES DAILY active Not Available Not Available No t Available hydrocodone 7.5 mg-acetamin ophen 325 mg tablet Take 1 tablet twice a day by oral route as needed. 2024 active Not Available Not Available Not Avai lable cephalexin 500 mg capsule TAKE ONE CAPSULE [...] completed Not Available Not Available Not Available azithromyci n 500 mg tablet TAKE 1 TABLET BY MOUTH ONCE DAILY FOR 5 DAYS. 11/24 completed Not Available Not Available Not Available [...] Available Vitals Date Recorded Body height Body mass index (BMI) Body weight Oxygen saturation Oxygen saturation in Arterial blood by Pulse oximetry Heart rate Systolic blood pressure Diastolic blood pressure Provider Name and Address Organization Details Last Updated DateTime 4 157.48 cm 30.4 kg/m2 33190.3 3 g 98 % 98 % 110 /min 156 mm[Hg] 80 mm[Hg] Tiki Arizmendi MA [facility] 4 17:52:35 Date Recorded Body height Body mass index (BMI) Body weight Oxygen saturation Oxygen saturation in Arterial blood by Pulse oximetry Heart rate Systolic blood pressure Diastolic blood pressure Provider Name and Address Organization Details Last Updated DateTime 4 157.48 cm 30 kg/m2 25236.1 5 g 98 % 98 % 105 /min 156 mm[Hg] 74 mm[Hg] Tiki Arizmendi MA [facility] 4 15:31:40 Date Recorded Body height Body mass index (BMI) Body weight Heart rate Oxygen saturation Oxygen saturation in Arterial blood by Pulse oximetry Systolic blood pressure Diastolic blood pressure Provider Name and Address Organization Details Last Updated DateTime 4 157.48 cm 30.7 kg/m2 57194.4 4 g 89 /min 95 % 95 % 133 mm[Hg] 72 mm[Hg] Alok Rivas MA [facility] 4 14:55:49 Date Recorded Body height Body mass index (BMI) Body weight Oxygen saturation Oxygen saturation in Arterial blood by Pulse oximetry Heart rate Systolic blood pressure Diastolic blood pressure Provider Name and Address Organization Details Last Updated DateTime 4 157.48 cm 30 kg/m2 33246.1 5 g 95 % 95 % 92 /min 129 mm[Hg] 74 mm[Hg] Alok Rivas MA [facility] 4 12:38:18 Date Recorded Body height Body mass index (BMI) Body weight Heart rate Oxygen saturation Oxygen saturation in Arterial blood by Pulse oximetry Systolic blood pressure Diastolic blood pressure Provider Name and Address Organization Details Last Updated DateTime 5 157.48 cm 30.9 kg/m2 25494.1 1 g 117 /min 97 % 97 % 120 mm[Hg] 60 mm[Hg] Therese Booker MA [facility] 5 14:59:39 Social History Question Answer Notes LastModified by Organizat ion Details LastModified Time Tobacco Smoking Status Current Every Day Smoker Ute BoyceUYLISSA [facility] [place] - [facility] 09/29/2020 08:56:02 What Is Your Level Of [...] Or The Highest Degree You Have Received? [id number] Information not available 09/29/2020 Live Alone Or [...] Anxious, Or Unable To Sleep At Night)? [id number] Information not available 09/29/2020 Do You Use [...] High Blood Pressure Y Breast Cancer N Kidney or Bladder Problems N Thyroid Problems N GI Problems N Lung Disease N Depression N Blood Clots N Acne Y Breast Problem N Eating Disorder N Anemia N Anesthesia Complications N Headaches/Migraines N Anxiety Disorder N Ovarian Cancer N Diabetes Y Muscle, Joint, or Bone Problems Y Blood [...] pneumococcal polysaccharide PPV23 5 completed Not [facility] 02:[facility]:51 Past Encounters Encounter ID Performer Location Encounter Start Date Encounter Closed Date Diagnosis/Indication Diagnosis SNOMED-CT Code Diagnosis ICD10 Code Diagnosis Note [id number] MD [place] Johnson (Adult Med) [address] [place] [address] 10/28/2014 10:53:55 10/28/2014 12:33:57 Diabetes mellitus 54815839 Continue same Essential hypertension 64856230 continue same Gastroesop hageal reflux disease 659523534 stable on Ranitine Family his tory of cancer of colon 661717126 last colonoscop y 11/16 pt is going to have another one this spring Asthma 460684942 stable on Albuterol prn [id number] [facility] [address] [facility] [place] [address] 11/26/2014 10:48:44 11/26/2014 12:02:00 Diabetes mellitus 04132056 A1c-7.2 Increase Metformine 1000mg bid Add statin Essential hypertension 64889651 continue same Screening mammography 81684485 Family his tory of cancer of colon 610426943 last colonoscop y 11/16 pt is going to have another one in 12/18 Administra tion of pneumococcal vaccine 15742795 [id number] [facility] [address] [facility] [place] [address] 03/29/2015 10:49:18 03/29/2015 11:23:12 Essential hypertension 24116290 continue same Diabetes mellitus 75680519 A1c-7.2 Increased Metformine 1000mg bid continue statin Family his tory of cancer of colon 174997811 last colonoscop y 11/16 pt supposed to have another one in 12/18-will do the referral [id number] [facility] ([facility] [address] [place] [address] 07/14/2015 08:58:36 07/16/2015 17:01:42 Pain in left lower limb 916843612 M79.605 possibly related to chronic back problem for which pt is seeing pain mx -on gabapentin /Zanaflex/ hydrocodon e Add Mobic pt to f/u with pain mx-has apt on 07/23 [id number] [facility] ([facility] [address] [place] [address] 07/26/2015 10:49:26 07/28/2015 11:03:04 Essential hypertension 69567723 I10 continue same Diabetes mellitus 353551 09 E11.9 A1c-7.0 Increased Metformine 1000mg bid continue statin [id number] [facility] [address] [place] [address] 11/15/2015 11:25:48 11/15/2015 15:45:02 Gynecologic examination 70299188 Z01.419 Screening for malignant neoplasm of breast 595154263 Z12.39 UTD Screening for malignant neoplasm of colon 772179670 Z12.11 UTD [id number] [facility] ([facility] [address] [place] [address] 11/25/2015 10:32:52 11/25/2015 11:34:25 Diverticulitis 123153531 K57.92 with LLQ tenderness and diarrhea pt to continue Cipro and Flagyl pt to hold Metformine for now Diabetes mellitus 479059 09 E11.9 A1c-7.0 Hold Metformine 1000mg bid due to diarrhea continue statin Essential hypertension 96165581 I10 continue same [id number] Carlos Boyle (BUSINESS DEVELOPMENT MANAGER) [address] [place] [address] 10/02/2016 10:54:34 10/03/2016 11:20:42 Tinea corporis 74182479 B35.4 Pt. with yeast in the skin of the vulva, dwp. Rx sent to pharmacy. Walt bennett discussed. Pruritus of vulva 033682 00 L29.2 culture sent [id number] [facility] MA[facility] [address] [facility] [place] [address] 05/13/2018 11:02:42 06/13/2018 16:38:35 Vaginal discharge 224987137 N89.8 Normal exam dwp. Culture sent. [id number] Carlos Boyle (BUSINESS DEVELOPMENT MANAGER) [address] [place] [address] 09/29/2020 08:34:57 10/01/2020 06:33:39 Gynecologic examination 08374979 Z01.419 Last pap done 04/23/13 was negative with negative hr-HPV. Therefore, pap due. Pap done. STD testing declined Screening for malignant neoplasm of breast 605959187 Z12.39 Last mammogram 2016. Mammogram ordered. Screening for malignant neoplasm of colon 454614909 Z12.11 UTD. Due 2021 Cigarette smoker 8728638 7 F17.210 Pt. down from 1 PPD to 1/2 PPD Type 2 maribeth betes mellitus 04671580 E11.9 Last HbA1c 2 mo ago and good P.t sees Dr Mayco Koch in [place] Cand[place] vulvovaginitis 04615830 B37.3 Diagnosis d/w pt. Rx sent to pharmacy. Instructio ns discussed. Obesity 005832956 E66.9 Nutrition and exercise discussed. [id number] [facility] (BUSINESS DEVELOPMENT MANAGER) [address] [place] [address] 12/28/2020 14:27:22 12/30/2020 09:42:22 Tinea corporis 93892775 B35.4 Pt. with yeast in the skin of the vulva, dwp. Rx sent to pharmacy. Instructio ns discussed. Pruritus of vulva 706632 00 L29.2 culture sent [id number] MD Jorge Alberto Becerra (Adult Med) [address] [place] [address] 09/04/2023 13:41:27 09/06/2023 15:44:37 Diabetes mellitus 43719346 E11.9 Essential hypertension 28107317 I10 Gastroesop hageal reflux disease 565688945 K21.00 Diverticular disease 397 138300 K57.90 Suggested stool softener Medication monitoring 39 2755530 Z51.81 Stool softener recommende d Multiple joint pain 3567 8005 M25.50 [id number] [facility]ill [facility] [address] [place] [address] 11/26/2023 12:40:21 11/28/2023 12:40:33 Diabetes mellitus 31171196 E11.9 Cont current regimen Diverticular disease 397 162148 K57.90 Suggested stool softener Multiple joint pain 3567 8005 M25.50 Essential hypertension 42378157 I10 Continue to monitor BP [id number] MD Jorge Alberto Becerra (Adult Med) [address] [place] [address] 12/24/2023 16:44:02 12/26/2023 14:11:23 Essential hypertension 94930730 I10 Continue to monitor BP Medication monitoring 39 6470086 Z51.81 Stool softener recommende d Multiple joint pain 3567 8005 M25.50 Pain in le ft lower limb 913916546 M79.605 Diverticular disease 397 404561 K57.90 Suggested stool softener Diabetes mellitus 419038 09 E11.9 Cont current regimen [id number] [facility]ill [facility] [address] [place] [address] 03/05/2024 15:20:16 03/06/2024 12:48:38 Essential hypertension 93886040 I10 Unchanged . Will start lisinopril /Hct 20/12.5 twice daily Multiple joint pain 3567 8005 M25.50 [id number] MD Jorge Alberto Becerra (Adult Med) [address] [place] [address] 04/16/2024 14:34:15 04/17/2024 12:11:48 Essential hypertension 62507014 I10 Well controlled Diabetes mellitus 051970 09 E11.9 Cont current regimen Diverticular disease 397 771187 K57.90 Suggested stool softener [id number] Nereida Oneill MD [facility] (Adult Med) [address] [place] [address] 06/23/2024 12:22:47 07/01/2024 15:16:59 Obesity 191345386 E66.9 Diabetes mellitus 351238 09 E11.9 Cont current regimen Essential hypertension 18668000 I10 Well controlled Pain of le ft knee region 3355642893 43710 M25.942 [id number] MD Jorge Alberto Becerra (Adult Med) [address] [place] [address] 11/24/2024 14:47:36 11/25/2024 11:32:13 Diverticular disease 098442252 K57.90 Suggested stool softener Essential hypertension 24918698 I10 Well controlled Bilateral earache 557150 003 H92.03 Impacted c erumen of bilateral ears 9144090339 836456 H61.23 Multiple joint pain 3567 8005 M25.50 Diabetes mellitus 288730 09 E11.9 Cont current regimen Health Concerns Section Related Observation LastModified by Organization Detai ls LastModified Time None Recorded Concern Status LastModified by Organization Details LastModified Time None Recorded Advance Directives Directive None Recorded Payers Encounter Date Sequence Insurance Name Policy Number Policy Padilla Covered Member ID Padilla Member ID Guarantor Name 12/24/2023 1 [facility] ON OR AFTER 02/03/21 (MEDICAID REPLACEMENT - HMO) Dilia Evans Molina [id number] Dilia Evans Molina 03/05/2024 1 [facility] ON OR AFTER 02/03/21 (MEDICAID REPLACEMENT - HMO) Dilia Evans Molina [id number] Dilia Evans Molina 04/16/2024 1 [facility] ON OR AFTER 02/03/21 (MEDICAID REPLACEMENT - HMO) Dilia Evans Molina [id number] Dilia Evans Molina 06/23/2024 1 [facility] ON OR AFTER 02/03/21 (MEDICAID REPLACEMENT - HMO) Dilia Evans Molina [id number] Dilia Evans Molina 11/24/2024 1 [facility] ON OR AFTER 02/03/21 (MEDICAID REPLACEMENT - HMO) Dilia Evans Jesse [id number] Dilia Evans Molina Notes Date Note Type Note Provider Name and Address Organization Details Recorded Time 12/24/2023 text/html Complaining of pain in her legs. She pain ion the left from hip to ankle. Nereida Oneill MD Attn: [address]ing[address] [place], [address], [place] [facility] 12/24/2023 18:13:18 03/05/2024 text/html Here for BP f/u. No headaches, dizziness. Nereida Oneill MD Attn: Accounting[address] [place], [address], [place] [facility] 03/05/2024 16:13:39 04/16/2024 text/html Here for BP f/u. Tolerating med well Nereida Oneill MD Attn: Accounting[address] [place], [address], [place] [facility] 04/16/2024 15:06:09 06/23/2024 text/html has increased pa in in her left knee. pt is s/p repair of medial meniscus two years ago Nereida Oneill MD Attn: Accounting[address] [place], [address], [place] [facility] 06/23/2024 13:09:46 11/24/2024 text/html Here for check u p. Seen in one month ago for ear pain. Treated with antibiotics. Her pain has persisted Nereida Oneill MD Attn: Accounting[address] [place], [address], [place] [facility] 11/24/2024 15:39:45 OBGyn Episode Ob Episode Information Episode Created Date Number of Fetuses Patient Bloodtype Patient rh Status Prepregnancy Weight lbs Domestic Partner Domestic Partner Phone Father Name Compressed Gases Tester Status 11/15/19 16 1 CLOSED Fetus Data First Name Last Name Admitted to NICU Weight (g) Sex Living Outcome Pediatric Complications Fetus ID Race Codes Race Delivery Type 3685.43 5 M Full Term [id number] Miguel A Calculation Initial Miguel A Date [...] Domestic Partner Domestic Partner Phone Father Name Compressed Gases Tester Status 11/15/19 16 1 CLOSED Fetus Data First Name Last Name Admitted to NICU Weight (g) Sex Living Outcome Pediatric Complications Fetus ID Race Codes Race Delivery Type 3883.88 15 F Full Term [id number] Miguel A Calculation Initial Miguel A Date [...] Post Complications Tubal Sterilization Discharge Date Comments 01/01/198 1 Discharge Information Feeding Method Contraceptive Method Maternal HG B and HCT Levels
--- OUTSIDE RECORDS SUMMARY | 2024-11-26 15:20 | XMS_ITS ---
Care Plan - [facility] Created on: November 26, 2024 AIDANRALEIGH Nathan : 1960 Sex: Female Author Organization [facility] Address [address] [place] [address] Phone Care Team Providers Care Septic Cleaner Name Role Phone HAYLIE RUTLEDGE Unavailable [phone] HERI SHANKS Primary Care Provider [phone] BARRY SANTA MD Unavailable [phone]
--- OUTSIDE RECORDS SUMMARY | 2024-11-26 15:20 | XMS_ITS | Clinical Summary ---
Author Organization [facility] Address [address] [place] [address] Phone Care Team Providers Care Pullman Conductor Name Role Phone Mayco Belcher MD Primary Care Provider [phone] Allergies No known active allergies Medications metFORMIN [...] DIGITAL W CAD Routine 08/16/2015 10:44 AM NOZZLE TENDER Visit for screening mammogram from Last 3 Months or Most Recently Relevant to Health Maintenance Results * MINI SCREENING BILATERAL DIGITAL W CAD (08/16/2015 10:44 AM NOZZLE TENDER) Anatomical Region Laterality Modality breast Bilateral Mammography 08/16/2015 10:2 4 AM NOZZLE TENDER Narrative 08/21/2015 7:55 AM NOZZLE TENDER - [facility] SCREENING BILATERAL DIGITAL W CAD BILATERAL DIGITAL [...] Comparison is made to exam dated: 04/29/2013 [facility]. BREAST TISSUE:There are scattered fibroglandular densities in [...] year. Electronically signed by: Jose love/loren:08/19/2015 16:07:52 Dye Worker: Roseann SUAZO(Kizzy)(Taylor), [facility] letter sent: Normal Exam Reading location: [facility] BI-RADS: 1 Negative Procedure Note Jose Randolph MD - 08/21/2015 - [facility] SCREENING BILATERAL DIGITAL W CAD BILATERAL DIGITAL [...] Comparison is made to exam dated: 04/29/2013 [facility]. BREAST TISSUE:There are scattered fibroglandular densities in [...] year. Electronically signed by: Jose love/loren:08/19/2015 16:07:52 Dye Worker: Roseann SUAZO(Kizzy)(M), [facility] letter sent: Normal Exam Reading location: [facility] BI-RADS: 1 Negative us Jordan Moreno MD IMG MAMMO ORDERABLES Final Re sult from Last 3 Months or Most Recently Relevant to Health Maintenance Insurance [employer] Care Teams Pullman Conductor Relationship Specialty Start Date End Date Mayco Belcher MD [address] [place] [address] PCP - General Family Medicine 02/22/18
--- OUTSIDE RECORDS SUMMARY | 2024-11-26 15:20 | XMS_ITS | Clinical Summary ---
Author Organization [facility] Address [address] [place] [address] Phone Care Team Providers Care Presiding Steward Name Role Phone KHAI TOLBERT, HAYLIE Jhaveri Unavailable [phone] HERI SHANKS Primary Care Provider [phone] BARRY SANTA MD Unavailable [phone] Reason for Visit and Chief [...] On 2 2:16PM By CATHY DICK ; [facility] New / Renewed during this visit MAYELIN HOPSON on 10/21/2021 HYDROcodone-Acetaminophen 7. 5-325 MG Oral Tablet Provider: MAYELIN HOPSON 30 day supply: 90 tablet, 0 refills Diagnosis: Other spondylosis with radiculopathy, lumbar region 1 po TID prn Pharmacy: [facility] ([facility] - [address] , [facility], [id number] - Last Documented On 2 2:25PM By CATHY VENEGAS-BC ; [facility] Current Medications (continue as prescribed) Pregabalin 75 MG Oral Capsule 07/05/2021 Provider: HAYLIE TOLBERT Diagnosis: One tablet at bed time Last Documented On 1 8:31AM By HAYLIE TOLBERT ; [facility] Gabapentin 300MG Oral Capsule 09/30/2018 Provider: HAYLIE TOLBERT Diagnosis: TAKE 1 CAPSULE BY MOUTH THREE TIMES DAILY Last Documented On 2 10:40AM By Leyda Aj Alec ; [facility] Ventolin HFA 108 (90 Base)MCG/ACT Inhalation Aer osol, solution 12/20/2017 Provider: Diagnosis: Last Documented On 8 2:23PM By YONATHAN DONNELLY Alec ; [facility] Medications Administered Includes: Administered Medications from this encounter No Administered Medications Recorded Results Includes: Results discussed during this encounter No Results Recorded For Specified Dates History of Present Illness Includes: History of Present Illness from this encounter No History of Present Illness Recorded Social History Description Last Updated Current smoker 10/11/2020 Last Documented On 2 8:46AM ; [facility] Smoker 12/16/2019 Last Documented On 2 8:46AM ; [facility] Not using drugs 12/20/2017 Last Documented On 2 8:46AM ; [facility] Single 12/20/2017 Last Documented On 2 8:46AM ; [facility] Smoking status : Current everyday smoker 12/20/2017 Last Documented On 2 8:46AM ; [facility] Medical History Includes: Medical History addressed during this encounter Description Last Updated Has had no fall in the last 12 months. 0 08/15/2021 Last Documented On 2 8:46AM ; [facility] Denies a fear of falling. 08/15/2021 Last Documented On 2 8:46AM ; [facility] Reviewed and Unchanged 10/16/2019 Last Documented On 2 8:46AM ; [facility] Currently wearing eyeglasses 12/20/2017 Last Documented On 2 8:46AM ; [facility] Wearing contact lenses 12/20/2017 Last Documented On 2 8:46AM ; [facility] History of cancer skin 12/20/2017 Last Documented On 2 8:46AM ; [facility] History of hypertension 12/20/2017 Last Documented On 2 8:46AM ; [facility] Asthma 12/20/2017 Last Documented On 2 8:46AM ; [facility] History of diabetes mellitus 12/20/2017 Last Documented On 2 8:46AM ; [facility] Born by section 12/20/2017 Last Documented On 2 8:46AM ; [facility] Family History Includes: Family History addressed during this encounter Description Last Updated Family history of cancer 12/20/2017 Last Documented On 2 8:46AM ; [facility] Review of Systems Includes: Review of Systems [...] Active Last Documented On 2 10:26AM ; [facility] Encounters Encounter Provider Location Date Check-In Time Check-Out Time Diagnosis RX ISSUE/REFILL CATHY [facility] DIRECTOR-FPA, MANAGER ERP-BC 10/21/2021 8:46AM 11:59PM Insurance Includes: Active Insurance Policies Plan Name Member ID Group # Subscriber Relationship Effect tawanna Dates - [facility] [id number] RALEIGH BERMUDEZ Self Clinical Notes Includes: Clinical Notes from this encounter No Clinical Notes Recorded
--- OUTSIDE RECORDS SUMMARY | 2024-11-26 15:20 | XMS_ITS | Clinical Summary ---
Author Organization [facility] Address [address] [place] [address] Phone Care Team Providers Care Civil Engineering Manager Name Role Phone KHAI TOLBERT, HAYLIE Jhaveri Unavailable [phone] HERI SHANKS Primary Care Provider [phone] BARRY SANTA MD Unavailable [phone] Reason for Visit and Chief [...] On 2 2:25PM By CATHY DICK ; [facility] Pregabalin 75 MG Oral Capsule 07/05/2021 Provider: HAYLIE TOLBERT Diagnosis: One tablet at bed time Last Documented On 1 8:31AM By HAYLIE TOLBERT ; [facility] Gabapentin 300MG Oral Capsule 09/30/2018 Provider: HAYLIE TOLBERT Diagnosis: TAKE 1 CAPSULE BY MOUTH THREE TIMES DAILY Last Documented On 2 10:40AM By Leyda FELIPE ; [facility] Ventolin HFA 108 (90 Base)MCG/ACT Inhalation Aer osol, solution 12/20/2017 Provider: Diagnosis: Last Documented On 8 2:23PM By YONATHAN FELIPE ; [facility] Medications Administered Includes: Administered Medications from this encounter No Administered Medications Recorded Results Includes: Results discussed during this encounter No Results Recorded For Specified Dates History of Present Illness Includes: History of Present Illness from this encounter No History of Present Illness Recorded Social History Description Last Updated Current smoker 10/11/2020 Last Documented On 2 2:58PM ; [facility] Smoker 12/16/2019 Last Documented On 2 2:58PM ; [facility] Single 12/20/2017 Last Documented On 2 2:58PM ; [facility] Smoking status : Current everyday smoker 12/20/2017 Last Documented On 2 2:58PM ; [facility] Medical History Includes: Medical History addressed [...] Active Last Documented On 2 10:26AM ; [facility] Encounters Encounter Provider Location Date Check-In Time Check-Out Time Diagnosis * PHONE CALL HAYLIE TOLBERT 10/05/2021 2:58PM 11:59PM Insurance Includes: Active Insurance Policies Plan Name Member ID Group # Subscriber Relationship Effect tawanna Dates 1 - [facility] [id number] RALEIGH BERMUDEZ Self Clinical Notes Includes: Clinical Notes from this encounter No Clinical Notes Recorded
--- OUTSIDE RECORDS SUMMARY | 2024-11-26 15:20 | XMS_ITS | Clinical Summary ---
Author Organization [facility] Address [address] [place] [address] Phone Care Team Providers Care Press Box Custodian Name Role Phone KHAI TOLBERT, HAYLIE Jhaveri Unavailable [phone] HERI SHANKS Primary Care Provider [phone] BARRY SANTA MD Unavailable [phone] Reason for Visit and Chief [...] On 2 2:25PM By CATHY DICK ; [facility] Pregabalin 75 MG Oral Capsule 07/05/2021 Provider: HAYLIE TOLBERT Diagnosis: One tablet at bed time Last Documented On 1 8:31AM By HAYLIE TOLBERT ; [facility] Gabapentin 300MG Oral Capsule 09/30/2018 Provider: HAYLIE TOLBERT Diagnosis: TAKE 1 CAPSULE BY MOUTH THREE TIMES DAILY Last Documented On 2 10:40AM By Leyda FELIPE ; [facility] Ventolin HFA 108 (90 Base)MCG/ACT Inhalation Aer osol, solution 12/20/2017 Provider: Diagnosis: Last Documented On 8 2:23PM By YONATHAN FELIPE ; [facility] Medications Administered Includes: Administered [...] Active Last Documented On 2 10:26AM ; [facility] Encounters Encounter Provider Location Date Check-In Time Check-Out Time Diagnosis [Patient Encounter] HAYLIE ALMANZAR- 11/10/2021 3:18PM 11:59PM Insurance Includes: Active Insurance Policies Plan Name Member ID Group # Subscriber Relationship Effect tawanna Dates 1 - [facility] [id number] RALEIGH Hatch Clinical Notes Includes: Clinical Notes from this encounter No Clinical Notes Recorded
--- OUTSIDE RECORDS SUMMARY | 2024-11-26 15:20 | XMS_ITS | Clinical Summary ---
Author Organization [facility] Address [address] [place] [address] Phone Care Team Providers Care Gearman Name Role Phone KHAI TOLBERT, HAYLIE Jhaveri Unavailable [phone] HERI SHANKS Primary Care Provider [phone] BARRY SANTA MD Unavailable [phone] Reason for Visit and Chief [...] On 2 2:25PM By CATHY DICK ; [facility] Pregabalin 75 MG Oral Capsule 07/05/2021 Provider: HAYLIE TOLBERT Diagnosis: One tablet at bed time Last Documented On 1 8:31AM By HAYLIE TOLBETR ; [facility] Gabapentin 300MG Oral Capsule 09/30/2018 Provider: HAYLIE TOLBERT Diagnosis: TAKE 1 CAPSULE BY MOUTH THREE TIMES DAILY Last Documented On 2 10:40AM By Leyda FELIPE ; [facility] Ventolin HFA 108 (90 Base)MCG/ACT Inhalation Aer osol, solution 12/20/2017 Provider: Diagnosis: Last Documented On 8 2:23PM By YONATHAN FELIPE ; [facility] Medications Administered Includes: Administered Medications from this encounter No Administered Medications Recorded Results Includes: Results discussed during this encounter No Results Recorded For Specified Dates History of Present Illness Includes: History of Present Illness from this encounter No History of Present Illness Recorded Social History Description Last Updated Current smoker 10/11/2020 Last Documented On 2 9:25AM ; [facility] Smoker 12/16/2019 Last Documented On 2 9:25AM ; [facility] Single 12/20/2017 Last Documented On 2 9:25AM ; [facility] Smoking status : Current everyday smoker 12/20/2017 Last Documented On 2 9:25AM ; [facility] Medical History Includes: Medical History [...] Active Last Documented On 2 10:26AM ; [facility] Encounters Encounter Provider Location Date Check-In Time Check-Out Time Diagnosis * PHONE CALL HAYLIE ALMANZAR-CYNTHIA 11/10/2021 9:25AM 11:59PM Insurance Includes: Active Insurance Policies Plan Name Member ID Group # Subscriber Relationship Effect tawanna Dates 1 - [facility] [id number] RALEIGH BERMUDEZ Self Clinical Notes Includes: Clinical Notes from this encounter No Clinical Notes Recorded
--- OUTSIDE RECORDS SUMMARY | 2024-11-26 15:20 | XMS_ITS ---
Author Organization [facility] Address [address] [place] [address] Phone Care Team Providers Care Bomb Loader Name Role Phone KHAI TOLBERT, HAYLIE Jhaveri Unavailable [phone] HERI SHANKS Primary Care Provider [phone] BARRY SANTA MD Unavailable [phone] Plan of Treatment Referrals To Diagnosis Pain Management [facility] - [address], [place] - Radiculopathy, lumbar region Note: consent for right L3-4 , L4-5 transforaminal epidural Last Documented On 8 2:06PM ; [facility] Pain Management [facility] - [address] [place] [address] - Radiculopathy, lumbar region Note: consent for right L3-4 , L4-5 transforaminal epiduralneeds a Sunday appt Last Documented On 9 11:44AM ; [facility] Pain Management [facility] - [address] [place] [address] - Radiculopathy, lumbar region Note: consent for right L3-4 , L4-5 transforaminal epidural Last Documented On 0 3:15PM ; [facility] Pain Management [facility] - [address] [place] [address] - Other spondylosis with radiculopathy, lumbar region Note: consent for right L3-4 , L4-5 transforaminal epidural Last Documented On 0 3:14PM ; [facility] Instructions to patient Intervention and counseling on cessation of tobacco use : Patient recieved smoking cessation handout Last Documented On 2 10:25AM ; [facility] Intervention and counseling on cessation of tobacco use : Patient recieved smoking cessation handout Last Documented On 1 2:00PM ; [facility] Intervention and counseling on cessation of tobacco use : Patient recieved smoking cessation handout Last Documented On 1 3:33PM ; [facility] Intervention and counseling on cessation of tobacco use : Patient recieved smoking cessation handout Last Documented On 1 11:43AM ; [facility] Intervention and counseling on cessation of tobacco use : Patient recieved smoking cessation handout Last Documented On 0 2:47PM ; [facility] Intervention and counseling on cessation of tobacco use : Patient recieved smoking cessation handout Last Documented On 0 1:48PM ; [facility] Intervention and counseling on cessation of tobacco use : Patient recieved smoking cessation handout Last Documented On 0 2:53PM ; [facility] Intervention and counseling on cessation of tobacco use : Patient recieved smoking cessation handout Last Documented On 0 4:07PM ; [facility] Intervention and counseling on cessation of tobacco use : Patient recieved smoking cessation handout Last Documented On 0 2:49PM ; [facility] Education and Decision Aids were provided during visit for: Pill Count: 20 Hydrocodone Last Documented On 2 10:39AM ; [facility] Pill Count: twelve Appropria te Last Documented On 1 2:01PM ; [facility] Pill Count: two Appropriate Last Documented On 1 3:33PM ; [facility] Pill Count: 89 Appropriate Last Documented On 1 11:17PM ; [facility] Pill Count: two Appropriate Last Documented On 1 11:56AM ; [facility] No Pill Count: two Appropria te Last Documented On 0 2:49PM ; [facility] Pill Count: two Appropriate Last Documented On 0 2:05PM ; [facility] Pill Count: Patient did not bring pain medication to appointment for pill count, per policy. Advised in order to continue to safely prescribe opioids, medication must be brought to each appointment Last Documented On 0 2:54PM ; [facility] Pill Count: eight Appropriat e PT COUNTED Last Documented On 0 4:32PM ; [facility] Pill Count: Patient did not bring pain medication to appointment for pill count, per policy. Advised in order to continue to safely prescribe opioids, medication must be brought to each appointment Last Documented On 0 4:09PM ; [facility] Pill Count: one Appropriate Last Documented On 0 10:15AM ; [facility] Pill Count: Patient did not bring pain medication to appointment for pill count, per policy. Advised in order to continue to safely prescribe opioids, medication must be brought to each appointment Last Documented On 0 4:11PM ; [facility] Assessments Includes: Assessments for all patient encounters Findings Encounter Date Chronic pain syndrome PAIN MANAGEMENT FO LLOW UP with HAYLIE ALMANZAR- 08/15/2021 Last Documented On 2 1:24PM ; [facility] half-way 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 PAIN M ANAGEMENT FOLLOW UP with HAYLIE [facility] 08/15/2021 Last Documented On 2 1:24PM ; [facility] Lumbar spondylosis with radiculopathy PA IN MANAGEMENT FOLLOW UP with HAYLIE RIDLEY ANP-BC 08/15/2021 Last Documented On 2 1:24PM ; [facility] Lumbosacral spinal stenosis PAIN MANAGEM ENT FOLLOW UP with HAYLIE RIDLEY ANP-BC 08/15/2021 Last Documented On 2 1:24PM ; [facility] Myalgia PAIN MANAGEMENT FOLLOW UP with Azul ALMANZAR-BC 08/15/2021 Last Documented On 2 1:24PM ; [facility] Sacroiliitis PAIN MANAGEMENT FOLLOW UP with T CHIKIS HERNANDEZS [facility] 08/15/2021 Last Documented On 2 1:24PM ; [facility] Chronic pain syndrome PAIN MANAGEMENT FO LLOW UP with HAYLIE L KHAI [facility] 04/20/2021 Last Documented On 1 2:28PM ; [facility] half-way 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 PAIN M ANAGEMENT FOLLOW UP with HAYLIE L KHAI [facility] 04/20/2021 Last Documented On 1 2:28PM ; [facility] Lumbar spondylosis with radiculopathy PA IN MANAGEMENT FOLLOW UP with HAYLIE L KHAI [facility] 04/20/2021 Last Documented On 1 2:28PM ; [facility] Lumbosacral spinal stenosis PAIN MANAGEM ENT FOLLOW UP with HAYLIE L KHAI [facility] 04/20/2021 Last Documented On 1 2:28PM ; [facility] Myalgia PAIN MANAGEMENT FOLLOW UP with T CHIKIS L KHAI [facility] 04/20/2021 Last Documented On 1 2:28PM ; [facility] Sacroiliitis PAIN MANAGEMENT FOLLOW UP with T CHIKIS L KHAI [facility] 04/20/2021 Last Documented On 1 2:28PM ; [facility] Chronic pain syndrome PAIN MANAGEMENT FO LLOW UP with HAYLIE L KHAI [facility] 02/17/2021 Last Documented On 1 4:37PM ; 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 Lumbar spondylosis with radiculopathy PA IN MANAGEMENT FOLLOW UP with HAYLIE L KHAI [facility] 02/17/2021 Last Documented On 1 4:37PM ; [facility] Lumbosacral spinal stenosis PAIN MANAGEM ENT FOLLOW UP with HAYLIE L KHAI [facility] 02/17/2021 Last Documented On 1 4:37PM ; [facility] Myalgia PAIN MANAGEMENT FOLLOW UP with T CHIKIS L KHAI ANP-BC 02/17/2021 Last Documented On 1 4:37PM ; [facility] Sacroiliitis PAIN MANAGEMENT FOLLOW UP with T CHIKIS L KHAI ANP-BC 02/17/2021 Last Documented On 1 4:37PM ; [facility] Chronic pain syndrome FOLLOW UP with HAYLIE L BL EVINS ANP-BC 11/11/2020 Last Documented On 1 11:17PM ; [facility] half-way 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 FOLLOW UP with HAYLIE L KHAI ANP-BC 11/11/2020 Last Documented On 1 11:17PM ; [facility] Lumbar spondylosis with radiculopathy FO LLOW UP with HAYLIE L KHAI ANP-BC 11/11/2020 Last Documented On 1 11:17PM ; [facility] Lumbosacral spinal stenosis FOLLOW UP with GERALD E L KHAI ANP-BC 11/11/2020 Last Documented On 1 11:17PM ; [facility] Myalgia FOLLOW UP with HAYLIE L KHAI ANP-BC 11/11/2020 Last Documented On 1 11:17PM ; [facility] Sacroiliitis FOLLOW UP with HAYLIE L KHAI ANP-BC 11/11/2020 Last Documented On 1 11:17PM ; [facility] Chronic pain syndrome TELEHEALTH with HAYLIE L B LEXIE ANP-BC 10/11/2020 Last Documented On 1 11:58AM ; [facility] half-way 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 TELEHEALTH wit h HAYLIE L KHAI ANP-BC 10/11/2020 Last Documented On 1 11:58AM ; [facility] Lumbar spondylosis with radiculopathy TE LEHEALTH with HAYLIE L KHAI ANP-BC 10/11/2020 Last Documented On 1 11:58AM ; [facility] Lumbosacral spinal stenosis TELEHEALTH with TAMM IE L KHAI ANP-BC 10/11/2020 Last Documented On 1 11:58AM ; [facility] Myalgia TELEHEALTH with HAYLIE Shakila HERNANDEZS [facility] 10/11/2020 Last Documented On 1 11:58AM ; [facility] Oriented to time, place, and person TELE HEALTH with HAYLIE Shakila BATISTAKHAI [facility] 10/11/2020 Last Documented On 1 11:58AM ; [facility] Sacroiliitis TELEHEALTH with HAYLIE Shakila HERNANDEZS [facility] 10/11/2020 Last Documented On 1 11:58AM ; [facility] Chronic pain syndrome PAIN MANAGEMENT FO LLOW UP with HAYLIE L KHAI [facility] 07/13/2020 Last Documented On 0 1:09PM ; 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 Lumbar spondylosis with radiculopathy PA IN MANAGEMENT FOLLOW UP with HAYLIE L KHAI [facility] 07/13/2020 Last Documented On 0 1:09PM ; [facility] Lumbosacral spinal stenosis PAIN MANAGEM ENT FOLLOW UP with HAYLIE L KHAI [facility] 07/13/2020 Last Documented On 0 1:09PM ; [facility] Myalgia PAIN MANAGEMENT FOLLOW UP with T CHIKIS L KHAI [facility] 07/13/2020 Last Documented On 0 1:09PM ; [facility] Sacroiliitis PAIN MANAGEMENT FOLLOW UP with T CHIKIS L KHAI [facility] 07/13/2020 Last Documented On 0 1:09PM ; [facility] Chronic pain syndrome PAIN MANAGEMENT FO LLOW UP with HAYLIE L KHAI [facility] 04/14/2020 Last Documented On 0 2:09PM ; [facility] half-way 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 PAIN M ANAGEMENT FOLLOW UP with HAYLIE L KHAI [facility] 04/14/2020 Last Documented On 0 2:09PM ; [facility] Lumbar spondylosis with radiculopathy PA IN MANAGEMENT FOLLOW UP with HAYLIE Shakila BATISTAKHAI [facility] 04/14/2020 Last Documented On 0 2:09PM ; [facility] Lumbosacral spinal stenosis PAIN MANAGEM ENT FOLLOW UP with HAYLIE Shakila BATISTAKHAI [facility] 04/14/2020 Last Documented On 0 2:09PM ; [facility] Myalgia PAIN MANAGEMENT FOLLOW UP with T CHIKIS L KHAI [facility] 04/14/2020 Last Documented On 0 2:09PM ; [facility] Sacroiliitis PAIN MANAGEMENT FOLLOW UP with T CHIKIS L KHAI [facility] 04/14/2020 Last Documented On 0 2:09PM ; [facility] Chronic pain syndrome PAIN MANAGEMENT FO LLOW UP with HAYLIE Shakila KHAI [facility] 03/15/2020 Last Documented On 0 3:12PM ; [facility] half-way 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 PAIN M ANAGEMENT FOLLOW UP with HAYLIE Shakila KHAI [facility] 03/15/2020 Last Documented On 0 3:12PM ; [facility] Lumbar spondylosis with radiculopathy PA IN MANAGEMENT FOLLOW UP with HAYLIE Shakila BATISTAKHAI [facility] 03/15/2020 Last Documented On 0 3:12PM ; [facility] Lumbosacral spinal stenosis PAIN MANAGEM ENT FOLLOW UP with HAYLIE Shakila BATISTAKHAI [facility] 03/15/2020 Last Documented On 0 3:12PM ; [facility] Myalgia PAIN MANAGEMENT FOLLOW UP with T CHIKIS L KHAI [facility] 03/15/2020 Last Documented On 0 3:12PM ; [facility] Sacroiliitis PAIN MANAGEMENT FOLLOW UP with T CHIKIS L KHAI [facility] 03/15/2020 Last Documented On 0 3:12PM ; [facility] Chronic pain syndrome TELEHEALTH with HAYLIEABBY OWEN [facility] 02/12/2020 Last Documented On 0 4:34PM ; [facility] half-way 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 TELEHEALTH wit h HAYLIE Shakila HERNANDEZS [facility] 02/12/2020 Last Documented On 0 4:34PM ; [facility] Lumbar spondylosis with radiculopathy TE LEHEALTH with HAYLIE L KHAI [facility] 02/12/2020 Last Documented On 0 4:34PM ; [facility] Lumbosacral spinal stenosis TELEHEALTH with TAMTaylor IE Shakila KHAI [facility] 02/12/2020 Last Documented On 0 4:34PM ; [facility] Myalgia TELEHEALTH with HAYLIE L KHAI [facility] 02/12/2020 Last Documented On 0 4:34PM ; [facility] Oriented to time, place, and person TELE HEALTH with HAYLIE L KHAI [facility] 02/12/2020 Last Documented On 0 4:34PM ; [facility] Sacroiliitis TELEHEALTH with HAYLIE L KHAI [facility] 02/12/2020 Last Documented On 0 4:34PM ; [facility] Chronic pain syndrome PAIN MANAGEMENT FO LLOW UP with HAYLIE L KHAI [facility] 01/13/2020 Last Documented On 0 4:36PM ; [facility] half-way 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 PAIN M ANAGEMENT FOLLOW UP with HAYLIE L KHAI [facility] 01/13/2020 Last Documented On 0 4:36PM ; [facility] Lumbar spondylosis with radiculopathy PA IN MANAGEMENT FOLLOW UP with HAYLIE L KHAI [facility] 01/13/2020 Last Documented On 0 4:36PM ; [facility] Lumbosacral spinal stenosis PAIN MANAGEM ENT FOLLOW UP with HAYLIE L KHAI [facility] 01/13/2020 Last Documented On 0 4:36PM ; [facility] Myalgia PAIN MANAGEMENT FOLLOW UP with T CHIKIS L KHAI [facility] 01/13/2020 Last Documented On 0 4:36PM ; [facility] Sacroiliitis PAIN MANAGEMENT FOLLOW UP with T CHIKIS L KHAI [facility] 01/13/2020 Last Documented On 0 4:36PM ; [facility] Chronic pain syndrome TELEHEALTH with HAYLIE L B LEXIE [facility] 12/16/2019 Last Documented On 0 10:17AM ; [facility] half-way 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 TELEHEALTH wit h HAYLIE L KHAI [facility] 12/16/2019 Last Documented On 0 10:17AM ; [facility] Lumbar spondylosis with radiculopathy TE LEHEALTH with HAYLIE L KHAI [facility] 12/16/2019 Last Documented On 0 10:17AM ; [facility] Lumbosacral spinal stenosis TELEHEALTH with TAMM IE L KHAI [facility] 12/16/2019 Last Documented On 0 10:17AM ; [facility] Myalgia TELEHEALTH with HAYLIE L KHAI [facility] 12/16/2019 Last Documented On 0 10:17AM ; [facility] Sacroiliitis TELEHEALTH with HAYLIE L KHAI [facility] 12/16/2019 Last Documented On 0 10:17AM ; [facility] Chronic pain syndrome PAIN MANAGEMENT FO LLOW UP with HAYLIE L KHAI [facility] 10/16/2019 Last Documented On 0 4:36PM ; 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 Lumbar spondylosis with radiculopathy PA IN MANAGEMENT FOLLOW UP with HAYLIE L KHAI [facility] 10/16/2019 Last Documented On 0 4:36PM ; [facility] Lumbosacral spinal stenosis PAIN MANAGEM ENT FOLLOW UP with HAYLIE L KHAI [facility] 10/16/2019 Last Documented On 0 4:36PM ; [facility] Myalgia PAIN MANAGEMENT FOLLOW UP with T CHIKIS L KHAI [facility] 10/16/2019 Last Documented On 0 4:36PM ; [facility] Sacroiliitis PAIN MANAGEMENT FOLLOW UP with T CHIKIS L KHAI [facility] 10/16/2019 Last Documented On 0 4:36PM ; [facility] Lumbar radiculopathy PAIN MANAGEMENT FOL LOW UP with HAYLIE L KHAI ANP-BC 09/01/2019 Last Documented On 0 11:04AM ; [facility] Lumbar spondylosis with radiculopathy PA IN MANAGEMENT FOLLOW UP with HAYLIE L KHAI ANP-BC 09/01/2019 Last Documented On 0 11:04AM ; [facility] Lumbosacral spinal stenosis PAIN MANAGEM ENT FOLLOW UP with HAYLIE L KHAI ANP-BC 09/01/2019 Last Documented On 0 11:04AM ; [facility] Myalgia PAIN MANAGEMENT FOLLOW UP with T CHIKIS L KHAI ANP-BC 09/01/2019 Last Documented On 0 11:04AM ; [facility] Sacroiliitis PAIN MANAGEMENT FOLLOW UP with T CHIKIS L KHAI ANP-BC 09/01/2019 Last Documented On 0 11:04AM ; [facility] Lumbar radiculopathy PAIN MANAGEMENT FOL LOW UP with HAYLIE L KHAI ANP-BC 11/14/2018 Last Documented On 9 11:16AM ; [facility] Lumbar spondylosis with radiculopathy PA IN MANAGEMENT FOLLOW UP with HAYLIE L KHAI ANP-BC 11/14/2018 Last Documented On 9 11:16AM ; [facility] Lumbosacral spinal stenosis PAIN MANAGEM ENT FOLLOW UP with HAYLIE L KHAI ANP-BC 11/14/2018 Last Documented On 9 11:16AM ; [facility] Myalgia PAIN MANAGEMENT FOLLOW UP with T CHIKIS L KHAI ANP-BC 11/14/2018 Last Documented On 9 11:16AM ; [facility] Sacroiliitis PAIN MANAGEMENT FOLLOW UP with T CHIKIS L KHAI ANP-BC 11/14/2018 Last Documented On 9 11:16AM ; [facility] Lumbar radiculopathy PAIN MANAGEMENT FOL LOW UP with HAYLIE L KHAI ANP-BC 10/09/2018 Last Documented On 9 11:17AM ; [facility] Lumbar spondylosis with radiculopathy PA IN MANAGEMENT FOLLOW UP with HAYLIE L KHAI ANP-BC 10/09/2018 Last Documented On 9 11:17AM ; [facility] Lumbosacral spinal stenosis PAIN MANAGEM ENT FOLLOW UP with HAYLIE L KHAI ANP-BC 10/09/2018 Last Documented On 9 11:17AM ; [facility] Myalgia PAIN MANAGEMENT FOLLOW UP with T CHIKIS L KHAI ANP-BC 10/09/2018 Last Documented On 9 11:17AM ; [facility] Sacroiliitis PAIN MANAGEMENT FOLLOW UP with T CHIKIS L KHAI ANP-BC 10/09/2018 Last Documented On 9 11:17AM ; [facility] Lumbar radiculopathy PAIN MANAGEMENT FOL LOW UP with HAYLIE L KHAI ANP-BC 09/11/2018 Last Documented On 9 2:12PM ; [facility] Lumbar spondylosis with radiculopathy PA IN MANAGEMENT FOLLOW UP with HAYLIE L KHAI ANP-BC 09/11/2018 Last Documented On 9 2:12PM ; [facility] Lumbosacral spinal stenosis PAIN MANAGEM ENT FOLLOW UP with HAYLIE L KHAI ANP-BC 09/11/2018 Last Documented On 9 2:12PM ; [facility] Myalgia PAIN MANAGEMENT FOLLOW UP with T CHIKIS L KHAI ANP-BC 09/11/2018 Last Documented On 9 2:12PM ; [facility] Sacroiliitis PAIN MANAGEMENT FOLLOW UP with T CHIKIS L KHAI ANP-BC 09/11/2018 Last Documented On 9 2:12PM ; [facility] Lumbar radiculopathy PAIN MANAGEMENT FOL LOW UP with HAYLIE L KHAI ANP-BC 07/09/2018 Last Documented On 8 11:25AM ; [facility] Lumbar spondylosis with radiculopathy PA IN MANAGEMENT FOLLOW UP with HAYLIE L KHAI ANP-BC 07/09/2018 Last Documented On 8 11:25AM ; [facility] Lumbosacral spinal stenosis PAIN MANAGEM ENT FOLLOW UP with HAYLIE L KHAI ANP-BC 07/09/2018 Last Documented On 8 11:25AM ; [facility] Myalgia PAIN MANAGEMENT FOLLOW UP with T CHIKIS L KHAI ANP-BC 07/09/2018 Last Documented On 8 11:25AM ; [facility] Sacroiliitis PAIN MANAGEMENT FOLLOW UP with T CHIKIS L KHAI ANP-BC 07/09/2018 Last Documented On 8 11:25AM ; [facility] Lumbar radiculopathy PAIN MANAGEMENT FOL LOW UP with HAYLIE L KHAI ANP-BC 04/16/2018 Last Documented On 8 1:50PM ; [facility] Lumbar spondylosis with radiculopathy PA IN MANAGEMENT FOLLOW UP with HAYLIE L KHAI ANP-BC 04/16/2018 Last Documented On 8 1:50PM ; [facility] Lumbosacral spinal stenosis PAIN MANAGEM ENT FOLLOW UP with HAYLIE L KHAI ANP-BC 04/16/2018 Last Documented On 8 1:50PM ; [facility] Myalgia PAIN MANAGEMENT FOLLOW UP with T CHIKIS L KHAI ANP-BC 04/16/2018 Last Documented On 8 1:50PM ; [facility] Sacroiliitis PAIN MANAGEMENT FOLLOW UP with T CHIKIS L KHAI ANP-BC 04/16/2018 Last Documented On 8 1:50PM ; [facility] Lumbar radiculopathy PAIN MANAGEMENT FOL LOW UP with HAYLIE L KHAI ANP-BC 03/05/2018 Last Documented On 8 11:21AM ; [facility] Lumbar spondylosis with radiculopathy PA IN MANAGEMENT FOLLOW UP with HAYLIE L KHAI ANP-BC 03/05/2018 Last Documented On 8 11:21AM ; [facility] Lumbosacral spinal stenosis PAIN MANAGEM ENT FOLLOW UP with HAYLIE L KHAI ANP-BC 03/05/2018 Last Documented On 8 11:21AM ; [facility] Myalgia PAIN MANAGEMENT FOLLOW UP with T CHIKIS L KHAI ANP-BC 03/05/2018 Last Documented On 8 11:21AM ; [facility] Sacroiliitis PAIN MANAGEMENT FOLLOW UP with T CHIKIS L KHAI ANP-BC 03/05/2018 Last Documented On 8 11:21AM ; [facility] Lumbar radiculopathy PAIN MANAGEMENT FOL LOW UP with HAYLIE L KHAI ANP-BC 01/22/2018 Last Documented On 8 4:46PM ; [facility] Lumbar spondylosis with radiculopathy PA IN MANAGEMENT FOLLOW UP with HAYLIE L KHAI ANP-BC 01/22/2018 Last Documented On 8 4:46PM ; [facility] Lumbosacral spinal stenosis PAIN MANAGEM ENT FOLLOW UP with HAYLIE L KHAI ANP-BC 01/22/2018 Last Documented On 8 4:46PM ; [facility] Myalgia PAIN MANAGEMENT FOLLOW UP with T CHIKIS L KHAI ANP-BC 01/22/2018 Last Documented On 8 4:46PM ; [facility] Sacroiliitis PAIN MANAGEMENT FOLLOW UP with T CHIKIS L KHAI ANP-BC 01/22/2018 Last Documented On 8 4:46PM ; [facility] Lumbar radiculopathy PAIN MANAGEMENT NEW CONSULT with HAYLIE L KHAI ANP-BC 12/20/2017 Last Documented On 8 1:05PM ; [facility] Lumbar spondylosis with radiculopathy PA IN MANAGEMENT NEW CONSULT with HAYLIE L KHAI ANP-BC 12/20/2017 Last Documented On 8 1:05PM ; [facility] Lumbosacral spinal stenosis PAIN MANAGEM ENT NEW CONSULT with HAYLIE L KHAI ANP-BC 12/20/2017 Last Documented On 8 1:05PM ; [facility] Myalgia PAIN MANAGEMENT NEW CONSULT with HAYLIE L KHAI ANP-BC 12/20/2017 Last Documented On 8 1:05PM ; [facility] Sacroiliitis PAIN MANAGEMENT NEW CONSULT with HAYLIE L KHAI ANP-CYNTHIA 12/20/2017 Last Documented On 8 1:05PM ; [facility] Instructions Includes: Instructions for all patient encounters Instructions to patient Intervention and counseling on cessation of tobacco use : Patient recieved smoking cessation handout Last Documented On 2 10:25AM ; [facility] Intervention and counseling on cessation of tobacco use : Patient recieved smoking cessation handout Last Documented On 1 2:00PM ; [facility] Intervention and counseling on cessation of tobacco use : Patient recieved smoking cessation handout Last Documented On 1 3:33PM ; [facility] Intervention and counseling on cessation of tobacco use : Patient recieved smoking cessation handout Last Documented On 1 11:43AM ; [facility] Intervention and counseling on cessation of tobacco use : Patient recieved smoking cessation handout Last Documented On 0 2:47PM ; [facility] Intervention and counseling on cessation of tobacco use : Patient recieved smoking cessation handout Last Documented On 0 1:48PM ; [facility] Intervention and counseling on cessation of tobacco use : Patient recieved smoking cessation handout Last Documented On 0 2:53PM ; [facility] Intervention and counseling on cessation of tobacco use : Patient recieved smoking cessation handout Last Documented On 0 4:07PM ; [facility] Intervention and counseling on cessation of tobacco use : Patient recieved smoking cessation handout Last Documented On 0 2:49PM ; [facility] Education and Decision Aids were provided during visit for: Pill Count: 20 Hydrocodone Last Documented On 2 10:39AM ; [facility] Pill Count: twelve Appropria te Last Documented On 1 2:01PM ; [facility] Pill Count: two Appropriate Last Documented On 1 3:33PM ; [facility] Pill Count: 89 Appropriate Last Documented On 1 11:17PM ; [facility] Pill Count: two Appropriate Last Documented On 1 11:56AM ; [facility] No Pill Count: two Appropria te Last Documented On 0 2:49PM ; [facility] Pill Count: two Appropriate Last Documented On 0 2:05PM ; [facility] Pill Count: Patient did not bring pain medication to appointment for pill count, per policy. Advised in order to continue to safely prescribe opioids, medication must be brought to each appointment Last Documented On 0 2:54PM ; [facility] Pill Count: eight Appropriat e PT COUNTED Last Documented On 0 4:32PM ; [facility] Pill Count: Patient did not bring pain medication to appointment for pill count, per policy. Advised in order to continue to safely prescribe opioids, medication must be brought to each appointment Last Documented On 0 4:09PM ; [facility] Pill Count: one Appropriate Last Documented On 0 10:15AM ; [facility] Pill Count: Patient did not bring pain medication to appointment for pill count, per policy. Advised in order to continue to safely prescribe opioids, medication must be brought to each appointment Last Documented On 0 4:11PM ; [facility] Medical Equipment - Implanted Devices Includes: Current and historical Devices No Medical Equipment Recorded Medications Includes: Current and historical Medications Current Medications (continue as prescribed) HYDROcodone-Acetaminophen 7. 5-325 MG Oral Tablet 10/21/2021 Provider: CATHY GUDINO APRN-MARY GRACE, [employer] DES[employer] ENGINEER-BC Diagnosis: Other spondylosi s with radiculopathy, lumbar region 1 po TID prn Last Documented On 2 2:25PM By CATHY MAHARAJP-BC ; [facility] Pregabalin 75 MG Oral Capsule 07/05/2021 Provider: HAYLIE RIDLEY ANP-BC Diagnosis: One tablet at bed time Last Documented On 1 8:31AM By HAYLIE ALMANZAR-BC ; [facility] Gabapentin 300MG Oral Capsule 09/30/2018 Provider: HAYLIE RIDLEY ANP-BC Diagnosis: TAKE 1 CAPSULE BY MOUTH THREE TIMES DAILY Last Documented On 2 10:40AM By Leyda Aj Alec ; [facility] Ventolin HFA 108 (90 Base)MCG/ACT Inhalation Aer osol, solution 12/20/2017 Provider: Diagnosis: Last Documented On 8 2:23PM By YONATHAN FELIPE ; [facility] Past Medications on file HYDROcodone-Acetaminophen 7. 5-325 MG Oral Tablet 09/19/2021 - 10/21/2021 Provider: HAYLIE TOLBERT Diagnosis: Other spondylosi s with radiculopathy, lumbar region 1 po TID prn Last Documented On 2 2:16PM By CATHY MAHARAJP-BC ; [facility] HYDROcodone-Acetaminophen 7. 5-325 MG Oral Tablet 08/15/2021 - 09/19/2021 Provider: HAYLIE TOLBERT Diagnosis: Other spondylosi s with radiculopathy, lumbar region 1 po TID prn Last Documented On 2 12:03PM By HAYLIE TOLBERT ; [facility] HYDROcodone-Acetaminophen 7. 5-325 MG Oral Tablet 07/21/2021 - 08/15/2021 Provider: HAYLIE TOLBERT Diagnosis: 1 po TID prn Last Documented On 2 11:01AM By HAYLIE TOLBERT ; [facility] Pregabalin 75 MG Oral Capsule 07/04/2021 - 07/05/2021 Provider: HAYLIE TOLBERT Diagnosis: TAKE ONE CAPSULE BY MOUTH AT BEDTIME Last Documented On 1 8:22AM By HAYLIE TOLBERT ; [facility] HYDROcodone-Acetaminophen 7. 5-325 MG Oral Tablet 06/20/2021 - 07/20/2021 Provider: HAYLIE TOLBERT Diagnosis: 1 po TID prn1/17 Last Documented On 1 2:03PM By HAYLIE TOLBERT ; [facility] HYDROcodone-Acetaminophen 7. 5-325 MG Oral Tablet 05/23/2021 - 06/20/2021 Provider: HAYLIE TOLBERT Diagnosis: Other spondylosis, lumbar region 1 po TID prn9/20 Last Documented On 1 1:49PM By HAYLIE TOLBERT ; [facility] HYDROcodone-Acetaminophen 7. 5-325 MG Oral Tablet 04/20/2021 - 05/19/2021 Provider: HAYLIE TOLBERT Diagnosis: 1 po TID pr Last Documented On 1 8:22AM By HAYLIE TOLBERT ; [facility] HYDROcodone-Acetaminophen 7. 5-325 MG Oral Tablet 03/24/2021 - 04/20/2021 Provider: HAYLIE TOLBERT Diagnosis: Radiculopathy, lumbar region 1 po TID prnfill 03/26 Last Documented On 1 2:28PM By HAYLIE TOLBERT ; [facility] HYDROcodone-Acetaminophen 7. 5-325 MG Oral Tablet 03/23/2021 - 03/24/2021 Provider: HAYLIE TOLBERT Diagnosis: 1 po TID prnfill 03/26 Last Documented On 1 4:18PM By HAYLIE TOLBERT ; [facility] HYDROcodone-Acetaminophen 7. 5-325 MG Oral Tablet 02/22/2021 - 03/23/2021 Provider: HAYLIE TOLBERT Diagnosis: Other spondylosi s with radiculopathy, lumbar region 1 po TID prnfill 02/24 Last Documented On 1 1:14PM By HAYLIE TOLBERT ; [facility] HYDROcodone-Acetaminophen 7. 5-325 MG Oral Tablet 02/17/2021 - 02/22/2021 Provider: HAYLIE TOLBERT Diagnosis: 1 po TID prnfill 02/10 Last Documented On 1 9:48AM By HAYLIE TOLBERT ; [facility] Pregabalin 75 MG Oral Capsule 02/17/2021 - 07/04/2021 Provider: HAYLIE TOLBERT Diagnosis: TAKE ONE CAPSULE BY MOUTH AT BEDTIME Last Documented On 1 2:28PM By HAYLIE TOLBERT ; [facility] Pregabalin 75 MG Oral Capsule 02/08/2021 - 02/17/2021 Provider: HAYLIE TOLBERT Diagnosis: Other spondylosi s with radiculopathy, lumbar region TAKE ONE CAPSULE BY MOUTH AT BEDTIME Last Documented On 1 3:49PM By HAYLIE TOLBERT ; [facility] HYDROcodone-Acetaminophen 7. 5-325 MG Oral Tablet 02/08/2021 - 02/17/2021 Provider: HAYLIE TOLBERT Diagnosis: 1 po TID prnfill 02/10 Last Documented On 1 3:50PM By HAYLIE TOLBERT ; [facility] HYDROcodone-Acetaminophen 7. 5-325 MG Oral Tablet 01/06/2021 - 02/08/2021 Provider: HAYLIE TOLBERT Diagnosis: Other spondylosi s with radiculopathy, lumbar region 1 po TID prn Last Documented On 1 1:08PM By HAYLIE TOLBERT ; [facility] Pregabalin 75 MG Oral Capsule 12/14/2020 - 02/08/2021 Provider: HAYLIE TOLBERT Diagnosis: Other spondylosi s with radiculopathy, lumbar region TAKE ONE CAPSULE BY MOUTH AT BEDTIME Last Documented On 1 1:35PM By HAYLIE TOLBERT ; [facility] HYDROcodone-Acetaminophen 7. 5-325 MG Oral Tablet 12/07/2020 - 01/06/2021 Provider: HAYLIE TOLBERT Diagnosis: Other spondylosi s with radiculopathy, lumbar region 1 po TID prn Last Documented On 1 2:18PM By HAYLIE TOLBERT ; [facility] HYDROcodone-Acetaminophen 7. 5-325 MG Oral Tablet 11/11/2020 - 12/07/2020 Provider: HAYLIE TOLBERT Diagnosis: Other spondylosi s with radiculopathy, lumbar region 1 po TID prn Last Documented On 1 2:02PM By HAYLIE TOLBERT ; [facility] HYDROcodone-Acetaminophen 7. 5-325 MG Oral Tablet 10/11/2020 - 11/09/2020 Provider: HAYLIE TOLBERT Diagnosis: Other spondylosi s with radiculopathy, lumbar region 1 po TID prn Last Documented On 1 8:17AM By HAYLIE TOLBERT ; [facility] Pregabalin 75 MG Oral Capsule 09/15/2020 - 12/14/2020 Provider: HAYLIE TOLBERT Diagnosis: Other spondylosi s with radiculopathy, lumbar region One tablet at bed time Last Documented On 1 10:23AM By HAYLIE TOLBERT ; [facility] HYDROcodone-Acetaminophen 7. 5-325 MG Oral Tablet 09/09/2020 - 10/11/2020 Provider: HAYLIE TOLBERT Diagnosis: Other spondylosi s with radiculopathy, lumbar region 1 po TID prnto fill 09/11/20 Last Documented On 1 11:57AM By HAYLIE TOLBERT ; [facility] HYDROcodone-Acetaminophen 7. 5-325 MG Oral Tablet 08/12/2020 - 09/09/2020 Provider: HAYLIE TOLBERT Diagnosis: Other spondylosi s with radiculopathy, lumbar region 1 po TID prnfill when due Last Documented On 1 2:27PM By HAYLIE TOLBERT ; [facility] HYDROcodone-Acetaminophen 7. 5-325 MG Oral Tablet 07/14/2020 - 08/12/2020 Provider: HAYLIE TOLBERT Diagnosis: Other spondylosi s with radiculopathy, lumbar region 1 po TID prnfill when due Last Documented On 1 12:21PM By HAYLIE TOLBERT ; [facility] Pregabalin 75 MG Oral Capsule 06/15/2020 - 09/14/2020 Provider: HAYLIE TOLBERT Diagnosis: Other spondylosi s with radiculopathy, lumbar region One tablet at bed time Last Documented On 1 1:41PM By HAYLIE TOLBERT ; [facility] HYDROcodone-Acetaminophen 7. 5-325 MG Oral Tablet 06/11/2020 - 07/13/2020 Provider: HAYLIE TOLBERT Diagnosis: Other spondylosi s with radiculopathy, lumbar region 1 po TID prnfill when due Last Documented On 0 1:08PM By HAYLIE TOLBERT ; [facility] HYDROcodone-Acetaminophen 7. 5-325 MG Oral Tablet 05/13/2020 - 06/11/2020 Provider: HAYLIE TOLBERT Diagnosis: Other spondylosi s with radiculopathy, lumbar region 1 po TID prnfill when due Last Documented On 0 1:00PM By HAYLIE TOLBERT ; [facility] HYDROcodone-Acetaminophen 7. 5-325 MG Oral Tablet 04/14/2020 - 05/13/2020 Provider: HAYLIE TOLBERT Diagnosis: Other spondylosi s with radiculopathy, lumbar region 1 po TID prn Last Documented On 0 11:59AM By HAYLIE TOLBERT ; [facility] Lyrica 75 MG Oral Capsule 03/15/2020 - 06/15/2020 Provider: HAYLIE TOLBERT Diagnosis: Other spondylosi s with radiculopathy, lumbar region One tablet at bed time Last Documented On 0 9:37AM By HAYLIE TOLBERT ; [facility] HYDROcodone-Acetaminophen 7. 5-325 MG Oral Tablet 03/15/2020 - 04/14/2020 Provider: HAYLIE TOLBERT Diagnosis: Other spondylosi s with radiculopathy, lumbar region 1 po TID prn Last Documented On 0 2:08PM By HAYLIE TOLBERT ; [facility] HYDROcodone-Acetaminophen 7. 5-325 MG Oral Tablet 02/12/2020 - 03/15/2020 Provider: HAYLIE TOLBERT Diagnosis: Other spondylosi s with radiculopathy, lumbar region 1 po TID prnto fill 02/14/20 Last Documented On 0 3:11PM By HAYLIE TOLBERT ; [facility] HYDROcodone-Acetaminophen 7. 5-325 MG Oral Tablet 01/13/2020 - 02/12/2020 Provider: HAYLIE TOLBERT Diagnosis: Other spondylosi s with radiculopathy, lumbar region 1 po TID prnto fill 01/16/20 Last Documented On 0 4:34PM By HAYLIE TOLBERT ; [facility] Lyrica 75 MG Oral Capsule 01/13/2020 - 03/15/2020 Provider: HAYLIE TOLBERT Diagnosis: Chronic pain syn drome 1 po qhs x 7 days then BID Last Documented On 0 3:11PM By HAYLIE TOLBERT ; [facility] HYDROcodone-Acetaminophen 7. 5-325 MG Oral Tablet 12/17/2019 - 01/13/2020 Provider: HAYLIE TOLBERT Diagnosis: Other spondylosi s with radiculopathy, lumbar region 1 po TID prn Last Documented On 0 4:26PM By HAYLIE TOLBERT ; [facility] HYDROcodone-Acetaminophen 7. 5-325 MG Oral Tablet 11/13/2019 - 12/16/2019 Provider: HAYLIE TOLBERT Diagnosis: Other spondylosi s with radiculopathy, lumbar region 1 po TID prnto fill 11/14/19 Last Documented On 0 10:16AM By HAYLIE TOLBERT ; [facility] HYDROcodone-Acetaminophen 7. 5-325 MG Oral Tablet 10/16/2019 - 11/13/2019 Provider: HAYLIE TOLBERT Diagnosis: Other spondylosi s with radiculopathy, lumbar region 1 po TID prn Last Documented On 0 4:16PM By HAYLIE TOLBERT ; [facility] HYDROcodone-Acetaminophen 7. 5-325 MG Oral Tablet 10/01/2019 - 10/16/2019 Provider: HAYLIE TOLBERT Diagnosis: Low back pain 1 po TID prn Last Documented On 0 4:35PM By HAYLIE TOLBERT ; [facility] HYDROcodone-Acetaminophen 7. 5-325 MG Oral Tablet 09/17/2019 - 10/01/2019 Provider: HAYLIE ESPIITABC Diagnosis: Low back pain 1 po TID prn Last Documented On 0 12:27PM By HAYLIE ALMANZAR-BC ; [facility] HYDROcodone-Acetaminophen 7.5-325MG Oral Tablet 11/20/2018 - 09/01/2019 Provider: HAYLIE RIDLEY ANP- Diagnosis: Chronic pain syndrome 1 po q 8 hours prn/ max 2 per day Last Documented On 0 2:48PM By Concepcion Cross Alec ; [facility] Lyrica 150MG Oral Capsule, conventional 11/14/2018 - 09/01/2019 Provider: HAYLIE ESPITIABC Diagnosis: Radiculopathy, l umbar region 1 CAPSULE TWO TIMES A DAY Last Documented On 0 2:48PM By Concepcion FELIPE ; [facility] Lyrica 75MG Oral Capsule, conventional 11/14/2018 - 09/01/2019 Provider: HAYLIE ESPITIA Diagnosis: Radiculopathy, l umbar region 1 CAPSULE TWO TIMES A DAY Last Documented On 0 2:48PM By Concepcion FELIPE ; [facility] HYDROcodone-Acetaminophen 7.5-325MG Oral Tablet 10/23/2018 - 11/20/2018 Provider: HAYLIE ESPITIABC Diagnosis: Chronic pain syndrome 1 po q 8 hours prn/ max 2 per day Last Documented On 9 3:15PM By HAYLIE ALMANZAR-BC ; [facility] HYDROcodone-Acetaminophen 7.5-325MG Oral Tablet 09/27/2018 - 10/23/2018 Provider: HAYLIE RIDLEY ANP-BC Diagnosis: Chronic pain syndrome 1 po q 8 hours prn/ max 2 per day Last Documented On 9 4:33PM By HAYLIE ALMANZAR-BC ; [facility] Gabapentin 300MG Oral Capsule 09/04/2018 - 09/30/2018 Provider: HAYLIE RIDLEY ANP-BC Diagnosis: One tablet three times a day Last Documented On 9 2:17PM By HAYLIE ALMANZAR- ; [facility] Hydrocodone-Acetaminophen 7.5-325MG Oral Tablet 08/29/2018 - 09/26/2018 Provider: HAYLIE RIDLEY ANP- Diagnosis: Chronic pain syndrome 1 po q 8 hours prn Last Documented On 9 8:24AM By HAYLIE ALMANZAR- ; [facility] Hydrocodone-Acetaminophen 7.5-325MG Oral Tablet 08/01/2018 - 08/01/2018 Provider: LUCY CARMONA MD Diagnosis: Chronic pain syndrome 1 po q 8 hours prn Last Documented On 8 12:21PM By Benton BELL ; [facility] Hydrocodone-Acetaminophen 7.5-325MG Oral Tablet 08/01/2018 - 08/29/2018 Provider: BENTON BELL Diagnosis: Chronic pain syndrome 1 po q 8 hours prn Last Documented On 9 1:09PM By HAYLIE RIDLEY [facility] ; [facility] Hydrocodone-Acetaminophen 7.5-325MG Oral Tablet 07/02/2018 - 08/01/2018 Provider: HAYLIE ALMANZAR- Diagnosis: Chronic pain syndrome 1 po q 8 hours prn Last Documented On 08/01/2018 9:48AM By LUCY CARMONA MD ; [facility] Gabapentin 300MG Oral Capsule, conventional 05/31/2018 - 09/04/2018 Provider: HAYLIE BROOKS ANP- Diagnosis: TAKE 1 CAPSULE BY MOUTH THREE TIMES DAILY Last Documented On 9 10:52AM By HAYLIE RIDLEY [facility]- ; [facility] Hydrocodone-Acetaminophen 7.5-325MG Oral Tablet 05/29/2018 - 07/02/2018 Provider: HAYLIE RIDLEY ANP- Diagnosis: Chronic pain syndrome 1 po q 8 hours prnto fill 06/02/18 Last Documented On 8 12:10PM By HAYLIE ALMANZAR- ; [facility] Gabapentin 300MG Oral Capsule 05/02/2018 - 05/31/2018 Provider: HAYLIEABBY TOLBERT Diagnosis: TAKE 1 CAPSULE BY MOUTH THREE TIMES DAILY Last Documented On 8 8:31AM By HAYLIE TOLBERT ; [facility] Hydrocodone-Acetaminophen 7.5-325MG Oral Tablet 05/02/2018 - 05/29/2018 Provider: HAYLIE TOLBERT Diagnosis: Chronic pain syndrome 1 po q 8 hours prnto fill 05/03/18 Last Documented On 8 11:13AM By HAYLIE TOLBERT ; [facility] Gabapentin 300MG Oral Capsule 04/02/2018 - 05/02/2018 Provider: HAYLIE TOLBERT Diagnosis: One tablet three times a day Last Documented On 8 4:10PM By HAYLIE TOLBERT ; [facility] Hydrocodone-Acetaminophen 7.5-325MG Oral Tablet 04/01/2018 - 05/01/2018 Provider: HAYLIE TOLBERT Diagnosis: Chronic pain syndrome 1 po q 8 hours prnto fill 04/03/18 Last Documented On 8 11:01AM By HAYLIE TOLBERT ; [facility] Gabapentin 300MG Oral Capsule 03/05/2018 - 04/02/2018 Provider: HAYLIE TOLBERT Diagnosis: Radiculopathy, l umbar region as directed QHS x 3 days, BI D x 3 days then TID Last Documented On 8 4:06PM By HAYLIE TOLBERT ; [facility] Hydrocodone-Acetaminophen 7.5-325MG Oral Tablet 02/27/2018 - 04/01/2018 Provider: HAYLIE TOLBERT Diagnosis: Chronic pain syndrome 1 po q 8 hours prnto fill 03/03/18 Last Documented On 8 1:09PM By HAYLIE TOLBERT ; [facility] Hydrocodone-Acetaminophen 7.5-325MG Oral Tablet 01/31/2018 - 02/27/2018 Provider: HAYLIE TOLBERT Diagnosis: Chronic pain syndrome 1 po q 8 hours prn Last Documented On 8 9:46AM By HAYLIE TOLBERT ; [facility] Hydrocodone-Acetaminophen 7.5-325MG Oral Tablet 01/01/2018 - 01/31/2018 Provider: HAYLIE TOLBERT Diagnosis: Chronic pain syndrome 1 po q 8 hours prn Last Documented On 8 3:36PM By HAYLIE TOLBERT ; [facility] Amitriptyline HCl 25MG Oral Tablet 12/20/2017 - 2018 Provider: Diagnosis: 1 tab at bedtime Last Documented On 9 11:48AM By HAYLIE TOLBERT ; [facility] Hydrocodone-Acetaminophen 7.5-325MG Oral Tablet 12/20/2017 - 01/01/2018 Provider: Diagnosis: 1 tab every 8 hours as needed Last Documented On 8 11:39AM By HAYLIE TOLBERT ; [facility] MetFORMIN HCl 1000MG Oral Tablet 12/20/2017 - 07/05/20 Provider: Diagnosis: 1 tab BID Last Documented On 1 8:23AM By HAYLIE TOLBERT ; [facility] Lisinopril-Hydrochlorothiazi de 20-25MG Oral Tablet 12/20/2017 - 09/01/2019 Provider: Diagnosis: 1 tab daily Last Documented On 0 2:49PM By Concepcion FELIPE ; [facility] RaNITidine HCl 300MG Oral Tablet 12/20/2017 - 04/20/20 Provider: Diagnosis: 1 tab daily Last Documented On 04/20/2021 2:00PM By Peggy FELIPE ; [facility] Medications Administered Includes: Administered Medications in patient's chart No Administered Medications Recorded Results Includes: Results from 11/27/2023 through 11/26/2024 No Results Recorded For Specified Dates History of Present Illness History of Present Illness not supported for this document type No History of Present Illness Recorded Social History Description Last Updated Current smoker 10/11/2020 Last Documented On 1 11:58AM ; [facility] Smoker 12/16/2019 Last Documented On 0 10:17AM ; [facility] Not using drugs 12/20/2017 Last Documented On 8 1:05PM ; [facility] Single 12/20/2017 Last Documented On 8 1:05PM ; [facility] Smoking status : Current everyday smoker 12/20/2017 Last Documented On 8 1:05PM ; [facility] Medical History Includes: Medical History in patient's chart Description Last Updated Has had no fall in the last 12 months. 0 08/15/2021 Last Documented On 2 1:24PM ; [facility] Denies a fear of falling. 08/15/2021 Last Documented On 2 1:24PM ; [facility] Reviewed and Unchanged 10/16/2019 Last Documented On 0 4:36PM ; [facility] Currently wearing eyeglasses 12/20/2017 Last Documented On 8 1:05PM ; [facility] Wearing contact lenses 12/20/2017 Last Documented On 8 1:05PM ; [facility] History of cancer skin 12/20/2017 Last Documented On 8 1:05PM ; [facility] History of hypertension 12/20/2017 Last Documented On 8 1:05PM ; [facility] Asthma 12/20/2017 Last Documented On 8 1:05PM ; [facility] History of diabetes mellitus 12/20/2017 Last Documented On 8 1:05PM ; [facility] Born by section 12/20/2017 Last Documented On 8 1:05PM ; [facility] Family History Includes: Family History in patient's chart Description Last Updated Family history of cancer 12/20/2017 Last Documented On 8 1:05PM ; [facility] Review of Systems Review of [...] [facility] Insurance Includes: Active Insurance Policies Plan Name Member ID Group # Subscriber Relationship Effect tawanna Dates 1 - [facility] [id number] RALEIGH BERMUDEZ Self Clinical Notes Includes: Signed Clinical Notes starting from 08/25/2022 No Clinical Notes Recorded
--- OUTSIDE RECORDS SUMMARY | 2024-11-26 15:20 | XMS_ITS | Continuity of Care Document ---
Author Organization [facility] Address [address] [place] [address] Phone Care Team Providers Care Manpower Development Manager Name Role Phone Alexys Navarro MD Unavailable [...] Copied on Encounter OFFICE/OUTPA TIENT VISIT, EST [facility], [address] [place], [address], [place] tel:[phone] [facility] back pain (chief complaint) Low back pain 7 Ramon Reardon. [address], [place], [place], [address] , [place]. [phone] Referring Provider: Anand Brar [address], [place], [place], [address]. tel:[phone] PREV VISIT, EST, AGE 40-64 [facility], [address] [place], [place], [address], [place] [phone] [facility] PHysical (chief complaint) Encounter for general adult medical exam w abnormal findingsGERD w/o esophagitisType 2 diabetes mellitus without complicationsLow back pain 7 Ramon Moralez [address], [address], [place], [place], [address] , [place]. tel:[phone] Referring Provider: Anand Brar [address], [place], [place], [address]. tel:[phone] OFFICE/OUTPA TIENT VISIT, EST [facility], [address] [place], [place], [address], [place] [phone] [facility] DM (chief complaint) chornic pain (chief complaint) GERD (chief complaint) COPD (chief complaint) Dietary surveillance and counselingDiabetes Mellitus, Adult Onset, UncontrolledLumbago COPD [address], [place], [place], [address] , [place]. [phone] Referring Provider: Anand Brar [address], [place], [place], [address]. tel:[phone] OFFICE/OUTPA TIENT VISIT, EST [facility], [address] [place], [place], [address], [place] [phone] [facility] pneumonia (chief complaint) back pain (chief complaint) DM (chief complaint) Dietary surveillance and counselingPneumonia LumbagoDiabetes Mellitus, Adult Onset, Uncontrolled 4 Navarro Alexys. [address], [address], [place], [place], [address] , [place]. tel:[phone] Referring Provider: Anand Brar [address], [place], [place], [address]. tel:[phone] OFFICE/OUTPA TIENT VISIT, [facility], [address], [place], [place], [address], [place] tel:[phone] [facility] chornic pain (chief complaint) HTN (chief complaint) GERD (chief complaint) COPD (chief complaint) Dietary surveillance and counselingCOPDLumba goHypertension, UnspecifiedGERD Jan-0 9 4 Ramon Moralez [address], [address], [place], [place], [address] , [place]. [phone] Referring Provider: Anand Brar [address], [place], [place], [address]. tel:[phone] OFFICE/OUTPA TIENT VISIT, [facility], [address], [place], [place], [address], [place] tel:[phone] [facility] back pain (chief complaint) knee pain (chief complaint) GERD (chief complaint) DM (chief complaint) Dietary surveillance and counselingLumbagoGE RDPain in joint involving lower leg 0 4 Ramon Moralez [address], [address], [place], [place], [address] , [place]. [phone] Referring Provider: Anand Brar [address], [place], [place], [address]. tel:[phone] OFFICE/OUTPA TIENT VISIT, [facility], [address], [place], [place], [address], [place] tel:[phone] [facility] GERD (chief complaint) back pain (chief complaint) DM (chief complaint) HTN (chief complaint) Dietary surveillance and counselingGERDLumba goHypertension, UnspecifiedDiabetes Mellitus, Adult Onset, Uncontrolled Nov-0 4 Ramon Moralez [address], [address], [place], [place], [address] , [place]. tel:[phone] Referring Provider: Anand Brar [address], [place], [place], [address]. tel:[phone] OFFICE/OUTPA TIENT VISIT, [facility], [address], [place], [place], [address], [place] tel:[phone] [facility] edema (chief complaint) back pain (chief complaint) HTN (chief complaint) COPD (chief complaint) Dietary surveillance and counselingEdemaCOPD Hypertension, UnspecifiedLumbago 4 Ramon Reardon. [address], [address], [place], [place], [address] , [place]. [phone] Referring Provider: Anand Brar [address], [place], [place], [address]. tel:[phone] OFFICE/OUTPA TIENT VISIT, [facility], [address], [place], [place], [address], [place] tel:[phone] [facility] DM (chief complaint) cough (chief complaint) back pain (chief complaint) HTN (chief complaint) Dietary surveillance and counselingDiabetes Mellitus, Adult Onset, UncontrolledBronchi tis, AcuteLumbagoHyperte nsion, Unspecified 4 Ramon Reardon. [address], [address], [place], [place], [address] , [place]. [phone] Referring Provider: Anand Brar [address], [place], [place], [address]. tel:[phone] OFFICE/OUTPA TIENT VISIT, [facility], [address], [place], [place], [address], [place] tel:[phone] [facility] back pain (chief complaint) DM (chief complaint) COPD (chief complaint) COPDDietary surveillance and counselingLumbagoDi abetes Mellitus, Adult Onset, Uncontrolled 4 Ramon Reardon. [address], [place], [place], [address] , [place]. [phone] Referring Provider: Anand Brar [address], [place], [place], [address]. tel:[phone] PREV VISIT, NEW, AGE 40-64 [facility], [address], [place], [place], [address], tel:[phone] [facility] Medicine Physical (chief complaint) Dietary surveillance and counselingRoutine Medical ExamRoutine Medical Exam 3 Ramon Reardon. [address], [place], [place], [address] , [place]. tel:[phone] Family History Family Member Type Diagnosis Age [...] Education Related to Dietary Surveillance and Counseling Dietary [...] Mental Status Date Cognitive Assessment Orientation - Serena ed to time, place, person, situation.
--- OUTSIDE RECORDS SUMMARY | 2024-11-26 15:20 | XMS_ITS | Clinical Summary ---
Author Organization [facility] Address [address] [place] [address] Phone Care Team Providers Care Compensation And Hris Analyst Name Role Phone KHAI TOLBERT, HAYLIE Jhaveri Unavailable [phone] HERI SHANKS Primary Care Provider [phone] BARRY SANTA MD Unavailable [phone] Reason for Visit and Chief [...] On 2 12:03PM By HAYLIE TOLBERT ; [facility] New / Renewed during this visit HAYLIE TOLBERT on 09/19/2021 HYDROcodone-Acetaminophen 7. 5-325 MG Oral Tablet Provider: HAYLIE TOLBERT 30 day supply: 90 tablet, 0 refills Diagnosis: Other spondylosis with radiculopathy, lumbar region 1 po TID prn Pharmacy: [facility] ([place] - [address] [place] [address], [address] - Last Documented On 2 2:16PM By CATHY DICK ; [facility] Current Medications (continue as prescribed) HYDROcodone-Acetaminophen 7. 5-325 MG Oral Tablet 10/21/2021 Provider: CATHY EVANS [facility]- Diagnosis: Other spondylosi s with radiculopathy, lumbar region 1 po TID prn Last Documented On 2 2:25PM By CATHY GUDINO HEDGE TRIMMER- ; [facility] Pregabalin 75 MG Oral Capsule 07/05/2021 Provider: HAYLIE ESPITIA Diagnosis: One tablet at bed time Last Documented On 1 8:31AM By HAYLIE ESPITIA ; [facility] Gabapentin 300MG Oral Capsule 09/30/2018 Provider: HAYLIE ESPITIA Diagnosis: TAKE 1 CAPSULE BY MOUTH THREE TIMES DAILY Last Documented On 2 10:40AM By Leyda Aj Alec ; [facility] Ventolin HFA 108 (90 Base)MCG/ACT Inhalation Aer osol, solution 12/20/2017 Provider: Diagnosis: Last Documented On 8 2:23PM By YONATHAN DONNELLY Alec ; [facility] Medications Administered Includes: Administered Medications from this encounter No Administered Medications Recorded Results Includes: Results discussed during this encounter No Results Recorded For Specified Dates History of Present Illness Includes: History of Present Illness from this encounter No History of Present Illness Recorded Social History Description Last Updated Current smoker 10/11/2020 Last Documented On 2 11:53AM ; [facility] Smoker 12/16/2019 Last Documented On 2 11:53AM ; [facility] Single 12/20/2017 Last Documented On 2 11:53AM ; [facility] Smoking status : Current everyday smoker 12/20/2017 Last Documented On 2 11:53AM ; [facility] Medical History Includes: Medical History addressed during [...] 11/14/2018 Active Last Documented On 10:26AM ; [facility] Encounters Encounter Provider Location Date Check-In Time Check-Out Time Diagnosis RX ISSUE/REFILL HAYLIE ALMANZAR-CYNTHIA 09/19/2021 11:52AM 11:59PM Insurance Includes: Active Insurance Policies Plan Name Member ID Group # Subscriber Relationship Effect tawanna Dates 1 - [facility] [id number] RALEIGH BERMUDEZ Self Clinical Notes Includes: Clinical Notes from this encounter No Clinical Notes Recorded
--- OUTSIDE RECORDS SUMMARY | 2024-11-26 15:20 | XMS_ITS | CONTINUITY OF CARE DOCUMENT ---
Author Name libertadclementemark espinosa Address Unknown Organization [facility] Address [address] [place] [address] Phone [phone] Care Team Providers Care Mold Preparer Name Role Phone Lane Barba MD Unavailable [phone] Barba MD Unavailable [phone] INSURANCE PROVIDERS Payer name Policy type / Coverage type [place]ale red green party [id number] MED[place] (2) Medicaid [id number]
--- OUTSIDE RECORDS SUMMARY | 2024-11-26 15:20 | XMS_ITS | Clinical Summary ---
Author Organization [facility] Address [address] [facility] [address] [place] [address] Care Team Providers Care Escrow Assistant Name Role Phone Mayco Belcher MD Primary Care Provider [phone] Social History Tobacco Use Types Packs/Day Years Used Date Smoking Tobacco: Never Assessed Comments Unknown Sex and Gender Information Value Date Recorded Sex Assigned at Not on file Legal Sex Female 2:23 PM CDT Gender Identity Not on file Sexual Orientation Not on file Plan of Treatment Health Maintenance Due Date Last Done Comments Colorectal Cancer Screening Colonoscopy (10 Years) 1960 Hepatitis C 11/16/1977 DTaP, Tdap and Td Vaccines ( 1 - Tdap) 11/16/1978 Mammogram Screening 1999 Pneumococcal Vaccine: 50+ Ye ars (1 of 1 - PCV) 11/16/2009 Zoster Vaccines (1 of 2) 11/16/2009 COVID-19 Vaccine ( - 2023-2 5 season) 2024 Dexa Scan (General) 11/16/2024 RSV Immunization or 60+ Years (1 - 1-dose 75+ series) 11/16/2034 Meningococcal B Vaccine Aged Out No l onger eligible based on patient's age to complete this topic Meningococcal Vaccine Aged Out No chelly cinthia eligible based on patient's age to complete this topic RSV Immunizations Under 20 Months Aged Out No longer eligible based on patient's age to complete this topic Insurance [employer] Care Teams Escrow Assistant Relationship Specialty Start Date End Date Mayco Belcher MD [address] [place] [address] PCP - General FAMILY PRACTICE 01/11/19
--- OUTSIDE RECORDS SUMMARY | 2024-11-26 15:20 | XMS_ITS | Clinical Summary ---
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 Testing performed by: [facility], [address] [place] [address]., [address] Blood 04/03/2022 10:3 2 AM CDT 04/03/2022 5:14 PM CDT Wili Restrepo Jr., MD LAB BLOOD ORDERABLE S Final Result [facility] Department [place] [address] from Last 3 Months or Most Recently Relevant to Health Maintenance Insurance [facility] Care Teams Pulverizer Operator Relationship Specialty Start Date End Date Pritesh Lew DO [address] [place] [address] PCP - General Family Medicine 03/15/22
--- OUTSIDE RECORDS SUMMARY | 2024-11-26 15:20 | XMS_ITS | Clinical Summary ---
Author Organization [facility] Address [address] [place] [address] Care Team Providers Care Career Development Manager Name Role Phone Unavailable Primary Care Provider Unavailabl e Source Comments [facility],non-owned Affiliates and Associated Physician Practices is amultiple site organization consisting of ambulatory clinics and hospital sitesin [place], [place], [place] and [place]. This disclosure is being madepursuant to the Care Everywhere program and may not contain all information available regarding this patient. Last updated 18.[facility] Allergies Active Allergy Reactions Criticality Noted Date Comments Penicillins Urticaria Medium 09/05/2019 Medications * Be aware that medications may not be up to date on this document. Alwaysverify current medications with the patient. LISINOPRIL PO Active METFORMIN HCL ER, MOD, [...] Day Cigarettes 0.5 30 Smokeless Tobacco: Never Comments No Sex and Gender Information Value Date Recorded Sex Assigned at Not on file Legal Sex Female 1:29 PM WILLOW WORKER Gender Identity Not on file Sexual Orientation Not on file Last Filed Vital Signs Vital Sign Reading Time Taken Comments Blood Pressure 133/76 09/05/2019 1:47 PM WILLOW WORKER Pulse 86 09/05/2019 1:47 PM WILLOW WORKER Temperature 36.3 C (97.4 F) 09/05/2019 1:47 PM WILLOW WORKER Respiratory Rate 16 09/05/2019 1:47 PM WILLOW WORKER Oxygen Saturation 100% 09/05/2019 1:47 PM WILLOW WORKER Inhaled Oxygen Concentration - - Weight 81.6 kg (180 lb) 09/05/2019 1:47 PM WILLOW WORKER Height 160 cm (5' 3 ) 09/05/2019 1:47 PM WILLOW WORKER Body Mass Index 31.89 09/05/2019 1:47 PM WILLOW WORKER Plan of Treatment Health Maintenance Due Date Last Done Comments BONE DENSITY TESTING 1960 COLOGUARD (AGES 45-75) - COL ON CA SCREENING [address] COLONOGRAPHY - COLON CA SCREENING 1960 FIT - COLON CA SCREENING 1960 FLEX SIG - COLON CA SCREENING 1960 LIPID TESTING 1960 MAMMOGRAM 1959 HIV SCREENING 11/16/1974 HEPATITIS C SCREENING 11/12/1977 DTAP/TDAP/TD VACCINES (1 - Tdap) 11/16/1978 PNEUMOCOCCAL VACCINE 50+ (1 of 1 - PCV) 11/16/2009 ZOSTER VACCINE (1 of 2) 11/16/2009 COVID-19 VACCINE (1 - 2023-2 5 season) 2024 DEPRESSION SCREENING 08/06/2024 INFLUENZA VACCINE (Season Ended) 2025 COLONOSCOPY - COLON CA SCREENING 06/06/2025 06/06/20 [...] patient's age to complete this topic Insurance [facility]
--- OUTSIDE RECORDS SUMMARY | 2024-11-26 15:20 | XMS_ITS | Referral Summary ---
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 Testing performed by: [facility], [address] [place] [address]., [address] Blood 04/03/2022 10:3 2 AM CDT 04/03/2022 5:14 PM CDT us Wili Restrepo Jr., MD LAB BLOOD ORDERABLE S Final Result [facility] ([place]) [address] [facility] [place] [address] from Last 3 Months or Most Recently Relevant to Health Maintenance Insurance [facility] PLAN OF ID [facility] Care Teams Gripper Attacher Relationship Specialty Start Date End Date Pritesh Lew DO [address] [place] [address] PCP - General Family Medicine 03/15/22
--- OUTSIDE RECORDS SUMMARY | 2024-11-26 15:21 | XMS_ITS | Clinical Summary ---
Author Organization [facility] Address [address] [place] [address] Phone Care Team Providers Care Financial Officer Name Role Phone KHAI TOLBERT, HAYLIE Jhaveri Unavailable [phone] HERI SHANKS Primary Care Provider [phone] BARRY SANTA MD Unavailable [phone] Reason for Visit and Chief [...] On 2 2:16PM By CATHY DICK ; [facility] New / Renewed during this visit MAYELIN HOPSON on 10/21/2021 HYDROcodone-Acetaminophen 7. 5-325 MG Oral Tablet Provider: MAYELIN HOPSON 30 day supply: 90 tablet, 0 refills Diagnosis: Other spondylosis with radiculopathy, lumbar region 1 po TID prn Pharmacy: [facility] ([facility] - [address] , [facility], [id number] - Last Documented On 2 2:25PM By CATHY VENEGAS-BC ; [facility] Current Medications (continue as prescribed) Pregabalin 75 MG Oral Capsule 07/05/2021 Provider: HAYLIE TOLBERT Diagnosis: One tablet at bed time Last Documented On 1 8:31AM By HAYLIE TOLBERT ; [facility] Gabapentin 300MG Oral Capsule 09/30/2018 Provider: HAYLIE TOLBERT Diagnosis: TAKE 1 CAPSULE BY MOUTH THREE TIMES DAILY Last Documented On 2 10:40AM By Leyda Aj Alec ; [facility] Ventolin HFA 108 (90 Base)MCG/ACT Inhalation Aer osol, solution 12/20/2017 Provider: Diagnosis: Last Documented On 8 2:23PM By YONATHAN DONNELLY Alec ; [facility] Medications Administered Includes: Administered Medications from this encounter No Administered Medications Recorded Results Includes: Results discussed during this encounter No Results Recorded For Specified Dates History of Present Illness Includes: History of Present Illness from this encounter No History of Present Illness Recorded Social History Description Last Updated Current smoker 10/11/2020 Last Documented On 2 8:46AM ; [facility] Smoker 12/16/2019 Last Documented On 2 8:46AM ; [facility] Not using drugs 12/20/2017 Last Documented On 2 8:46AM ; [facility] Single 12/20/2017 Last Documented On 2 8:46AM ; [facility] Smoking status : Current everyday smoker 12/20/2017 Last Documented On 2 8:46AM ; [facility] Medical History Includes: Medical History addressed during this encounter Description Last Updated Has had no fall in the last 12 months. 0 08/15/2021 Last Documented On 2 8:46AM ; [facility] Denies a fear of falling. 08/15/2021 Last Documented On 2 8:46AM ; [facility] Reviewed and Unchanged 10/16/2019 Last Documented On 2 8:46AM ; [facility] Currently wearing eyeglasses 12/20/2017 Last Documented On 2 8:46AM ; [facility] Wearing contact lenses 12/20/2017 Last Documented On 2 8:46AM ; [facility] History of cancer skin 12/20/2017 Last Documented On 2 8:46AM ; [facility] History of hypertension 12/20/2017 Last Documented On 2 8:46AM ; [facility] Asthma 12/20/2017 Last Documented On 2 8:46AM ; [facility] History of diabetes mellitus 12/20/2017 Last Documented On 2 8:46AM ; [facility] Born by section 12/20/2017 Last Documented On 2 8:46AM ; [facility] Family History Includes: Family History addressed during this encounter Description Last Updated Family history of cancer 12/20/2017 Last Documented On 2 8:46AM ; [facility] Review of Systems Includes: Review of Systems [...] Active Last Documented On 2 10:26AM ; [facility] Encounters Encounter Provider Location Date Check-In Time Check-Out Time Diagnosis RX ISSUE/REFILL CATHY GUDINO INVESTIGATOR UTILITY BILL COMPLAINTS-FPA, DREDGEMASTER-BC 10/21/2021 8:46AM 11:59PM Insurance Includes: Active Insurance Policies Plan Name Member ID Group # Subscriber Relationship Effect tawanna Dates - [facility] [id number] RALEIGH BERMUDEZ Self Clinical Notes Includes: Clinical Notes from this encounter No Clinical Notes Recorded
--- OUTSIDE RECORDS SUMMARY | 2024-11-26 15:22 | XMS_ITS | Clinical Summary ---
Author Organization [facility] Address [address] [place] [address] Phone Care Team Providers Care Interlocking Pavement Installer Name Role Phone KHAI TOLBERT, HAYLIE Jhaveri Unavailable [phone] HERI SHANKS Primary Care Provider [phone] BARRY SANTA MD Unavailable [phone] Reason for Visit and Chief [...] On 2 2:25PM By CATHY DICK ; [facility] Pregabalin 75 MG Oral Capsule 07/05/2021 Provider: HAYLIE TOLBERT Diagnosis: One tablet at bed time Last Documented On 1 8:31AM By HAYLIE TOLBERT ; [facility] Gabapentin 300MG Oral Capsule 09/30/2018 Provider: HAYLIE TOLBERT Diagnosis: TAKE 1 CAPSULE BY MOUTH THREE TIMES DAILY Last Documented On 2 10:40AM By Leyda FELIPE ; [facility] Ventolin HFA 108 (90 Base)MCG/ACT Inhalation Aer osol, solution 12/20/2017 Provider: Diagnosis: Last Documented On 8 2:23PM By YONATHAN FELIPE ; [facility] Medications Administered Includes: Administered Medications from this encounter No Administered Medications Recorded Results Includes: Results discussed during this encounter No Results Recorded For Specified Dates History of Present Illness Includes: History of Present Illness from this encounter No History of Present Illness Recorded Social History Description Last Updated Current smoker 10/11/2020 Last Documented On 2 2:58PM ; [facility] Smoker 12/16/2019 Last Documented On 2 2:58PM ; [facility] Single 12/20/2017 Last Documented On 2 2:58PM ; [facility] Smoking status : Current everyday smoker 12/20/2017 Last Documented On 2 2:58PM ; [facility] Medical History Includes: Medical History addressed [...] Active Last Documented On 2 10:26AM ; [facility] Encounters Encounter Provider Location Date Check-In Time Check-Out Time Diagnosis * PHONE CALL HAYLIE TOLBERT 10/05/2021 2:58PM 11:59PM Insurance Includes: Active Insurance Policies Plan Name Member ID Group # Subscriber Relationship Effect tawanna Dates 1 - [facility] [id number] RALEIGH BERMUDEZ Self Clinical Notes Includes: Clinical Notes from this encounter No Clinical Notes Recorded
--- OUTSIDE RECORDS SUMMARY | 2024-11-26 15:22 | XMS_ITS | CONTINUITY OF CARE DOCUMENT ---
Author Name libertadclementemark espinosa Address Unknown Organization [facility] Address [address] [place] [address] Phone [phone] Care Team Providers Care Booking Clerk Name Role Phone Lane Barba MD Unavailable [phone] Barba MD Unavailable [phone] INS[employer]ANCE [employer] Payer name Policy type / Coverage type [place] red constitution party ID [id number] MED[place] (2) Medicaid [id number]
--- OUTSIDE RECORDS SUMMARY | 2024-11-26 15:22 | XMS_ITS ---
Care Plan - [facility] Created on: November 26, 2024 AIDANRALEIGH Nathan : 1960 Sex: Female Author Organization [facility] Address [address] [place] [address] Phone Care Team Providers Care Armature And Rotor Winder Name Role Phone HALYIE RUTLEDGE Unavailable [phone] HERI SHANKS Primary Care Provider [phone] BARRY SANTA MD Unavailable [phone]
--- OUTSIDE RECORDS SUMMARY | 2024-11-26 15:22 | XMS_ITS | Clinical Summary ---
Author Organization [facility] Address [address] [place] [address] Phone Care Team Providers Care Exterminator Termite Name Role Phone KHAI TOLBERT, HAYLIE Jhaveri Unavailable [phone] HERI SHANKS Primary Care Provider [phone] BARRY SANTA MD Unavailable [phone] Reason for Visit and Chief [...] 2:25PM By CATHY DICK ; [facility] Pregabalin 75 MG Oral Capsule 07/05/2021 Provider: HAYLIE TOLBERT Diagnosis: One tablet at bed time Last Documented On 1 8:31AM By HAYLIE TOLBERT ; [facility] Gabapentin 300MG Oral Capsule 09/30/2018 Provider: HAYLIE TOLBERT Diagnosis: TAKE 1 CAPSULE BY MOUTH THREE TIMES DAILY Last Documented On 2 10:40AM By Leyda FELIPE ; [facility] Ventolin HFA 108 (90 Base)MCG/ACT Inhalation Aer osol, solution 12/20/2017 Provider: Diagnosis: Last Documented On 8 2:23PM By YONATHAN FELIPE ; [facility] Medications Administered Includes: Administered [...] Documented On 2 10:26AM ; [facility] Encounters Encounter Provider Location Date Check-In Time Check-Out Time Diagnosis [Patient Encounter] HAYLIE ALMANZAR- 11/10/2021 3:18PM 11:59PM Insurance Includes: Active Insurance Policies Plan Name Member ID Group # Subscriber Relationship Effect tawanna Dates 1 - [facility] [id number] RALEIGH Hatch Clinical Notes Includes: Clinical Notes from this encounter No Clinical Notes Recorded
--- OUTSIDE RECORDS SUMMARY | 2024-11-26 15:22 | XMS_ITS | Continuity of Care Document ---
Author Organization [facility] Address [address] [place] [address] Phone Care Team Providers Care Cornetist Name Role Phone Alexys Navarro MD Unavailable [...] Copied on Encounter OFFICE/OUTPA TIENT VISIT, EST [facility], [address] [place], [address], [place] tel:[phone] [facility] back pain (chief complaint) Low back pain 7 [address]. [address], [place], [place], [address] , [place]. [phone] Referring Provider: Anand Brar [address], [place], [place], [address]. tel:[phone] PREV VISIT, EST, AGE 40-64 [facility], [address], [place], [place], [address], [place] [phone] [facility] PHysical (chief complaint) Encounter for general adult medical exam w abnormal findingsGERD w/o esophagitisType 2 diabetes mellitus without complicationsLow back pain 7 Ramon Moralez [address], [address], [place], [place], [address] , [place]. [phone] Referring Provider: Anand Brar [address], [place], [place], [address]. tel:[phone] OFFICE/OUTPA TIENT VISIT, EST [facility], [address], [place], [place], [address], [place] [phone] [facility] DM (chief complaint) chornic pain (chief complaint) GERD (chief complaint) COPD (chief complaint) Dietary surveillance and counselingDiabetes Mellitus, Adult Onset, UncontrolledLumbago COPD [address], [place], [place], [address] , [place]. [phone] Referring Provider: Anand Brar [address], [place], [place], [address]. tel:[phone] OFFICE/OUTPA TIENT VISIT, EST [facility], [address], [place], [place], [address], [place] [phone] [facility] pneumonia (chief complaint) back pain (chief complaint) DM (chief complaint) Dietary surveillance and counselingPneumonia LumbagoDiabetes Mellitus, Adult Onset, Uncontrolled 4 Navarro Alexys. [address], [address], [place], [place], [address] , [place]. tel:[phone] Referring Provider: Anand Brar [address], [place], [place], [address]. tel:[phone] OFFICE/OUTPA TIENT VISIT, [facility] [place], [address], [place], [place], [address], [place] tel:[phone] [facility] chornic pain (chief complaint) HTN (chief complaint) GERD (chief complaint) COPD (chief complaint) Dietary surveillance and counselingCOPDLumba goHypertension, UnspecifiedGERD Jan-0 9 4 Ram[address] Moralez [address], [address], [place], [place], [address] , [place]. [phone] Referring Provider: Anand Brar [address], [place], [place], [address]. tel:[phone] OFFICE/OUTPA TIENT VISIT, [facility] [place], [address], [place], [place], [address], [place] tel:[phone] [facility] back pain (chief complaint) knee pain (chief complaint) GERD (chief complaint) DM (chief complaint) Dietary surveillance and counselingLumbagoGE RDPain in joint involving lower leg 0 4 Ram[address] Moralez [address], [address], [place], [place], [address] , [place]. [phone] Referring Provider: Anand Brar [address], [place], [place], [address]. tel:[phone] OFFICE/OUTPA TIENT VISIT, [facility] [place], [address], [place], [place], [address], [place] tel:[phone] [facility] GERD (chief complaint) back pain (chief complaint) DM (chief complaint) HTN (chief complaint) Dietary surveillance and counselingGERDLumba goHypertension, UnspecifiedDiabetes Mellitus, Adult Onset, Uncontrolled Nov-0 4 Ram[address] Moralez [address], [address], [place], [place], [address] , [place]. tel:[phone] Referring Provider: Anand Brar [address], [place], [place], [address]. tel:[phone] OFFICE/OUTPA TIENT VISIT, [facility] [place], [address], [place], [place], [address], [place] tel:[phone] [facility] edema (chief complaint) back pain (chief complaint) HTN (chief complaint) COPD (chief complaint) Dietary surveillance and counselingEdemaCOPD Hypertension, UnspecifiedLumbago 4 Ram[address] Reardon. [address], [address], [place], [place], [address] , [place]. [phone] Referring Provider: Anand Brar [address], [place], [place], [address]. tel:[phone] OFFICE/OUTPA TIENT VISIT, [facility] [place], [address], [place], [place], [address], [place] tel:[phone] [facility] DM (chief complaint) cough (chief complaint) back pain (chief complaint) HTN (chief complaint) Dietary surveillance and counselingDiabetes Mellitus, Adult Onset, UncontrolledBronchi tis, AcuteLumbagoHyperte nsion, Unspecified 4 [address] Reardon. [address], [address], [place], [place], [address] , [place]. [phone] Referring Provider: Anand Brar [address], [place], [place], [address]. tel:[phone] OFFICE/OUTPA TIENT VISIT, [facility] [place], [address], [place], [place], [address], [place] tel:[phone] [facility] back pain (chief complaint) DM (chief complaint) COPD (chief complaint) COPDDietary surveillance and counselingLumbagoDi abetes Mellitus, Adult Onset, Uncontrolled 4 Ram[address] Reardon. [address], [address], [place], [place], [address] , [place]. [phone] Referring Provider: Anand Brra [address], [place], [place], [address]. tel:[phone] PREV VISIT, NEW, AGE 40-64 [facility], [address], [place], [place], [address], tel:[phone] [facility] Physical (chief complaint) Dietary surveillance and counselingRoutine Medical ExamRoutine Medical Exam 3 Ramon Reardon. [address], [place], [place], [address] , [place]. tel:[phone] Family History Family Member Type Diagnosis Age At Onset Father Problem (finding) Cancer - colon CA Brother Problem (finding) Coronary artery disease Mother Problem (finding) CHF and dementia Payers Payer name Insurance type Covered green party ID Authoriza tion(s) No Information Social History [...] Mental Status Date Cognitive Assessment Orientation - [place] ed to time, place, person, situation.
--- OUTSIDE RECORDS SUMMARY | 2024-11-26 15:22 | XMS_ITS | Clinical Summary ---
Author Organization [facility] Address [address] [place] [address] Phone Care Team Providers Care Cable Tool Operator Name Role Phone KHAI TOLBERT, HAYLIE Jhaveri Unavailable [phone] HERI SHANKS Primary Care Provider [phone] BARRY SANTA MD Unavailable [phone] Reason for Visit and Chief [...] 2 2:25PM By CATHY DICK ; [facility] Pregabalin 75 MG Oral Capsule 07/05/2021 Provider: HAYLIE TOLBERT Diagnosis: One tablet at bed time Last Documented On 1 8:31AM By HAYLIE TOLBERT ; [facility] Gabapentin 300MG Oral Capsule 09/30/2018 Provider: HAYLIE TOLBERT Diagnosis: TAKE 1 CAPSULE BY MOUTH THREE TIMES DAILY Last Documented On 2 10:40AM By Leyda FELIPE ; [facility] Ventolin HFA 108 (90 Base)MCG/ACT Inhalation Aer osol, solution 12/20/2017 Provider: Diagnosis: Last Documented On 8 2:23PM By YONATHAN FELIPE ; [facility] Medications Administered Includes: Administered Medications from this encounter No Administered Medications Recorded Results Includes: Results discussed during this encounter No Results Recorded For Specified Dates History of Present Illness Includes: History of Present Illness from this encounter No History of Present Illness Recorded Social History Description Last Updated Current smoker 10/11/2020 Last Documented On 2 9:25AM ; [facility] Smoker 12/16/2019 Last Documented On 2 9:25AM ; [facility] Single 12/20/2017 Last Documented On 2 9:25AM ; [facility] Smoking status : Current everyday smoker 12/20/2017 Last Documented On 2 9:25AM ; [facility] Medical History Includes: Medical History [...] Last Documented On 2 10:26AM ; [facility] Encounters Encounter Provider Location Date Check-In Time Check-Out Time Diagnosis * PHONE CALL HAYLIE ALMANZAR-CYNTHIA 11/10/2021 9:25AM 11:59PM Insurance Includes: Active Insurance Policies Plan Name Member ID Group # Subscriber Relationship Effect tawanna Dates 1 - [facility] [id number] RALEIGH BERMUDEZ Self Clinical Notes Includes: Clinical Notes from this encounter No Clinical Notes Recorded
--- OUTSIDE RECORDS SUMMARY | 2024-11-26 15:22 | XMS_ITS ---
Author Organization [facility] Address [address] [place] [address] Phone Care Team Providers Care Electrician Yard Name Role Phone KHAI TOLBERT, HAYLIE Jhaveri Unavailable [phone] HERI SHANKS Primary Care Provider [phone] BARRY SANTA MD Unavailable [phone] Plan of Treatment Referrals To Diagnosis Pain Management [facility] - [address], [place] - Radiculopathy, lumbar region Note: consent for right L3-4 , L4-5 transforaminal epidural Last Documented On 8 2:06PM ; [facility] Pain Management [facility] - [address] [place] [address] - Radiculopathy, lumbar region Note: consent for right L3-4 , L4-5 transforaminal epiduralneeds a Sunday appt Last Documented On 9 11:44AM ; [facility] Pain Management [facility] - [address] [place] [address] - Radiculopathy, lumbar region Note: consent for right L3-4 , L4-5 transforaminal epidural Last Documented On 0 3:15PM ; [facility] Pain Management [facility] - [address] [place] [address] - Other spondylosis with radiculopathy, lumbar region Note: consent for right L3-4 , L4-5 transforaminal epidural Last Documented On 0 3:14PM ; [facility] Instructions to patient Intervention and counseling on cessation of tobacco use : Patient recieved smoking cessation handout Last Documented On 2 10:25AM ; [facility] Intervention and counseling on cessation of tobacco use : Patient recieved smoking cessation handout Last Documented On 1 2:00PM ; [facility] Intervention and counseling on cessation of tobacco use : Patient recieved smoking cessation handout Last Documented On 1 3:33PM ; [facility] Intervention and counseling on cessation of tobacco use : Patient recieved smoking cessation handout Last Documented On 1 11:43AM ; [facility] Intervention and counseling on cessation of tobacco use : Patient recieved smoking cessation handout Last Documented On 0 2:47PM ; [facility] Intervention and counseling on cessation of tobacco use : Patient recieved smoking cessation handout Last Documented On 0 1:48PM ; [facility] Intervention and counseling on cessation of tobacco use : Patient recieved smoking cessation handout Last Documented On 0 2:53PM ; [facility] Intervention and counseling on cessation of tobacco use : Patient recieved smoking cessation handout Last Documented On 0 4:07PM ; [facility] Intervention and counseling on cessation of tobacco use : Patient recieved smoking cessation handout Last Documented On 0 2:49PM ; [facility] Education and Decision Aids were provided during visit for: Pill Count: 20 Hydrocodone Last Documented On 2 10:39AM ; [facility] Pill Count: twelve Appropria te Last Documented On 1 2:01PM ; [facility] Pill Count: two Appropriate Last Documented On 1 3:33PM ; [facility] Pill Count: 89 Appropriate Last Documented On 1 11:17PM ; [facility] Pill Count: two Appropriate Last Documented On 1 11:56AM ; [facility] No Pill Count: two Appropria te Last Documented On 0 2:49PM ; [facility] Pill Count: two Appropriate Last Documented On 0 2:05PM ; [facility] Pill Count: Patient did not bring pain medication to appointment for pill count, per policy. Advised in order to continue to safely prescribe opioids, medication must be brought to each appointment Last Documented On 0 2:54PM ; [facility] Pill Count: eight Appropriat e PT COUNTED Last Documented On 0 4:32PM ; [facility] Pill Count: Patient did not bring pain medication to appointment for pill count, per policy. Advised in order to continue to safely prescribe opioids, medication must be brought to each appointment Last Documented On 0 4:09PM ; [facility] Pill Count: one Appropriate Last Documented On 0 10:15AM ; [facility] Pill Count: Patient did not bring pain medication to appointment for pill count, per policy. Advised in order to continue to safely prescribe opioids, medication must be brought to each appointment Last Documented On 0 4:11PM ; [facility] Assessments Includes: Assessments for all patient encounters Findings Encounter Date Chronic pain syndrome PAIN MANAGEMENT FO LLOW UP with HAYLIE ALMANZAR- 08/15/2021 Last Documented On 2 1:24PM ; [facility] assisted 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 PAIN M ANAGEMENT FOLLOW UP [facility]21 Last Documented On 2 1:24PM ; [facility] Lumbar spondylosis with radiculopathy PA IN MANAGEMENT FOLLOW UP with HAYLIE RIDLEY ANP-BC 08/15/2021 Last Documented On 2 1:24PM ; [facility] Lumbosacral spinal stenosis PAIN MANAGEM ENT FOLLOW UP with HAYLIE RIDLEY ANP-BC 08/15/2021 Last Documented On 2 1:24PM ; [facility] Myalgia PAIN MANAGEMENT FOLLOW UP with Azul ALMANZAR-BC 08/15/2021 Last Documented On 2 1:24PM ; [facility] Sacroiliitis PAIN MANAGEMENT FOLLOW UP with T CHIKIS HERNANDEZS [facility] 08/15/2021 Last Documented On 2 1:24PM ; [facility] Chronic pain syndrome PAIN MANAGEMENT FO LLOW UP with HAYLIE L KHAI [facility] 04/20/2021 Last Documented On 1 2:28PM ; [facility] assisted 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 PAIN M ANAGEMENT FOLLOW UP with HAYLIE L KHAI [facility] 04/20/2021 Last Documented On 1 2:28PM ; [facility] Lumbar spondylosis with radiculopathy PA IN MANAGEMENT FOLLOW UP with HAYLIE L KHAI [facility] 04/20/2021 Last Documented On 1 2:28PM ; [facility] Lumbosacral spinal stenosis PAIN MANAGEM ENT FOLLOW UP with HAYLIE L KHAI [facility] 04/20/2021 Last Documented On 1 2:28PM ; [facility] Myalgia PAIN MANAGEMENT FOLLOW UP with T CHIKIS L KHAI [facility] 04/20/2021 Last Documented On 1 2:28PM ; [facility] Sacroiliitis PAIN MANAGEMENT FOLLOW UP with T CHIKIS L KHAI [facility] 04/20/2021 Last Documented On 1 2:28PM ; [facility] Chronic pain syndrome PAIN MANAGEMENT FO LLOW UP with HAYLIE L KHAI [facility] 02/17/2021 Last Documented On 1 4:37PM ; [facility] roasterman 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 PAIN M ANAGEMENT FOLLOW UP with HAYLIE L KHAI [facility] 02/17/2021 Last Documented On 1 4:37PM ; [facility] Lumbar spondylosis with radiculopathy PA IN MANAGEMENT FOLLOW UP with HAYLIE L KHAI [facility] 02/17/2021 Last Documented On 1 4:37PM ; [facility] Lumbosacral spinal stenosis PAIN MANAGEM ENT FOLLOW UP with HAYLIE L KHAI [facility] 02/17/2021 Last Documented On 1 4:37PM ; [facility] Myalgia PAIN MANAGEMENT FOLLOW UP with T CHIKIS L KHAI [facility]P-[facility] 02/17/2021 Last Documented On 1 4:37PM ; [facility] Sacroiliitis PAIN MANAGEMENT FOLLOW UP with T CHIKIS L KHAI ANP-[facility] 02/17/2021 Last Documented On 1 4:37PM ; [facility] Chronic pain syndrome FOLLOW UP with HAYLIE L BL EVINS ANP-BC 11/11/2020 Last Documented On 1 11:17PM ; [facility] assisted 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 FOLLOW UP with HAYLIE L KHAI ANP-BC 11/11/2020 Last Documented On 1 11:17PM ; [facility] Lumbar spondylosis with radiculopathy FO LLOW UP with HAYLIE L KHAI ANP-BC 11/11/2020 Last Documented On 1 11:17PM ; [facility] Lumbosacral spinal stenosis FOLLOW UP with GERALD E L KHAI ANP-BC 11/11/2020 Last Documented On 1 11:17PM ; [facility] Myalgia FOLLOW UP with HAYLIE L KHAI ANP-BC 11/11/2020 Last Documented On 1 11:17PM ; [facility] Sacroiliitis FOLLOW UP with HAYLIE L KHAI ANP-BC 11/11/2020 Last Documented On 1 11:17PM ; [facility] Chronic pain syndrome TELEHEALTH with HAYLIE L B LEXIE ANP-BC 10/11/2020 Last Documented On 1 11:58AM ; [facility] assisted 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 TELEHEALTH wit h HAYLIE L KHAI ANP-BC 10/11/2020 Last Documented On 1 11:58AM ; [facility] Lumbar spondylosis with radiculopathy TE LEHEALTH with HAYLIE L KHAI ANP-BC 10/11/2020 Last Documented On 1 11:58AM ; [facility] Lumbosacral spinal stenosis TELEHEALTH with TAMM IE L KHAI ANP-BC 10/11/2020 Last Documented On 1 11:58AM ; [facility] Myalgia TELEHEALTH with HAYLIE Shakila HERNANDEZS [facility] 10/11/2020 Last Documented On 1 11:58AM ; [facility] Oriented to time, place, and person TELE HEALTH with HAYLIE Shakila BATISTAKHAI [facility] 10/11/2020 Last Documented On 1 11:58AM ; [facility] Sacroiliitis TELEHEALTH with HAYLIE Shakila HERNANDEZS [facility] 10/11/2020 Last Documented On 1 11:58AM ; [facility] Chronic pain syndrome PAIN MANAGEMENT FO LLOW UP with HAYLIE L KHAI [facility] 07/13/2020 Last Documented On 0 1:09PM ; [facility] roasterman 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 PAIN M ANAGEMENT FOLLOW UP with HAYLIE L KHAI [facility] 07/13/2020 Last Documented On 0 1:09PM ; [facility] Lumbar spondylosis with radiculopathy PA IN MANAGEMENT FOLLOW UP with HAYLIE L KHAI [facility] 07/13/2020 Last Documented On 0 1:09PM ; [facility] Lumbosacral spinal stenosis PAIN MANAGEM ENT FOLLOW UP with HAYLIE L KHAI [facility] 07/13/2020 Last Documented On 0 1:09PM ; [facility] Myalgia PAIN MANAGEMENT FOLLOW UP with T CHIKIS L KHAI [facility] 07/13/2020 Last Documented On 0 1:09PM ; [facility] Sacroiliitis PAIN MANAGEMENT FOLLOW UP with T CHIKIS L KHAI [facility] 07/13/2020 Last Documented On 0 1:09PM ; [facility] Chronic pain syndrome PAIN MANAGEMENT FO LLOW UP with HAYLIE L KHAI [facility] 04/14/2020 Last Documented On 0 2:09PM ; [facility] assisted 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 PAIN M ANAGEMENT FOLLOW UP with HAYLIE L KHAI [facility] 04/14/2020 Last Documented On 0 2:09PM ; [facility] Lumbar spondylosis with radiculopathy PA IN MANAGEMENT FOLLOW UP with HAYLIE Shakila BATISTAKHAI [facility] 04/14/2020 Last Documented On 0 2:09PM ; [facility] Lumbosacral spinal stenosis PAIN MANAGEM ENT FOLLOW UP with HAYLIE Shakila BATISTAKHAI [facility] 04/14/2020 Last Documented On 0 2:09PM ; [facility] Myalgia PAIN MANAGEMENT FOLLOW UP with T CHIKIS L KHAI [facility] 04/14/2020 Last Documented On 0 2:09PM ; [facility] Sacroiliitis PAIN MANAGEMENT FOLLOW UP with T CHIKIS L KHAI [facility] 04/14/2020 Last Documented On 0 2:09PM ; [facility] Chronic pain syndrome PAIN MANAGEMENT FO LLOW UP with HAYLIE Shakila KHAI [facility] 03/15/2020 Last Documented On 0 3:12PM ; [facility] assisted 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 PAIN M ANAGEMENT FOLLOW UP with HAYLIE Shakila KHAI [facility] 03/15/2020 Last Documented On 0 3:12PM ; [facility] Lumbar spondylosis with radiculopathy PA IN MANAGEMENT FOLLOW UP with HAYLIE Shakila BATISTAKHAI [facility] 03/15/2020 Last Documented On 0 3:12PM ; [facility] Lumbosacral spinal stenosis PAIN MANAGEM ENT FOLLOW UP with HAYLIE Shakila BATISTAKHAI [facility] 03/15/2020 Last Documented On 0 3:12PM ; [facility] Myalgia PAIN MANAGEMENT FOLLOW UP with T CHIKIS L KHAI [facility] 03/15/2020 Last Documented On 0 3:12PM ; [facility] Sacroiliitis PAIN MANAGEMENT FOLLOW UP with T CHIKIS L KHAI [facility] 03/15/2020 Last Documented On 0 3:12PM ; [facility] Chronic pain syndrome TELEHEALTH with HAYLIEABBY OWEN [facility] 02/12/2020 Last Documented On 0 4:34PM ; [facility] assisted 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 TELEHEALTH wit h HAYLIE Shakila HERNANDEZS [facility] 02/12/2020 Last Documented On 0 4:34PM ; [facility] Lumbar spondylosis with radiculopathy TE LEHEALTH with HAYLIE L KHAI [facility] 02/12/2020 Last Documented On 0 4:34PM ; [facility] Lumbosacral spinal stenosis TELEHEALTH with TAMTaylor IE Shakila KHAI [facility] 02/12/2020 Last Documented On 0 4:34PM ; [facility] Myalgia TELEHEALTH with HAYLIE L KHAI [facility] 02/12/2020 Last Documented On 0 4:34PM ; [facility] Oriented to time, place, and person TELE HEALTH with HAYLIE L KHAI [facility] 02/12/2020 Last Documented On 0 4:34PM ; [facility] Sacroiliitis TELEHEALTH with HAYLIE L KHAI [facility] 02/12/2020 Last Documented On 0 4:34PM ; [facility] Chronic pain syndrome PAIN MANAGEMENT FO LLOW UP with HAYLIE L KHAI [facility] 01/13/2020 Last Documented On 0 4:36PM ; [facility] assisted 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 PAIN M ANAGEMENT FOLLOW UP with HAYLIE L KHAI [facility] 01/13/2020 Last Documented On 0 4:36PM ; [facility] Lumbar spondylosis with radiculopathy PA IN MANAGEMENT FOLLOW UP with HAYLIE L KHAI [facility] 01/13/2020 Last Documented On 0 4:36PM ; [facility] Lumbosacral spinal stenosis PAIN MANAGEM ENT FOLLOW UP with HAYLIE L KHAI [facility] 01/13/2020 Last Documented On 0 4:36PM ; [facility] Myalgia PAIN MANAGEMENT FOLLOW UP with T CHIKIS L KHAI [facility] 01/13/2020 Last Documented On 0 4:36PM ; [facility] Sacroiliitis PAIN MANAGEMENT FOLLOW UP with T CHIKIS L KHAI [facility] 01/13/2020 Last Documented On 0 4:36PM ; [facility] Chronic pain syndrome TELEHEALTH with HAYLIE L B LEXIE [facility] 12/16/2019 Last Documented On 0 10:17AM ; [facility] assisted 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 TELEHEALTH wit h HAYLIE L KHAI [facility] 12/16/2019 Last Documented On 0 10:17AM ; [facility] Lumbar spondylosis with radiculopathy TE LEHEALTH with HAYLIE L KHAI [facility] 12/16/2019 Last Documented On 0 10:17AM ; [facility] Lumbosacral spinal stenosis TELEHEALTH with TAMM IE L KHAI [facility] 12/16/2019 Last Documented On 0 10:17AM ; [facility] Myalgia TELEHEALTH with HAYLIE L KHAI [facility] 12/16/2019 Last Documented On 0 10:17AM ; [facility] Sacroiliitis TELEHEALTH with HAYLIE L KHAI [facility] 12/16/2019 Last Documented On 0 10:17AM ; [facility] Chronic pain syndrome PAIN MANAGEMENT FO LLOW UP with HAYLIE L KHAI [facility] 10/16/2019 Last Documented On 0 4:36PM ; [facility] roasterman 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 PAIN M ANAGEMENT FOLLOW UP with HAYLIE L KHAI [facility] 10/16/2019 Last Documented On 0 4:36PM ; [facility] Lumbar spondylosis with radiculopathy PA IN MANAGEMENT FOLLOW UP with HAYLIE L KHAI [facility] 10/16/2019 Last Documented On 0 4:36PM ; [facility] Lumbosacral spinal stenosis PAIN MANAGEM ENT FOLLOW UP with HAYLIE L KHAI [facility] 10/16/2019 Last Documented On 0 4:36PM ; [facility] Myalgia PAIN MANAGEMENT FOLLOW UP with T CHIKIS L KHAI [facility] 10/16/2019 Last Documented On 0 4:36PM ; [facility] Sacroiliitis PAIN MANAGEMENT FOLLOW UP with T CHIKIS L KHAI [facility] 10/16/2019 Last Documented On 0 4:36PM ; [facility] Lumbar radiculopathy PAIN MANAGEMENT FOL LOW UP with HAYLIE L KHAI [facility]P-[facility] 09/01/2019 Last Documented On 0 11:04AM ; [facility] Lumbar spondylosis with radiculopathy PA IN MANAGEMENT FOLLOW UP with HAYLIE L KHAI ANP-BC 09/01/2019 Last Documented On 0 11:04AM ; [facility] Lumbosacral spinal stenosis PAIN MANAGEM ENT FOLLOW UP with HAYLIE L KHAI ANP-BC 09/01/2019 Last Documented On 0 11:04AM ; [facility] Myalgia PAIN MANAGEMENT FOLLOW UP with T CHIKIS L KHAI ANP-BC 09/01/2019 Last Documented On 0 11:04AM ; [facility] Sacroiliitis PAIN MANAGEMENT FOLLOW UP with T CHIKIS L KHAI ANP-BC 09/01/2019 Last Documented On 0 11:04AM ; [facility] Lumbar radiculopathy PAIN MANAGEMENT FOL LOW UP with HAYLIE L KHAI ANP-BC 11/14/2018 Last Documented On 9 11:16AM ; [facility] Lumbar spondylosis with radiculopathy PA IN MANAGEMENT FOLLOW UP with HAYLIE L KHAI ANP-BC 11/14/2018 Last Documented On 9 11:16AM ; [facility] Lumbosacral spinal stenosis PAIN MANAGEM ENT FOLLOW UP with HAYLIE L KHAI ANP-BC 11/14/2018 Last Documented On 9 11:16AM ; [facility] Myalgia PAIN MANAGEMENT FOLLOW UP with T CHIKIS L KHAI ANP-BC 11/14/2018 Last Documented On 9 11:16AM ; [facility] Sacroiliitis PAIN MANAGEMENT FOLLOW UP with T CHIKIS L KHAI ANP-BC 11/14/2018 Last Documented On 9 11:16AM ; [facility] Lumbar radiculopathy PAIN MANAGEMENT FOL LOW UP with HAYLIE L KHAI ANP-BC 10/09/2018 Last Documented On 9 11:17AM ; [facility] Lumbar spondylosis with radiculopathy PA IN MANAGEMENT FOLLOW UP with HAYLIE L KHAI ANP-BC 10/09/2018 Last Documented On 9 11:17AM ; [facility] Lumbosacral spinal stenosis PAIN MANAGEM ENT FOLLOW UP with HAYLIE L KHAI ANP-BC 10/09/2018 Last Documented On 9 11:17AM ; [facility] Myalgia PAIN MANAGEMENT FOLLOW UP with T CHIKIS L KHAI ANP-BC 10/09/2018 Last Documented On 9 11:17AM ; [facility] Sacroiliitis PAIN MANAGEMENT FOLLOW UP with T CHIKIS L KHAI ANP-BC 10/09/2018 Last Documented On 9 11:17AM ; [facility] Lumbar radiculopathy PAIN MANAGEMENT FOL LOW UP with HAYLIE L KHAI ANP-BC 09/11/2018 Last Documented On 9 2:12PM ; [facility] Lumbar spondylosis with radiculopathy PA IN MANAGEMENT FOLLOW UP with HAYLIE L KHAI ANP-BC 09/11/2018 Last Documented On 9 2:12PM ; [facility] Lumbosacral spinal stenosis PAIN MANAGEM ENT FOLLOW UP with HAYLIE L KHAI ANP-BC 09/11/2018 Last Documented On 9 2:12PM ; [facility] Myalgia PAIN MANAGEMENT FOLLOW UP with T CHIKIS L KHAI ANP-BC 09/11/2018 Last Documented On 9 2:12PM ; [facility] Sacroiliitis PAIN MANAGEMENT FOLLOW UP with T CHIKIS L KHAI ANP-BC 09/11/2018 Last Documented On 9 2:12PM ; [facility] Lumbar radiculopathy PAIN MANAGEMENT FOL LOW UP with HAYLIE L KHAI ANP-BC 07/09/2018 Last Documented On 8 11:25AM ; [facility] Lumbar spondylosis with radiculopathy PA IN MANAGEMENT FOLLOW UP with HAYLIE L KHAI ANP-BC 07/09/2018 Last Documented On 8 11:25AM ; [facility] Lumbosacral spinal stenosis PAIN MANAGEM ENT FOLLOW UP with HAYLIE L KHAI ANP-BC 07/09/2018 Last Documented On 8 11:25AM ; [facility] Myalgia PAIN MANAGEMENT FOLLOW UP with T CHIKIS L KHAI ANP-BC 07/09/2018 Last Documented On 8 11:25AM ; [facility] Sacroiliitis PAIN MANAGEMENT FOLLOW UP with T CHIKIS L KHAI ANP-BC 07/09/2018 Last Documented On 8 11:25AM ; [facility] Lumbar radiculopathy PAIN MANAGEMENT FOL LOW UP with HAYLIE L KHAI ANP-BC 04/16/2018 Last Documented On 8 1:50PM ; [facility] Lumbar spondylosis with radiculopathy PA IN MANAGEMENT FOLLOW UP with HAYLIE L KHAI ANP-BC 04/16/2018 Last Documented On 8 1:50PM ; [facility] Lumbosacral spinal stenosis PAIN MANAGEM ENT FOLLOW UP with HAYLIE L KHAI ANP-BC 04/16/2018 Last Documented On 8 1:50PM ; [facility] Myalgia PAIN MANAGEMENT FOLLOW UP with T CHIKIS L KHAI ANP-BC 04/16/2018 Last Documented On 8 1:50PM ; [facility] Sacroiliitis PAIN MANAGEMENT FOLLOW UP with T CHIKIS L KHAI ANP-BC 04/16/2018 Last Documented On 8 1:50PM ; [facility] Lumbar radiculopathy PAIN MANAGEMENT FOL LOW UP with HAYLIE L KHAI ANP-BC 03/05/2018 Last Documented On 8 11:21AM ; [facility] Lumbar spondylosis with radiculopathy PA IN MANAGEMENT FOLLOW UP with HAYLIE L KHAI ANP-BC 03/05/2018 Last Documented On 8 11:21AM ; [facility] Lumbosacral spinal stenosis PAIN MANAGEM ENT FOLLOW UP with HAYLIE L KHAI ANP-BC 03/05/2018 Last Documented On 8 11:21AM ; [facility] Myalgia PAIN MANAGEMENT FOLLOW UP with T CHIKIS L KHAI ANP-BC 03/05/2018 Last Documented On 8 11:21AM ; [facility] Sacroiliitis PAIN MANAGEMENT FOLLOW UP with T CHIKIS L KHAI ANP-BC 03/05/2018 Last Documented On 8 11:21AM ; [facility] Lumbar radiculopathy PAIN MANAGEMENT FOL LOW UP with HAYLIE L KHAI ANP-BC 01/22/2018 Last Documented On 8 4:46PM ; [facility] Lumbar spondylosis with radiculopathy PA IN MANAGEMENT FOLLOW UP with HAYLIE L KHAI ANP-BC 01/22/2018 Last Documented On 8 4:46PM ; [facility] Lumbosacral spinal stenosis PAIN MANAGEM ENT FOLLOW UP with HAYLIE L KHAI ANP-BC 01/22/2018 Last Documented On 8 4:46PM ; [facility] Myalgia PAIN MANAGEMENT FOLLOW UP with T CHIKIS L KHAI ANP-BC 01/22/2018 Last Documented On 8 4:46PM ; [facility] Sacroiliitis PAIN MANAGEMENT FOLLOW UP with T CHIKIS L KHAI ANP-BC 01/22/2018 Last Documented On 8 4:46PM ; [facility] [facility] Lumbar radiculopathy PAIN MANAGEMENT NEW CONSULT with HAYLIE L KHAI ANP-BC 12/20/2017 Last Documented On 8 1:05PM ; [facility] Lumbar spondylosis with radiculopathy PA IN MANAGEMENT NEW CONSULT with HAYLIE L KHAI ANP-BC 12/20/2017 Last Documented On 8 1:05PM ; [facility] Lumbosacral spinal stenosis PAIN MANAGEM ENT NEW CONSULT with HAYLIE L KHAI ANP-BC 12/20/2017 Last Documented On 8 1:05PM ; [facility] Myalgia PAIN MANAGEMENT NEW CONSULT with HAYLIE L KHAI ANP-BC 12/20/2017 Last Documented On 8 1:05PM ; [facility] Sacroiliitis PAIN MANAGEMENT NEW CONSULT with HAYLIE L KHAI ANP-CYNTHIA 12/20/2017 Last Documented On 8 1:05PM ; [facility] Instructions Includes: Instructions for all patient encounters Instructions to patient Intervention and counseling on cessation of tobacco use : Patient recieved smoking cessation handout Last Documented On 2 10:25AM ; [facility] Intervention and counseling on cessation of tobacco use : Patient recieved smoking cessation handout Last Documented On 1 2:00PM ; [facility] Intervention and counseling on cessation of tobacco use : Patient recieved smoking cessation handout Last Documented On 1 3:33PM ; [facility] Intervention and counseling on cessation of tobacco use : Patient recieved smoking cessation handout Last Documented On 1 11:43AM ; [facility] Intervention and counseling on cessation of tobacco use : Patient recieved smoking cessation handout Last Documented On 0 2:47PM ; [facility] Intervention and counseling on cessation of tobacco use : Patient recieved smoking cessation handout Last Documented On 0 1:48PM ; [facility] Intervention and counseling on cessation of tobacco use : Patient recieved smoking cessation handout Last Documented On 0 2:53PM ; [facility] Intervention and counseling on cessation of tobacco use : Patient recieved smoking cessation handout Last Documented On 0 4:07PM ; [facility] Intervention and counseling on cessation of tobacco use : Patient recieved smoking cessation handout Last Documented On 0 2:49PM ; [facility] Education and Decision Aids were provided during visit for: Pill Count: 20 Hydrocodone Last Documented On 2 10:39AM ; [facility] Pill Count: twelve Appropria te Last Documented On 1 2:01PM ; [facility] Pill Count: two Appropriate Last Documented On 1 3:33PM ; [facility] Pill Count: 89 Appropriate Last Documented On 1 11:17PM ; [facility] Pill Count: two Appropriate Last Documented On 1 11:56AM ; [facility] No Pill Count: two Appropria te Last Documented On 0 2:49PM ; [facility] Pill Count: two Appropriate Last Documented On 0 2:05PM ; [facility] Pill Count: Patient did not bring pain medication to appointment for pill count, per policy. Advised in order to continue to safely prescribe opioids, medication must be brought to each appointment Last Documented On 0 2:54PM ; [facility] Pill Count: eight Appropriat e PT COUNTED Last Documented On 0 4:32PM ; [facility] Pill Count: Patient did not bring pain medication to appointment for pill count, per policy. Advised in order to continue to safely prescribe opioids, medication must be brought to each appointment Last Documented On 0 4:09PM ; [facility] Pill Count: one Appropriate Last Documented On 0 10:15AM ; [facility] Pill Count: Patient did not bring pain medication to appointment for pill count, per policy. Advised in order to continue to safely prescribe opioids, medication must be brought to each appointment Last Documented On 0 4:11PM ; [facility] Medical Equipment - Implanted Devices Includes: Current and historical Devices No Medical Equipment Recorded Medications Includes: Current and historical Medications Current Medications (continue as prescribed) HYDROcodone-Acetaminophen 7. 5-325 MG Oral Tablet 10/21/2021 Provider: CATHY GUDINO APRN-MARY GRACE, [employer]ATE [employer]NAGER-BC Diagnosis: Other spondylosi s with radiculopathy, lumbar region 1 po TID prn Last Documented On 2 2:25PM By CATHY MAHARAJP-BC ; [facility] Pregabalin 75 MG Oral Capsule 07/05/2021 Provider: HAYLIE RIDLEY ANP-BC Diagnosis: One tablet at bed time Last Documented On 1 8:31AM By HAYLIE ALMANZAR-BC ; [facility] Gabapentin 300MG Oral Capsule 09/30/2018 Provider: HAYLIE RIDLEY ANP-BC Diagnosis: TAKE 1 CAPSULE BY MOUTH THREE TIMES DAILY Last Documented On 2 10:40AM By Leyda Aj Alec ; [facility] Ventolin HFA 108 (90 Base)MCG/ACT Inhalation Aer osol, solution 12/20/2017 Provider: Diagnosis: Last Documented On 8 2:23PM By YONATHAN FELIPE ; [facility] Past Medications on file HYDROcodone-Acetaminophen 7. 5-325 MG Oral Tablet 09/19/2021 - 10/21/2021 Provider: HAYLIE TOLBERT Diagnosis: Other spondylosi s with radiculopathy, lumbar region 1 po TID prn Last Documented On 2 2:16PM By CATHY MAHARAJP-BC ; [facility] HYDROcodone-Acetaminophen 7. 5-325 MG Oral Tablet 08/15/2021 - 09/19/2021 Provider: HAYLIE TOLBERT Diagnosis: Other spondylosi s with radiculopathy, lumbar region 1 po TID prn Last Documented On 2 12:03PM By HAYLIE TOLBERT ; [facility] HYDROcodone-Acetaminophen 7. 5-325 MG Oral Tablet 07/21/2021 - 08/15/2021 Provider: HAYLIE TOLBERT Diagnosis: 1 po TID prn Last Documented On 2 11:01AM By HAYLIE TOLBERT ; [facility] Pregabalin 75 MG Oral Capsule 07/04/2021 - 07/05/2021 Provider: HAYLIE TOLBERT Diagnosis: TAKE ONE CAPSULE BY MOUTH AT BEDTIME Last Documented On 1 8:22AM By HAYLIE TOLBERT ; [facility] HYDROcodone-Acetaminophen 7. 5-325 MG Oral Tablet 06/20/2021 - 07/20/2021 Provider: HAYLIE TOLBERT Diagnosis: 1 po TID prn1/17 Last Documented On 1 2:03PM By HAYLIE TOLBERT ; [facility] HYDROcodone-Acetaminophen 7. 5-325 MG Oral Tablet 05/23/2021 - 06/20/2021 Provider: HAYLIE TOLBERT Diagnosis: Other spondylosis, lumbar region 1 po TID prn9/20 Last Documented On 1 1:49PM By HAYLIE TOLBERT ; [facility] HYDROcodone-Acetaminophen 7. 5-325 MG Oral Tablet 04/20/2021 - 05/19/2021 Provider: HAYLIE TOLBERT Diagnosis: 1 po TID pr Last Documented On 1 8:22AM By HAYLIE TOLBERT ; [facility] HYDROcodone-Acetaminophen 7. 5-325 MG Oral Tablet 03/24/2021 - 04/20/2021 Provider: HAYLIE TOLBERT Diagnosis: Radiculopathy, lumbar region 1 po TID prnfill 03/26 Last Documented On 1 2:28PM By HAYLIE TOLBERT ; [facility] HYDROcodone-Acetaminophen 7. 5-325 MG Oral Tablet 03/23/2021 - 03/24/2021 Provider: HAYLIE TOLBERT Diagnosis: 1 po TID prnfill 03/26 Last Documented On 1 4:18PM By HAYLIE TOLBERT ; [facility] HYDROcodone-Acetaminophen 7. 5-325 MG Oral Tablet 02/22/2021 - 03/23/2021 Provider: HAYLIE TOLBERT Diagnosis: Other spondylosi s with radiculopathy, lumbar region 1 po TID prnfill 02/24 Last Documented On 1 1:14PM By HAYLIE TOLBERT ; [facility] HYDROcodone-Acetaminophen 7. 5-325 MG Oral Tablet 02/17/2021 - 02/22/2021 Provider: HAYLIE TOLBERT Diagnosis: 1 po TID prnfill 02/10 Last Documented On 1 9:48AM By HAYLIE TOLBERT ; [facility] Pregabalin 75 MG Oral Capsule 02/17/2021 - 07/04/2021 Provider: HAYLIE TOLBERT Diagnosis: TAKE ONE CAPSULE BY MOUTH AT BEDTIME Last Documented On 1 2:28PM By HAYLIE TOLBERT ; [facility] Pregabalin 75 MG Oral Capsule 02/08/2021 - 02/17/2021 Provider: HAYLIE TOLBERT Diagnosis: Other spondylosi s with radiculopathy, lumbar region TAKE ONE CAPSULE BY MOUTH AT BEDTIME Last Documented On 1 3:49PM By HAYLIE TOLBERT ; [facility] HYDROcodone-Acetaminophen 7. 5-325 MG Oral Tablet 02/08/2021 - 02/17/2021 Provider: HAYLIE TOLBERT Diagnosis: 1 po TID prnfill 02/10 Last Documented On 1 3:50PM By HAYLIE TOLBERT ; [facility] HYDROcodone-Acetaminophen 7. 5-325 MG Oral Tablet 01/06/2021 - 02/08/2021 Provider: HAYLIE TOLBERT Diagnosis: Other spondylosi s with radiculopathy, lumbar region 1 po TID prn Last Documented On 1 1:08PM By HAYLIE TOLBERT ; [facility] Pregabalin 75 MG Oral Capsule 12/14/2020 - 02/08/2021 Provider: HAYLIE TOLBERT Diagnosis: Other spondylosi s with radiculopathy, lumbar region TAKE ONE CAPSULE BY MOUTH AT BEDTIME Last Documented On 1 1:35PM By HAYLIE TOLBERT ; [facility] HYDROcodone-Acetaminophen 7. 5-325 MG Oral Tablet 12/07/2020 - 01/06/2021 Provider: HAYLIE TOLBERT Diagnosis: Other spondylosi s with radiculopathy, lumbar region 1 po TID prn Last Documented On 1 2:18PM By HAYLIE TOLBERT ; [facility] HYDROcodone-Acetaminophen 7. 5-325 MG Oral Tablet 11/11/2020 - 12/07/2020 Provider: HAYLIE TOLBERT Diagnosis: Other spondylosi s with radiculopathy, lumbar region 1 po TID prn Last Documented On 1 2:02PM By HAYLIE TOLBERT ; [facility] HYDROcodone-Acetaminophen 7. 5-325 MG Oral Tablet 10/11/2020 - 11/09/2020 Provider: HAYLIE TOLBERT Diagnosis: Other spondylosi s with radiculopathy, lumbar region 1 po TID prn Last Documented On 1 8:17AM By HAYLIE TOLBERT ; [facility] Pregabalin 75 MG Oral Capsule 09/15/2020 - 12/14/2020 Provider: HAYLIE TOLBERT Diagnosis: Other spondylosi s with radiculopathy, lumbar region One tablet at bed time Last Documented On 1 10:23AM By HAYLIE TOLBERT ; [facility] HYDROcodone-Acetaminophen 7. 5-325 MG Oral Tablet 09/09/2020 - 10/11/2020 Provider: HAYLIE TOLBERT Diagnosis: Other spondylosi s with radiculopathy, lumbar region 1 po TID prnto fill 09/11/20 Last Documented On 1 11:57AM By HAYLIE TOLBERT ; [facility] HYDROcodone-Acetaminophen 7. 5-325 MG Oral Tablet 08/12/2020 - 09/09/2020 Provider: HAYLIE TOLBERT Diagnosis: Other spondylosi s with radiculopathy, lumbar region 1 po TID prnfill when due Last Documented On 1 2:27PM By HAYLIE TOLBERT ; [facility] HYDROcodone-Acetaminophen 7. 5-325 MG Oral Tablet 07/14/2020 - 08/12/2020 Provider: HAYLIE TOLBERT Diagnosis: Other spondylosi s with radiculopathy, lumbar region 1 po TID prnfill when due Last Documented On 1 12:21PM By HAYLIE TOLBERT ; [facility] Pregabalin 75 MG Oral Capsule 06/15/2020 - 09/14/2020 Provider: HAYLIE TOLBERT Diagnosis: Other spondylosi s with radiculopathy, lumbar region One tablet at bed time Last Documented On 1 1:41PM By HAYLIE TOLBERT ; [facility] HYDROcodone-Acetaminophen 7. 5-325 MG Oral Tablet 06/11/2020 - 07/13/2020 Provider: HAYLIE TOLBERT Diagnosis: Other spondylosi s with radiculopathy, lumbar region 1 po TID prnfill when due Last Documented On 0 1:08PM By HAYLIE TOLBERT ; [facility] HYDROcodone-Acetaminophen 7. 5-325 MG Oral Tablet 05/13/2020 - 06/11/2020 Provider: HAYLIE TOLBERT Diagnosis: Other spondylosi s with radiculopathy, lumbar region 1 po TID prnfill when due Last Documented On 0 1:00PM By HAYLIE TOLBERT ; [facility] HYDROcodone-Acetaminophen 7. 5-325 MG Oral Tablet 04/14/2020 - 05/13/2020 Provider: HAYLIE TOLBERT Diagnosis: Other spondylosi s with radiculopathy, lumbar region 1 po TID prn Last Documented On 0 11:59AM By HAYLIE TOLBERT ; [facility] Lyrica 75 MG Oral Capsule 03/15/2020 - 06/15/2020 Provider: HAYLIE TOLBERT Diagnosis: Other spondylosi s with radiculopathy, lumbar region One tablet at bed time Last Documented On 0 9:37AM By HAYLIE TOLBERT ; [facility] HYDROcodone-Acetaminophen 7. 5-325 MG Oral Tablet 03/15/2020 - 04/14/2020 Provider: HAYLIE TOLBERT Diagnosis: Other spondylosi s with radiculopathy, lumbar region 1 po TID prn Last Documented On 0 2:08PM By HAYLIE TOLBERT ; [facility] HYDROcodone-Acetaminophen 7. 5-325 MG Oral Tablet 02/12/2020 - 03/15/2020 Provider: HAYLIE TOLBERT Diagnosis: Other spondylosi s with radiculopathy, lumbar region 1 po TID prnto fill 02/14/20 Last Documented On 0 3:11PM By HAYLIE TOLBERT ; [facility] HYDROcodone-Acetaminophen 7. 5-325 MG Oral Tablet 01/13/2020 - 02/12/2020 Provider: HYALIE TOLBERT Diagnosis: Other spondylosi s with radiculopathy, lumbar region 1 po TID prnto fill 01/16/20 Last Documented On 0 4:34PM By HAYLIE TOLBERT ; [facility] Lyrica 75 MG Oral Capsule 01/13/2020 - 03/15/2020 Provider: HAYLIE TOLBERT Diagnosis: Chronic pain syn drome 1 po qhs x 7 days then BID Last Documented On 0 3:11PM By HAYLIE TOLBERT ; [facility] HYDROcodone-Acetaminophen 7. 5-325 MG Oral Tablet 12/17/2019 - 01/13/2020 Provider: HAYLIE TOLBERT Diagnosis: Other spondylosi s with radiculopathy, lumbar region 1 po TID prn Last Documented On 0 4:26PM By HAYLIE TOLBERT ; [facility] HYDROcodone-Acetaminophen 7. 5-325 MG Oral Tablet 11/13/2019 - 12/16/2019 Provider: HAYLIE TOLBERT Diagnosis: Other spondylosi s with radiculopathy, lumbar region 1 po TID prnto fill 11/14/19 Last Documented On 0 10:16AM By HAYLIE TOLBERT ; [facility] HYDROcodone-Acetaminophen 7. 5-325 MG Oral Tablet 10/16/2019 - 11/13/2019 Provider: HAYLIE TOLBERT Diagnosis: Other spondylosi s with radiculopathy, lumbar region 1 po TID prn Last Documented On 0 4:16PM By HAYLIE TOLBERT ; [facility] HYDROcodone-Acetaminophen 7. 5-325 MG Oral Tablet 10/01/2019 - 10/16/2019 Provider: HAYLIE TOLBERT Diagnosis: Low back pain 1 po TID prn Last Documented On 0 4:35PM By HAYLIE TOLBERT ; [facility] HYDROcodone-Acetaminophen 7. 5-325 MG Oral Tablet 09/17/2019 - 10/01/2019 Provider: HAYLIE ESPITIABC Diagnosis: Low back pain 1 po TID prn Last Documented On 0 12:27PM By HAYLIE ALMANZAR-BC ; [facility] HYDROcodone-Acetaminophen 7.5-325MG Oral Tablet 11/20/2018 - 09/01/2019 Provider: HAYLIE RIDLEY ANP- Diagnosis: Chronic pain syndrome 1 po q 8 hours prn/ max 2 per day Last Documented On 0 2:48PM By Concepcion Cross Alec ; [facility] Lyrica 150MG Oral Capsule, conventional 11/14/2018 - 09/01/2019 Provider: HAYLIE ESPITIABC Diagnosis: Radiculopathy, l umbar region 1 CAPSULE TWO TIMES A DAY Last Documented On 0 2:48PM By Concepcion FELIPE ; [facility] Lyrica 75MG Oral Capsule, conventional 11/14/2018 - 09/01/2019 Provider: HAYLIE ESPITIA Diagnosis: Radiculopathy, l umbar region 1 CAPSULE TWO TIMES A DAY Last Documented On 0 2:48PM By Concepcion FELIPE ; [facility] HYDROcodone-Acetaminophen 7.5-325MG Oral Tablet 10/23/2018 - 11/20/2018 Provider: HAYLIE ESPITIABC Diagnosis: Chronic pain syndrome 1 po q 8 hours prn/ max 2 per day Last Documented On 9 3:15PM By HAYLIE ALMANZAR-BC ; [facility] HYDROcodone-Acetaminophen 7.5-325MG Oral Tablet 09/27/2018 - 10/23/2018 Provider: HAYLIE RIDLEY ANP-BC Diagnosis: Chronic pain syndrome 1 po q 8 hours prn/ max 2 per day Last Documented On 9 4:33PM By HAYLIE ALMANZAR-BC ; [facility] Gabapentin 300MG Oral Capsule 09/04/2018 - 09/30/2018 Provider: HAYLIE RIDLEY ANP-BC Diagnosis: One tablet three times a day Last Documented On 9 2:17PM By HAYLIE ALMANZAR- ; [facility] Hydrocodone-Acetaminophen 7.5-325MG Oral Tablet 08/29/2018 - 09/26/2018 Provider: HAYLIE RIDLEY ANP- Diagnosis: Chronic pain syndrome 1 po q 8 hours prn Last Documented On 9 8:24AM By HAYLIE ALMANZAR- ; [facility] Hydrocodone-Acetaminophen 7.5-325MG Oral Tablet 08/01/2018 - 08/01/2018 Provider: LUCY CARMONA MD Diagnosis: Chronic pain syndrome 1 po q 8 hours prn Last Documented On 8 12:21PM By Benton BELL ; [facility] Hydrocodone-Acetaminophen 7.5-325MG Oral Tablet 08/01/2018 - 08/29/2018 Provider: BENTON BELL Diagnosis: Chronic pain syndrome 1 po q 8 hours prn Last Documented On 9 1:09PM By HAYLIE RIDLEY [facility] ; [facility] Hydrocodone-Acetaminophen 7.5-325MG Oral Tablet 07/02/2018 - 08/01/2018 Provider: HAYLIE ALMANZAR- Diagnosis: Chronic pain syndrome 1 po q 8 hours prn Last Documented On 08/01/2018 9:48AM By LUCY CARMONA MD ; [facility] Gabapentin 300MG Oral Capsule, conventional 05/31/2018 - 09/04/2018 Provider: HAYLIE BROOKS ANP- Diagnosis: TAKE 1 CAPSULE BY MOUTH THREE TIMES DAILY Last Documented On 9 10:52AM By HAYLIE RIDLEY [facility]- ; [facility] Hydrocodone-Acetaminophen 7.5-325MG Oral Tablet 05/29/2018 - 07/02/2018 Provider: HAYLIE RIDLEY ANP- Diagnosis: Chronic pain syndrome 1 po q 8 hours prnto fill 06/02/18 Last Documented On 8 12:10PM By HAYLIE ALMANZAR- ; [facility] Gabapentin 300MG Oral Capsule 05/02/2018 - 05/31/2018 Provider: HAYLIEABBY TOLBERT Diagnosis: TAKE 1 CAPSULE BY MOUTH THREE TIMES DAILY Last Documented On 8 8:31AM By HAYLIE TOLBERT ; [facility] Hydrocodone-Acetaminophen 7.5-325MG Oral Tablet 05/02/2018 - 05/29/2018 Provider: HAYLIE TOLBERT Diagnosis: Chronic pain syndrome 1 po q 8 hours prnto fill 05/03/18 Last Documented On 8 11:13AM By HAYLIE TOLBERT ; [facility] Gabapentin 300MG Oral Capsule 04/02/2018 - 05/02/2018 Provider: HAYLIE TOLBERT Diagnosis: One tablet three times a day Last Documented On 8 4:10PM By HAYLIE TOLBERT ; [facility] Hydrocodone-Acetaminophen 7.5-325MG Oral Tablet 04/01/2018 - 05/01/2018 Provider: HAYLIE TOLBERT Diagnosis: Chronic pain syndrome 1 po q 8 hours prnto fill 04/03/18 Last Documented On 8 11:01AM By HAYLIE TOLBERT ; [facility] Gabapentin 300MG Oral Capsule 03/05/2018 - 04/02/2018 Provider: HAYLIE TOLBERT Diagnosis: Radiculopathy, l umbar region as directed QHS x 3 days, BI D x 3 days then TID Last Documented On 8 4:06PM By HAYLIE TOLBERT ; [facility] Hydrocodone-Acetaminophen 7.5-325MG Oral Tablet 02/27/2018 - 04/01/2018 Provider: HAYLIE TOLBERT Diagnosis: Chronic pain syndrome 1 po q 8 hours prnto fill 03/03/18 Last Documented On 8 1:09PM By HAYLIE TOLBERT ; [facility] Hydrocodone-Acetaminophen 7.5-325MG Oral Tablet 01/31/2018 - 02/27/2018 Provider: HAYLIE TOLBERT Diagnosis: Chronic pain syndrome 1 po q 8 hours prn Last Documented On 8 9:46AM By HAYLIE TOLBERT ; [facility] Hydrocodone-Acetaminophen 7.5-325MG Oral Tablet 01/01/2018 - 01/31/2018 Provider: HAYLIE TOLBERT Diagnosis: Chronic pain syndrome 1 po q 8 hours prn Last Documented On 8 3:36PM By HAYLIE TOLBERT ; [facility] Amitriptyline HCl 25MG Oral Tablet 12/20/2017 - 2018 Provider: Diagnosis: 1 tab at bedtime Last Documented On 9 11:48AM By HAYLIE TOLBERT ; [facility] Hydrocodone-Acetaminophen 7.5-325MG Oral Tablet 12/20/2017 - 01/01/2018 Provider: Diagnosis: 1 tab every 8 hours as needed Last Documented On 8 11:39AM By HAYLIE TOLBERT ; [facility] MetFORMIN HCl 1000MG Oral Tablet 12/20/2017 - 07/05/20 Provider: Diagnosis: 1 tab BID Last Documented On 1 8:23AM By HAYLIE TOLBERT ; [facility] Lisinopril-Hydrochlorothiazi de 20-25MG Oral Tablet 12/20/2017 - 09/01/2019 Provider: Diagnosis: 1 tab daily Last Documented On 0 2:49PM By Concepcion FELIPE ; [facility] RaNITidine HCl 300MG Oral Tablet 12/20/2017 - 04/20/20 Provider: Diagnosis: 1 tab daily Last Documented On 04/20/2021 2:00PM By Peggy FELIPE ; [facility] Medications Administered Includes: Administered Medications in patient's chart No Administered Medications Recorded Results Includes: Results from 11/27/2023 through 11/26/2024 No Results Recorded For Specified Dates History of Present Illness History of Present Illness not supported for this document type No History of Present Illness Recorded Social History Description Last Updated Current smoker 10/11/2020 Last Documented On 1 11:58AM ; [facility] Smoker 12/16/2019 Last Documented On 0 10:17AM ; [facility] Not using drugs 12/20/2017 Last Documented On 8 1:05PM ; [facility] Single 12/20/2017 Last Documented On 8 1:05PM ; [facility] Smoking status : Current everyday smoker 12/20/2017 Last Documented On 8 1:05PM ; [facility] Medical History Includes: Medical History in patient's chart Description Last Updated Has had no fall in the last 12 months. 0 08/15/2021 Last Documented On 2 1:24PM ; [facility] Denies a fear of falling. 08/15/2021 Last Documented On 2 1:24PM ; [facility] Reviewed and Unchanged 10/16/2019 Last Documented On 0 4:36PM ; [facility] Currently wearing eyeglasses 12/20/2017 Last Documented On 8 1:05PM ; [facility] Wearing contact lenses 12/20/2017 Last Documented On 8 1:05PM ; [facility] History of cancer skin 12/20/2017 Last Documented On 8 1:05PM ; [facility] History of hypertension 12/20/2017 Last Documented On 8 1:05PM ; [facility] Asthma 12/20/2017 Last Documented On 8 1:05PM ; [facility] History of diabetes mellitus 12/20/2017 Last Documented On 8 1:05PM ; [facility] Born by section 12/20/2017 Last Documented On 8 1:05PM ; [facility] Family History Includes: Family History in patient's chart Description Last Updated Family history of cancer 12/20/2017 Last Documented On 8 1:05PM ; [facility] Review of Systems Review of Systems [...] Active Last Documented On 2 10:26AM ; [facility] Insurance Includes: Active Insurance Policies Plan Name Member ID Group # Subscriber Relationship Effect tawanna Dates 1 - [facility] [id number] RALEIGH BERMUDEZ Self Clinical Notes Includes: Signed Clinical Notes starting from 08/25/2022 No Clinical Notes Recorded
--- OUTSIDE RECORDS SUMMARY | 2024-11-26 15:22 | XMS_ITS | Clinical Summary ---
Author Organization [facility] Address [address] [place] [address] Phone Care Team Providers Care Engravings Polisher Name Role Phone KHAI TOLBERT, HAYLIE Jhaveri Unavailable [phone] HERI SHANKS Primary Care Provider [phone] BARRY SANTA MD Unavailable [phone] Reason for Visit and Chief [...] On 2 12:03PM By HAYLIE TOLBERT ; [facility] New / Renewed during this visit HAYLIE TOLBERT on 09/19/2021 HYDROcodone-Acetaminophen 7. 5-325 MG Oral Tablet Provider: HAYLIE TOLBERT 30 day supply: 90 tablet, 0 refills Diagnosis: Other spondylosis with radiculopathy, lumbar region 1 po TID prn Pharmacy: [facility] - [address] [place] [address], [id number] - Last Documented On 2 2:16PM By CATHY DICK ; [facility] Current Medications (continue as prescribed) HYDROcodone-Acetaminophen 7. 5-325 MG Oral Tablet 10/21/2021 Provider: CATHY EVANS [facility]- Diagnosis: Other spondylosi s with radiculopathy, lumbar region 1 po TID prn Last Documented On 2 2:25PM By CATHY GUDINO PIG MACHINE OPERATOR HELPER- ; [facility] Pregabalin 75 MG Oral Capsule 07/05/2021 Provider: HAYLIE ESPITIA Diagnosis: One tablet at bed time Last Documented On 1 8:31AM By HAYLIE ESPITIA ; [facility] Gabapentin 300MG Oral Capsule 09/30/2018 Provider: HAYLIE ESPITIA Diagnosis: TAKE 1 CAPSULE BY MOUTH THREE TIMES DAILY Last Documented On 2 10:40AM By Leyda Aj Alec ; [facility] Ventolin HFA 108 (90 Base)MCG/ACT Inhalation Aer osol, solution 12/20/2017 Provider: Diagnosis: Last Documented On 8 2:23PM By YONATHAN DONNELLY Alec ; [facility] Medications Administered Includes: Administered Medications from this encounter No Administered Medications Recorded Results Includes: Results discussed during this encounter No Results Recorded For Specified Dates History of Present Illness Includes: History of Present Illness from this encounter No History of Present Illness Recorded Social History Description Last Updated Current smoker 10/11/2020 Last Documented On 2 11:53AM ; [facility] Smoker 12/16/2019 Last Documented On 2 11:53AM ; [facility] Single 12/20/2017 Last Documented On 2 11:53AM ; [facility] Smoking status : Current everyday smoker 12/20/2017 Last Documented On 2 11:53AM ; [facility] Medical History Includes: Medical History addressed during [...] 11/14/2018 Active Last Documented On 10:26AM ; [facility] Encounters Encounter Provider Location Date Check-In Time Check-Out Time Diagnosis RX ISSUE/REFILL HAYLIE ALMANZAR-CYNTHIA 09/19/2021 11:52AM 11:59PM Insurance Includes: Active Insurance Policies Plan Name Member ID Group # Subscriber Relationship Effect tawanna Dates 1 - [facility] [id number] RALEIGH BERMUDEZ Self Clinical Notes Includes: Clinical Notes from this encounter No Clinical Notes Recorded
== END 2024-11-26 14:25 | disposition home or self-care (01) ==
PROVIDERS: Emergency Provider Nurse Practitioner Family
DX: H61.22 Impacted cerumen, left ear (principal); F17.210 Nicotine dependence, cigarettes, uncomplicated; J45.909 Unspecified asthma, uncomplicated; E11.9 Type 2 diabetes mellitus without complications; Z79.84 Long term (current) use of oral hypoglycemic drugs; E78.00 Pure hypercholesterolemia, unspecified; I10 Essential (primary) hypertension; K21.9 Gastro-esophageal reflux disease without esophagitis
CPT/HCPCS: 69209; 99212; A9270; G0463

== ENCOUNTER 2025-04-23 10:41 | Emergency (ER) | payer OTHER, SELFPAY ==
--- NOTE | 2025-04-23 10:50 | ED.FEMALEGU ---
HPI - Female Genitourinary General Chief complaint: Urogenital-Female Stated complaint: bladder infection symptoms, neck stiffness Time Seen by Provider: 04/23/25 10:55 Source: patient Mode of arrival: ambulatory Limitations: no limitations History of Present Illness HPI Narrative: Yesi is a 64-year-old female patient presenting to the clinic today with complaints of burning with urination, decreased urine output, dribbling, and some incontinence since last night. She denies any fevers, chills, body aches. No back pain or abdomen pain. Also reporting some left-sided neck stiffness/muscle pain times 3-4 days. No known injury. Thinks she may have slept on her neck wrong. Hurts to turn her neck to the left. Denies any URI symptoms. Related Data Home Medications ?Medication ?Instructions ?Recorded ?Confirmed ?Last Taken ?Type vit A 5,000 unit-vit C 60 mg-vit E 1 tablet PO DAILY 08/09/23 12/31/24 Unknown History 30 fxep-jyjp-xkwuvghe-copper tablet (Prosight) vit A 5,000 unit-vit C 60 mg-vit E See Rx Instructions .Route .COMPLEX 09/19/23 12/31/24 Unknown History 30 pavk-ucdn-upasuues-copper tablet (Prosight) omega 8-dcv-ett-fish oil 1,000 mg 2 cap PO BID 12/31/24 12/31/24 Unknown History (120 mg-180 mg) capsule (Fish Oil) Allergies Allergy/AdvReac Type Severity Reaction Status Date / Time Penicillins Allergy Severe Hives Verified 04/23/25 11:16 Review of Systems Review of Systems: Pertinent positives per HPI. Patient denies any fever, chills, rash, headache, visual changes, dizziness, cough, shortness of breath, chest pain, palpitations, nausea, vomiting, diarrhea, constipation, abdominal pain, or any urinary issues. [facility] Past Medical History Medical History Asthma B12 deficiency Chronic low back pain DM2 (diabetes mellitus, type 2) Elevated cholesterol GERD (gastroesophageal reflux disease) Hypertension Nicotine dependence Overweight Surgical History Surgical History History of knee surgery left Previous section Hx of cholecystectomy Family History Family History Father , Age 62 Carcinoma of colon, Onset Age: 61 Mother , Age 92 Family history of dementia, Onset Age: 92 Sibling , Age 63 Liver cancer Social History Social History Smoking packs per day: 0.25 Smoking cigarettes per day: 5.0 Years smoked: 35 Smoking pack-years: 8.75 Smoking status: Current every day smoker Tobacco type: cigarettes Second hand tobacco smoke exposure: No Alcohol intake: never Substance use type: does not use Do You Feel Safe in your Home?: Yes Lack of Transportation: No Lack of Food: Never True Current Housing: I Have Housing Concerned About Future Housing: No Difficulty Paying Gas/Electric Bills: No Difficulty Paying for Meds: No Currently Unemployed: No Education: High School Diploma/GED Difficulty w/ Childcare or Family Care: No Living arrangements: alone Occupation/Education: unemployed Gender identity (if verbalized by the patient): Female Comments At the time of my signature, I reviewed and agree with the nursing past medical, surgical, social, and family history. There is no relevant family history pertinent to the patient complaint. Exam Narrative: General: Well-developed, well nourished, in no apparent distress Head: Normocephalic, atraumatic. Cardio: Regular rate and rhythm, s1 and s2 normal, no murmur appreciated. Resp: Clear to auscultation bilaterally, no rhonchi, rales, wheezing or rubs. Abdomen: Soft, pliable, bowel sounds present in all quadrants, suprapubic tender to palpation, no organomegly, no CVAT tenderness. Musculoskeletal: No deformity, tender to palpation over the left posterior lateral cervical musculature, pain with turning her neck to the left against resistance, no pain with turning her neck to the right, muscle strong strong and equal and bilateral upper extremities, grossly normal range of motion, peripheral pulse strong, no edema, no cyanosis, normal gait and station Course Course Emergency Course: Portions of this record may have been created with voice recognition software. Level of Care: Express Care Visit Vital Signs Vital signs: Vital Signs Temperature 36.6 C 04/23/25 10:51 Pulse Rate 101 H 04/23/25 10:51 Respiratory Rate 20 04/23/25 10:51 Blood Pressure 148/66 H 04/23/25 10:51 Pulse Oximetry 99 04/23/25 10:51 Oxygen Delivery Room Air 04/23/25 10:51 Temperature 36.6 C 04/23/25 10:51 Pulse Rate 101 H 04/23/25 10:51 Respiratory Rate 20 04/23/25 10:51 Blood Pressure 148/66 H 04/23/25 10:51 Pulse Oximetry 99 04/23/25 10:51 Oxygen Delivery Room Air 04/23/25 10:51 Vital signs reviewed MDM - Female Genitourinary MDM Narrative Medical decision making narrative: At the time of visit patient is resting comfortably on the exam table. Patient appears to be nontoxic. Complaints of burning with urination, decreased urine output, dribbling, and some incontinence since last night. She denies any fevers, chills, body aches. No back pain or abdomen pain. Also reporting some left-sided neck stiffness/muscle pain times 3-4 days. No known injury. Thinks she may have slept on her neck wrong. Hurts to turn her neck to the left. Denies any URI symptoms. On exam patient has suprapubic tenderness to palpation over the bladder as well as tenderness over the posterior lateral cervical/trapezius musculature. Urine dip ordered. Labs: Urine dip positive for protein, blood, glucose, and ketones-no leukocytes or nitrates. Plan: I suspect patient has UTI symptoms/urine incontinence with some cervical strain-left posterior lateral. Prescription for Bactrim, baclofen, naproxen was sent to the pharmacy. Supportive measures were discussed with the patient and they voiced understanding discharge instructions and agrees to treatment plan. Return precautions reviewed Differential Diagnosis Differential diagnosis: Likely urinary tract infection, cystitis and other (Cervical strain, acute neck pain, cervical radiculopathy, stress incontinence, urge incontinence) Lab Data Labs: Lab Results 04/23/25 04/23/25 Range/Units 11:09 11:11 POC Capillary Glucose 237 H (65-105) mg/dl POC Urine Color Yellow POC Urine Clarity Clear POC Urine pH 6.0 POC Ur Specif [facility] 1.025 POC Urine Protein 2+ (Negative) POC Ur Glucose (UA) 2+ (Negative) POC Urine Ketones Trace (Negative) POC Urine Blood Trace (Negative) POC Urine Nitrite Negative (Negative) POC Urine Bilirubin Negative (Negative) POC Urine Urobilinogen 0.2 POC U Leukocyte Esteras Negative (Negative) Discharge Plan Discharge Clinical Impression: Symptoms of urinary tract infection, Hematuria with proteinuria, Posterolateral cervical muscle strain Patient Disposition: Home Condition: Stable Instructions: Antibiotic Form, Cervical Strain (ED), Urinary Tract Infection in Older Adults (ED) Additional Instructions: Urine is positive for 2+ protein, trace of blood, and trace of ketone, 2+ glucose. We will send urine for culture Your blood sugar was 237 in the clinic today Keep a tight control on your blood sugars-you should be checking her blood sugar at least daily and recording it for your primary care provider UTI discharge instructions Take Bactrim as prescribed Increase fluids and stay well hydrated Wipe front to back. May use wet wipes. Avoid tub baths If sexually active- pee before and after intercourse. Wear cotton panties Avoid tight clothing up against the genitals Follow up with your PCP in 1 week if symptoms persist. Neck pain discharge instructions Take any prescription medication only as prescribed-naproxen and baclofen Be mindful of sedation precautions given to you if taking a muscle relaxer. May use heat or ice to the affected area Consider massage or chiropractor adjustment if this was discussed with provider May use blue emu, lidocaine patches, or asper cream to affected area- do not apply heat or ice directly over cream- can cause burn. Complete appropriate neck stretching exercises. Follow up with your PCP in 3-5 days if symptom persist. Patient Language: Frisian Prescriptions: New sulfamethoxazole-trimethoprim [Bactrim DS] 800-160 mg tablet 1 tablet PO Q12H 5 Days Qty: 10 0RF naproxen 500 mg tablet 500 mg PO BID PRN (Reason: pain) 7 Days Qty: 14 0RF baclofen 10 mg tablet 10 mg PO TID PRN (Reason: muscle spasm) 7 Days Qty: 21 0RF No Action Prosight 5,000-60-30 btjj-eq-cmcw tablet See Rx Instructions .ROUTE .COMPLEX Rx Instructions: as prescribed Prosight 5,000-60-30 jiej-nc-decd tablet 1 tablet PO DAILY omega 6-fod-tqm-fish oil [Fish Oil] 1,000 (120-180) mg capsule 2 cap PO BID lisinopril 5 mg tablet 5 mg PO DAILY Qty: 30 5RF atorvastatin 80 mg tablet 80 mg PO QHS 90 Days Qty: 90 1RF metformin 1,000 mg tablet See Rx Instructions .ROUTE .COMPLEX Qty: 180 3RF Dose Instruction: TAKE ONE TABLET BY MOUTH TWO TIMES a DAY Rx Instructions: TAKE ONE TABLET BY MOUTH TWO TIMES a DAY Follow-up/Referrals: UNKNOWN,DOCTOR [Primary Care Provider] Time of Disposition: 11:19 Quality NIHSS Nursing Documentation ED NIHSS nursing documentation: reviewed/agree
[2025-04-23 10:51] VITALS: BP 148/66; PULSE 101; RESP 20; TEMP 36.6; O2SAT 99
--- NOTE | 2025-04-23 11:13 | PC.NURSE ---
237 blood sugar check here.
[2025-04-23 11:14] LABS: EDUAAPPEAR Clear; EDUABILI Negative (Negative); EDUABLOOD Trace (Negative); EDUACOLOR1 Yellow; EDUAGLUCOSE 2+ (Negative); EDUAKETONE Trace (Negative); EDUALEUKO Negative (Negative); EDUANITRATE Negative (Negative); EDUAPH 6.0; EDUAPROTEIN 2+ (Negative); EDUASPGRAVITY 1.025; EDUAUROBILI 0.2
--- OUTSIDE RECORDS SUMMARY | 2025-04-23 11:20 | XMS_ITS | Clinical Summary ---
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 Gender Identity Not on file Sexual Orientation [...] 11:32 AM CDT Height 157.5 cm (5' 2) 03/14/2024 11:32 AM CDT Body Mass Index 31.64 03/14/2024 11:32 AM CDT Plan of Treatment Health Maintenance Due Date Last Done Comments Albumin Creatinine Ratio, Urine 1959 Cervical Cancer Screening 1959 Colon Cancer Screening-Colonoscopy 1959 Depression Screening 1959 Hemoglobin A1C 1959 Hepatitis C Screening 1959 Osteoporosis Screening-Bone Density Scan 1959 Dilated Eye Exam 1959 Foot Exam 1959 Lipid Panel 1959 DTaP/Tdap/Td Vaccine (1 - Tdap) 11/16/1970 Hepatitis B Screening 11/16/1977 Zoster Vaccine (1 of 2) 11/16/2009 Pneumococcal vaccine 65+ (2 of 2 - PCV) 12/03/2015 0 12/02/2014 Breast Cancer Screening-Mammogram 08/16/2016 016, 08/16/2015 eGFR 04/03/2023 04/03/2022 Fall Risk Assessment 04/11/2023 04/11/2022 Well Visit 65+ 11/16/2024 Covid-19 Vaccine ( season) 2025, 10/22/2020 Influenza Vaccine (#1) 2025 Procedures Procedure Name Priority Date/Time Associated Diagnosis [...] was last reviewed 2021. Testing performed by: [facility], [address] [place] [address]., [id number] Blood 04/03/2022 10:3 2 AM CDT 04/03/2022 5:14 PM CDT us Wili Restrepo Jr., MD LAB BLOOD ORDERABLE S Final Result [facility] Department [place] [address] from Last 3 Months or Most Recently Relevant to Health Maintenance Insurance [facility] Care Teams Facilities Engineer Relationship Specialty Start Date End Date Pritesh Lew DO [address] [place] [address] PCP - General Family Medicine 03/15/22
--- OUTSIDE RECORDS SUMMARY | 2025-04-23 11:20 | XMS_ITS | Clinical Summary ---
Author Organization [facility] Address [address] [place] [address] Care Team Providers Care Varnish Cooker Name Role Phone Unavailable Primary Care Provider Unavailabl e Source Comments [facility],non-owned Affiliates and Associated Physician Practices is amultiple site organization consisting of ambulatory clinics and hospital sitesin [place], [place], [place] and [place]. This disclosure is being madepursuant to the Care Everywhere program and may not contain all information available regarding this patient. 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 Gender Identity Not on file Sexual Orientation Not on file Last Filed Vital Signs Vital Sign Reading Time Taken Comments Blood Pressure 133/76 09/05/2019 1:47 PM FIELD INVESTIGATOR Pulse 86 09/05/2019 1:47 PM FIELD INVESTIGATOR Temperature 36.3 C (97.4 F) 09/05/2019 1:47 PM FIELD INVESTIGATOR Respiratory Rate 16 09/05/2019 1:47 PM FIELD INVESTIGATOR Oxygen Saturation 100% 09/05/2019 1:47 PM FIELD INVESTIGATOR Inhaled Oxygen Concentration - - Weight 81.6 kg (180 lb) 09/05/2019 1:47 PM FIELD INVESTIGATOR Height 160 cm (5' 3) 09/05/2019 1:47 PM FIELD INVESTIGATOR Body Mass Index 31.89 09/05/2019 1:47 PM FIELD INVESTIGATOR Plan of Treatment Health Maintenance Due Date Last Done Comments BONE DENSITY TESTING 1959 COLOGUARD (AGES 45-75) - COL ON CA SCREENING 1959 CT COLONOGRAPHY - COLON CA SCREENING 1959 FIT - COLON CA SCREENING 1959 FLEX SIG - COLON CA SCREENING 1959 LIPID TESTING 1959 MAMMOGRAM 1959 HIV SCREENING 11/16/1974 HEPATITIS C SCREENING 11/12/1977 DTAP/TDAP/TD VACCINES (1 - Tdap) 11/16/1978 PNEUMOCOCCAL VACCINE 50+ (1 of 1 - PCV) 11/16/2009 ZOSTER VACCINE (1 of 2) 11/16/2009 DEPRESSION SCREENING 08/06/2024 COVID-19 VACCINE (1 - 2023-2 5 season) 2025 INFLUENZA VACCINE (#1) 2025 COLON MONITORING 06/06/2025 06/06/2015 COLONOSCOPY - COLON CA SCREENING 06/06/2025 06/06/20 [...] patient's age to complete this topic Insurance [facility]
--- OUTSIDE RECORDS SUMMARY | 2025-04-23 11:20 | XMS_ITS | Clinical Summary ---
Author Organization [facility] Address [address] [place] [address] Phone Care Team Providers Care Substance Abuse Counselor Name Role Phone Freda Medrano Primary Care Pro vider Allergies Active Allergy Reactions Criticality Noted Date Comments Penicillins Hives Medium 09/05/2019 Medications lisinopril-hydro CHLOROthiazide (PRINZIDE, ZESTORETIC) 20-25 MG Tablet Take 1 Tablet by mouth daily. 90 Tablet 02/05/2025 Active metFORMIN (GLUCOPHAGE) 1000 MG Tablet Take 1 Tablet by mouth 2 times daily (with meals). 60 Tablet 2 02/05/2025 Active Active Problems Problem Noted Date Diagnosed Date Primary hypertension 02/05/2025 Synovial cyst of left popliteal space 02/05/2025 Tear of medial meniscus of left knee 02/05/2025 Knee pain 02/05/2025 Low back pain 02/05/2025 Type 2 diabetes mellitus without complication Encounters Date Type Department Care Team Description 02/10/2025 Results Follow-Up [facility] Medical [facility] - Internal Medicine [facility] [address] [place] [address] Freda Medrano PAC URINE DRUG SCREEN 02/05/2025 9:00 AM CDT Office Visit [facility] Medical [facility] - Internal [place] [address] [place] [address] Freda Medrano, BRIAN Low back pain, unspecified back pain laterality, unspecified chronicity, unspecified whether sciatica present (Primary Dx); Type 2 diabetes mellitus without complication, unspecified whether half-way insulin use; Knee pain, unspecified chronicity, unspecified laterality; Tear of medial meniscus of left knee, unspecified tear type, unspecified whether old or current tear, initial encounter; Synovial cyst of left popliteal space; Primary hypertension; Encounter for screening mammogram for breast cancer; Need for hepatitis C screening test; Screening for osteoporosis; Pap smear for cervical cancer screening; Well adult exam; Screening cholesterol level; Thyroid disorder screening; High risk medication use Discharge Disposition: Discharged to home or Selfcare 02/05/2025 Travel from Last 3 Months Immunizations Immunization Administration Dates Next Due Pneumococcal Vaccine Adult - 23 Valent 5 Family History Medical History Relation Name Comments Cancer Father Colon Cancer Father Breast Cancer Maternal Aunt 1 Breast Cancer Maternal Aunt 2 Relation Name Status Comments Father Maternal Aunt 1 Maternal Aunt 2 Mother Social History Tobacco Use Types Packs/Day Years Used Date Smoking Tobacco: Every Day Cigarettes Tobacco Cessation:Ready to Q uit: Not Asked; Counseling Given: Not Answered Alcohol Use Standard Drinks/Week Comments No 0 (1 standard drink = 0.6 oz pur e alcohol) PHQ-2 Answer Date Recorded Total Score - Questions 1-9 1 10/2024 Social Connection and Isolation Panel Answer Date Recorded In a typical week, how many times do you talk on the phone with family, friends, or neighbors? More than three times a week 02/05/2025 How often do you get togethe r with friends or relatives? Once a week 02/05/2025 How often do you attend chur or baptism services? 1 to 4 times per year 02/05/2025 Do you belong to any clubs o r organizations such as mormonism groups, unions, fraternal or athletic groups, or school groups? No 02/05/2025 How often do you attend meet ings of the clubs or organizations you belong to? Never 02/05/2025 Are you , , di vorced, , never , or living with a partner? Never 02/05/2025 AUDIT-C Answer Date Recorded Q1: How often do you have a drink containing alcohol? Never 02/05/2025 Q2: How many drinks containi ng alcohol do you have on a typical day when you are drinking? Patient does not drink Q3: How often do you have si x or more drinks on one occasion? Never 02/05/2025 Overall Financial Resource Strain (CARDIA) Answe r Date Recorded How hard is it for you to pa y for the very basics like food, housing, medical care, and heating? Somewhat hard 02/05/2025 [facility] - Occupational Stress Questionnaire Answer Date Recorded Do you feel stress - tense, restless, nervous, or anxious, or unable to sleep at night because your mind is troubled all the time - these days? Not at all 02/05/2025 Exercise Vital Sign Answer Date Recorde d On average, how many days pe r week do you engage in moderate to strenuous exercise (like a brisk walk)? 3 days 02/05/2025 On average, how many minutes do you engage in exercise at this level? 20 min 02/05/2025 Hunger Vital Sign Answer Date Recorded Within the past 12 months, y ou worried that your food would run out before you got the money to buy more. Sometimes true Within the past 12 months, t he food you bought just didn't last and you didn't have money to get more. Never true 10/2024 [facility] - Transportation Answer Date Re corded In the past 12 months, has l ack of transportation kept you from medical appointments or from getting medications? No 10/2024 In the past 12 months, has l ack of transportation kept you from meetings, work, or from getting things needed for daily living? No 02/05/2025 Housing Stability Vital Sign Answer Flako e Recorded In the last 12 months, was t here a time when you were not able to pay the mortgage or rent on time? No 02/05/2025 In the past 12 months, how m any times have you moved where you were living? 0 02/05/2025 At any time in the past 12 m [facility], were you homeless or living in a mcc (including now)? No 02/05/2025 [facility] Utilities Answer Date Recorded In the past 12 months has th e [employer], [employer], oil, or water company threatened to shut off services in your home? No 02/05/2025 Comments No Sex and Gender Information Value Date Recorded Sex Assigned at Not on file Legal Sex Female 9:29 PM CDT Gender Identity Not on file Sexual Orientation Not on file Last Filed Vital Signs Vital Sign Reading Time Taken Comments Blood Pressure 148/68 02/05/2025 9:25 AM CDT Pulse 106 02/05/2025 9:25 AM CDT Temperature 36.3 C (97.3 F) 02/05/2025 9:25 AM CDT Respiratory Rate 12 02/05/2025 9:25 AM CDT Oxygen Saturation 96% 02/05/2025 9:25 AM CDT Inhaled Oxygen Concentration - - Weight 76.2 kg (168 lb) 02/05/2025 9:25 AM CDT Height 157.5 cm (5' 2) 11/21/2015 12:49 PM CDT Body Mass Index 30.73 11/21/2015 12:49 PM CDT Plan of Treatment Health Maintenance Due Date Last Done Comments DEXA Bone Density 1960 Diabetes: Foot Exam 1960 Hepatitis C Virus (HCV) Screening 1960 TdaP Immunization 1960 Cologuard 11/16/2004 Immunochemical Fecal Occult Blood 11/16/2004 Zoster Immunization (1 of 2) 11/16/2009 Pneumococcal Immunization (50+ years) (2 of 2 - PCV) 12/03/2015 12/02/2014 Pap Smear 09/29/2023 09/29/2020 Diabetes: Hemoglobin A1c 12/21/2024 06/23/2024, 11/05 Mammogram 01/16/2025 01/17/2024, 0212/2020, 08/16/2015, Additional history exists Influenza Immunization (#1) 2025 SARS-COV-2 Immunization ( season) 2025 04/25/2022, 11/19/2020, 10/22/2020 Colonoscopy 06/06/2025 06/06/2015 Colorectal Cancer Screening 06/06/2025 Cervical Cancer Screening (CCS) 09/29/2025 HPV/Cotest 09/29/2025 09/29/2020 Diabetes: Eye Exam 12/15/2025 12/15/2024 Diabetes: Nephropathy Screening 01/07/2026 01/07/2025, 09/07/2023, 11/21/2015 Respiratory Syncytial Virus (RSV) Immunization (Adult) (1 - 1-dose 75+ series) 11/16/2034 Pneumococcal Immunization Combined Discontinued 12/02/2014 Hepatitis B Immunization Aged Out No longer eligible based on patient's age to complete this topic Human Papillomavirus (HPV) Immunization Aged Out No longer eligible based on patient's age to complete this topic Meningococcal Immunization (ACWY) Aged Out No longer eligible based on patient's age to complete this topic Rotavirus Immunization Aged Out No lo nger eligible based on patient's age to complete this topic Procedures Procedure Name Priority Date/Time Associated Diagnosis Comments URINE DRUG SCREEN Routine 02/05/2025 High risk medication use CMP (COMPREHENSIVE METABOLIC PANEL) 01/07/2025 12:00 AM CDT HM DILATED EYE EXAM 12/15/2024 1 2:00 AM CDT HEMOGLOBIN, A1C 06/23/2024 12:00 AM MELON PACKER MAMMOGRAM BILATERAL GENERIC 01/17/2024 12:00 AM CDT HUMAN PAPILLOMA VIRUS (HPV) 09/29/2020 12:00 AM MELON PACKER PATHOLOGY CYTOLOGY CONSERVATION ASSISTANT 09/29/2020 12:00 AM MELON PACKER from Last 3 Months or Most Recently Relevant to Health Maintenance Results * URINE DRUG SCREEN (02/05/2025) Urine 02/05/2025 Freda Medrano PAC URINE ORDERABLES Final Result * CMP (COMPREHENSIVE METABOLIC PANEL) (01/07/2025 12:00 AM CDT) 01/07/2025 Provider Scan CHEMISTRY ORDERABLES Final Resul t SCAN * DILATED EYE EXAM (12/15/2024 12:00 AM CDT) 12/15/2024 us Provider Scan PROCEDURE/MINOR SURGICAL ORDERAB LES Final Result Performing Organization Address City/[facility] Co de Phone Number SCAN * HEMOGLOBIN, A1C (06/23/2024 12:00 AM MELON PACKER) HGB-A1C 7.5 SCAN 06/23/2024 us Provider Scan CHEMISTRY ORDERABLES Final Resul t Performing Organization Address City/[facility] Co de Phone Number SCAN * MAMMOGRAM BILATERAL GENERIC (01/17/2024 12:00 AM CDT) 01/17/2024 us Provider Scan IMG MAMMO ORDERABLES Final Resul t Performing Organization Address [facility] Co de Phone Number SCAN * PATHOLOGY CYTOLOGY CONSERVATION ASSISTANT (09/29/2020 12:00 AM MELON PACKER) 09/29/2020 us Provider Scan PATHOLOGY/CYTOLOGY ORDERABLES Fi nal Result Performing Organization Address [facility] Co de Phone Number [facility] * HUMAN PAPILLOMA VIRUS (HPV) (09/29/2020 12:00 AM MELON PACKER) 09/29/2020 us Provider Scan LAB SEND OUTS Final Result Performing Organization Address City/[facility] Co de Phone Number [facility] from Last 3 Months or Most Recently Relevant to Health Maintenance Insurance [employer] Care Teams Substance Abuse Counselor Relationship Specialty Start Date End Date Freda Medrano, BRIAN [address] [place] [address] PCP - General Physician Telegraph And Teletype Operator 02/05/25
== END 2025-04-23 11:28 | disposition home or self-care (01) ==
PROVIDERS: Emergency Provider Nurse Practitioner Family
DX: R30.0 Dysuria (principal); R31.9 Hematuria, unspecified; R80.9 Proteinuria, unspecified; S16.1XXA Strain of muscle, fascia and tendon at neck level, initial encounter; X58.XXXA Exposure to other specified factors, initial encounter; J45.909 Unspecified asthma, uncomplicated; E11.9 Type 2 diabetes mellitus without complications; Z79.84 Long term (current) use of oral hypoglycemic drugs; I10 Essential (primary) hypertension; E78.00 Pure hypercholesterolemia, unspecified; F17.210 Nicotine dependence, cigarettes, uncomplicated
CPT/HCPCS: 81003; 82948; 87086; 87186; 99213; G0463

== ENCOUNTER 2025-05-18 12:18 | Emergency (ER) | payer OTHER, SELFPAY ==
--- NOTE | 2025-05-18 12:19 | ED.NECK ---
HPI - Neck Pain/Injury General Chief Complaint: Neck Pain/Injury Stated Complaint: left side neck pain Time Seen by Provider: 05/18/25 12:19 Source: patient Mode of arrival: ambulatory Limitations: no limitations History of Present Illness HPI Narrative: Patient is a 64-year-old female with left neck pain for the past 3 days without injury. She is unable to turn her head to the right. She has a tightness in her left neck. MD complaint: neck pain (Left) Onset (ago): day(s) (3) Place: home Radiation: left shoulder Severity: moderate Severity scale (1-10): 6 Quality: sharp Duration: constant Relieving factors: immobilization Exacerbating factors: movement of neck Context: other (No injury) Associated symptoms: none Treatments prior to arrival: none Related Data Home Medications ?Medication ?Instructions ?Recorded ?Confirmed ?Last Taken ?Type vit A 5,000 unit-vit C 60 mg-vit E 1 tablet PO DAILY 08/09/23 12/31/24 Unknown History 30 iuhn-rcky-ijdoaudp-copper tablet (Prosight) vit A 5,000 unit-vit C 60 mg-vit E See Rx Instructions .Route .COMPLEX 09/19/23 12/31/24 Unknown History 30 ynnz-ehqc-byyvsdtx-copper tablet (Prosight) omega 4-fcx-hiw-fish oil 1,000 mg 2 cap PO BID 12/31/24 12/31/24 Unknown History (120 mg-180 mg) capsule (Fish Oil) Allergies Allergy/AdvReac Type Severity Reaction Status Date / Time Penicillins Allergy Severe Hives Verified 05/18/25 12:32 Review of Systems Review of Systems: All systems reviewed & are unremarkable except as noted in HPI and below Constitutional: Constitutional: Reports no additional constitutional complaints Eyes: Eyes: Reports no additional eye complaints ENT: Reports system reviewed and no additional complaints, except as documented Cardiovascular: Cardiovascular: Reports no additional cardiovascular complaints Respiratory: Respiratory: Reports no additional respiratory complaints Gastrointestinal: Gastrointestinal: Reports no additional gastrointestinal complaints Genitourinary: Genitourinary: Reports no additional female genitourinary complaints Musculoskeletal: Musculoskeletal: Reports no additional musculoskeletal complaints Integumentary/Breasts: Skin/Breast: Reports system reviewed and no additional complaints, except as docu Neurologic: Reports system reviewed and no additional complaints, except as documented Psychiatric: Psychiatric: Reports no additional psychiatric complaints Endocrine: Endocrine: Reports no additional endocrine complaints Hematologic/Lymphatic: Hematologic/Lymphatic: Reports no additional hematologic/lymphatic complaints Allergic/Immunologic: Allergic/Immunologic: Reports no additional allergic/immunologic complaints [facility] Past Medical History Medical History Elevated cholesterol B12 deficiency Nicotine dependence Chronic low back pain DM2 (diabetes mellitus, type 2) Hypertension GERD (gastroesophageal reflux disease) Overweight Asthma Surgical History Surgical History History of knee surgery left Previous section Hx of cholecystectomy Family History Family History Father , Age 62 Carcinoma of colon, Onset Age: 61 Mother , Age 92 Family history of dementia, Onset Age: 92 Sibling , Age 63 Liver cancer Social History Social History Smoking packs per day: 0.25 Smoking cigarettes per day: 5.0 Years smoked: 35 Smoking pack-years: 8.75 Smoking status: Current every day smoker Tobacco type: cigarettes Second hand tobacco smoke exposure: No Alcohol intake: never Substance use type: does not use Do You Feel Safe in your Home?: Yes Lack of Transportation: No Lack of Food: Never True Current Housing: I Have Housing Concerned About Future Housing: No Difficulty Paying Gas/Electric Bills: No Difficulty Paying for Meds: No Currently Unemployed: No Education: High School Diploma/GED Difficulty w/ Childcare or Family Care: No Living arrangements: alone Occupation/Education: unemployed Gender identity (if verbalized by the patient): Female Exam Const: General: healthy appearing Nutritional Appearance: well nourished Orientation/consciousness: patient oriented x3 HENMT: Head: normal to inspection Ears: external ears normal Face/Nose/Sinus: Normal external nose present Eyes: Conjunctivae: conjunctivae normal Pupils: Equal, round and reactive pupils present EOM: EOMs intact bilaterally Neck: Neck: normal visual inspection Other: Tender to palpation of the left neck at the SCM with tightness and unable to range of motion to the right gaze Chest: Chest palpation & inspection: normal inspection of the chest Resp: Effort & Inspection: normal respiratory effort and not labored Auscultation: clear to auscultation bilaterally and no crackles Cardio: Rate: regular rate Rhythm: regular rhythm Heart sounds: no murmurs GI: Inspection: non-distended GI Palp: Yes Soft to palpation and No Tenderness to palpation present (GI) Auscultation: normal bowel sounds : General: Yes bladder normal to palpation Back/Spine/Pelvis: Back: no CVA tenderness Skin: General skin exam: normal color Rashes: no rashes Wounds: no wounds Neuro: General: patient oriented x3, moves all extremities and no meningeal signs Extrem: General: normal to inspection, no clubbing, cyanosis or edema and no pedal edema Psych: Mental Status: mental status grossly normal Affect: normal affect Attitude: cooperative Course Vital Signs Vital signs: Vital Signs Temperature 36.5 C 05/18/25 12:20 Pulse Rate 102 H 05/18/25 12:20 Respiratory Rate 18 05/18/25 12:20 Blood Pressure 164/83 H 05/18/25 12:20 Pulse Oximetry 96 05/18/25 12:20 Oxygen Delivery Room Air 05/18/25 12:20 Temperature 36.5 C 05/18/25 12:20 Pulse Rate 102 H 05/18/25 12:20 Respiratory Rate 18 05/18/25 12:20 Blood Pressure 164/83 H 05/18/25 12:20 Pulse Oximetry 96 05/18/25 12:20 Oxygen Delivery Room Air 05/18/25 12:20 MDM - Neck Pain/Injury MDM Narrative Medical decision making narrative: Patient is a 64-year-old female with a left neck pain over the past 3 days. We will do prednisone with Toradol and Norflex. No radiography needed at this time. Discharge Plan Discharge Clinical Impression: Acute torticollis Patient Disposition: Home Condition: Stable Instructions: Spasmodic Torticollis (ED) Patient Language: Croatian Prescriptions: New carisoprodol [Soma] 350 mg tablet 350 mg PO TID PRN (Reason: muscle pain) Qty: 20 0RF No Action Prosight 5,000-60-30 duvr-zm-akpq tablet See Rx Instructions .ROUTE .COMPLEX Rx Instructions: as prescribed sulfamethoxazole-trimethoprim [Bactrim DS] 800-160 mg tablet 1 tablet PO Q12H 5 Days Qty: 10 0RF naproxen 500 mg tablet 500 mg PO BID PRN (Reason: pain) 7 Days Qty: 14 0RF baclofen 10 mg tablet 10 mg PO TID PRN (Reason: muscle spasm) 7 Days Qty: 21 0RF Prosight 5,000-60-30 aawd-le-zhhy tablet 1 tablet PO DAILY omega 7-dkc-kqb-fish oil [Fish Oil] 1,000 (120-180) mg capsule 2 cap PO BID lisinopril 5 mg tablet 5 mg PO DAILY Qty: 30 5RF atorvastatin 80 mg tablet 80 mg PO QHS 90 Days Qty: 90 1RF metformin 1,000 mg tablet See Rx Instructions .ROUTE .COMPLEX Qty: 180 3RF Dose Instruction: TAKE ONE TABLET BY MOUTH TWO TIMES a DAY Rx Instructions: TAKE ONE TABLET BY MOUTH TWO TIMES a DAY Follow-up/Referrals: UNKNOWN,DOCTOR [Non-Staff] Time of Disposition: 13:28
[2025-05-18 12:20] VITALS: BP 164/83; PULSE 102; RESP 18; TEMP 36.5; O2SAT 96
[2025-05-18] MEDS: KETOROLAC (*BKC) 60 MG/2 ML VIAL IM (13:28)
[2025-05-18] MEDS: ORPHENADRINE CITRATE 30 MG/ML 2 ML VIAL 60 MG IM (13:29)
--- OUTSIDE RECORDS SUMMARY | 2025-05-18 13:46 | XMS_ITS | Clinical Summary ---
Author Organization [facility] Address [facility] [place] [address] Care Team Providers Care Olive Pitter Name Role Phone Mayco Belcher MD Primary Care Provider [phone] Social History Tobacco Use Types Packs/Day Years [...] 11/16/2009 Zoster Vaccines (1 of 2) 11/16/2009 Dexa Scan (General) 11/16/2024 COVID-19 Vaccine (1 - 2023-2 5 season) 2025 Influenza Adult (#1) 2025 RSV Immunization or 60+ Years (1 - 1-dose 75+ series) 11/16/2034 Hepatitis A Vaccines Aged Out No long er eligible based on patient's age to complete this topic Meningococcal B Vaccine Aged Out No l onger eligible based on patient's age to complete this topic Meningococcal Vaccine Aged Out No chelly cinthia eligible based on patient's age to complete this topic RSV Immunizations Under 20 Months Aged Out No longer eligible based on patient's age to complete this topic Insurance [facility] Care Teams Olive Pitter Relationship Specialty Start Date End Date Mayco Belcher MD [address] [place] [address] PCP - General FAMILY PRACTICE 01/11/19
--- OUTSIDE RECORDS SUMMARY | 2025-05-18 13:46 | XMS_ITS | Clinical Summary ---
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 Testing performed by: [facility], [address] [place] [address]., [id number] Blood 04/03/2022 10:3 2 AM CDT 04/03/2022 5:14 PM CDT us Wili Restrepo Jr., MD LAB BLOOD ORDERABLE S Final Result [facility] [address] [facility] Department [place] [address] from Last 3 Months or Most Recently Relevant to Health Maintenance Insurance [facility] Care Teams Ballistic Expert Relationship Specialty Start Date End Date Pritesh Lew DO [address] [place] [address] PCP - General Family Medicine 03/15/22
--- OUTSIDE RECORDS SUMMARY | 2025-05-18 13:46 | XMS_ITS | Clinical Summary ---
Author Organization [facility] Address [address] [place] [address] Care Team Providers Care Yoghurt Maker Name Role Phone Unavailable Primary Care Provider Unavailabl e Source Comments [facility],non-owned Affiliates and Associated Physician Practices is amultiple site organization consisting of ambulatory clinics and hospital sitesin [place], [place], [place] and [place]. This disclosure is being madepursuant to the Care Everywhere program and may not contain all information available regarding this patient. Last updated 18.[facility] Allergies Active Allergy Reactions Criticality Noted Date [...] on file Legal Sex Female 1:29 PM LIABILITY CLAIMS EXAMINER Gender Identity Not on file Sexual Orientation Not on file Last Filed Vital Signs Vital Sign Reading Time Taken Comments Blood Pressure 133/76 09/05/2019 1:47 PM LIABILITY CLAIMS EXAMINER Pulse 86 09/05/2019 1:47 PM LIABILITY CLAIMS EXAMINER Temperature 36.3 C (97.4 F) 09/05/2019 1:47 PM LIABILITY CLAIMS EXAMINER Respiratory Rate 16 09/05/2019 1:47 PM LIABILITY CLAIMS EXAMINER Oxygen Saturation 100% 09/05/2019 1:47 PM LIABILITY CLAIMS EXAMINER Inhaled Oxygen Concentration - - Weight 81.6 kg (180 lb) 09/05/2019 1:47 PM LIABILITY CLAIMS EXAMINER Height 160 cm (5' 3) 09/05/2019 1:47 PM LIABILITY CLAIMS EXAMINER Body Mass Index 31.89 09/05/2019 1:47 PM LIABILITY CLAIMS EXAMINER Plan of Treatment Health Maintenance Due Date [...] patient's age to complete this topic Insurance [facility]
--- OUTSIDE RECORDS SUMMARY | 2025-05-18 13:46 | XMS_ITS | Clinical Summary ---
Author Organization [facility] Address [address] [place] [address] Phone Care Team Providers Care Production Operator Name Role Phone Freda Medrano PAC Primary Care Pro vider Allergies Active Allergy [...] 02/05/2025 Type 2 diabetes mellitus without complication Immunizations Immunization Administration Dates Next Due Pneumococcal [...] week 02/05/2025 How often do you attend [facility] or judaism services? 1 to 4 times per year 02/05/2025 Do you belong to any clubs o r organizations such as baptist groups, unions, fraternal or athletic groups, or [...] medical care, and heating? Somewhat hard 02/05/2025 [facility] - Occupational Stress Questionnaire Answer Date Recorded [...] any time in the past 12 m [facility], were you homeless or living in a fdc (including now)? No 02/05/2025 [facility] Utilities Answer Date Recorded In the past 12 months has th e electric, gas, oil, or water company threatened to shut [...] A1c 12/21/2024 06/23/2024, 11/05 Mammogram 01/16/2025 01/17/2024, 09/07, 08/16/2015, Additional history exists Influenza Immunization (#1) [...] Procedure Name Priority Date/Time Associated Diagnosis Comments CMP (COMPREHENSIVE METABOLIC PANEL) 01/07/2025 12:00 AM CDT HM DILATED EYE EXAM 12/15/2024 1 2:00 AM CDT HEMOGLOBIN, A1C 06/23/2024 12:00 AM RAMP FLIGHT ATTENDANT MAMMOGRAM BILATERAL GENERIC 01/17/2024 12:00 AM CDT HUMAN PAPILLOMA VIRUS (HPV) 09/29/2020 12:00 AM RAMP FLIGHT ATTENDANT PATHOLOGY CYTOLOGY ILLUSIONIST 09/29/2020 12:00 AM RAMP FLIGHT ATTENDANT from Last 3 Months or Most Recently Relevant to Health Maintenance Results * CMP (COMPREHENSIVE METABOLIC PANEL) (01/07/2025 12:00 AM CDT) 01/07/2025 us Provider Scan CHEMISTRY ORDERABLES Final Resul t Performing Organization Address City/[facility] Co de Phone Number SCAN * HM DILATED EYE EXAM (12/15/2024 12:00 AM CDT) 12/15/2024 us Provider Scan PROCEDURE/MINOR SURGICAL ORDERAB LES Final Result Performing Organization Address [facility] Co de Phone Number SCAN * HEMOGLOBIN, A1C (06/23/2024 12:00 AM RAMP FLIGHT ATTENDANT) HGB-A1C 7.5 SCAN 06/23/2024 us Provider Scan CHEMISTRY ORDERABLES Final Resul t Performing Organization Address [facility] Co de Phone Number SCAN * MAMMOGRAM BILATERAL GENERIC (01/17/2024 12:00 AM CDT) 01/17/2024 us Provider Scan IMG MAMMO ORDERABLES Final Resul t Performing Organization Address [facility] Co de Phone Number SCAN * PATHOLOGY CYTOLOGY ILLUSIONIST (09/29/2020 12:00 AM RAMP FLIGHT ATTENDANT) 09/29/2020 us Provider Scan PATHOLOGY/CYTOLOGY ORDERABLES Fi nal Result Performing Organization Address [facility] Co de Phone Number [facility] * HUMAN PAPILLOMA VIRUS (HPV) (09/29/2020 12:00 AM RAMP FLIGHT ATTENDANT) 09/29/2020 us Provider Scan LAB SEND OUTS Final Result [facility] from Last 3 Months or Most Recently Relevant to Health Maintenance Insurance [employer] Care Teams Production Operator Relationship Specialty Start Date End Date Freda Medrano, BRIAN [phone] [place] [address] PCP - General Physician Clerical Adjudicator 02/05/25
== END 2025-05-18 13:55 | disposition home or self-care (01) ==
PROVIDERS: Emergency Provider Emergency Medicine; PCP Registered Nurse
DX: M43.6 Torticollis (principal); I10 Essential (primary) hypertension; E11.9 Type 2 diabetes mellitus without complications; F17.210 Nicotine dependence, cigarettes, uncomplicated
CPT/HCPCS: 96372; 99284; J1885; J2360; J7512

== ENCOUNTER 2025-05-22 09:44 | Outpatient (CLI) | payer OTHER, SELFPAY ==
[2025-05-22 09:53] LABS: Hematocrit 37.9 % (35.0-42.0); Hemoglobin 12.8 g/dL (11.7-13.8); Mean Corpuscular HGB Conc 33.8 g/dL (32-36); Mean Corpuscular Hemoglobin 29.4 pg (27.0-31.0); Mean Corpuscular Volume 87.1 fL (78.0-102.0); Platelet Count Result 295 K/mm3 (150-420); Red Blood Count 4.35 M/mm3 (4.20-5.40); White Blood Count 9.8 K/mm3 (4.8-10.8)
--- OUTSIDE RECORDS SUMMARY | 2025-05-22 10:13 | XMS_ITS | Clinical Summary ---
Author Organization [facility] Address [address] [place] [address] Care Team Providers Care Lead Refinery Supervisor Name Role Phone Unavailable Primary Care Provider Unavailabl e Source Comments [facility],non-owned Affiliates and Associated Physician Practices is amultiple site organization consisting of ambulatory clinics and hospital sitesin [place], [place], [place] and [place]. This disclosure is being madepursuant to the Care Everywhere program and may not contain all information available regarding this patient. Last updated 18.[facility] Allergies Active Allergy Reactions Criticality Noted Date [...] on file Legal Sex Female 1:29 PM MASSOTHERAPIST Gender Identity Not on file Sexual Orientation Not on file Last Filed Vital Signs Vital Sign Reading Time Taken Comments Blood Pressure 133/76 09/05/2019 1:47 PM MASSOTHERAPIST Pulse 86 09/05/2019 1:47 PM MASSOTHERAPIST Temperature 36.3 C (97.4 F) 09/05/2019 1:47 PM MASSOTHERAPIST Respiratory Rate 16 09/05/2019 1:47 PM MASSOTHERAPIST Oxygen Saturation 100% 09/05/2019 1:47 PM MASSOTHERAPIST Inhaled Oxygen Concentration - - Weight 81.6 kg (180 lb) 09/05/2019 1:47 PM MASSOTHERAPIST Height 160 cm (5' 3) 09/05/2019 1:47 PM MASSOTHERAPIST Body Mass Index 31.89 09/05/2019 1:47 PM MASSOTHERAPIST Plan of Treatment Health Maintenance Due Date [...] patient's age to complete this topic Insurance [facility]
--- OUTSIDE RECORDS SUMMARY | 2025-05-22 10:13 | XMS_ITS | Data Portability ---
Author Organization [facility] JOSUEKelly Address [address] [place] [address] Care Team Providers Care Office Support Specialist Name Role Phone CARLOS HARDY [employer]key [employer] Mechanic AURELIO FENTON Primary Care Provider Unavailabl e Assessment No assessment recorded. Plan of Treatment Reminders Order Date Submit Date Provider Last Modified By Organization Details Last Modified Time Details Appointments None recorded . Lab HbA1c (hemoglo bin A1c), blood 2024 025 [email or web address] In-Office Order, Internal Use Only DO Not Attach Compendium DO Not Attach Compendium, Do Not Delete/merge, [id number] 5 17:17:46 CBC 2024 025 cyahlma [facility], [address] [place] [address] 2, [place], [address], 5 15:02:55 PT panel, coagulat ion, platelet poor plasma 2024 025 [facility], [address] [facility] 2, [place], [address], 5 15:54:09 HbA1c (hemoglo bin A1c), blood 2024 025 [facility], [address] [facility] 2, [place], [address], 5 15:54:39 lipid panel, serum 2024 025 ARCHIE [facility], [address] [facility], [facility] 2, [place], [address], 5 07:38:03 CMP, serum or plasma 2024 025 SALEM [facility], [address] [facility], [facility] 2, [place], [address], 5 07:38:04 HbA1c (hemoglo bin A1c), blood 2023 024 [email or web address] In-Office Order, Internal Use Only DO Not Attach Compendium DO Not Attach Compendium, Do Not Delete/merge, [id number] 4 13:05:11 Referral pain manageme nt referral - md is retiring and pt needs someone to take over pain manageme nt 2024 025 ARCHIE Jean Baptiste MD, [address] [facility] 1[address], [place], [address], 5 04:14:38 otolaryn gologist referral 2024 025 MACHO Hernadez MD, [address], [place], [address], 5 18:00:53 orthoped ic surgeon referral 2023 024 [facility], [address], [place], [address], 4 16:26:01 Procedures None recorded . Surgeries None recorded . Imaging None recorded . Medication Orders atorvast atin 80 mg tablet 2024 025 [facility] [place], [address], [place], [address], 5 17:17:49 metformi n 1,000 mg tablet 2024 025 [facility] [place], [address], [place], [address], 5 17:17:49 lisinopr il 20 mg-hydro chloroth iazide 12.5 mg tablet [address], [place], [address], 5 17:17:48 hydrocod one 7.5 mg-aceta minophen 325 mg tablet [address], [place], [address], 5 17:17:52 atorvast atin 80 mg tablet 2024 025 [place] [address], [place], [address], 5 13:11:08 hydrocod one 7.5 mg-aceta minophen 325 mg tablet [address], [place], [address], 5 15:36:47 naproxen 500 mg tablet [address], [place], [address], 13:08:07 Patient TargetsNo targets recorded. Patient Instructions Encounter Date Encounter Id Patient Instructions Last Modified By Organization Details Last Modified Time 04/16/2024 [id number] learning about high blood pressure [email or web address] Not available 04/16/2024 15:06:06 06/23/2024 [id number] A healthy lifestyle: care instructions [email or web address] Not available 06/23/2024 14:12:07 A healthy lifestyle: care instructions [email or web address] Not available 06/23/2024 13:08:05 learning about high blood pressure [email or web address] Not available 06/23/2024 13:05:09 11/24/2024 [id number] learning about high blood pressure [email or web address] Not available 11/24/2024 15:36:46 02/25/2025 [id number] learning about type 2 diabetes Not available 02/25/2025 17:17:46 type 2 diabetes: care instructions Not available 02/25/2025 17:17:46 Reason for Referral Orthopedic Surgeon Referral for Pain of left knee region Increased left knee pain. Had repair medial meniscus tear in 2021 Referring Physician: Nereida Kam, Internal Medicine, Encounter Date: 06/23/2024 [employer] Referral fo r Impacted cerumen of bilateral ears Persistent pain. recently treated with antibiotics with no improvement. Referring Physician: Nereida Kam, Internal Medicine, Encounter Date: 11/24/2024 Pain Management Referral for Pain of multiple joints md is retiring and pt needs someone to take over pain management Referring Physician: Nereida Kam, Internal Medicine, Encounter Date: 01/28/2025 Results Created Date Observation Date Name Description Value Unit Range Abnormal Flag Note LastModifiedBy Organization Detail LastModifiedTime 06/23/20 24 06/23/2024 HbA1c (hemo globi n A1c), blood HbA1c 7.5 Not Available In-Office Order Internal Use Only DO Not Attach Compendium DO Not Attach Compendium, Do Not Delete/merge, [id number] 06/23/2024 13:04:57 10/29/19 25 11/04/2024 COMPL IANCE DRUG MARQUIS SIS, UR summary report (summary) FINAL ===== ===== ===== ===== ===== ===== ===== ===== ===== ===== ===== ===== ===== === TOXAS SURE COMP DRUG MARQUIS SIS,U R ===== ===== ===== ===== ===== ===== ===== ===== ===== ===== ===== ===== ===== === Test Resul t Flag Units Drug Prese nt Iota codon e 2571 ng/mg creat Iota morph one 2359 ng/mg creat Dihyd rocod eine 374 ng/mg creat Norhy droco done 1109 ng/mg creat Sourc es of hydro codon e inclu de sched uled presc ripti on medic ation s. Iota morph one, dihyd rocod eine and norhy droco done are expec tere metab olite s of hydro codon e. Iota morph one and dihyd rocod eine are [...] ===== ===== ===== === Not Available [facility] ([facility]) [address], [place], [address], 11/04/2024 09:14:06 10/29/19 25 11/04/2024 COMPL LYN DRUG MARQUIS SIS, UR pdf . Not Available [facility] ([facility]) [address], [place], [address], 11/04/2024 09:14:06 01/08/20 25 01/08/2025 LIPID PANEL , STAND CARI cholesterol, total 78 mg/dL <200 normal Not Available [facility] [address] [address] [place], [address], 01/08/2025 07:38:03 01/08/2001/08/2025 LIPID PANEL , STAND CARI HDL cholesterol 34 mg/dL > or = 50 low Not Available [facility] [address] [address] [place], [address], 01/08/2025 07:38:03 01/08/20 25 01/08/2025 LIPID PANEL , STAND CARI triglyceride s 151 mg/dL <150 high Not Available [facility] [address] [address] [place], [address], 01/08/2025 07:38:03 01/08/2001/08/2025 LIPID PANEL , STAND CARI LDL-choleste rol 21 mg/dL _(sho c) normal Refer ence range : <100 Derek able range <100 mg/dL for prima ry preve ntion ; <70 mg/dL for patie nts with CHD or diabe tic patie nts with > or = 2 CHD risk facto rs. LDL-C is now calcu lated using the Neva n-Hop kins anandau suad n, which is a valid ated novel ben cornejo than the Fried efrain equat ion in the estim ation of LDL-C . Neva taylor SS et al. MIKHAIL. 2013; 310(1 9): 2061- 2068 (http ://ed ucati on.Qu estDi Growing Starss. com/f aq/FA Q164) Not Available [facility] [address] [place], [address], 01/08/2025 07:38:03 01/08/2001/08/2025 LIPID PANEL , STAND CARI chol/HDLC ratio 2.3 (calc ) <5.0 normal Not Available [address], [address], 01/08/2025 07:38:03 01/08/2001/08/2025 LIPID PANEL , STAND CARI non HDL cholesterol 44 mg/dL _(sho c) <130 normal For patie nts with diabe prudence plus 1 major ASCVD risk facto r, treat ing to a non-H DL-C goal of <100 mg/dL (LDL- C of <70 mg/dL ) is consi ramos a thera pekamlesh c optio n. Not Available [address], [address], 01/08/2025 07:38:03 01/08/2001/08/2025 COMPR EHENS NAFISA METAB OLIC PANEL glucose 126 mg/dL 65-99 high Fasti ng refer ence inter rohit For someo ne witho ut known diabe prudence, a gluco se value >125 mg/dL indic ates that they may have diabe prudence and this shoul d be confi rmed with a follo w-up test. Not Available [address], [address], 01/08/2025 07:38:04 01/08/2001/08/2025 COMPR EHENS NAFISA METAB OLIC PANEL urea nitrogen (BUN) 14 mg/dL 7-25 normal Not Available [address], [address], 01/08/2025 07:38:04 01/08/2001/08/2025 COMPR EHENS NAFISA METAB OLIC PANEL creatinine 0.73 mg/dL 0.50-1 .05 normal Not Available [address], [address], 01/08/2025 07:38:04 01/08/20 25 01/08/2025 COMPR EHENS NAFISA METAB OLIC PANEL eGFR 91 mL/mi n/1.7 3m2 > or = 60 normal Not Available [address], [address], 01/08/2025 07:38:04 01/08/20 25 01/08/2025 COMPR EHENS NAFISA METAB OLIC PANEL BUN/creatini ne ratio SEE NOTE: (calc ) 6-22 Not Repor tere: BUN and Creat inine are withi n refer ence range . Not Available [address], [address], 01/08/2025 07:38:04 01/08/20 25 01/08/2025 COMPR EHENS NAFISA METAB OLIC PANEL sodium 141 mmol/ L 135-14 6 normal Not Available [address], [address], 01/08/2025 07:38:04 01/08/20 25 01/08/2025 COMPR EHENS NAFISA METAB OLIC PANEL potassium 4.4 mmol/ L 3.5-5. 3 normal Not Available [address], [address], 01/08/2025 07:38:04 01/08/20 25 01/08/2025 COMPR EHENS NAFISA METAB OLIC PANEL chloride 106 mmol/ L 98-110 normal Not Available [address], [address], 01/08/2025 07:38:04 01/08/20 25 01/08/2025 COMPR EHENS NAFISA METAB OLIC PANEL carbon dioxide 24 mmol/ L 20-32 normal Not Available [address], [address], 01/08/2025 07:38:04 01/08/20 25 01/08/2025 COMPR EHENS ANFISA METAB OLIC PANEL calcium 8.8 mg/dL 8.6-10 .4 normal Not Available [address], [address], 01/08/2025 07:38:04 01/08/2001/08/2025 COMPR EHENS NAFISA METAB OLIC PANEL protein, total 6.5 g/dL 6.1-8. 1 normal Not Available [address], [address], 01/08/2025 07:38:04 01/08/20 25 01/08/2025 COMPR EHENS NAFISA METAB OLIC PANEL albumin 4.1 g/dL 3.6-5. 1 normal Not Available [address], [address], 01/08/2025 07:38:04 01/08/20 25 01/08/2025 COMPR EHENS NAFISA METAB OLIC PANEL globulin 2.4 g/dL_ (calc ) 1.9-3. 7 normal Not Available [address], [address], 01/08/2025 07:38:04 01/08/2001/08/2025 COMPR EHENS NAFISA METAB OLIC PANEL albumin/glob ulin ratio 1.7 (calc ) 1.0-2. 5 normal Not Available [address], [address], 01/08/2025 07:38:04 01/08/20 25 01/08/2025 COMPR EHENS NAFISA METAB OLIC PANEL bilirubin, total 0.4 mg/dL 0.2-1. 2 normal Not Available [address], [address], 01/08/2025 07:38:04 01/08/20 25 01/08/2025 COMPR EHENS NAFISA METAB OLIC PANEL alkaline phosphatase 57 U/L 37-153 normal Not Available [facility] [address], [address], 01/08/2025 07:38:04 01/08/20 25 01/08/2025 COMPR EHENS NAFISA METAB OLIC PANEL AST 19 U/L 10-35 normal Not Available [address], [address], 01/08/2025 07:38:04 01/08/20 25 01/08/2025 COMPR EHENS NAFISA METAB OLIC PANEL ALT 26 U/L 6-29 normal Not Available [address], [address], 01/08/2025 07:38:04 01/08/20 25 01/07/2025 Lipid 1996 panel - Serum or Plasm a cholesterol [mass/volume ] in serum or plasma 78 Not Available Not Available 17:12:19 01/08/20 25 01/07/2025 Lipid 1996 panel - Serum or Plasm a cholesterol in HDL [mass/volume ] in serum or plasma 34 Not Available Not Available 17:12:19 01/08/20 25 01/07/2025 Lipid 1996 panel - Serum or Plasm a cholesterol in LDL [mass/volume ] in serum or plasma 21 Not Available Not Available 17:12:19 01/08/20 25 01/07/2025 Compr ehens nafisa metab olic 2000 panel - Serum or Plasm a Unknown Analyte Not Available Not Available 02/04 17:12:19 02/06/20 25 02/09/2025 Drugs of abuse panel - Urine by Rosario zamora Unknown Analyte Not Available Not Available 02/03 14:36:20 02/26/20 25 02/25/2025 HbA1c (hemo globi n A1c), blood HbA1C 7.9 % Not Available In-Office Order Internal Use Only DO Not Attach Compendium DO Not Attach Compendium, Do Not Delete/merge, [id number] 02/25/2025 15:55:37 06/30/20 24 06/30/2024 trans -thor acic echoc ardio gram (TTE) (PROC ) No observ ation record ed. [address], [place], [address], 07/22/2024 13:53:20 02/26/20 25 01/23/2023 MRI, lumba r spine , w/o contr ast No observ ation record ed. BARCODE Not Available 2024 15:20:00 02/26/20 25 01/13/2023 XR, knee, 1 or 2 view No observ ation record ed. BARCODE Not Available 2024 15:20:00 02/26/20 25 09/28/2022 XR, lumba r spine No observ ation record ed. BARCODE Not Available 2024 15:20:00 02/26/20 25 03/13/2022 MRI, knee, w/o contr ast No observ ation record ed. BARCODE Not Available 2024 15:20:00 02/26/20 25 09/22/2021 XR, knee, 1 or 2 view No observ ation record ed. BARCODE Not Available 2024 15:20:00 Result Notes None recorded. Problems Name Problem SNOMED Code Status Onset Date Resolution Date Notes Provider Name and Address Organization Details Recorded Time Diabetes mellitus 53357491 Active Jordan Moreno MD Attn: Shayne donato,[address] [facility], [place], [address], [facility] 6 11:16:28 Essential hypertens ion 05053760 Active Jordan Moreno MD Attn: Shayne donato,[address] [facility], [place], [address], [place] [facility] 6 11:16:28 Gastroeso phageal reflux disease 327261450 Completed 09/04/2023 Nereida Kam MD Attn: Shayne donato,[address] [facility], [place], [address], [facility] 4 14:35:49 Asthma 027352717 Completed 09/04/2023 Nereida Kam MD Attn: Accountin g,[address] [facility], [place], [address], [place] [facility] 4 14:46:23 Pain in left lower limb 740567960 Active Carlie Storey MA null, [place] [facility] 6 10:46:19 Diverticu litis 675291471 Completed 09/04/2023 Nereida Kam MD Attn: Accountin g,[address] [facility], [place], [address], [place] [facility] 4 14:41:43 Diverticu lar disease 903358651 Active 2023 Nereida Kam MD Attn: Accountin g,[address] [facility], [place], [address], [place] [facility] 4 14:35:32 Medicatio n monitorin g Active 2023 Nereida Kam MD Attn: Accountin g,[address] [facility], [place], [address], [place] [facility] 4 14:41:19 Pain of multiple joints 34721500 Active 2023 Back/L knee Nereida Kam MD Attn: Accountin g,[address] [facility], [place], [address], [place] [facility] 4 14:45:35 Pain of left knee region 739191863610 109 Active 2023 Nereida Kam MD Attn: Accountin g,[address] [facility], [place], [address], [place] [facility] 4 13:04:37 Bilateral earache 753628789 Active 2024 Nereida Kam MD Attn: Accountin g,[address] [facility], [place], [address], [place] [facility] 5 15:27:29 Impacted cerumen of bilateral ears 073831484651 9108 Active 2024 Nereida Kam MD Attn: Shayne donato,[address] [facility], [place], [address], [facility] 5 15:30:02 History of blood disorder 553936923 Active 2024 Nereida Kam MD Attn: Shayne donato,[address], [place], [address], [facility] 5 13:08:45 Problem Notes None recorded. Procedures Surgical History Date Name Laterality Status Provider Name and Address Organization Details Recorded Time 1 Most Recent Mammogram completed Ute Boyce MA [facility] 12/28/2020 14:46:04 1 Date of Last Pap Smear completed Ute Boyce MA [facility] 12/28/2020 14:45:31 1 cataract surgery completed Ute Boyce MA [facility] 09/29/2020 08:57:05 9 colonoscopy completed Ute Boyce MA [facility] 09/29/2020 08:57:29 5 Colonoscopy with biopsy completed Jordan Moreno MD Attn: Accounting,[address] , [place], [address], [facility] 07/26/2015 11:04:39 Caesarean Section completed Ute Boyce [facility] 11/15/2015 11:51:59 Other completed Ute Boyce [facility] 11/15/2015 11:51:59 Imaging Results None recorded. Procedure Notes None recorded. Medical Equipment None Reported. Allergies Allergen ID Allergen Name Allergen Category Reaction Reaction Severity Criticality Documentation Date Start Date Code Code System Note Provider Name and Address Organization Details Recorded Time 76592 Product containin g penicilli n (product) medicatio n hives Not available Not available 10/02/2016 63514 8001 SNOMED Ute [place] - [facility] 7 11:36:03 Medications Name Sig Start Date Stop Date Status Note LastModified by Organization Details LastModified Time celecoxib 200 mg capsule 02/25 completed Not Available Not Available Not Available cyclobenzap [...] t Available atorvastati n 80 mg tablet Take 1 tablet every day by oral route in the evening. 2024 active Not Available Not Available Not Avai lable prednisone 10 mg tablet 04/16 completed Not Available Not Available Not Available doxycycline hyclate 100 mg capsule 04/16 completed Not Available Not Available Not Available loperamide 2 mg capsule 09/04 completed Not Available Not Available Not Available lisinopril 20 mg-hydrochl orothiazide 12.5 mg tablet Take 2 tablets every day by oral route. 2024 active Not Available Not Available Not [...] t Available phenazopyri dine 200 mg tablet 02/25 completed Not Available Not Available Not Available ondansetron [...] 1 TABLET BY MOUTH THREE TIMES DAILY 02/25 completed Not Available Not Available Not Available hydrocodone 7.5 mg-acetamin ophen 325 mg tablet TAKE 1 BY MOUTH TABLET TWICE a DAY NEEDED. active Not Available Not Available No t Available cephalexin 500 mg capsule TAKE ONE CAPSULE BY MOUTH FOUR TIMES A DAY FOR 10 DAYS 06/23 completed Not Available Not Available Not Available metformin 1,000 mg tablet Take 1 tablet twice a day by oral route. 2024 active Not Available Not Available Not Avai lable nystatin 100,000 unit/gram topical cream APPLY TO [...] Available Not Available naproxen 500 mg tablet TAKE 1 TABLET TWICE a DAY BY ORAL ROUTE WITH MEAL(S). 2024 active Not Available Not Available Not Avai lable Ventolin HFA 90 mcg/actuati on aerosol inhaler [...] in Arterial blood by Pulse oximetry Systolic And Diastolic Provider Name and Address Organization Details Last Updated DateTime 5 157.48 cm 30.9 kg/m2 80831.1 1 g 117 /min 97 % 97 % 120/60 mm[Hg] Therese Booker [place] [facility] 5 14:59:39 Date Recorded Body height Body mass index (BMI) Body weight Heart rate Oxygen saturation Oxygen saturation in Arterial blood by Pulse oximetry Systolic And Diastolic Provider Name and Address Organization Details Last Updated DateTime 5 157.48 cm 30.4 kg/m2 28276.3 3 g 91 /min 97 % 97 % 167/75 mm[Hg] Alok Rivas MA [facility] 5 12:30:28 Date Recorded Body height Body mass index (BMI) Body weight Body temperature Respiratory rate Heart rate Systolic And Diastolic Provider Name and Address Organization Details Last Updated DateTime 5 157.48 cm 30.3 kg/m2 26772.1 8 g 98.4 [degF] 20 /min 105 /min 142/60 mm[Hg] Gala Matthews MA [facility] 5 14:58:05 Date Recorded Body height Body mass index (BMI) Body weight Heart rate Oxygen saturation Oxygen saturation in Arterial blood by Pulse oximetry Systolic And Diastolic Provider Name and Address Organization Details Last Updated DateTime 4 157.48 cm 30.7 kg/m2 17029.4 4 g 89 /min 95 % 95 % 133/72 mm[Hg] Alok Rivas MA [facility] 4 14:55:49 Date Recorded Body height Body mass index (BMI) Body weight Oxygen saturation Oxygen saturation in Arterial blood by Pulse oximetry Heart rate Systolic And Diastolic Provider Name and Address Organization Details Last Updated DateTime 4 157.48 cm 30 kg/m2 87655.1 5 g 95 % 95 % 92 /min 129/74 mm[Hg] Alok Rivas MA [facility] 4 12:38:18 Social History Question Answer Notes LastModified by Organizat ion Details LastModified Time Tobacco Smoking Status Current Every Day Smoker Ute Boyce MA [facility], [facility] 09/29/2020 08:56:02 Is Blood Transfusion Acceptable In An Emergency? [...] For COVID-19? No Information not available 09/29/2020 What Type Of Diet Are You Following? REGULAR Information n ot available 11/15/2015 Which Illicit Or Recreational Drugs Have You Used? No Information not available 11/15/2015 Education 12 Information no t available 11/15/2015 What Is The Highest Grade Or Level Of School You Have Completed Or The Highest Degree You Have Received? [id number] Information not available 09/29/2020 Live Alone Or With Others? Alone Information not available 11/15/2015 What Was The Date Of Your Most Recent Tobacco Screening? 02/25/2025 Information not available 02/25/2025 How Many Children Do You Have? 2 [...] Low Information not available 11/15/2015 Do You Use Sunscreen Routinely? No Information not available 11/15/2015 Has Tobacco Cessation Counseling Been Provided? Yes Information not available 09/29/2020 On What Date Was Tobacco Cessation Counseling Provided? 02/25/2025 Information not available 02/25/2025 How Many Years Have You Smoked Tobacco? 35 Information not available 09/29/2020 Sex: Female Functional Status Question Answer Note LastModified by Organizat ion Details LastModified Time Do you use any illicit or recreational drugs? No Information not available 09/29/2020 Do you or have you ever used any other forms of tobacco or nicotine? No Information not available 09/29/2020 What is your level of alcohol consumption? None [email or web address] Information not available 10/28/2014 Are you currently employed? No Information not available 11/15/2015 What is your exercise level? None Information not available 09/29/2020 Mental Status Question Answer Note LastModified by Organization D etails LastModified Time Do you feel stressed (tense, restless, nervous, or anxious, or unable to sleep at night)? [id number] Information not available 09/29/2020 Family History Relationship Description Onset Age of this Age Resolved Age Notes LastModified by Organization Details LastModified Time Father Hypertensive disorder sattebery Not available 2015 10:46:19 Father Malignant neoplasm of colon sattebery Not available 2015 10:46:19 Mother Hypertensive disorder sattebery Not available 2015 10:46:19 Mother Heart disease sattebery Not available 2015 10:46:19 Mother Diabetes mellitus [email or web address] Not available 09/29 08:55:01 Sister Malignant neoplasm of ovary x2 sattebery Not available 2015 10:46:19 Sister Malignant neoplasm of liver sattebery Not available 2015 10:46:19 Sister Malignant neoplasm of lung sattebery Not available 2015 10:46:19 Paternal Grandmother Malignant neoplasm of brain sattebery Not available 2015 10:46:19 Medical History Condition Response Other N High Blood Pressure Y Breast Cancer N Thyroid Problems N Kidney or Bladder Problems N GI Problems N Depression N Blood Clots N Lung Disease N Acne Y Breast Problem N Eating [...] e and Address Organization Details Recorded Time COVID-19, mRNA, LNP-S, PF, 100 mcg/0.5mL dose or 50 mcg/0.25mL dose 1 completed Not Available [facility] 02/25/2025 14:46:46 COVID-19, mRNA, LNP-S, PF, 100 mcg/0.5mL dose or 50 mcg/0.25mL dose 1 completed Not Available [facility] 02/25/2025 14:46:46 COVID-19, mRNA, LNP-S, bivalent, PF, 50 mcg/0.5 mL or 25mcg/0.25 mL dose 2 completed Not Available [facility] 02/25/2025 14:46:46 pneumococcal polysaccharide PPV23 5 completed Not Available [facility] 08/23/2019 02:49:51 Past Encounters Encounter ID Performer Location Encounter Start Date Encounter Closed Date Diagnosis/Indication Diagnosis SNOMED-CT Code Diagnosis ICD10 Code Diagnosis IMO Codes Diagnosis Note [id number] MD Montana Johnson (Adult Med) [address] [place] [address] 10/28/2014 10:53:55 10/28/2014 12:33:57 Diabetes mellitus 98915671 Continue same Essential hypertension 74924862 continue same Gastroesop hageal reflux disease 513062468 stable on Ranitine Family his tory of cancer of colon 424557014 last colonoscop y 11/16 pt is going to have another one this spring Asthma 239120904 stable on Albuterol prn [id number] MD Montana Johnson (Adult Med) [address] [place] [address] 11/26/2014 10:48:44 11/26/2014 12:02:00 Diabetes mellitus 35711841 A1c-7.2 Increase Metformine 1000mg bid Add statin Essential hypertension 97877551 continue same Screening mammography [id number] Family his tory of cancer of colon 104394079 last colonoscop y 11/16 pt is going to have another one in 12/18 Administra tion of pneumococcal vaccine 44647452 [id number] MD Fara JohnsonCommunity [facility] (Adult Med) [address] [place] [address] 03/29/2015 10:49:18 03/29/2015 11:23:12 Essential hypertension 87192509 continue same Diabetes mellitus 68706537 A1c-7.2 Increased Metformine 1000mg bid continue statin Family his tory of cancer of colon 969485394 last colonoscop y 11/16 pt supposed to have another one in 12/18-will do the referral [id number] MD [facility]Community [facility] ([facility] [address] [place] [address] 07/14/2015 08:58:36 07/16/2015 17:01:42 Pain in left lower limb 541164522 M79.605 possibly related to chronic back problem for which pt is seeing pain mx -on gabapentin /Zanaflex/ hydrocodon e Add Mobic pt to f/u with pain mx-has apt on 07/23 [id number] MD [facility]Community [facility] [address] [place] [address] 07/26/2015 10:49:26 07/28/2015 11:03:04 Essential hypertension 31072257 I10 continue same Diabetes mellitus 579860 09 E11.9 A1c-7.0 Increased Metformine 1000mg bid continue statin [id number] MD [facility]ara GutierrezCommunity [facility] (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) [address] [place] [address] 11/15/2015 11:25:48 11/15/2015 15:45:02 Gynecologic examination 18441741 Z01.419 Screening for malignant neoplasm of breast 451010787 Z12.39 UTD Screening for malignant neoplasm of colon 048325611 Z12.11 UTD [id number] MD [facility] [address] [place] [address] 11/25/2015 10:32:52 11/25/2015 11:34:25 Diverticulitis 162839311 K57.92 with LLQ tenderness and diarrhea pt to continue Cipro and Flagyl pt to hold Metformine for now Diabetes mellitus 046889 09 E11.9 A1c-7.0 Hold Metformine 1000mg bid due to diarrhea continue statin Essential hypertension 46857710 I10 continue same [id number] MD [facility]Community [facility] (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) [address] [place] [address] 10/02/2016 10:54:34 10/03/2016 11:20:42 Tinea corporis 25655005 B35.4 Pt. with yeast in the skin of the vulva, dwp. Rx sent to pharmacy. Instructio sabrina discussed. Pruritus of vulva 160922 00 L29.2 culture sent [id number] MD [facility]Community [facility] (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) [address] [facility] [place] [address] 05/13/2018 11:02:42 06/13/2018 16:38:35 Vaginal discharge 761429456 N89.8 Normal exam dwp. Culture sent. [id number] MD [facility]Community [facility] (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) [address] [place] [address] 09/29/2020 08:34:57 10/01/2020 06:33:39 Gynecologic examination 85097743 Z01.419 Last pap done 04/23/13 was negative with negative hr-HPV. Therefore, pap due. Pap done. STD testing declined Screening for malignant neoplasm of breast 980453073 Z12.39 Last mammogram 2016. Mammogram ordered. Screening for malignant neoplasm of colon 242307454 Z12.11 UTD. Due 2021 Cigarette smoker 0978928 7 F17.210 Pt. down from 1 PPD to 1/2 PPD Type 2 maribeth betes mellitus 32158244 E11.9 Last HbA1c 2 mo ago and good P.t sees Dr Mayco Koch in [place] Candidal vulvovaginitis 00219194 B37.3 Diagnosis d/w pt. Rx sent to pharmacy. Instructio ns discussed. Obesity 200429373 E66.9 Nutrition and exercise discussed. [id number] MD Montana Gutierrez (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) [address] [place] [address] 12/28/2020 14:27:22 12/30/2020 09:42:22 Tinea corporis 69297809 B35.4 Pt. with yeast in the skin of the vulva, dwp. Rx sent to pharmacy. Instructio ns discussed. Pruritus of vulva 601990 00 L29.2 culture sent [id number] MD Jorge Alberto Becerra (Adult Med) [address] [place] [address] 09/04/2023 13:41:27 09/06/2023 15:44:37 Diabetes mellitus 94150478 E11.9 Essential hypertension 11920071 I10 Gastroesop hageal reflux disease 958839136 K21.00 Diverticular disease 397 433557 K57.90 Suggested stool softener Medication monitoring 39 6669007 Z51.81 Stool softener recommende d Pain of mu ltiple joints 27523147 M25.50 [id number] Nereida Kam MD [facility] (Adult Med) [address] [place] [address] 11/26/2023 12:40:21 11/28/2023 12:40:33 Diabetes mellitus 25316787 E11.9 Cont current regimen Diverticular disease 397 499197 K57.90 Suggested stool softener Pain of mu ltiple joints 32171296 M25.50 Essential hypertension 67025733 I10 Continue to monitor BP [id number] MD Jorge Alberto Becerra (Adult Med) [address] [place] [address] 12/24/2023 16:44:02 12/26/2023 14:11:23 Essential hypertension 26263428 I10 Continue to monitor BP Medication monitoring 39 0079185 Z51.81 Stool softener recommende d Pain of mu ltiple joints 51663238 M25.50 Pain in le ft lower limb 650214621 M79.605 Diverticular disease 397 434941 K57.90 Suggested stool softener Diabetes mellitus 491442 09 E11.9 Cont current regimen [id number] MD Jorge Alberto Becerra (Adult Med) [address] [place] [address] 03/05/2024 15:20:16 03/06/2024 12:48:38 Essential hypertension 90636702 I10 Unchanged . Will start lisinopril /Hct 25/07.5 twice daily Pain of mu ltiple joints 51634662 M25.50 [id number] MD Jorge Alberto Becerra (Adult Med) [address] [place] [address] 04/16/2024 14:34:15 04/17/2024 12:11:48 Essential hypertension 36018700 I10 Well controlled Diabetes mellitus 543490 09 E11.9 Cont current regimen Diverticular disease 397 797051 K57.90 Suggested stool softener [id number] [facility] [address] [place] [address] 06/23/2024 12:22:47 07/01/2024 15:16:59 Obesity 136833387 E66.9 Diabetes mellitus 876397 09 E11.9 Cont current regimen Essential hypertension 57095783 I10 Well controlled Pain of le ft knee region 0361680565 87389 M25.728 [id number] MD Jorge Alberto Becerra (Adult Med) [address] [place] [address] 11/24/2024 14:47:36 11/25/2024 11:32:13 Diverticular disease 531193386 K57.90 Suggested stool softener Essential hypertension 69314719 I10 Well controlled Bilateral earache 529766 003 H92.03 8106948 Impacted c erumen of bilateral ears 4470459157 604269 H61.23 740994 Pain of mu ltiple joints 45594697 M25.50 Diabetes mellitus 235600 09 E11.9 Cont current regimen [id number] MD Jorge Alberto Becerra (Adult Med) [address] [place] [address] 01/28/2025 11:31:39 01/29/2025 16:12:43 Pain of multiple joints 14998263 M25.50 Diabetes mellitus 209153 09 E11.9 Cont current regimen History of blood disorder 263208793 Z87.898 28528902 [id number] Aurelio Fenton MD [facility] (Adult Med) [address] [place] [address] 02/25/2025 14:46:05 02/26/2025 09:32:55 Bilateral earache 397551675 H92.03 [id number] Normal exam, pain mild, pt does not want ent referral at this time. Monitor Pain of mu ltiple joints 79172791 M25.50 Education done, referral to different pain management Essential hypertension 26694263 I10 Mild elevation, education, monitor, healthy lifestyle History of blood disorder 629650915 Z86.2 Hyperlipid emia noted Type 2 maribeth betes mellitus 21562954 E11.9 10426039 Uncontroll ed due to non-compli ance. Restart metformin, nutritioni st consult Health Concerns Section Related Observation LastModified by Organization Detai ls LastModified Time None Recorded Concern Status LastModified by Organization Details LastModified Time None Recorded Advance Directives Directive None Recorded Payers Insurance Date Sequence Insurance Name Policy Number Policy Padilla Covered Member ID Padilla Member ID Guarantor Name 04/09/2025 1 [facility] PRIOR TO 02/03/2021 (MEDICAID REPLACEMENT - HMO) Dilia Molina [id number] Dilia Molina 05/17/2025 1 [facility] ON OR AFTER 02/03/21 (MEDICAID REPLACEMENT - HMO) Dilia Molina [id number] Dilia Molina Notes Date Note Type Note Provider Name and Address Organization Details Recorded Time 04/16/2024 text/html Here for BP f/u. Tolerating med well Nereida Kam MD Attn: [address] , [place], [address], [facility] 04/16/2024 15:06:09 06/23/2024 text/html has increased pain in her left knee. pt is s/p repair of medial meniscus two years ago Nereida Kam MD Attn: Accounting,[address], [place], [address], [place] 06/23/2024 13:09:46 11/24/2024 text/html Here for check up. Seen in UC one month ago for ear pain. Treated with antibiotics. Her pain has persisted Nereida Kam MD Attn: [address] [facility], [place], [address], [place] 11/24/2024 15:39:45 01/28/2025 text/html Started bruising easily a couple weeks ago. No obvious prolonged bleeding. Wants referral to pain management Nereida Kam MD Attn: [address] [facility], [place], [address], [facility] 01/28/2025 13:12:06 02/25/2025 text/html Diabetes F/URepo rted by PatientHPIFor labs, patient reportslast a1c result: 7.9. For context, patient reportschecking feet regularly. For associated symptoms, patient reportsno weight gain,no weight loss,no dizziness,no sweats,no headaches,no confusion,no increased thirst,no increased appetite,no increased urination,no blurred vision,no numbness of feet, andno calluses on feet. For review finger sticks, (accheck remains in acceptable range). Pt here for f/u of diabetes and hypertension. No chest pain or sob. Pt has h/o severe generalized oa of spine. Previous pain management referral in [facility] does not accept her insurance. S/p seen in urgent care several weeks ago for bilateral ear pain due to cerumen impaction. No vertigo. Pt still with mild pain in right ear. No trauma or picking. No hearing loss Aurelio Fenton MD Attn: [address]ing[address] [facility], [place], [address], [place] 02/25/2025 17:19:38 OBGyn Episode Ob Episode Information Episode Created Date Number of Fetuses Patient Bloodtype Patient rh Status Prepregnancy Weight lbs Domestic Partner Domestic Partner Phone Father Name Gang Drill Press Operator Status 11/15/19 16 1 CLOSED Fetus Data First Name Last Name Admitted to NICU Weight (g) Sex Living Outcome Pediatric Complications Fetus ID Race Codes Race Delivery Type 3685.43 5 M Full Term [id number] Miguel A Calculation Initial Miguel A Date [...] Domestic Partner Domestic Partner Phone Father Name Gang Drill Press Operator Status 11/15/19 16 1 CLOSED Fetus Data First Name Last Name Admitted to NICU Weight (g) Sex Living Outcome Pediatric Complications Fetus ID Race Codes Race Delivery Type 3883.88 15 F Full Term [id number] Miguel A Calculation Initial Miguel A Date [...]
--- OUTSIDE RECORDS SUMMARY | 2025-05-22 10:13 | XMS_ITS | Clinical Summary ---
Author Organization [facility] Address [facility] [place] [address] Care Team Providers Care Biochemistry Specialist Name Role Phone Mayco Belcher MD Primary Care Provider [phone] Social History Tobacco Use Types Packs/Day Years [...] 11/16/2009 Dexa Scan (General) 11/16/2024 COVID-19 Vaccine ( - 2023-2 5 season) 2025 Influenza Adult [...] patient's age to complete this topic Insurance [place] Care Teams Biochemistry Specialist Relationship Specialty Start Date End Date Mayco Belcher MD [address] [place] [address] PCP - General FAMILY PRACTICE 01/11/19
--- OUTSIDE RECORDS SUMMARY | 2025-05-22 10:13 | XMS_ITS | Clinical Summary ---
Author Organization [facility] [address] Address [address] [place] [address] Phone Care Team Providers Care Supervisor Industrial Garment Name Role Phone Pritesh Lew Primary Care [...] by mouth daily 2 Active Prosight 5,000-60-30 cqzv-gm-upos tablet Take 1 tablet by mouth 2 [...] on file Legal Sex Female 3:37 PM RESEARCH FELLOW Gender Identity Not on file Sexual Orientation [...] was last reviewed 2021. Testing performed by: [facility], [address] [place] [address]., [address] Blood 04/03/2022 10:3 2 AM CDT 04/03/2022 5:14 PM CDT us Wili Restrepo Jr., MD LAB BLOOD ORDERABLE S Final Result [facility] [place] [address] from Last 3 Months or Most Recently Relevant to Health Maintenance Insurance [facility] Care Teams Supervisor Industrial Garment Relationship Specialty Start Date End Date Pritesh Lew DO [address] [place] [address] PCP - General Family Medicine 03/15/22
--- OUTSIDE RECORDS SUMMARY | 2025-05-22 10:13 | XMS_ITS | Clinical Summary ---
Author Organization [facility] Address [address] [place] [address] Phone Care Team Providers Care Campus Recruiting Coordinator Name Role Phone Freda Medrano PAC Primary [...] week 02/05/2025 How often do you attend [facility] or caodaism services? 1 to 4 times per year 02/05/2025 Do you belong to any clubs o r organizations such as oriental orthodox groups, unions, fraternal or athletic groups, or [...] medical care, and heating? Somewhat hard 02/05/2025 [facility] - Occupational Stress Questionnaire Answer Date [...] in the past 12 m [facility], were you homeless or living in a skilled nursing (including now)? No 02/05/2025 [facility] Utilities Answer Date Recorded In [...] AM CDT HEMOGLOBIN, A1C 06/23/2024 12:00 AM JOURNEYMAN POWER PLANT OPERATOR MAMMOGRAM BILATERAL GENERIC 01/17/2024 12:00 AM CDT HUMAN PAPILLOMA VIRUS (HPV) 09/29/2020 12:00 AM JOURNEYMAN POWER PLANT OPERATOR PATHOLOGY CYTOLOGY TELETYPIST 09/29/2020 12:00 AM JOURNEYMAN POWER PLANT OPERATOR from Last 3 Months or Most Recently Relevant to Health Maintenance Results * CMP (COMPREHENSIVE METABOLIC PANEL) (01/07/2025 12:00 AM CDT) 01/07/2025 us Provider Scan CHEMISTRY ORDERABLES Final Resul t Performing Organization Address City/[facility] Co de Phone Number SCAN * HM DILATED EYE EXAM (12/15/2024 12:00 AM CDT) 12/15/2024 us Provider Scan PROCEDURE/MINOR SURGICAL ORDERAB LES Final Result Performing Organization Address [facility] Co de Phone Number SCAN * HEMOGLOBIN, A1C (06/23/2024 12:00 AM JOURNEYMAN POWER PLANT OPERATOR) HGB-A1C 7.5 SCAN 06/23/2024 us Provider Scan CHEMISTRY ORDERABLES Final Resul t Performing Organization Address [facility] Co de Phone Number SCAN * MAMMOGRAM BILATERAL GENERIC (01/17/2024 12:00 AM CDT) 01/17/2024 us Provider Scan IMG MAMMO ORDERABLES Final Resul t Performing Organization Address [facility] Co de Phone Number SCAN * PATHOLOGY CYTOLOGY TELETYPIST (09/29/2020 12:00 AM JOURNEYMAN POWER PLANT OPERATOR) 09/29/2020 us Provider Scan PATHOLOGY/CYTOLOGY ORDERABLES Fi nal Result Performing Organization Address [facility] Co de Phone Number AP NON-INTERFACED REFERENCE LABORATORIES * HUMAN PAPILLOMA VIRUS (HPV) (09/29/2020 12:00 AM JOURNEYMAN POWER PLANT OPERATOR) 09/29/2020 us Provider Scan LAB SEND OUTS Final Result AP NON-INTERFACED REFERENCE LABORATORIES from Last 3 Months or Most Recently Relevant to Health Maintenance Insurance MEDICAID [employer] Care Teams Campus Recruiting Coordinator Relationship Specialty Start Date End Date Freda Medrano, BRIAN [address] [place] [address] PCP - General Physician Banquet Cook 02/05/25
[2025-05-22 10:32] LABS: Hemoglobin A1C 8.1 % (<5.7)
[2025-05-22 10:41] LABS: Alanine Aminotransferase 24 U/L (6-35); Albumin Level 4.6 g/dL (3.5-5.1); Alkaline Phosphatase 75 U/L (38-126); Anion Gap 11 mmol/L (4-12); Aspartate Amino Transferase 24 U/L (14-36); Bilirubin,Total 0.6 mg/dL (0.2-1.3); Blood Urea Nitrogen 14 mg/dL (7-17); Calcium 9.8 mg/dL (8.4-10.2); Carbon Dioxide 30 mmol/L (22-30); Chloride 101 mmol/L (98-107); Cholesterol 95 mg/dL (0-200); Estimated Glomerular Filt Rate > 60; Glucose 152 mg/dL (65-110); HDL Direct 45 mg/dL; Osmolality Calculated 297 mOsm/kg (285-295); Potassium 5.1 mmol/L (3.4-5.0); Sodium 142 mmol/L (137-145); Total Protein 8.3 g/dL (6.3-8.2); Triglycerides 166 mg/dL (<150)
[2025-05-22 10:59] LABS: Free T4 Free Thyroxine 0.84 ng/dL (0.78-2.19)
[2025-05-22 11:12] LABS: Thyroid Stimulating Hormone 2.150 uIU/mL (0.465-4.680)
[2025-05-22 11:48] LABS: Vitamin B12 < 159.0 pg/mL (239-931)
== END 2025-05-22 09:45 | disposition home or self-care (01) ==
LOC: CHSLAB 09:45
PROVIDERS: PCP Nurse Practitioner Family; Visit Provider Nurse Practitioner Family
DX: R53.83 Other fatigue (principal); E56.8 Deficiency of other vitamins; E11.9 Type 2 diabetes mellitus without complications
CPT/HCPCS: 36415; 80053; 80061; 82306; 82607; 82746; 83036; 84439; 84443; 85027

== ENCOUNTER 2025-06-14 09:56 | Emergency (ER) | payer OTHER, SELFPAY ==
[2025-06-14 10:00] VITALS: BP 147/72; PULSE 98; RESP 16; TEMP 36.1; O2SAT 98
--- OUTSIDE RECORDS SUMMARY | 2025-06-14 10:00 | XMS_ITS | Clinical Summary ---
Author Organization [facility] Address [address] [place] [address] Phone Care Team Providers Care Dance Teacher Name Role Phone Freda Medrano PAC Primary [...] How often do you attend [facility] or evangelical services? 1 to 4 times per year 02/05/2025 Do you belong to any clubs o r organizations such as sikhism groups, unions, fraternal or athletic groups, or [...] medical care, and heating? Somewhat hard 02/05/2025 [facility] - Occupational Stress Questionnaire Answer Date [...] any time in the past 12 m [facility], were you homeless or living in a residential (including now)? No 02/05/2025 [facility] Utilities Answer Date Recorded In the [...] AM CDT HEMOGLOBIN, A1C 06/23/2024 12:00 AM MARKETING SUMMER INTERN MAMMOGRAM BILATERAL GENERIC 01/17/2024 12:00 AM CDT HUMAN PAPILLOMA VIRUS (HPV) 09/29/2020 12:00 AM MARKETING SUMMER INTERN PATHOLOGY CYTOLOGY CATEGORY SPECIALIST 09/29/2020 12:00 AM MARKETING SUMMER INTERN from Last 3 Months or Most Recently Relevant to Health Maintenance Results * CMP (COMPREHENSIVE METABOLIC PANEL) (01/07/2025 12:00 AM CDT) 01/07/2025 us Provider Scan CHEMISTRY ORDERABLES Final Resul t Performing Organization Address City/[facility] Co de Phone Number SCAN * HM DILATED EYE EXAM (12/15/2024 12:00 AM CDT) 12/15/2024 us Provider Scan PROCEDURE/MINOR SURGICAL ORDERAB LES Final Result Performing Organization Address [facility] Co de Phone Number SCAN * HEMOGLOBIN, A1C (06/23/2024 12:00 AM MARKETING SUMMER INTERN) HGB-A1C 7.5 SCAN 06/23/2024 us Provider Scan CHEMISTRY ORDERABLES Final Resul t Performing Organization Address [facility] Co de Phone Number SCAN * MAMMOGRAM BILATERAL GENERIC (01/17/2024 12:00 AM CDT) 01/17/2024 us Provider Scan IMG MAMMO ORDERABLES Final Resul t Performing Organization Address [facility] Co de Phone Number SCAN * PATHOLOGY CYTOLOGY CATEGORY SPECIALIST (09/29/2020 12:00 AM MARKETING SUMMER INTERN) 09/29/2020 us Provider Scan PATHOLOGY/CYTOLOGY ORDERABLES Fi nal Result Performing Organization Address [facility] Co de Phone Number AP NON-INTERFACED REFERENCE LABORATORIES * HUMAN PAPILLOMA VIRUS (HPV) (09/29/2020 12:00 AM MARKETING SUMMER INTERN) 09/29/2020 us Provider Scan LAB SEND OUTS Final Result AP NON-INTERFACED REFERENCE LABORATORIES from Last 3 Months or Most Recently Relevant to Health Maintenance Insurance [employer] Care Teams Dance Teacher Relationship Specialty Start Date End Date Freda Medrano, BRIAN [address] [place] [address] PCP - General Physician Production Supervisor Trainee 02/05/25
--- OUTSIDE RECORDS SUMMARY | 2025-06-14 10:00 | XMS_ITS | Data Portability ---
Author Organization [facility] [place] Address [address] [place] [address] Care Team Providers Care Laser Operator Name Role Phone JEANA MAYERS Primary Care Provider [phone] Assessment Encounter Date Assessment Date Assessment LastModified by Organization Details LastModified Time 06/01/2025 06/01/2025 Annual gynecological exam performed. Patient will come back in a year unless there are new symptoms. [email or web address] Not available 06/01/2025 14:22:16 Plan of Treatment Reminders Order Date Submit Date Provider Last Modified By Organization Details Last Modified Time Details Appointments None recorded. Lab pap, IG + HR HPV - HPV regardless but if HPV is positive need subtyping 16,18/45 2024 025 [facility] (Lab), [address], [place], [address], 12:58:14 Referral None recorded. Procedures None recorded. Surgeries None recorded. Imaging None recorded. Medication Orders None recorded. Patient TargetsNo targets recorded. Patient InstructionsNo instructions recorded. Reason for Referral None Reported. Procedures Surgical History Date Name Laterality Status Provider Name and Address Organization Details Recorded Time 02/08/19 83 section completed [facility] 06/01/2025 14:33:09 04/09/19 81 section completed [facility] 06/01/2025 14:33:03 Cholecystectomy completed [facility] 06/01/2025 14:33:31 [facility] knee [facility] 14:33:58 Imaging Results None recorded. Procedure Notes None recorded. Medical Equipment None Reported. Allergies Allergen ID Allergen Name Allergen Category Reaction Reaction Severity Criticality Documentation Date Start Date Code Code System Note Provider Name and Address Organization Details Recorded Time 50648 Product containin g penicilli n (product) medicatio n Not available Not available Not available 06/01/2025 34249 8001 SNOMED [facility] 14:27:18 Medications Name Sig Start Date Stop Date Status Note LastModified by Organization Details LastModified Time metformin 500 mg tablet Take 1 tablet twice a day by oral route. active Not Available Not Available No t Available atorvastati n 10 mg tablet Take 1 tablet every day by oral route. active Not Available Not Available No t Available fluconazole 150 mg tablet Take 1 tablet by mouth, repeat in 72 hours in symptoms still present 2024 active Not Available Not Available Not Avai lable meclizine 25 mg tablet TAKE 1 TABLET BY MOUTH THREE TIMES DAILY 06/01 completed Not Available Not Available Not Available lisinopril 10 mg tablet Take 1 tablet every day by oral route. active Not Available Not Available No t Available azithromyci n 500 mg tablet TAKE 1 TABLET BY MOUTH ONCE DAILY FOR 5 DAYS. 06/01 completed Not Available Not Available Not Available hydrocodone 10 mg-acetamin ophen 300 mg tablet Take 1 tablet every 6 hours by oral route. active Not Available Not Available No t Available albuterol sulf 90 mcg/actuati on breath activated powder inhaler,sen sor Inhale 2 puffs every 4 hours by inhalatio n route. active Not Available Not Available No t Available Vitals Date Recorded Body height Body mass index (BMI) Body weight Systolic And Diastolic Provider Name and Address Organization Details Last Updated DateTime 06/01/2025 157.48 cm 30.4 kg/m2 55216.33 g 128/72 mm[Hg] Shelby Hannahney [facility] 06/01/2025 14:24:58 Social History Question Answer Notes LastModified by Organizat ion Details LastModified Time Tobacco Smoking Status Current Some Day Smoker Shelby blank [place] - [facility] 06/01/2025 14:32:37 In The 14 Days Before Symptom Onset, Have You Had Close Contact With A Laboratory-confirm ed COVID-19 While That Case Was Ill? No Information n ot available 06/01/2025 In The 14 Days Before Symptom Onset, Have You Had Close Contact With A Person Who Is Under Investigation For COVID-19 While That Person Was Ill? No [email or web address] Information not available 06/01/2025 Have You Been To An Area Known To Be High Risk For COVID-19? No [email or web address] Information not available 06/01/2025 How Much Tobacco Do You Smoke? 1 PPW [email or web address] Information not available 06/01/2025 Sex: Unknown Functional Status None recorded. Mental Status None recorded. Family History Relationship Description Onset Age of this Age Resolved Age Notes LastModified by Organization Details LastModified Time Father Malignant neoplasm of colon [email or web address] Not available 2024 14:32:12 Medical History Condition Response Diabetes Y Heart Disease Y Hypertension Y Asthma Y High Cholesterol Y Gynecological History Statement/Question Response Abnormal Pap N Date of Last Mammogram STIs/STDs N HPV Vaccine N Current Control Method Tubal Ligat ion If Post Menopausal, Age at Menopause 49 Date of Last Colonoscopy Most Recent Bone Density Sexually Active? Y Menses Monthly N Age of first menstrual cycle 11 Date of Last Pap Smear Sexual Problems? N Obstetrics History GPAL:G 2 P 2 0 0 2 Type Value Full Term 2 Living 2 Total 2 Past Encounters Encounter ID Performer Location Encounter Start Date Encounter Closed Date Diagnosis/Indication Diagnosis SNOMED-CT Code Diagnosis ICD10 Code Diagnosis IMO Codes Diagnosis Note [id number] MAUREEN Del Toro [place] [address] [address] 06/01/2025 13:59:28 06/01/2025 14:51:21 Gynecologic examination 84494491 Z01.630 [id number] WWEpostmen opausalPap - done todaySTI screen - declinedMa mmogram - Has scheduled this wk/PCPColo n cancer screening - UTDDexa - Scheduled 07/2025/PC PRoutine labs - UTD/PCPRTC in 1 yr or sooner if needed Do monthly self breast exams.It is advised to get annual flu shot in the fall and she could obtain at local pharmacy. If you haven't received the Tdap vaccine in the last 10 years you should obtain one as well.Have mammogram yearly, bone density every 2-3 years and stay up to date on colon cancer screening. Engage in regular exercise. Avoid tobacco and illicit drugs. This lifestyle behavior pattern will lead to less health conditions and longer life span. If BMI greater than 25 dietary consult advised.Qu estions have been answered. Health Concerns Section Related Observation LastModified by Organization Detai ls LastModified Time None Recorded Concern Status LastModified by Organization Details LastModified Time None Recorded Advance Directives Directive None Recorded Payers Insurance Date Sequence Insurance Name Policy Number Policy Padilla Covered Member ID Padilla Member ID Guarantor Name 05/29/2025 1 [facility] (MEDICAID REPLACEMENT - HMO) Dilia Jesse [id number] Dilia Molina Notes Date Note Type Note Provider Name and Address Organization Details Recorded Time 5 text/html Annual Instrument And Control Technician Post-MenopausalReported by PatientGenitourinary symptomsFor menopausal symptoms, patient reportsno menopausal symptomsandnormal vaginal lubrication. For vaginal bleeding, patient reportshistory of menopause having occurredandno history of post menopausal bleeding. For urinary symptoms, patient reportsno hematuria,no incontinence,no nocturia, andno urinary frequency. For vulva, patient reportsno genital lesionandno vulvar atrophy. For vagina, patient reportsnormal vaginal dischargeandno vaginal atrophy.Breast symptomsFor breast, patient reportsno breast lump,no nipple discharge, andno breast pain.Psychological symptomsFor sexual complaints, patient reportsno sexual complaints. For psychological symptoms, patient reportsno depressionandno anxiety.Preventative measuresFor preventive measures, patient reportsencourage regular mammograms starting age 40,encourage self breast examination,encourage regular exercise, andencourage no tobacco use.64yo wwepostmenopausal, denies PMBlast pap 2019, wnl per ptno h/o abnormal papsMammogram scheduled this wkDexa scheduled olonoscopy UTD 2023 Shelby blank [facility] 06/01/2025 17:54:05 OBGyn Episode Ob Episode Information Episode Created Date Number of Fetuses Patient Bloodtype Patient rh Status Prepregnancy Weight lbs Domestic Partner Domestic Partner Phone Father Name Audio Video Mechanic Status 06/01/20 25 1 CLOSED Fetus Data First Name Last Name Admitted to NICU Weight (g) Sex Living Outcome Pediatric Complications Fetus ID Race Codes Race Delivery Type F Full Term [id number] Primary Miguel A Calculation Initial Miguel A Date [...] Domestic Partner Domestic Partner Phone Father Name Audio Video Mechanic Status 06/01/20 1 CLOSED Fetus Data First Name Last Name Admitted to NICU Weight (g) Sex Living Outcome Pediatric Complications Fetus ID Race Codes Race Delivery Type M Full Term [id number] Repeat Miguel A Calculation Initial Miguel A Date [...]
--- OUTSIDE RECORDS SUMMARY | 2025-06-14 10:00 | XMS_ITS | Clinical Summary ---
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 Name Role Phone KHAI TOLBERT, HAYLIE Jhaveri Unavailable [phone] HERI SHANKS Primary Care Provider [phone] BARRY SANTA MD Unavailable [phone] Reason for Visit and Chief [...] On 2 2:25PM By CATHY DICK ; [facility] Pregabalin 75 MG Oral Capsule 07/05/2021 Provider: HAYLIE TOLBERT Diagnosis: One tablet at bed time Last Documented On 1 8:31AM By HAYLIE TOLBERT ; [facility] Gabapentin 300MG Oral Capsule 09/30/2018 Provider: HAYLIE TOLBERT Diagnosis: TAKE 1 CAPSULE BY MOUTH THREE TIMES DAILY Last Documented On 2 10:40AM By Leyda FELIPE ; [facility] Ventolin HFA 108 (90 Base)MCG/ACT Inhalation Aer osol, solution 12/20/2017 Provider: Diagnosis: Last Documented On 8 2:23PM By YONATHAN FELIPE ; [facility] Medications Administered Includes: Administered Medications from this encounter No Administered Medications Recorded Results Includes: Results discussed during this encounter No Results Recorded For Specified Dates History of Present Illness Includes: History of Present Illness from this encounter No History of Present Illness Recorded Social History Description Last Updated Current smoker 10/11/2020 Last Documented On 2 9:25AM ; [facility] Smoker 12/16/2019 Last Documented On 2 9:25AM ; [facility] Single 12/20/2017 Last Documented On 2 9:25AM ; [facility] Smoking status : Current everyday smoker 12/20/2017 Last Documented On 2 9:25AM ; [facility] Medical History Includes: Medical History addressed [...] Active Last Documented On 2 10:26AM ; [facility] Encounters Encounter Provider Location Date Check-In Time Check-Out Time Diagnosis * PHONE CALL HAYLIE ALMANZAR-CYNTHIA 11/10/2021 9:25AM 11:59PM Insurance Includes: Active Insurance Policies Plan Name Member ID Group # Subscriber Relationship Effect tawanna Dates 1 - [facility] [id number] RALEIGH BERMUDEZ Self Clinical Notes Includes: Clinical Notes from this encounter No Clinical Notes Recorded
--- OUTSIDE RECORDS SUMMARY | 2025-06-14 10:00 | XMS_ITS ---
Author Organization [facility] Address [address] [place] [address] Phone Care Team Providers Care Ink Technician Name Role Phone KHAI TOLBERT, HAYLIE Jhaveri Unavailable [phone] HERI SHANKS Primary Care Provider [phone] BARRY SANTA MD Unavailable [phone] Plan of Treatment Referrals To Diagnosis Pain Management [facility] - [address], [place] - Radiculopathy, lumbar region Note: consent for right L3-4 , L4-5 transforaminal epidural Last Documented On 8 2:06PM ; [facility] Pain Management [facility] - [address] [place] [address] - Radiculopathy, lumbar region Note: consent for right L3-4 , L4-5 transforaminal epiduralneeds a Sunday appt Last Documented On 9 11:44AM ; [facility] Pain Management [facility] - [address] [place] [address] - Radiculopathy, lumbar region Note: consent for right L3-4 , L4-5 transforaminal epidural Last Documented On 0 3:15PM ; [facility] Pain Management [facility] - [address] [place] [address] - Other spondylosis with radiculopathy, lumbar region Note: consent for right L3-4 , L4-5 transforaminal epidural Last Documented On 0 3:14PM ; [facility] Instructions to patient Intervention and counseling on cessation of tobacco use : Patient recieved smoking cessation handout Last Documented On 2 10:25AM ; [facility] Intervention and counseling on cessation of tobacco use : Patient recieved smoking cessation handout Last Documented On 1 2:00PM ; [facility] Intervention and counseling on cessation of tobacco use : Patient recieved smoking cessation handout Last Documented On 1 3:33PM ; [facility] Intervention and counseling on cessation of tobacco use : Patient recieved smoking cessation handout Last Documented On 1 11:43AM ; [facility] Intervention and counseling on cessation of tobacco use : Patient recieved smoking cessation handout Last Documented On 0 2:47PM ; [facility] Intervention and counseling on cessation of tobacco use : Patient recieved smoking cessation handout Last Documented On 0 1:48PM ; [facility] Intervention and counseling on cessation of tobacco use : Patient recieved smoking cessation handout Last Documented On 0 2:53PM ; [facility] Intervention and counseling on cessation of tobacco use : Patient recieved smoking cessation handout Last Documented On 0 4:07PM ; [facility] Intervention and counseling on cessation of tobacco use : Patient recieved smoking cessation handout Last Documented On 0 2:49PM ; [facility] Education and Decision Aids were provided during visit for: Pill Count: 20 Hydrocodone Last Documented On 2 10:39AM ; [facility] Pill Count: twelve Appropria te Last Documented On 1 2:01PM ; [facility] Pill Count: two Appropriate Last Documented On 1 3:33PM ; [facility] Pill Count: 89 Appropriate Last Documented On 1 11:17PM ; [facility] Pill Count: two Appropriate Last Documented On 1 11:56AM ; [facility] No Pill Count: two Appropria te Last Documented On 0 2:49PM ; [facility] Pill Count: two Appropriate Last Documented On 0 2:05PM ; [facility] Pill Count: Patient did not bring pain medication to appointment for pill count, per policy. Advised in order to continue to safely prescribe opioids, medication must be brought to each appointment Last Documented On 0 2:54PM ; [facility] Pill Count: eight Appropriat e PT COUNTED Last Documented On 0 4:32PM ; [facility] Pill Count: Patient did not bring pain medication to appointment for pill count, per policy. Advised in order to continue to safely prescribe opioids, medication must be brought to each appointment Last Documented On 0 4:09PM ; [facility] Pill Count: one Appropriate Last Documented On 0 10:15AM ; [facility] Pill Count: Patient did not bring pain medication to appointment for pill count, per policy. 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 PAIN M ANAGEMENT FOLLOW [facility]21 Last Documented On 2 1:24PM ; [facility] Lumbar spondylosis with radiculopathy PA IN MANAGEMENT FOLLOW UP with HAYLIE RIDLEY ANP-BC 08/15/2021 Last Documented On 2 1:24PM ; [facility] Lumbosacral spinal stenosis PAIN MANAGEM ENT FOLLOW UP with HAYLIE RIDLEY ANP-BC 08/15/2021 Last Documented On 2 1:24PM ; [facility] Myalgia PAIN MANAGEMENT FOLLOW UP with Azul ALMANZAR-BC 08/15/2021 Last Documented On 2 1:24PM ; [facility] Sacroiliitis PAIN MANAGEMENT FOLLOW UP with T CHIKIS HERNANDEZS [facility] 08/15/2021 Last Documented On 2 1:24PM ; [facility] Chronic pain syndrome PAIN MANAGEMENT FO LLOW UP with HAYLIE L KHAI [facility] 04/20/2021 Last Documented On 1 2:28PM ; [facility] 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 PAIN M ANAGEMENT FOLLOW UP with HAYLIE L KHAI [facility] 04/20/2021 Last Documented On 1 2:28PM ; [facility] Lumbar spondylosis with radiculopathy PA IN MANAGEMENT FOLLOW UP with HAYLIE L KHAI [facility] 04/20/2021 Last Documented On 1 2:28PM ; [facility] Lumbosacral spinal stenosis PAIN MANAGEM ENT FOLLOW UP with HAYLIE L KHAI [facility] 04/20/2021 Last Documented On 1 2:28PM ; [facility] Myalgia PAIN MANAGEMENT FOLLOW UP with T CHIKIS L KHAI [facility] 04/20/2021 Last Documented On 1 2:28PM ; [facility] Sacroiliitis PAIN MANAGEMENT FOLLOW UP with T CHIKIS L KHAI [facility] 04/20/2021 Last Documented On 1 2:28PM ; [facility] Chronic pain syndrome PAIN MANAGEMENT FO LLOW UP with HAYLIE L KHAI [facility] 02/17/2021 Last Documented On 1 4:37PM ; [facility] correction 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 PAIN M ANAGEMENT FOLLOW UP with HAYLIE L KHAI [facility] 02/17/2021 Last Documented On 1 4:37PM ; [facility] Lumbar spondylosis with radiculopathy PA IN MANAGEMENT FOLLOW UP with HAYLIE L KHAI [facility] 02/17/2021 Last Documented On 1 4:37PM ; [facility] Lumbosacral spinal stenosis PAIN MANAGEM ENT FOLLOW UP with HAYLIE L KHAI [facility] 02/17/2021 Last Documented On 1 4:37PM ; [facility] Myalgia PAIN MANAGEMENT FOLLOW UP with T CHIKIS L KHAI ANP-BC 02/17/2021 Last Documented On 1 4:37PM ; [facility] Sacroiliitis PAIN MANAGEMENT FOLLOW UP with T CHIKIS L KHAI ANP-BC 02/17/2021 Last Documented On 1 4:37PM ; [facility] Chronic pain syndrome FOLLOW UP with HAYLIE L BL EVINS ANP-BC 11/11/2020 Last Documented On 1 11:17PM ; [facility] 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 FOLLOW UP with HAYLIE L KHAI ANP-BC 11/11/2020 Last Documented On 1 11:17PM ; [facility] Lumbar spondylosis with radiculopathy FO LLOW UP with HAYLIE L KHAI ANP-BC 11/11/2020 Last Documented On 1 11:17PM ; [facility] Lumbosacral spinal stenosis FOLLOW UP with GERALD E L KHAI ANP-BC 11/11/2020 Last Documented On 1 11:17PM ; [facility] Myalgia FOLLOW UP with HAYLIE L KHAI ANP-BC 11/11/2020 Last Documented On 1 11:17PM ; [facility] Sacroiliitis FOLLOW UP with HAYLIE L KHAI ANP-BC 11/11/2020 Last Documented On 1 11:17PM ; [facility] Chronic pain syndrome TELEHEALTH with HAYLIE L B LEXIE ANP-BC 10/11/2020 Last Documented On 1 11:58AM ; [facility] correction 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 TELEHEALTH wit h HAYLIE L KHAI ANP-BC 10/11/2020 Last Documented On 1 11:58AM ; [facility] Lumbar spondylosis with radiculopathy TE LEHEALTH with HAYLIE L KHAI ANP-BC 10/11/2020 Last Documented On 1 11:58AM ; [facility] Lumbosacral spinal stenosis TELEHEALTH with TAMM IE L KHAI ANP-BC 10/11/2020 Last Documented On 1 11:58AM ; [facility] Myalgia TELEHEALTH with HAYLIE Shakila HERNANDEZS [facility] 10/11/2020 Last Documented On 1 11:58AM ; [facility] Oriented to time, place, and person TELE HEALTH with HAYLIE Shakila BATISTAKHAI [facility] 10/11/2020 Last Documented On 1 11:58AM ; [facility] Sacroiliitis TELEHEALTH with HAYLIE Shakila HERNANDEZS [facility] 10/11/2020 Last Documented On 1 11:58AM ; [facility] Chronic pain syndrome PAIN MANAGEMENT FO LLOW UP with HAYLIE L KHAI [facility] 07/13/2020 Last Documented On 0 1:09PM ; [facility] 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 PAIN M ANAGEMENT FOLLOW UP with HAYLIE L KHAI [facility] 07/13/2020 Last Documented On 0 1:09PM ; [facility] Lumbar spondylosis with radiculopathy PA IN MANAGEMENT FOLLOW UP with HAYLIE L KHAI [facility] 07/13/2020 Last Documented On 0 1:09PM ; [facility] Lumbosacral spinal stenosis PAIN MANAGEM ENT FOLLOW UP with HAYLIE L KHAI [facility] 07/13/2020 Last Documented On 0 1:09PM ; [facility] Myalgia PAIN MANAGEMENT FOLLOW UP with T CHIKIS L KHAI [facility] 07/13/2020 Last Documented On 0 1:09PM ; [facility] Sacroiliitis PAIN MANAGEMENT FOLLOW UP with T CHIKIS L KHAI [facility] 07/13/2020 Last Documented On 0 1:09PM ; [facility] Chronic pain syndrome PAIN MANAGEMENT FO LLOW UP with HAYLIE L KHAI [facility] 04/14/2020 Last Documented On 0 2:09PM ; [facility] 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 PAIN M ANAGEMENT FOLLOW UP with HAYLIE L KHAI [facility] 04/14/2020 Last Documented On 0 2:09PM ; [facility] Lumbar spondylosis with radiculopathy PA IN MANAGEMENT FOLLOW UP with HAYLIE Shakila BATISTAKHAI [facility] 04/14/2020 Last Documented On 0 2:09PM ; [facility] Lumbosacral spinal stenosis PAIN MANAGEM ENT FOLLOW UP with HAYLIE Shakila BATISTAKHAI [facility] 04/14/2020 Last Documented On 0 2:09PM ; [facility] Myalgia PAIN MANAGEMENT FOLLOW UP with T CHIKIS L KHAI [facility] 04/14/2020 Last Documented On 0 2:09PM ; [facility] Sacroiliitis PAIN MANAGEMENT FOLLOW UP with T CHIKIS L KHAI [facility] 04/14/2020 Last Documented On 0 2:09PM ; [facility] Chronic pain syndrome PAIN MANAGEMENT FO LLOW UP with HAYLIE Shakila KHAI [facility] 03/15/2020 Last Documented On 0 3:12PM ; [facility] correction 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 PAIN M ANAGEMENT FOLLOW UP with HAYLIE Shakila KHAI [facility] 03/15/2020 Last Documented On 0 3:12PM ; [facility] Lumbar spondylosis with radiculopathy PA IN MANAGEMENT FOLLOW UP with HAYLIE Shakila BATIST[place]HAI [facility] 03/15/2020 Last Documented On 0 3:12PM ; [facility] Lumbosacral spinal stenosis PAIN MANAGEM ENT FOLLOW UP with HAYLIE Shakila BATISTAKHAI [facility] 03/15/2020 Last Documented On 0 3:12PM ; [facility] Myalgia PAIN MANAGEMENT FOLLOW UP with T CHIKIS L KHAI [facility] 03/15/2020 Last Documented On 0 3:12PM ; [facility] Sacroiliitis PAIN MANAGEMENT FOLLOW UP with T CHIKIS L KHAI [facility] 03/15/2020 Last Documented On 0 3:12PM ; [facility] Chronic pain syndrome TELEHEALTH with HAYLIEABBY OWEN [facility] 02/12/2020 Last Documented On 0 4:34PM ; [facility] 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 TELEHEALTH wit h HAYLIE Shakila HERNANDEZS [facility] 02/12/2020 Last Documented On 0 4:34PM ; [facility] Lumbar spondylosis with radiculopathy TE LEHEALTH with HAYLIE L KHAI [facility] 02/12/2020 Last Documented On 0 4:34PM ; [facility] Lumbosacral spinal stenosis TELEHEALTH with TAMTaylor IE Shakila KHAI [facility] 02/12/2020 Last Documented On 0 4:34PM ; [facility] Myalgia TELEHEALTH with HAYLIE L KHAI [facility] 02/12/2020 Last Documented On 0 4:34PM ; [facility] Oriented to time, place, and person TELE HEALTH with HAYLIE L KHAI [facility] 02/12/2020 Last Documented On 0 4:34PM ; [facility] Sacroiliitis TELEHEALTH with HAYLIE L KHAI [facility] 02/12/2020 Last Documented On 0 4:34PM ; [facility] Chronic pain syndrome PAIN MANAGEMENT FO LLOW UP with HAYLIE L KHAI [facility] 01/13/2020 Last Documented On 0 4:36PM ; [facility] correction 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 PAIN M ANAGEMENT FOLLOW UP with HAYLIE L KHAI [facility] 01/13/2020 Last Documented On 0 4:36PM ; [facility] Lumbar spondylosis with radiculopathy PA IN MANAGEMENT FOLLOW UP with HAYLIE L KHAI [facility] 01/13/2020 Last Documented On 0 4:36PM ; [facility] Lumbosacral spinal stenosis PAIN MANAGEM ENT FOLLOW UP with HAYLIE L KHAI [facility] 01/13/2020 Last Documented On 0 4:36PM ; [facility] Myalgia PAIN MANAGEMENT FOLLOW UP with T CHIKIS L KHAI [facility] 01/13/2020 Last Documented On 0 4:36PM ; [facility] Sacroiliitis PAIN MANAGEMENT FOLLOW UP with T CHIKIS L KHAI [facility] 01/13/2020 Last Documented On 0 4:36PM ; [facility] Chronic pain syndrome TELEHEALTH with HAYLIE L B LEXIE [facility] 12/16/2019 Last Documented On 0 10:17AM ; [facility] correction 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 TELEHEALTH wit h HAYLIE L KHAI [facility] 12/16/2019 Last Documented On 0 10:17AM ; [facility] Lumbar spondylosis with radiculopathy TE LEHEALTH with HAYLIE L KHAI [facility] 12/16/2019 Last Documented On 0 10:17AM ; [facility] Lumbosacral spinal stenosis TELEHEALTH with TAMM IE L KHAI [facility] 12/16/2019 Last Documented On 0 10:17AM ; [facility] Myalgia TELEHEALTH with HAYLIE L KHAI [facility] 12/16/2019 Last Documented On 0 10:17AM ; [facility] Sacroiliitis TELEHEALTH with HAYLIE L KHAI [facility] 12/16/2019 Last Documented On 0 10:17AM ; [facility] Chronic pain syndrome PAIN MANAGEMENT FO LLOW UP with HAYLIE L KHAI [facility] 10/16/2019 Last Documented On 0 4:36PM ; [facility] 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 PAIN M ANAGEMENT FOLLOW UP with HAYLIE L KHAI [facility] 10/16/2019 Last Documented On 0 4:36PM ; [facility] Lumbar spondylosis with radiculopathy PA IN MANAGEMENT FOLLOW UP with HAYLIE L KHAI [facility] 10/16/2019 Last Documented On 0 4:36PM ; [facility] Lumbosacral spinal stenosis PAIN MANAGEM ENT FOLLOW UP with HAYLIE L KHAI [facility] 10/16/2019 Last Documented On 0 4:36PM ; [facility] Myalgia PAIN MANAGEMENT FOLLOW UP with T CHIKIS L KHAI [facility] 10/16/2019 Last Documented On 0 4:36PM ; [facility] Sacroiliitis PAIN MANAGEMENT FOLLOW UP with T CHIKIS L KHAI [facility] 10/16/2019 Last Documented On 0 4:36PM ; [facility] Lumbar radiculopathy PAIN MANAGEMENT FOL LOW UP with HAYLIE L KHAI ANP-BC 09/01/2019 Last Documented On 0 11:04AM ; [facility] Lumbar spondylosis with radiculopathy PA IN MANAGEMENT FOLLOW UP with HAYLIE L KHAI ANP-BC 09/01/2019 Last Documented On 0 11:04AM ; [facility] Lumbosacral spinal stenosis PAIN MANAGEM ENT FOLLOW UP with HAYLIE L KHAI ANP-BC 09/01/2019 Last Documented On 0 11:04AM ; [facility] Myalgia PAIN MANAGEMENT FOLLOW UP with T CHIKSI L KHAI ANP-BC 09/01/2019 Last Documented On 0 11:04AM ; [facility] Sacroiliitis PAIN MANAGEMENT FOLLOW UP with T CHIKIS L KHAI ANP-BC 09/01/2019 Last Documented On 0 11:04AM ; [facility] Lumbar radiculopathy PAIN MANAGEMENT FOL LOW UP with HAYLIE L KHAI ANP-BC 11/14/2018 Last Documented On 9 11:16AM ; [facility] Lumbar spondylosis with radiculopathy PA IN MANAGEMENT FOLLOW UP with HAYLIE L KHAI ANP-BC 11/14/2018 Last Documented On 9 11:16AM ; [facility] Lumbosacral spinal stenosis PAIN MANAGEM ENT FOLLOW UP with HAYLIE L KHAI ANP-BC 11/14/2018 Last Documented On 9 11:16AM ; [facility] Myalgia PAIN MANAGEMENT FOLLOW UP with T CHIKIS L KHAI ANP-BC 11/14/2018 Last Documented On 9 11:16AM ; [facility] Sacroiliitis PAIN MANAGEMENT FOLLOW UP with T CHIKIS L KHAI ANP-BC 11/14/2018 Last Documented On 9 11:16AM ; [facility] Lumbar radiculopathy PAIN MANAGEMENT FOL LOW UP with HAYLIE L KHAI ANP-BC 10/09/2018 Last Documented On 9 11:17AM ; [facility] Lumbar spondylosis with radiculopathy PA IN MANAGEMENT FOLLOW UP with HAYLIE L KHAI ANP-BC 10/09/2018 Last Documented On 9 11:17AM ; [facility] Lumbosacral spinal stenosis PAIN MANAGEM ENT FOLLOW UP with HAYLIE L KHAI ANP-BC 10/09/2018 Last Documented On 9 11:17AM ; [facility] Myalgia PAIN MANAGEMENT FOLLOW UP with T CHIKIS L KHAI ANP-BC 10/09/2018 Last Documented On 9 11:17AM ; [facility] Sacroiliitis PAIN MANAGEMENT FOLLOW UP with T CHIKIS L KHAI ANP-BC 10/09/2018 Last Documented On 9 11:17AM ; [facility] Lumbar radiculopathy PAIN MANAGEMENT FOL LOW UP with HAYLIE L KHAI ANP-BC 09/11/2018 Last Documented On 9 2:12PM ; [facility] Lumbar spondylosis with radiculopathy PA IN MANAGEMENT FOLLOW UP with HAYLIE L KHAI ANP-BC 09/11/2018 Last Documented On 9 2:12PM ; [facility] Lumbosacral spinal stenosis PAIN MANAGEM ENT FOLLOW UP with HAYLIE L KHAI ANP-BC 09/11/2018 Last Documented On 9 2:12PM ; [facility] Myalgia PAIN MANAGEMENT FOLLOW UP with T CHIKIS L KHAI ANP-BC 09/11/2018 Last Documented On 9 2:12PM ; [facility] Sacroiliitis PAIN MANAGEMENT FOLLOW UP with T CHIKIS L KHAI ANP-BC 09/11/2018 Last Documented On 9 2:12PM ; [facility] Lumbar radiculopathy PAIN MANAGEMENT FOL LOW UP with HAYLIE L KHAI ANP-BC 07/09/2018 Last Documented On 8 11:25AM ; [facility] Lumbar spondylosis with radiculopathy PA IN MANAGEMENT FOLLOW UP with HAYLIE L KHAI ANP-BC 07/09/2018 Last Documented On 8 11:25AM ; [facility] Lumbosacral spinal stenosis PAIN MANAGEM ENT FOLLOW UP with HAYLIE L KHAI ANP-BC 07/09/2018 Last Documented On 8 11:25AM ; [facility] Myalgia PAIN MANAGEMENT FOLLOW UP with T CHIKIS L KHAI ANP-BC 07/09/2018 Last Documented On 8 11:25AM ; [facility] Sacroiliitis PAIN MANAGEMENT FOLLOW UP with T CHIKIS L KHAI ANP-BC 07/09/2018 Last Documented On 8 11:25AM ; [facility] Lumbar radiculopathy PAIN MANAGEMENT FOL LOW UP with HAYLIE L KHAI ANP-BC 04/16/2018 Last Documented On 8 1:50PM ; [facility] Lumbar spondylosis with radiculopathy PA IN MANAGEMENT FOLLOW UP with HAYLIE L KHAI ANP-BC 04/16/2018 Last Documented On 8 1:50PM ; [facility] Lumbosacral spinal stenosis PAIN MANAGEM ENT FOLLOW UP with HAYLIE L KHAI ANP-BC 04/16/2018 Last Documented On 8 1:50PM ; [facility] Myalgia PAIN MANAGEMENT FOLLOW UP with T CHIKIS L KHAI ANP-BC 04/16/2018 Last Documented On 8 1:50PM ; [facility] Sacroiliitis PAIN MANAGEMENT FOLLOW UP with T CHIKIS L KHAI ANP-BC 04/16/2018 Last Documented On 8 1:50PM ; [facility] Lumbar radiculopathy PAIN MANAGEMENT FOL LOW UP with HAYLIE L KHAI ANP-BC 03/05/2018 Last Documented On 8 11:21AM ; [facility] Lumbar spondylosis with radiculopathy PA IN MANAGEMENT FOLLOW UP with HAYLIE L KHAI ANP-BC 03/05/2018 Last Documented On 8 11:21AM ; [facility] Lumbosacral spinal stenosis PAIN MANAGEM ENT FOLLOW UP with HAYLIE L KHAI ANP-BC 03/05/2018 Last Documented On 8 11:21AM ; [facility] Myalgia PAIN MANAGEMENT FOLLOW UP with T CHIKIS L KHAI ANP-BC 03/05/2018 Last Documented On 8 11:21AM ; [facility] Sacroiliitis PAIN MANAGEMENT FOLLOW UP with T CHIKIS L KHAI ANP-BC 03/05/2018 Last Documented On 8 11:21AM ; [facility] Lumbar radiculopathy PAIN MANAGEMENT FOL LOW UP with HAYLIE L KHAI ANP-BC 01/22/2018 Last Documented On 8 4:46PM ; [facility] Lumbar spondylosis with radiculopathy PA IN MANAGEMENT FOLLOW UP with HAYLIE L KHAI ANP-BC 01/22/2018 Last Documented On 8 4:46PM ; [facility] Lumbosacral spinal stenosis PAIN MANAGEM ENT FOLLOW UP with HAYLIE L KHAI ANP-BC 01/22/2018 Last Documented On 8 4:46PM ; [facility] Myalgia PAIN MANAGEMENT FOLLOW UP with T CHIKIS L KHAI ANP-BC 01/22/2018 Last Documented On 8 4:46PM ; [facility] Sacroiliitis PAIN MANAGEMENT FOLLOW UP with T CHIKIS L KHAI ANP-BC 01/22/2018 Last Documented On 8 4:46PM ; [facility] Lumbar radiculopathy PAIN MANAGEMENT NEW CONSULT with HAYLIE L KHAI ANP-BC 12/20/2017 Last Documented On 8 1:05PM ; [facility] Lumbar spondylosis with radiculopathy PA IN MANAGEMENT NEW CONSULT with HAYLIE L KHAI ANP-BC 12/20/2017 Last Documented On 8 1:05PM ; [facility] Lumbosacral spinal stenosis PAIN MANAGEM ENT NEW CONSULT with HAYLIE L KHAI ANP-BC 12/20/2017 Last Documented On 8 1:05PM ; [facility] Myalgia PAIN MANAGEMENT NEW CONSULT with HAYLIE L KHAI ANP-BC 12/20/2017 Last Documented On 8 1:05PM ; [facility] Sacroiliitis PAIN MANAGEMENT NEW CONSULT with HAYLIE L KHAI ANP-CYNTHIA 12/20/2017 Last Documented On 8 1:05PM ; [facility] Instructions Includes: Instructions for all patient encounters Instructions to patient Intervention and counseling on cessation of tobacco use : Patient recieved smoking cessation handout Last Documented On 2 10:25AM ; [facility] Intervention and counseling on cessation of tobacco use : Patient recieved smoking cessation handout Last Documented On 1 2:00PM ; [facility] Intervention and counseling on cessation of tobacco use : Patient recieved smoking cessation handout Last Documented On 1 3:33PM ; [facility] Intervention and counseling on cessation of tobacco use : Patient recieved smoking cessation handout Last Documented On 1 11:43AM ; [facility] Intervention and counseling on cessation of tobacco use : Patient recieved smoking cessation handout Last Documented On 0 2:47PM ; [facility] Intervention and counseling on cessation of tobacco use : Patient recieved smoking cessation handout Last Documented On 0 1:48PM ; [facility] Intervention and counseling on cessation of tobacco use : Patient recieved smoking cessation handout Last Documented On 0 2:53PM ; [facility] Intervention and counseling on cessation of tobacco use : Patient recieved smoking cessation handout Last Documented On 0 4:07PM ; [facility] Intervention and counseling on cessation of tobacco use : Patient recieved smoking cessation handout Last Documented On 0 2:49PM ; [facility] Education and Decision Aids were provided during visit for: Pill Count: 20 Hydrocodone Last Documented On 2 10:39AM ; [facility] Pill Count: twelve Appropria te Last Documented On 1 2:01PM ; [facility] Pill Count: two Appropriate Last Documented On 1 3:33PM ; [facility] Pill Count: 89 Appropriate Last Documented On 1 11:17PM ; [facility] Pill Count: two Appropriate Last Documented On 1 11:56AM ; [facility] No Pill Count: two Appropria te Last Documented On 0 2:49PM ; [facility] Pill Count: two Appropriate Last Documented On 0 2:05PM ; [facility] Pill Count: Patient did not bring pain medication to appointment for pill count, per policy. Advised in order to continue to safely prescribe opioids, medication must be brought to each appointment Last Documented On 0 2:54PM ; [facility] Pill Count: eight Appropriat e PT COUNTED Last Documented On 0 4:32PM ; [facility] Pill Count: Patient did not bring pain medication to appointment for pill count, per policy. Advised in order to continue to safely prescribe opioids, medication must be brought to each appointment Last Documented On 0 4:09PM ; [facility] Pill Count: one Appropriate Last Documented On 0 10:15AM ; [facility] Pill Count: Patient did not bring pain medication to appointment for pill count, per policy. Advised in order to continue to safely prescribe opioids, medication must be brought to each appointment Last Documented On 0 4:11PM ; [facility] Medical Equipment - Implanted Devices Includes: Current and historical Devices No Medical Equipment Recorded Medications Includes: Current and historical Medications Current Medications (continue as prescribed) HYDROcodone-Acetaminophen 7. 5-325 MG Oral Tablet 10/21/2021 Provider: CATHY GUDINO APRN-MARY GRACE, [employer]-BC Diagnosis: Other spondylosi s with radiculopathy, lumbar region 1 po TID prn Last Documented On 2 2:25PM By CATHY MAHARAJP-BC ; [facility] Pregabalin 75 MG Oral Capsule 07/05/2021 Provider: HAYLIE RIDLEY ANP-BC Diagnosis: One tablet at bed time Last Documented On 1 8:31AM By HAYLIE ALMANZAR-BC ; [facility] Gabapentin 300MG Oral Capsule 09/30/2018 Provider: HAYLIE RIDLEY ANP-BC Diagnosis: TAKE 1 CAPSULE BY MOUTH THREE TIMES DAILY Last Documented On 2 10:40AM By Leyda Aj Alec ; [facility] Ventolin HFA 108 (90 Base)MCG/ACT Inhalation Aer osol, solution 12/20/2017 Provider: Diagnosis: Last Documented On 8 2:23PM By YONATHAN FELIPE ; [facility] Past Medications on file HYDROcodone-Acetaminophen 7. 5-325 MG Oral Tablet 09/19/2021 - 10/21/2021 Provider: HAYLIE TOLBERT Diagnosis: Other spondylosi s with radiculopathy, lumbar region 1 po TID prn Last Documented On 2 2:16PM By CATHY MAHARAJP-BC ; [facility] HYDROcodone-Acetaminophen 7. 5-325 MG Oral Tablet 08/15/2021 - 09/19/2021 Provider: HAYLIE TOLBERT Diagnosis: Other spondylosi s with radiculopathy, lumbar region 1 po TID prn Last Documented On 2 12:03PM By HAYLIE TOLBERT ; [facility] HYDROcodone-Acetaminophen 7. 5-325 MG Oral Tablet 07/21/2021 - 08/15/2021 Provider: HAYLIE TOLBERT Diagnosis: 1 po TID prn Last Documented On 2 11:01AM By HAYLIE TOLBERT ; [facility] Pregabalin 75 MG Oral Capsule 07/04/2021 - 07/05/2021 Provider: HAYLIE TOLBERT Diagnosis: TAKE ONE CAPSULE BY MOUTH AT BEDTIME Last Documented On 1 8:22AM By HAYLIE TOLBERT ; [facility] HYDROcodone-Acetaminophen 7. 5-325 MG Oral Tablet 06/20/2021 - 07/20/2021 Provider: HAYLIE TOLBERT Diagnosis: 1 po TID prn1/17 Last Documented On 1 2:03PM By HAYLIE TOLBERT ; [facility] HYDROcodone-Acetaminophen 7. 5-325 MG Oral Tablet 05/23/2021 - 06/20/2021 Provider: HAYLIE TOLBERT Diagnosis: Other spondylosis, lumbar region 1 po TID prn9/20 Last Documented On 1 1:49PM By HAYLIE TOLBERT ; [facility] HYDROcodone-Acetaminophen 7. 5-325 MG Oral Tablet 04/20/2021 - 05/19/2021 Provider: HAYLIE TOLBERT Diagnosis: 1 po TID pr Last Documented On 1 8:22AM By HAYLIE TOLBERT ; [facility] HYDROcodone-Acetaminophen 7. 5-325 MG Oral Tablet 03/24/2021 - 04/20/2021 Provider: HAYLIE TOLBERT Diagnosis: Radiculopathy, lumbar region 1 po TID prnfill 03/26 Last Documented On 1 2:28PM By HAYLIE TOLBERT ; [facility] HYDROcodone-Acetaminophen 7. 5-325 MG Oral Tablet 03/23/2021 - 03/24/2021 Provider: HAYLIE TOLBERT Diagnosis: 1 po TID prnfill 03/26 Last Documented On 1 4:18PM By HAYLIE TOLBERT ; [facility] HYDROcodone-Acetaminophen 7. 5-325 MG Oral Tablet 02/22/2021 - 03/23/2021 Provider: HAYLIE TOLBERT Diagnosis: Other spondylosi s with radiculopathy, lumbar region 1 po TID prnfill 02/24 Last Documented On 1 1:14PM By HAYLIE TOLBERT ; [facility] HYDROcodone-Acetaminophen 7. 5-325 MG Oral Tablet 02/17/2021 - 02/22/2021 Provider: HAYLIE TOLBERT Diagnosis: 1 po TID prnfill 02/10 Last Documented On 1 9:48AM By HAYLIE TOLBERT ; [facility] Pregabalin 75 MG Oral Capsule 02/17/2021 - 07/04/2021 Provider: HAYLIE TOLBERT Diagnosis: TAKE ONE CAPSULE BY MOUTH AT BEDTIME Last Documented On 1 2:28PM By HAYLIE TOLBERT ; [facility] Pregabalin 75 MG Oral Capsule 02/08/2021 - 02/17/2021 Provider: HAYLIE TOLBERT Diagnosis: Other spondylosi s with radiculopathy, lumbar region TAKE ONE CAPSULE BY MOUTH AT BEDTIME Last Documented On 1 3:49PM By HAYLIE TOLBERT ; [facility] HYDROcodone-Acetaminophen 7. 5-325 MG Oral Tablet 02/08/2021 - 02/17/2021 Provider: HAYLIE TOLBERT Diagnosis: 1 po TID prnfill 02/10 Last Documented On 1 3:50PM By HAYLIE TOLBERT ; [facility] HYDROcodone-Acetaminophen 7. 5-325 MG Oral Tablet 01/06/2021 - 02/08/2021 Provider: HAYLIE TOLBERT Diagnosis: Other spondylosi s with radiculopathy, lumbar region 1 po TID prn Last Documented On 1 1:08PM By HAYLIE TOLBERT ; [facility] Pregabalin 75 MG Oral Capsule 12/14/2020 - 02/08/2021 Provider: HAYLIE TOLBERT Diagnosis: Other spondylosi s with radiculopathy, lumbar region TAKE ONE CAPSULE BY MOUTH AT BEDTIME Last Documented On 1 1:35PM By HAYLIE TOLBERT ; [facility] HYDROcodone-Acetaminophen 7. 5-325 MG Oral Tablet 12/07/2020 - 01/06/2021 Provider: HAYLIE TOLBERT Diagnosis: Other spondylosi s with radiculopathy, lumbar region 1 po TID prn Last Documented On 1 2:18PM By HAYLIE TOLBERT ; [facility] HYDROcodone-Acetaminophen 7. 5-325 MG Oral Tablet 11/11/2020 - 12/07/2020 Provider: HAYLIE TOLBERT Diagnosis: Other spondylosi s with radiculopathy, lumbar region 1 po TID prn Last Documented On 1 2:02PM By HAYLIE TOLBERT ; [facility] HYDROcodone-Acetaminophen 7. 5-325 MG Oral Tablet 10/11/2020 - 11/09/2020 Provider: HAYLIE TOLBERT Diagnosis: Other spondylosi s with radiculopathy, lumbar region 1 po TID prn Last Documented On 1 8:17AM By HAYLIE TOLBERT ; [facility] Pregabalin 75 MG Oral Capsule 09/15/2020 - 12/14/2020 Provider: HAYLIE TOLBERT Diagnosis: Other spondylosi s with radiculopathy, lumbar region One tablet at bed time Last Documented On 1 10:23AM By HAYLIE TOLBERT ; [facility] HYDROcodone-Acetaminophen 7. 5-325 MG Oral Tablet 09/09/2020 - 10/11/2020 Provider: HAYLIE TOLBERT Diagnosis: Other spondylosi s with radiculopathy, lumbar region 1 po TID prnto fill 09/11/20 Last Documented On 1 11:57AM By HAYLIE TOLBERT ; [facility] HYDROcodone-Acetaminophen 7. 5-325 MG Oral Tablet 08/12/2020 - 09/09/2020 Provider: HAYLIE TOLBERT Diagnosis: Other spondylosi s with radiculopathy, lumbar region 1 po TID prnfill when due Last Documented On 1 2:27PM By HAYLIE TOLBERT ; [facility] HYDROcodone-Acetaminophen 7. 5-325 MG Oral Tablet 07/14/2020 - 08/12/2020 Provider: HAYLIE TOLBERT Diagnosis: Other spondylosi s with radiculopathy, lumbar region 1 po TID prnfill when due Last Documented On 1 12:21PM By HAYLIE TOLBERT ; [facility] Pregabalin 75 MG Oral Capsule 06/15/2020 - 09/14/2020 Provider: HAYLIE TOLBERT Diagnosis: Other spondylosi s with radiculopathy, lumbar region One tablet at bed time Last Documented On 1 1:41PM By HAYLIE TOLBERT ; [facility] HYDROcodone-Acetaminophen 7. 5-325 MG Oral Tablet 06/11/2020 - 07/13/2020 Provider: HAYLIE TOLBERT Diagnosis: Other spondylosi s with radiculopathy, lumbar region 1 po TID prnfill when due Last Documented On 0 1:08PM By HAYLEI TOLBERT ; [facility] HYDROcodone-Acetaminophen 7. 5-325 MG Oral Tablet 05/13/2020 - 06/11/2020 Provider: HAYLIE TOLBERT Diagnosis: Other spondylosi s with radiculopathy, lumbar region 1 po TID prnfill when due Last Documented On 0 1:00PM By HAYLIE TOLBERT ; [facility] HYDROcodone-Acetaminophen 7. 5-325 MG Oral Tablet 04/14/2020 - 05/13/2020 Provider: HAYLIE TOLBERT Diagnosis: Other spondylosi s with radiculopathy, lumbar region 1 po TID prn Last Documented On 0 11:59AM By HAYLIE TOLBERT ; [facility] Lyrica 75 MG Oral Capsule 03/15/2020 - 06/15/2020 Provider: HAYLIE TOLBERT Diagnosis: Other spondylosi s with radiculopathy, lumbar region One tablet at bed time Last Documented On 0 9:37AM By HAYLIE TOLBERT ; [facility] HYDROcodone-Acetaminophen 7. 5-325 MG Oral Tablet 03/15/2020 - 04/14/2020 Provider: HAYLIE TOLBERT Diagnosis: Other spondylosi s with radiculopathy, lumbar region 1 po TID prn Last Documented On 0 2:08PM By HAYLIE TOLBERT ; [facility] HYDROcodone-Acetaminophen 7. 5-325 MG Oral Tablet 02/12/2020 - 03/15/2020 Provider: HAYLIE TOLBERT Diagnosis: Other spondylosi s with radiculopathy, lumbar region 1 po TID prnto fill 02/14/20 Last Documented On 0 3:11PM By HAYLIE TOLBERT ; [facility] HYDROcodone-Acetaminophen 7. 5-325 MG Oral Tablet 01/13/2020 - 02/12/2020 Provider: HAYLIE TOLBERT Diagnosis: Other spondylosi s with radiculopathy, lumbar region 1 po TID prnto fill 01/16/20 Last Documented On 0 4:34PM By HAYLIE TOLBERT ; [facility] Lyrica 75 MG Oral Capsule 01/13/2020 - 03/15/2020 Provider: HAYLIE TOLBERT Diagnosis: Chronic pain syn drome 1 po qhs x 7 days then BID Last Documented On 0 3:11PM By HAYLIE TOLBERT ; [facility] HYDROcodone-Acetaminophen 7. 5-325 MG Oral Tablet 12/17/2019 - 01/13/2020 Provider: HAYLIE TOLBERT Diagnosis: Other spondylosi s with radiculopathy, lumbar region 1 po TID prn Last Documented On 0 4:26PM By HAYLIE TOLBERT ; [facility] HYDROcodone-Acetaminophen 7. 5-325 MG Oral Tablet 11/13/2019 - 12/16/2019 Provider: HAYLIE TOLBERT Diagnosis: Other spondylosi s with radiculopathy, lumbar region 1 po TID prnto fill 11/14/19 Last Documented On 0 10:16AM By HAYLIE TOLBERT ; [facility] HYDROcodone-Acetaminophen 7. 5-325 MG Oral Tablet 10/16/2019 - 11/13/2019 Provider: HAYLIE TOLBERT Diagnosis: Other spondylosi s with radiculopathy, lumbar region 1 po TID prn Last Documented On 0 4:16PM By HAYLIE TOLBERT ; [facility] HYDROcodone-Acetaminophen 7. 5-325 MG Oral Tablet 10/01/2019 - 10/16/2019 Provider: HAYLIE TOLBERT Diagnosis: Low back pain 1 po TID prn Last Documented On 0 4:35PM By HAYLIE TOLBERT ; [facility] HYDROcodone-Acetaminophen 7. 5-325 MG Oral Tablet 09/17/2019 - 10/01/2019 Provider: HAYLIE ESPITIABC Diagnosis: Low back pain 1 po TID prn Last Documented On 0 12:27PM By HAYLIE ALMANZAR-BC ; [facility] HYDROcodone-Acetaminophen 7.5-325MG Oral Tablet 11/20/2018 - 09/01/2019 Provider: HAYLIE RIDLEY ANP- Diagnosis: Chronic pain syndrome 1 po q 8 hours prn/ max 2 per day Last Documented On 0 2:48PM By Concepcion Cross Alec ; [facility] Lyrica 150MG Oral Capsule, conventional 11/14/2018 - 09/01/2019 Provider: HAYLIE ESPITIABC Diagnosis: Radiculopathy, l umbar region 1 CAPSULE TWO TIMES A DAY Last Documented On 0 2:48PM By Concepcion FELIPE ; [facility] Lyrica 75MG Oral Capsule, conventional 11/14/2018 - 09/01/2019 Provider: HAYLIE ESPITIA Diagnosis: Radiculopathy, l umbar region 1 CAPSULE TWO TIMES A DAY Last Documented On 0 2:48PM By Concepcion FELIPE ; [facility] HYDROcodone-Acetaminophen 7.5-325MG Oral Tablet 10/23/2018 - 11/20/2018 Provider: HAYLIE ESPITIABC Diagnosis: Chronic pain syndrome 1 po q 8 hours prn/ max 2 per day Last Documented On 9 3:15PM By HAYLIE ALMANZAR-BC ; [facility] HYDROcodone-Acetaminophen 7.5-325MG Oral Tablet 09/27/2018 - 10/23/2018 Provider: HAYLIE RIDLEY ANP-BC Diagnosis: Chronic pain syndrome 1 po q 8 hours prn/ max 2 per day Last Documented On 9 4:33PM By HAYLIE ALMANZAR-BC ; [facility] Gabapentin 300MG Oral Capsule 09/04/2018 - 09/30/2018 Provider: HAYLIE RIDLEY ANP-BC Diagnosis: One tablet three times a day Last Documented On 9 2:17PM By HAYLIE ALMANZAR- ; [facility] Hydrocodone-Acetaminophen 7.5-325MG Oral Tablet 08/29/2018 - 09/26/2018 Provider: HAYLIE RIDLEY ANP- Diagnosis: Chronic pain syndrome 1 po q 8 hours prn Last Documented On 9 8:24AM By HAYLIE ALMANZAR- ; [facility] Hydrocodone-Acetaminophen 7.5-325MG Oral Tablet 08/01/2018 - 08/01/2018 Provider: LUCY CARMONA MD Diagnosis: Chronic pain syndrome 1 po q 8 hours prn Last Documented On 8 12:21PM By Benton BELL ; [facility] Hydrocodone-Acetaminophen 7.5-325MG Oral Tablet 08/01/2018 - 08/29/2018 Provider: BENTON BELL Diagnosis: Chronic pain syndrome 1 po q 8 hours prn Last Documented On 9 1:09PM By HAYLIE RIDLEY [facility] ; [facility] Hydrocodone-Acetaminophen 7.5-325MG Oral Tablet 07/02/2018 - 08/01/2018 Provider: HAYLIE ALMANZAR- Diagnosis: Chronic pain syndrome 1 po q 8 hours prn Last Documented On 08/01/2018 9:48AM By LUCY CARMONA MD ; [facility] Gabapentin 300MG Oral Capsule, conventional 05/31/2018 - 09/04/2018 Provider: HAYLIE BROOKS ANP- Diagnosis: TAKE 1 CAPSULE BY MOUTH THREE TIMES DAILY Last Documented On 9 10:52AM By HAYLIE RIDLEY [facility]- ; [facility] Hydrocodone-Acetaminophen 7.5-325MG Oral Tablet 05/29/2018 - 07/02/2018 Provider: HAYLIE RIDLEY ANP- Diagnosis: Chronic pain syndrome 1 po q 8 hours prnto fill 06/02/18 Last Documented On 8 12:10PM By HAYLIE ALMANZAR- ; [facility] Gabapentin 300MG Oral Capsule 05/02/2018 - 05/31/2018 Provider: HAYLIEABBY TOLBERT Diagnosis: TAKE 1 CAPSULE BY MOUTH THREE TIMES DAILY Last Documented On 8 8:31AM By HAYLIE TOLBERT ; [facility] Hydrocodone-Acetaminophen 7.5-325MG Oral Tablet 05/02/2018 - 05/29/2018 Provider: HAYLIE TOLBERT Diagnosis: Chronic pain syndrome 1 po q 8 hours prnto fill 05/03/18 Last Documented On 8 11:13AM By HAYLIE TOLBERT ; [facility] Gabapentin 300MG Oral Capsule 04/02/2018 - 05/02/2018 Provider: HAYLIE TOLBERT Diagnosis: One tablet three times a day Last Documented On 8 4:10PM By HAYLIE TOLBERT ; [facility] Hydrocodone-Acetaminophen 7.5-325MG Oral Tablet 04/01/2018 - 05/01/2018 Provider: HAYLIE TOLBERT Diagnosis: Chronic pain syndrome 1 po q 8 hours prnto fill 04/03/18 Last Documented On 8 11:01AM By HAYLIE TOLBERT ; [facility] Gabapentin 300MG Oral Capsule 03/05/2018 - 04/02/2018 Provider: HAYLIE TOLBERT Diagnosis: Radiculopathy, l umbar region as directed QHS x 3 days, BI D x 3 days then TID Last Documented On 8 4:06PM By HAYLIE TOLBERT ; [facility] Hydrocodone-Acetaminophen 7.5-325MG Oral Tablet 02/27/2018 - 04/01/2018 Provider: HAYLIE TOLBERT Diagnosis: Chronic pain syndrome 1 po q 8 hours prnto fill 03/03/18 Last Documented On 8 1:09PM By HAYLIE TOLBERT ; [facility] Hydrocodone-Acetaminophen 7.5-325MG Oral Tablet 01/31/2018 - 02/27/2018 Provider: HAYLIE TOLBERT Diagnosis: Chronic pain syndrome 1 po q 8 hours prn Last Documented On 8 9:46AM By HAYLIE TOLBERT ; [facility] Hydrocodone-Acetaminophen 7.5-325MG Oral Tablet 01/01/2018 - 01/31/2018 Provider: HAYLIE TOLBERT Diagnosis: Chronic pain syndrome 1 po q 8 hours prn Last Documented On 8 3:36PM By HAYLIE TOLBERT ; [facility] Amitriptyline HCl 25MG Oral Tablet 12/20/2017 - 2018 Provider: Diagnosis: 1 tab at bedtime Last Documented On 9 11:48AM By HAYLIE TOLBERT ; [facility] Hydrocodone-Acetaminophen 7.5-325MG Oral Tablet 12/20/2017 - 01/01/2018 Provider: Diagnosis: 1 tab every 8 hours as needed Last Documented On 8 11:39AM By HAYLIE TOLBERT ; [facility] MetFORMIN HCl 1000MG Oral Tablet 12/20/2017 - 07/05/20 Provider: Diagnosis: 1 tab BID Last Documented On 1 8:23AM By HAYLIE TOLBERT ; [facility] Lisinopril-Hydrochlorothiazi de 20-25MG Oral Tablet 12/20/2017 - 09/01/2019 Provider: Diagnosis: 1 tab daily Last Documented On 0 2:49PM By Concepcion FELIPE ; [facility] RaNITidine HCl 300MG Oral Tablet 12/20/2017 - 04/20/20 Provider: Diagnosis: 1 tab daily Last Documented On 04/20/2021 2:00PM By Peggy FELIPE ; [facility] Medications Administered Includes: Administered Medications in patient's chart No Administered Medications Recorded Results Includes: Results from 06/14/2024 through 06/14/2025 No Results Recorded For Specified Dates History of Present Illness History of Present Illness not supported for this document type No History of Present Illness Recorded Social History Description Last Updated Current smoker 10/11/2020 Last Documented On 1 11:58AM ; [facility] Smoker 12/16/2019 Last Documented On 0 10:17AM ; [facility] Not using drugs 12/20/2017 Last Documented On 8 1:05PM ; [facility] Single 12/20/2017 Last Documented On 8 1:05PM ; [facility] Smoking status : Current everyday smoker 12/20/2017 Last Documented On 8 1:05PM ; [facility] Medical History Includes: Medical History in patient's chart Description Last Updated Has had no fall in the last 12 months. 0 08/15/2021 Last Documented On 2 1:24PM ; [facility] Denies a fear of falling. 08/15/2021 Last Documented On 2 1:24PM ; [facility] Reviewed and Unchanged 10/16/2019 Last Documented On 0 4:36PM ; [facility] Currently wearing eyeglasses 12/20/2017 Last Documented On 8 1:05PM ; [facility] Wearing contact lenses 12/20/2017 Last Documented On 8 1:05PM ; [facility] History of cancer skin 12/20/2017 Last Documented On 8 1:05PM ; [facility] History of hypertension 12/20/2017 Last Documented On 8 1:05PM ; [facility] Asthma 12/20/2017 Last Documented On 8 1:05PM ; [facility] History of diabetes mellitus 12/20/2017 Last Documented On 8 1:05PM ; [facility] Born by section 12/20/2017 Last Documented On 8 1:05PM ; [facility] Family History Includes: Family History in patient's chart Description Last Updated Family history of cancer 12/20/2017 Last Documented On 8 1:05PM ; [facility] Review of Systems Review of Systems [...] Documented On 2 10:26AM ; [facility] Insurance Includes: Active Insurance Policies Plan Name Member ID Group # Subscriber Relationship Effect tawanna Dates 1 - [facility] [id number] RALEIGH BERMUDEZ Self Clinical Notes Includes: Signed Clinical Notes starting from 08/25/2022 No Clinical Notes Recorded
--- OUTSIDE RECORDS SUMMARY | 2025-06-14 10:00 | XMS_ITS ---
Care Plan - [facility] Created on: June 14, 2025 AIDANRALEIGH Nathan : 1960 Sex: Female Author Organization [facility] Address [address] [place] [address] Phone Care Team Providers Care Government Documents Librarian Name Role Phone HAYLIE RUTLEDGE Unavailable [phone] HERI SHANKS Primary Care Provider [phone] BARRY SANTA MD Unavailable [phone]
--- OUTSIDE RECORDS SUMMARY | 2025-06-14 10:00 | XMS_ITS | Clinical Summary ---
Author Organization [facility] Address [address] [place] [address] Phone Care Team Providers Care Construction Analyst Name Role Phone KHAI TOLBERT, HAYLIE Jhaveri Unavailable [phone] HERI SHANKS Primary Care Provider [phone] BARRY SANTA MD Unavailable [phone] Reason for Visit and Chief [...] YONATHAN FELIPE ; [facility] Medications Administered Includes: Administered [...] 2 10:26AM ; [facility] Encounters Encounter Provider Location Date Check-In Time Check-Out Time Diagnosis [Patient Encounter] HAYLIE ALMANZAR- 11/10/2021 3:18PM 11:59PM Insurance Includes: Active Insurance Policies Plan Name Member ID Group # Subscriber Relationship Effect tawanna Dates 1 - [facility] [id number] RALEIGH Hatch Clinical Notes Includes: Clinical Notes from this encounter No Clinical Notes Recorded
--- OUTSIDE RECORDS SUMMARY | 2025-06-14 10:00 | XMS_ITS | Clinical Summary ---
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 Testing performed by: [facility], [address] [place] [address]., [address] Blood 04/03/2022 10:3 2 AM CDT 04/03/2022 5:14 PM CDT us Wili Restrepo Jr., MD LAB BLOOD ORDERABLE S Final Result [facility]) [facility] [place] [address] from Last 3 Months or Most Recently Relevant to Health Maintenance Insurance [facility] Care Teams [employer] Relationship Specialty Start Date End Date Pritesh Lew DO [address] [place] [address] PCP - General Family Medicine 03/15/22
--- OUTSIDE RECORDS SUMMARY | 2025-06-14 10:01 | XMS_ITS | Clinical Summary ---
Author Organization [facility] Address [facility] [place] [address] Care Team Providers Care Scientific Associate Name Role Phone Mayco Belcher MD Primary Care Provider [phone] Social History Tobacco Use Types Packs/Day Years [...] Scan (General) 11/16/2024 COVID-19 Vaccine ( - 2024-2 6 season) 2025 Influenza Adult (#1) 2025 RSV [...] patient's age to complete this topic Insurance [employer] Care Teams Scientific Associate Relationship Specialty Start Date End Date Mayco Belcher MD [address] [place] [address] PCP - General FAMILY PRACTICE 01/11/19
--- OUTSIDE RECORDS SUMMARY | 2025-06-14 10:01 | XMS_ITS | Clinical Summary ---
Author Organization [facility] Address [address] [place] [address] Phone Care Team Providers Care Humanities Department Chair Name Role Phone KHAI TOLBERT, HAYLIE Jhaveri Unavailable [phone] HERI SHANKS Primary Care Provider [phone] BARRY SANTA MD Unavailable [phone] Reason for Visit and Chief [...] On 2 2:16PM By CATHY DICK ; [facility] New / Renewed during this visit MAYELIN HOPSON on 10/21/2021 HYDROcodone-Acetaminophen 7. 5-325 MG Oral Tablet Provider: MAYELIN HOPSON 30 day supply: 90 tablet, 0 refills Diagnosis: Other spondylosis with radiculopathy, lumbar region 1 po TID prn Pharmacy: [facility] ([facility] - [address] , [facility], [phone] - Last Documented On 2 2:25PM By CATHY VENEGAS-BC ; [facility] Current Medications (continue as prescribed) Pregabalin 75 MG Oral Capsule 07/05/2021 Provider: HAYLIE TOLBERT Diagnosis: One tablet at bed time Last Documented On 1 8:31AM By HAYLIE TOLBERT ; [facility] Gabapentin 300MG Oral Capsule 09/30/2018 Provider: HAYLIE TOLBERT Diagnosis: TAKE 1 CAPSULE BY MOUTH THREE TIMES DAILY Last Documented On 2 10:40AM By Leyda Aj Alec ; [facility] Ventolin HFA 108 (90 Base)MCG/ACT Inhalation Aer osol, solution 12/20/2017 Provider: Diagnosis: Last Documented On 8 2:23PM By YONATHAN DONNELLY Alec ; [facility] Medications Administered Includes: Administered Medications from this encounter No Administered Medications Recorded Results Includes: Results discussed during this encounter No Results Recorded For Specified Dates History of Present Illness Includes: History of Present Illness from this encounter No History of Present Illness Recorded Social History Description Last Updated Current smoker 10/11/2020 Last Documented On 2 8:46AM ; [facility] Smoker 12/16/2019 Last Documented On 2 8:46AM ; [facility] Not using drugs 12/20/2017 Last Documented On 2 8:46AM ; [facility] Single 12/20/2017 Last Documented On 2 8:46AM ; [facility] Smoking status : Current everyday smoker 12/20/2017 Last Documented On 2 8:46AM ; [facility] Medical History Includes: Medical History addressed during this encounter Description Last Updated Has had no fall in the last 12 months. 0 08/15/2021 Last Documented On 2 8:46AM ; [facility] Denies a fear of falling. 08/15/2021 Last Documented On 2 8:46AM ; [facility] Reviewed and Unchanged 10/16/2019 Last Documented On 2 8:46AM ; [facility] Currently wearing eyeglasses 12/20/2017 Last Documented On 2 8:46AM ; [facility] Wearing contact lenses 12/20/2017 Last Documented On 2 8:46AM ; [facility] History of cancer skin 12/20/2017 Last Documented On 2 8:46AM ; [facility] History of hypertension 12/20/2017 Last Documented On 2 8:46AM ; [facility] Asthma 12/20/2017 Last Documented On 2 8:46AM ; [facility] History of diabetes mellitus 12/20/2017 Last Documented On 2 8:46AM ; [facility] Born by section 12/20/2017 Last Documented On 2 8:46AM ; [facility] Family History Includes: Family History addressed during this encounter Description Last Updated Family history of cancer 12/20/2017 Last Documented On 2 8:46AM ; [facility] Review of Systems Includes: Review of Systems [...] Active Last Documented On 2 10:26AM ; [facility] Encounters Encounter Provider Location Date Check-In Time Check-Out Time Diagnosis RX ISSUE/REFILL 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
--- OUTSIDE RECORDS SUMMARY | 2025-06-14 10:01 | XMS_ITS | Clinical Summary ---
Author Organization [facility] Address [address] [place] [address] Care Team Providers Care Paste Mixer Liquid Name Role Phone Unavailable Primary Care Provider Unavailabl e Source Comments [facility],non-owned Affiliates and Associated Physician Practices is amultiple site organization consisting of ambulatory clinics and hospital sitesin [place], [place], [place] and [place]. This disclosure is being madepursuant to the Care Everywhere program and may not contain all information available regarding this patient. 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 Gender Identity Not on file Sexual Orientation Not on file Last Filed Vital Signs Vital Sign Reading Time Taken Comments Blood Pressure 133/76 09/05/2019 1:47 PM PRACTICAL NURSE CLINICAL COORDINATOR Pulse 86 09/05/2019 1:47 PM PRACTICAL NURSE CLINICAL COORDINATOR Temperature 36.3 C (97.4 F) 09/05/2019 1:47 PM PRACTICAL NURSE CLINICAL COORDINATOR Respiratory Rate 16 09/05/2019 1:47 PM PRACTICAL NURSE CLINICAL COORDINATOR Oxygen Saturation 100% 09/05/2019 1:47 PM PRACTICAL NURSE CLINICAL COORDINATOR Inhaled Oxygen Concentration - - Weight 81.6 kg (180 lb) 09/05/2019 1:47 PM PRACTICAL NURSE CLINICAL COORDINATOR Height 160 cm (5' 3) 09/05/2019 1:47 PM PRACTICAL NURSE CLINICAL COORDINATOR Body Mass Index 31.89 09/05/2019 1:47 PM PRACTICAL NURSE CLINICAL COORDINATOR Plan of Treatment Health Maintenance Due Date [...] patient's age to complete this topic Insurance [facility]
--- OUTSIDE RECORDS SUMMARY | 2025-06-14 10:01 | XMS_ITS | Clinical Summary ---
Author Organization [facility] Address [address] [place] [address] Phone Care Team Providers Care Puller Out Name Role Phone KHAI TOLBERT, HAYLIE Jhaveri Unavailable [phone] HERI SHANKS Primary Care Provider [phone] BARRY SANTA MD Unavailable [phone] Reason for Visit and Chief [...] On 2 2:25PM By CATHY DICK ; [facility] Pregabalin 75 MG Oral Capsule 07/05/2021 Provider: HAYLIE TOLBERT Diagnosis: One tablet at bed time Last Documented On 1 8:31AM By HAYLIE TOLBERT ; [facility] Gabapentin 300MG Oral Capsule 09/30/2018 Provider: HAYLIE TOLBERT Diagnosis: TAKE 1 CAPSULE BY MOUTH THREE TIMES DAILY Last Documented On 2 10:40AM By Leyda FELIPE ; [facility] Ventolin HFA 108 (90 Base)MCG/ACT Inhalation Aer osol, solution 12/20/2017 Provider: Diagnosis: Last Documented On 8 2:23PM By YONATHAN FELIPE ; [facility] Medications Administered Includes: Administered Medications from this encounter No Administered Medications Recorded Results Includes: Results discussed during this encounter No Results Recorded For Specified Dates History of Present Illness Includes: History of Present Illness from this encounter No History of Present Illness Recorded Social History Description Last Updated Current smoker 10/11/2020 Last Documented On 2 2:58PM ; [facility] Smoker 12/16/2019 Last Documented On 2 2:58PM ; [facility] Single 12/20/2017 Last Documented On 2 2:58PM ; [facility] Smoking status : Current everyday smoker 12/20/2017 Last Documented On 2 2:58PM ; [facility] Medical History Includes: Medical History [...] Documented On 2 10:26AM ; [facility] Encounters Encounter Provider Location Date Check-In Time Check-Out Time Diagnosis * PHONE CALL HAYLIE TOLBERT 10/05/2021 2:58PM 11:59PM Insurance Includes: Active Insurance Policies Plan Name Member ID Group # Subscriber Relationship Effect tawanna Dates 1 - [facility] [id number] RALEIGH BERMUDEZ Self Clinical Notes Includes: Clinical Notes from this encounter No Clinical Notes Recorded
--- NOTE | 2025-06-14 10:04 | ED_ITS ---
HPI - Female Genitourinary General Chief complaint: Urogenital-Female Stated complaint: Urinary Problem Time Seen by Provider: 06/14/25 10:05 Source: patient Mode of arrival: ambulatory Limitations: no limitations History of Present Illness HPI Narrative: Dilia is a 64 year old female patient presenting to the clinic today with c/o possible UTI/yeast infection. She reports for the past 3 days she has had itching, white vaginal discharge, burning, frequency, and urgency with urination. No fever, chills, or body aches. Has had taken some diflucan without relief. She is sexually active. No concern for any STIs. Denies any vaginal discharge odor or changes in environment such as soaps, shampoos, lotions, or detergents. Related Data Home Medications ?Medication ?Instructions ?Recorded ?Confirmed ?Last Taken ?Type vit A 5,000 unit-vit C 60 mg-vit E See Rx Instructions .Route .COMPLEX 09/19/23 12/31/24 Unknown History 30 dmvw-ahnf-tikqwdob-copper tablet (Prosight) omega 0-nom-tis-fish oil 1,000 mg 2 cap PO BID 5 12/31/24 Unknown History (120 mg-180 mg) capsule (Fish Oil) albuterol sulfate 90 mcg/actuation inhalation 06/14/25 Unknown History aerosol inhaler empagliflozin 10 mg tablet mg 06/14/25 Unknown Histor y (Jardiance) fluticasone 250 mcg-salmeterol 50 inhalation 06/14/25 Unknown History mcg/dose blistr powdr for inhalation (Advair Diskus) hydrocodone 7.5 mg-acetaminophen tablet 06/14/25 Unkn own History 325 mg tablet ibuprofen 600 mg tablet mg 06/14/25 Unknown History lisinopril 10 tablet 06/14/25 Unknown His tory mg-hydrochlorothiazide 12.5 mg tablet metoprolol succinate 25 mg mg PO 06/14/25 Unknown His tory tablet,extended release 24 hr Allergies Allergy/AdvReac Type Severity Reaction Status Date / Time Penicillins Allergy Severe Hives Verified 06/14/25 10:04 Review of Systems Review of Systems: Pertinent positives per HPI. Patient denies any fever, chills, rash, headache, visual changes, dizziness, cough, runny nose, sore throat, shortness of breath, chest pain, palpitations, nausea, vomiting, diarrhea, constipation, abdominal pain. [facility] Past Medical History Medical History Elevated cholesterol B12 deficiency Nicotine dependence Chronic low back pain DM2 (diabetes mellitus, type 2) Hypertension GERD (gastroesophageal reflux disease) Overweight Asthma Surgical History Surgical History History of knee surgery left Previous section Hx of cholecystectomy Family History Family History Father , Age 62 Carcinoma of colon, Onset Age: 61 Mother , Age 92 Family history of dementia, Onset Age: 92 Sibling , Age 63 Liver cancer Social History Social History Smoking packs per day: 0.25 Smoking cigarettes per day: 5.0 Years smoked: 35 Smoking pack-years: 8.75 Tobacco type: cigarettes Second hand tobacco smoke exposure: No Alcohol intake: never Substance use type: does not use Do You Feel Safe in your Home?: Yes Lack of Transportation: No Lack of Food: Never True Current Housing: I Have Housing Concerned About Future Housing: No Difficulty Paying Gas/Electric Bills: No Difficulty Paying for Meds: No Currently Unemployed: No Education: High School Diploma/GED Difficulty w/ Childcare or Family Care: No Living arrangements: alone Occupation/Education: unemployed Gender identity (if verbalized by the patient): Female Comments At the time of my signature, I reviewed and agree with the nursing past medical, surgical, social, and family history. There is no relevant family history pertinent to the patient complaint. Exam Narrative: General: Well-developed, well nourished, in no apparent distress. Head: Normocephalic, atraumatic. Cardio: Regular rate and rhythm, s1 and s2 normal, no murmur appreciated. Resp: Clear to auscultation bilaterally, no rhonchi, rales, wheezing or rubs. Abdomen: Soft, pliable, bowel sounds present in all quadrants, non-tender to palpation, no organomegly, no CVAT tenderness. : Deferred Course Course Emergency Course: Portions of this record may have been created with voice recognition software. Level of Care: Express Care Visit Vital Signs Vital signs: Vital Signs Temperature 36.1 C L 06/14/25 10:00 Pulse Rate 98 06/14/25 10:00 Respiratory Rate 16 06/14/25 10:00 Blood Pressure 147/72 H 06/14/25 10:00 Pulse Oximetry 98 06/14/25 10:00 Oxygen Delivery Room Air 06/14/25 10:00 Temperature 36.1 C L 06/14/25 10:00 Pulse Rate 98 06/14/25 10:00 Respiratory Rate 16 06/14/25 10:00 Blood Pressure 147/72 H 06/14/25 10:00 Pulse Oximetry 98 06/14/25 10:00 Oxygen Delivery Room Air 06/14/25 10:00 Vital signs reviewed MDM - Female Genitourinary MDM Narrative Medical decision making narrative: At the time of visit patient is resting comfortably on the exam table. Patient appears to be nontoxic. C/o possible UTI/yeast infection. She reports for the past 3 days she has had itching, white vaginal discharge, burning, frequency, and urgency with urination. No fever, chills, or body aches. Has not taken any medications for her symptoms. Denies any vaginal discharge odor or changes in environment such as soaps, shampoos, lotions, or detergents. On exam patient has soft pliable abdomen, nondistended, bowel sounds present all 4 quadrants, no CVAT tenderness, no organomegaly. exam was deferred. Urine dip and bedside glucose was ordered. Labs: Bedside glucose was 151 in the clinic today. Urinalysis shows 2+ glucose. Plan: I suspect patient has a vaginal yeast infection and glucosuria. Prescription for Diflucan was sent to the pharmacy. Recommend following up with her PCP or OBGYN this week. Supportive measures were discussed with the patient and they voiced understanding discharge instructions and agrees to treatment plan. Return precautions reviewed Differential Diagnosis Differential diagnosis: Likely urinary tract infection, bacterial vaginosis, trichomoniasis, cervicitis, ovarian cyst, vaginitis and cystitis Lab Data Labs: Lab Results 06/14/25 06/14/25 Range/Units 10:11 10:19 POC Capillary Glucose 151 H (65-105) mg/dl POC Urine Color Yellow POC Urine Clarity Clear POC Urine pH 7.0 POC Ur Specif [place] 1.020 POC Urine Protein Negative (Negative) POC Ur Glucose (UA) 2+ (Negative) POC Urine Ketones Negative (Negative) POC Urine Blood Negative (Negative) POC Urine Nitrite Negative (Negative) POC Urine Bilirubin Negative (Negative) POC Urine Urobilinogen 0.2 POC U Leukocyte Esteras Negative (Negative) Discharge Plan Discharge Clinical Impression: Glucosuria, Vaginal yeast infection Patient Disposition: Home Condition: Stable Instructions: Antibiotic Form, Yeast Infection (ED) Additional Instructions: Blood sugar was 151 in the clinic Keep a tight control on your blood sugar Urinalysis does not show any sign of blood or infection in your urine. Does show 2+ glucose. Take Diflucan as prescribed Follow-up with your PCP/OBGYN in 1 week if symptoms persist Patient Language: Polish Prescriptions: New fluconazole 150 mg tablet 150 mg PO ONCE Qty: 2 0RF Rx Instructions: as a single dose. May repeat in 72 hours if needed. No Action Prosight 5,000-60-30 eqpk-dq-bemd tablet See Rx Instructions .ROUTE .COMPLEX Rx Instructions: as prescribed fluticasone propion-salmeterol [Advair Diskus] 250-50 mcg/dose blister with device INHALATION hydrocodone-acetaminophen 7.5-325 mg tablet metoprolol succinate 25 mg tablet extended release 24 hr PO lisinopril-hydrochlorothiazide 10-12.5 mg tablet ibuprofen 600 mg tablet albuterol sulfate 90 mcg/actuation HFA aerosol inhaler INHALATION Jardiance 10 mg tablet omega 5-dsh-zsv-fish oil [Fish Oil] 1,000 (120-180) mg capsule 2 cap PO BID atorvastatin 80 mg tablet 80 mg PO QHS 90 Days Qty: 90 1RF metformin 1,000 mg tablet See Rx Instructions .ROUTE .COMPLEX Qty: 180 3RF Dose Instruction: TAKE ONE TABLET BY MOUTH TWO TIMES a DAY Rx Instructions: TAKE ONE TABLET BY MOUTH TWO TIMES a DAY Follow-up/Referrals: UNKNOWN,DOCTOR [Primary Care Provider] Time of Disposition: 10:21 Quality NIHSS Nursing Documentation ED NIHSS nursing documentation: reviewed/agree
[2025-06-14 10:12] LABS: EDUAAPPEAR Clear; EDUABILI Negative (Negative); EDUABLOOD Negative (Negative); EDUACOLOR1 Yellow; EDUAGLUCOSE 2+ (Negative); EDUAKETONE Negative (Negative); EDUALEUKO Negative (Negative); EDUANITRATE Negative (Negative); EDUAPH 7.0; EDUAPROTEIN Negative (Negative); EDUASPGRAVITY 1.020; EDUAUROBILI 0.2
== END 2025-06-14 10:40 | disposition home or self-care (01) ==
PROVIDERS: Emergency Provider Nurse Practitioner Family
DX: R81 Glycosuria (principal); B37.31 Acute candidiasis of vulva and vagina; F17.210 Nicotine dependence, cigarettes, uncomplicated; E11.9 Type 2 diabetes mellitus without complications; Z79.84 Long term (current) use of oral hypoglycemic drugs; I10 Essential (primary) hypertension; E78.00 Pure hypercholesterolemia, unspecified; K21.9 Gastro-esophageal reflux disease without esophagitis; J45.909 Unspecified asthma, uncomplicated
CPT/HCPCS: 81003; 82948; 99213; G0463

== ENCOUNTER 2025-06-18 12:18 | Outpatient (CLI) | payer OTHER, SELFPAY ==
--- NOTE | ~2025-06-18 | XR_ITS ---
EXAMINATION: XR chest 2V DATE: 06/18/2025 12:57 INDICATION: Shortness of breath TECHNIQUE: Frontal and lateral views of the chest were obtained. COMPARISON: 02/06/2021 FINDINGS: Lungs are clear and heart size normal. Bones appear intact. Stable exam. IMPRESSION: 1. No focal acute process; stable chest x-ray. Reviewed, dictated and finalized at location A. 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
--- NOTE | 2025-06-18 13:02 | ECG_ITS ---
Test Date: 2025-06-18 13:16:28 Measurements Intervals [place] Rate: 87 P: 73 NV: 164 QRS: 68 QRSD: 104 T: 64 QT: 356 QTc: 430 Interpretive Statements SINUS RHYTHM No previous ECG available for comparison Electronically Signed On 06-18-2025 13:57:51 DRAFTER [employer] by Leif Frey M.D.
--- OUTSIDE RECORDS SUMMARY | 2025-06-18 13:02 | XMS_ITS | Clinical Summary ---
Author Organization [facility] Address [address] [facility] [address] [place] [address] Care Team Providers Care Regional Clinical Director Name Role Phone Mayco Belcher MD Primary Care Provider [phone] Social History Tobacco Use Types Packs/Day Years [...] patient's age to complete this topic Insurance [place] Care Teams Regional Clinical Director Relationship Specialty Start Date End Date Mayco Belcher MD [address] [place] [address] PCP - General FAMILY PRACTICE 01/11/19
--- OUTSIDE RECORDS SUMMARY | 2025-06-18 13:02 | XMS_ITS | Clinical Summary ---
Author Organization [facility] Address [address] [place] [address] Phone Care Team Providers Care Pusher Runner Name Role Phone Freda Medrano PAC Primary [...] week 02/05/2025 How often do you attend [facility] or quaker services? 1 to 4 times per year 02/05/2025 Do you belong to any clubs o r organizations such as anglican groups, unions, fraternal or athletic groups, or [...] medical care, and heating? Somewhat hard 02/05/2025 [facility] - Occupational Stress Questionnaire Answer Date Recorded [...] any time in the past 12 m [facility], were you homeless or living in a fdc (including now)? No 02/05/2025 [facility] Utilities Answer Date Recorded In the [...] AM CDT HEMOGLOBIN, A1C 06/23/2024 12:00 AM PUBLISHER ASSISTANT MAMMOGRAM BILATERAL GENERIC 01/17/2024 12:00 AM CDT HUMAN PAPILLOMA VIRUS (HPV) 09/29/2020 12:00 AM PUBLISHER ASSISTANT PATHOLOGY CYTOLOGY EXCELLENCE CONSULTANT 09/29/2020 12:00 AM PUBLISHER ASSISTANT from Last 3 Months or Most Recently Relevant to Health Maintenance Results * CMP (COMPREHENSIVE METABOLIC PANEL) (01/07/2025 12:00 AM CDT) 01/07/2025 us Provider Scan CHEMISTRY ORDERABLES Final Resul t Performing Organization Address City/[facility] Co de Phone Number SCAN * HM DILATED EYE EXAM (12/15/2024 12:00 AM CDT) 12/15/2024 us Provider Scan PROCEDURE/MINOR SURGICAL ORDERAB LES Final Result Performing Organization Address [facility] Co de Phone Number SCAN * HEMOGLOBIN, A1C (06/23/2024 12:00 AM PUBLISHER ASSISTANT) HGB-A1C 7.5 SCAN 06/23/2024 us Provider Scan CHEMISTRY ORDERABLES Final Resul t Performing Organization Address [facility] Co de Phone Number SCAN * MAMMOGRAM BILATERAL GENERIC (01/17/2024 12:00 AM CDT) 01/17/2024 us Provider Scan IMG MAMMO ORDERABLES Final Resul t Performing Organization Address [facility] Co de Phone Number SCAN * PATHOLOGY CYTOLOGY EXCELLENCE CONSULTANT (09/29/2020 12:00 AM PUBLISHER ASSISTANT) 09/29/2020 us Provider Scan PATHOLOGY/CYTOLOGY ORDERABLES Fi nal Result Performing Organization Address [facility] Co de Phone Number [facility] * HUMAN PAPILLOMA VIRUS (HPV) (09/29/2020 12:00 AM PUBLISHER ASSISTANT) 09/29/2020 us Provider Scan LAB SEND OUTS Final Result [facility] from Last 3 Months or Most Recently Relevant to Health Maintenance Insurance MEDICAID [facility] [employer] Care Teams Pusher Runner Relationship Specialty Start Date End Date Freda Medrano, BRIAN [address] [place] [address] PCP - General Physician Certified Nursing Assistant Instructor 02/05/25
--- OUTSIDE RECORDS SUMMARY | 2025-06-18 13:02 | XMS_ITS | Clinical Summary ---
Author Organization [facility] [employer] Address [address] [place] [address] Care Team Providers Care Tobacco Sprayer Name Role Phone Unavailable Primary Care Provider Unavailabl e Source Comments [facility] [employer],non-owned Affiliates and Associated Physician Practices is amultiple site organization consisting of ambulatory clinics and hospital sitesin [place], [place], [place] and [place]. This disclosure is being madepursuant to the Care Everywhere program and may not contain all information available regarding this patient. Last updated 18.[facility] [employer] Allergies Active Allergy Reactions Criticality Noted Date [...] on file Legal Sex Female 1:29 PM SOFTWARE ASSET MANAGEMENT ANALYST Gender Identity Not on file Sexual Orientation Not on file Last Filed Vital Signs Vital Sign Reading Time Taken Comments Blood Pressure 133/76 09/05/2019 1:47 PM SOFTWARE ASSET MANAGEMENT ANALYST Pulse 86 09/05/2019 1:47 PM SOFTWARE ASSET MANAGEMENT ANALYST Temperature 36.3 C (97.4 F) 09/05/2019 1:47 PM SOFTWARE ASSET MANAGEMENT ANALYST Respiratory Rate 16 09/05/2019 1:47 PM SOFTWARE ASSET MANAGEMENT ANALYST Oxygen Saturation 100% 09/05/2019 1:47 PM SOFTWARE ASSET MANAGEMENT ANALYST Inhaled Oxygen Concentration - - Weight 81.6 kg (180 lb) 09/05/2019 1:47 PM SOFTWARE ASSET MANAGEMENT ANALYST Height 160 cm (5' 3) 09/05/2019 1:47 PM SOFTWARE ASSET MANAGEMENT ANALYST Body Mass Index 31.89 09/05/2019 1:47 PM SOFTWARE ASSET MANAGEMENT ANALYST Plan of Treatment Health Maintenance Due Date [...] patient's age to complete this topic Insurance [facility]
--- OUTSIDE RECORDS SUMMARY | 2025-06-18 13:02 | XMS_ITS | Continuity of Care Document ---
Author Organization [facility] [place] Address [address] [place] [address] Care Team Providers Care Senior Technical Writer Name Role Phone JEANA MAYERS Primary Care Provider Assessment Encounter Date Assessment Date Assessment LastModified by Organization Details LastModified Time 06/01/2025 06/01/2025 Annual gynecological exam performed. Patient will come back in a year unless there are new symptoms. [email or web address] Not available 06/01/2025 14:22:16 Plan of Treatment Reminders Order Date Submit Date Provider Last Modified By Organization Details Last Modified Time Details Appointments None recorded. Lab pap, IG + HR HPV - HPV regardless but if HPV is positive need subtyping 16,18/45 2024 025 [facility] (Lab), [address], [place], [address], 12:58:14 Referral None recorded. Procedures None recorded. Surgeries None recorded. Imaging None recorded. Medication Orders None recorded. Patient TargetsNo targets recorded. Patient InstructionsNo instructions recorded. Reason for Referral None Reported. Procedures Surgical History Date Name Laterality Status Provider Name and Address Organization Details Recorded Time 02/08/19 83 section completed [facility] 06/01/2025 14:33:09 04/09/19 81 section completed [facility] 06/01/2025 14:33:03 Cholecystectomy completed [facility] 06/01/2025 14:33:31 [facility] 14:33:58 Imaging Results None recorded. Procedure Notes None recorded. Medical Equipment None Reported. Allergies Allergen ID Allergen Name Allergen Category Reaction Reaction Severity Criticality Documentation Date Start Date Code Code System Note Provider Name and Address Organization Details Recorded Time 83701 Product containin g penicilli n (product) medicatio n Not available Not available Not available 06/01/2025 01182 8001 SNOMED [facility] 14:27:18 Medications Name Sig Start Date [...] Updated DateTime 06/01/2025 157.48 cm 30.4 kg/m2 34862.33 g 128/72 mm[Hg] Shelby Dan [facility] 06/01/2025 14:24:58 Social History Question Answer Notes LastModified by Organizat ion Details LastModified Time Tobacco Smoking Status Current Some Day Smoker Shelby Dan [facility] 06/01/2025 14:32:37 In The 14 Days Before Symptom Onset, Have You Had Close Contact With A Laboratory-confirm ed COVID-19 While That Case Was Ill? No Information n ot available 06/01/2025 In The 14 Days Before Symptom Onset, Have You Had Close Contact With A Person Who Is Under Investigation For COVID-19 While That Person Was Ill? No [email or web address] Information not available 06/01/2025 Have You Been To An Area Known To Be High Risk For COVID-19? No [email or web address] Information not available 06/01/2025 How Much Tobacco Do You Smoke? 1 PPW [email or web address] Information not available 06/01/2025 Sex: Unknown Functional Status None recorded. Mental Status None recorded. Family History Relationship Description Onset Age of this Age Resolved Age Notes LastModified by Organization Details LastModified Time Father Malignant neoplasm of colon Not available 2024 14:32:12 Medical History Condition [...] ICD10 Code Diagnosis IMO Codes Diagnosis Note [id number] MAUREEN Del Toro [place] [address] [address] 06/01/2025 13:59:28 06/01/2025 14:51:21 Gynecologic examination 20079019 Z01.047 [id number] WWEpostmen opausalPap - done todaySTI screen - [...] by Organization Details LastModified Time None Recorded Payers Encounter Date Sequence Insurance Name Policy Number Policy Padilla Covered Member ID Padilla Member ID Guarantor Name 06/01/2025 1 [facility] (MEDICAID REPLACEMENT - HMO) Dilia [place]neington [id number] Dilia Molina Notes Date Note Type Note Provider Name and Address Organization Details Recorded Time 5 text/html Annual Photo Equipment Technician Post-MenopausalReported by PatientGenitourinary symptomsFor menopausal symptoms, [...] h/o abnormal papsMammogram scheduled this wkDexa scheduled 5colonoscopy UTD 2023 Shelby blank [facility] 06/01/2025 17:54:05 OBGyn Episode No OBEpisode recorded.
--- OUTSIDE RECORDS SUMMARY | 2025-06-18 13:02 | XMS_ITS | Data Portability ---
Author Organization [facility] [place] Address [address] [place] [address] Care Team Providers Care Videotape Operator Name Role Phone JEANA MAYERS Primary Care Provider [phone] Assessment Encounter Date Assessment Date Assessment LastModified by Organization Details LastModified Time 06/01/2025 06/01/2025 Annual gynecological exam performed. Patient will come back in a year unless there are new symptoms. [email or web address] Not available 06/01/2025 14:22:16 Plan of Treatment Reminders Order Date Submit Date Provider Last Modified By Organization Details Last Modified Time Details Appointments None recorded. Lab pap, IG + HR HPV - HPV regardless but if HPV is positive need subtyping 16,18/45 2024 025 [facility] (Lab), [address], [place], [address], 12:58:14 Referral None recorded. Procedures None recorded. Surgeries None recorded. Imaging None recorded. Medication Orders None recorded. Patient TargetsNo targets recorded. Patient InstructionsNo instructions recorded. Reason for Referral None Reported. Procedures Surgical History Date Name Laterality Status Provider Name and Address Organization Details Recorded Time 02/08/19 83 section completed [facility] 06/01/2025 14:33:09 04/09/19 81 section completed [facility] 06/01/2025 14:33:03 Cholecystectomy completed [facility] 06/01/2025 14:33:31 [facility] 06/01/2025 14:33:58 Imaging Results None recorded. Procedure Notes None recorded. Medical Equipment None Reported. Allergies Allergen ID Allergen Name Allergen Category Reaction Reaction Severity Criticality Documentation Date Start Date Code Code System Note Provider Name and Address Organization Details Recorded Time 59330 Product containin g penicilli n (product) medicatio n Not available Not available Not available 06/01/2025 65456 8001 SNOMED [facility] 14:27:18 Medications Name Sig Start [...] Updated DateTime 06/01/2025 157.48 cm 30.4 kg/m2 08513.33 g 128/72 mm[Hg] Shelby Hannhaney [facility] 06/01/2025 14:24:58 Social History Question Answer Notes LastModified by Organizat ion Details LastModified Time Tobacco Smoking Status Current Some Day Smoker Shelby blank [place] - [facility] 06/01/2025 14:32:37 In The 14 Days Before Symptom Onset, Have You Had Close Contact With A Laboratory-confirm ed COVID-19 While That Case Was Ill? No [email or web address] Information n ot available 06/01/2025 In The 14 Days Before Symptom Onset, Have You Had Close Contact With A Person Who Is Under Investigation For COVID-19 While That Person Was Ill? No Information not available 06/01/2025 Have You Been To An Area Known To Be High Risk For COVID-19? No [email or web address] Information not available 06/01/2025 How Much Tobacco Do You Smoke? 1 PPW [email or web address] Information not available 06/01/2025 Sex: Unknown Functional [...] ICD10 Code Diagnosis IMO Codes Diagnosis Note [id number] MAUREEN Del Toro [place] [address] [address] 06/01/2025 13:59:28 06/01/2025 14:51:21 Gynecologic examination [id number] Z01.343 [id number] WWEpostmen opausalPap - done todaySTI screen - [...] Padilla Member ID Guarantor Name 05/29/2025 1 [facility] (MEDICAID REPLACEMENT - HMO) Dilia Jesse [id number] Dilia Molina Notes Date Note Type Note Provider Name and Address Organization Details Recorded Time 5 text/html Annual Computer Meteorologist Post-MenopausalReported by PatientGenitourinary symptomsFor menopausal symptoms, patient [...] wkDexa scheduled olonoscopy UTD 2023 Shelby blank [facility] 06/01/2025 17:54:05 OBGyn Episode Ob Episode Information Episode Created Date Number of Fetuses Patient Bloodtype Patient rh Status Prepregnancy Weight lbs Domestic Partner Domestic Partner Phone Father Name Hunter Trapper Status 06/01/20 25 1 CLOSED Fetus Data First Name Last Name Admitted to NICU Weight (g) Sex Living Outcome Pediatric Complications Fetus ID Race Codes Race Delivery Type F Full Term [id number] Primary Miguel A Calculation Initial Miguel A [...] Domestic Partner Domestic Partner Phone Father Name Hunter Trapper Status 06/01/20 1 CLOSED Fetus Data First Name Last Name Admitted to NICU Weight (g) Sex Living Outcome Pediatric Complications Fetus ID Race Codes Race Delivery Type M Full Term [id number] Repeat Miguel A Calculation Initial Miguel A [...]
--- OUTSIDE RECORDS SUMMARY | 2025-06-18 13:02 | XMS_ITS | Clinical Summary ---
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 Testing performed by: [facility], [address] [place] [address]., [address] Blood 04/03/2022 10:3 2 AM CDT 04/03/2022 5:14 PM CDT us Wili Restrepo Jr., MD LAB BLOOD ORDERABLE S Final Result [facility] Department [place] [address] from Last 3 Months or Most Recently Relevant to Health Maintenance Insurance [facility] Care Teams Dogman/Woman Relationship Specialty Start Date End Date Pritesh Lew DO [address] [place] [address] PCP - General Family Medicine 03/15/22
== END 2025-06-18 12:19 | disposition home or self-care (01) ==
PROVIDERS: PCP Nurse Practitioner Family; Visit Provider Nurse Practitioner Family
DX: R00.0 Tachycardia, unspecified (principal); R06.2 Wheezing; R06.02 Shortness of breath
CPT/HCPCS: 71046; 93005

== ENCOUNTER 2025-07-24 13:21 | Outpatient (CLI) | payer OTHER, SELFPAY ==
--- NOTE | ~2025-07-24 | MM_ITS ---
EXAMINATION: MM screening sana BI w eli HISTORY: Screening TECHNIQUE: Craniocaudal and mediolateral oblique 3-D tomosynthesis images were obtained and synthetic 2-D images were generated. CAD analysis was submitted and interpreted. COMPARISON: Comparison to multiple prior studies sequentially, with oldest reviewed study dated 08/16/2015. BREAST PARENCHYMAL COMPOSITION: Not dense: There are scattered areas of fibroglandular density. FINDINGS: There is no evidence of suspicious mass, calcification, or architectural distortion to suggest malignancy in either breast. There has been no suspicious interval change. IMPRESSION: 1. No mammographic evidence of malignancy. 2. Recommend routine screening mammography in one year. BI-RADS Category 1: Negative Reviewed, dictated and finalized at location O. RAL ASSISTANT
--- OUTSIDE RECORDS SUMMARY | 2025-07-24 13:27 | XMS_ITS | Clinical Summary ---
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 Testing performed by: [facility], [address] [place] [address]., [id number] Blood 04/03/2022 10:3 2 AM CDT 04/03/2022 5:14 PM CDT us Wili Restrepo Jr., MD LAB BLOOD ORDERABLE S Final Result [facility] [place]) [address] [facility] Department [place] [address] from Last 3 Months or Most Recently Relevant to Health Maintenance Insurance [facility] Care Teams Horse Rider Relationship Specialty Start Date End Date Pritesh Lew DO [address] [place] [address] PCP - General Family Medicine 03/15/22
--- OUTSIDE RECORDS SUMMARY | 2025-07-24 13:27 | XMS_ITS ---
Author Organization [facility] Address [address] [place] [address] Phone Care Team Providers Care Gold Stamper Name Role Phone KHAI TOLBERT, HAYLIE Jhaveri Unavailable [phone] HERI SHANKS Primary Care Provider [phone] BARRY SANTA MD Unavailable [phone] Plan of Treatment Referrals To Diagnosis Pain Management [facility] - [address] [place], [place] - Radiculopathy, lumbar region Note: consent for right L3-4 , L4-5 transforaminal epidural Last Documented On 8 2:06PM ; [facility] Pain Management [facility] - [address] [place] [address] - Radiculopathy, lumbar region Note: consent for right L3-4 , L4-5 transforaminal epiduralneeds a Sunday appt Last Documented On 9 11:44AM ; [facility] Pain Management [facility] - [address] [place] [address] - Radiculopathy, lumbar region Note: consent for right L3-4 , L4-5 transforaminal epidural Last Documented On 0 3:15PM ; [facility] Pain Management [facility] - [address] [place] [address] - Other spondylosis with radiculopathy, lumbar region Note: consent for right L3-4 , L4-5 transforaminal epidural Last Documented On 0 3:14PM ; [facility] Instructions to patient Intervention and counseling on cessation of tobacco use : Patient recieved smoking cessation handout Last Documented On 2 10:25AM ; [facility] Intervention and counseling on cessation of tobacco use : Patient recieved smoking cessation handout Last Documented On 1 2:00PM ; [facility] Intervention and counseling on cessation of tobacco use : Patient recieved smoking cessation handout Last Documented On 1 3:33PM ; [facility] Intervention and counseling on cessation of tobacco use : Patient recieved smoking cessation handout Last Documented On 1 11:43AM ; [facility] Intervention and counseling on cessation of tobacco use : Patient recieved smoking cessation handout Last Documented On 0 2:47PM ; [facility] Intervention and counseling on cessation of tobacco use : Patient recieved smoking cessation handout Last Documented On 0 1:48PM ; [facility] Intervention and counseling on cessation of tobacco use : Patient recieved smoking cessation handout Last Documented On 0 2:53PM ; [facility] Intervention and counseling on cessation of tobacco use : Patient recieved smoking cessation handout Last Documented On 0 4:07PM ; [facility] Intervention and counseling on cessation of tobacco use : Patient recieved smoking cessation handout Last Documented On 0 2:49PM ; [facility] Education and Decision Aids were provided during visit for: Pill Count: 20 Hydrocodone Last Documented On 2 10:39AM ; [facility] Pill Count: twelve Appropria te Last Documented On 1 2:01PM ; [facility] Pill Count: two Appropriate Last Documented On 1 3:33PM ; [facility] Pill Count: 89 Appropriate Last Documented On 1 11:17PM ; [facility] Pill Count: two Appropriate Last Documented On 1 11:56AM ; [facility] No Pill Count: two Appropria te Last Documented On 0 2:49PM ; [facility] Pill Count: two Appropriate Last Documented On 0 2:05PM ; [facility] Pill Count: Patient did not bring pain medication to appointment for pill count, per policy. Advised in order to continue to safely prescribe opioids, medication must be brought to each appointment Last Documented On 0 2:54PM ; [facility] Pill Count: eight Appropriat e PT COUNTED Last Documented On 0 4:32PM ; [facility] Pill Count: Patient did not bring pain medication to appointment for pill count, per policy. Advised in order to continue to safely prescribe opioids, medication must be brought to each appointment Last Documented On 0 4:09PM ; [facility] Pill Count: one Appropriate Last Documented On 0 10:15AM ; [facility] Pill Count: Patient did not bring pain medication to appointment for pill count, per policy. Advised in order to continue to safely prescribe opioids, medication must be brought to each appointment Last Documented On 0 4:11PM ; [facility] Assessments Includes: Assessments for all patient encounters Findings Encounter Date Chronic pain syndrome PAIN MANAGEMENT FO LLOW UP with HAYLIE ALMANZAR- 08/15/2021 Last Documented On 2 1:24PM ; [facility] jail 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 PAIN M ANAGEMENT FOLLOW UP with HAYLIE [facility] 08/15/2021 Last Documented On 2 1:24PM ; [facility] Lumbar spondylosis with radiculopathy PA IN MANAGEMENT FOLLOW UP with HAYLIE RIDLEY ANP-BC 08/15/2021 Last Documented On 2 1:24PM ; [facility] Lumbosacral spinal stenosis PAIN MANAGEM ENT FOLLOW UP with HAYLIE RIDLEY ANP-BC 08/15/2021 Last Documented On 2 1:24PM ; [facility] Myalgia PAIN MANAGEMENT FOLLOW UP with Azul ALMANZAR-BC 08/15/2021 Last Documented On 2 1:24PM ; [facility] Sacroiliitis PAIN MANAGEMENT FOLLOW UP with T CHIKIS HERNANDEZS [facility] 08/15/2021 Last Documented On 2 1:24PM ; [facility] Chronic pain syndrome PAIN MANAGEMENT FO LLOW UP with HAYLIE L KHAI [facility] 04/20/2021 Last Documented On 1 2:28PM ; [facility] jail 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 PAIN M ANAGEMENT FOLLOW UP with HAYLIE L KHAI [facility] 04/20/2021 Last Documented On 1 2:28PM ; [facility] Lumbar spondylosis with radiculopathy PA IN MANAGEMENT FOLLOW UP with HAYLIE L KHAI [facility] 04/20/2021 Last Documented On 1 2:28PM ; [facility] Lumbosacral spinal stenosis PAIN MANAGEM ENT FOLLOW UP with HAYLIE L KHAI [facility] 04/20/2021 Last Documented On 1 2:28PM ; [facility] Myalgia PAIN MANAGEMENT FOLLOW UP with T CHIKIS L KHAI [facility] 04/20/2021 Last Documented On 1 2:28PM ; [facility] Sacroiliitis PAIN MANAGEMENT FOLLOW UP with T CHIKIS L KHAI [facility] 04/20/2021 Last Documented On 1 2:28PM ; [facility] Chronic pain syndrome PAIN MANAGEMENT FO LLOW UP with HAYLIE L KHAI [facility] 02/17/2021 Last Documented On 1 4:37PM ; [facility] jail 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 PAIN M ANAGEMENT FOLLOW UP with HAYLIE L KHAI [facility] 02/17/2021 Last Documented On 1 4:37PM ; [facility] Lumbar spondylosis with radiculopathy PA IN MANAGEMENT FOLLOW UP with HAYLIE L KHAI [facility] 02/17/2021 Last Documented On 1 4:37PM ; [facility] Lumbosacral spinal stenosis PAIN MANAGEM ENT FOLLOW UP with HAYLIE L KHAI [facility] 02/17/2021 Last Documented On 1 4:37PM ; [facility] Myalgia PAIN MANAGEMENT FOLLOW UP with T CHIKIS L KHAI ANP-BC 02/17/2021 Last Documented On 1 4:37PM ; [facility] Sacroiliitis PAIN MANAGEMENT FOLLOW UP with T CHIKIS L KHAI ANP-BC 02/17/2021 Last Documented On 1 4:37PM ; [facility] Chronic pain syndrome FOLLOW UP with HAYLIE L BL EVINS ANP-BC 11/11/2020 Last Documented On 1 11:17PM ; [facility] jail 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 FOLLOW UP with HAYLIE L KHAI ANP-BC 11/11/2020 Last Documented On 1 11:17PM ; [facility] Lumbar spondylosis with radiculopathy FO LLOW UP with HAYLIE L KHAI ANP-BC 11/11/2020 Last Documented On 1 11:17PM ; [facility] Lumbosacral spinal stenosis FOLLOW UP with GERALD E L KHAI ANP-BC 11/11/2020 Last Documented On 1 11:17PM ; [facility] Myalgia FOLLOW UP with HAYLIE L KHAI ANP-BC 11/11/2020 Last Documented On 1 11:17PM ; [facility] Sacroiliitis FOLLOW UP with HAYLIE L KHAI ANP-BC 11/11/2020 Last Documented On 1 11:17PM ; [facility] Chronic pain syndrome TELEHEALTH with HAYLIE L B LEXIE ANP-BC 10/11/2020 Last Documented On 1 11:58AM ; [facility] jail 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 TELEHEALTH wit h HAYLIE L KHAI ANP-BC 10/11/2020 Last Documented On 1 11:58AM ; [facility] Lumbar spondylosis with radiculopathy TE LEHEALTH with HAYLIE L KHAI ANP-BC 10/11/2020 Last Documented On 1 11:58AM ; [facility] Lumbosacral spinal stenosis TELEHEALTH with TAMM IE L KHAI ANP-BC 10/11/2020 Last Documented On 1 11:58AM ; [facility] Myalgia TELEHEALTH with HAYLIE Shakila HERNANDEZS [facility] 10/11/2020 Last Documented On 1 11:58AM ; [facility] Oriented to time, place, and person TELE HEALTH with HAYLIE Shakila BATISTAKHAI [facility] 10/11/2020 Last Documented On 1 11:58AM ; [facility] Sacroiliitis TELEHEALTH with HAYLIE Shakila HERNANDEZS [facility] 10/11/2020 Last Documented On 1 11:58AM ; [facility] Chronic pain syndrome PAIN MANAGEMENT FO LLOW UP with HAYLIE L KHAI [facility] 07/13/2020 Last Documented On 0 1:09PM ; [facility] jail 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 PAIN M ANAGEMENT FOLLOW UP with HAYLIE L KHAI [facility] 07/13/2020 Last Documented On 0 1:09PM ; [facility] Lumbar spondylosis with radiculopathy PA IN MANAGEMENT FOLLOW UP with HAYLIE L KHAI [facility] 07/13/2020 Last Documented On 0 1:09PM ; [facility] Lumbosacral spinal stenosis PAIN MANAGEM ENT FOLLOW UP with HAYLIE L KHAI [facility] 07/13/2020 Last Documented On 0 1:09PM ; [facility] Myalgia PAIN MANAGEMENT FOLLOW UP with T CHIKIS L KHAI [facility] 07/13/2020 Last Documented On 0 1:09PM ; [facility] Sacroiliitis PAIN MANAGEMENT FOLLOW UP with T CHIKIS L KHAI [facility] 07/13/2020 Last Documented On 0 1:09PM ; [facility] Chronic pain syndrome PAIN MANAGEMENT FO LLOW UP with HAYLIE L KHAI [facility] 04/14/2020 Last Documented On 0 2:09PM ; [facility] jail 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 PAIN M ANAGEMENT FOLLOW UP with HAYLIE L KHAI [facility] 04/14/2020 Last Documented On 0 2:09PM ; [facility] Lumbar spondylosis with radiculopathy PA IN MANAGEMENT FOLLOW UP with HAYLIE Shakila BATISTAKHAI [facility] 04/14/2020 Last Documented On 0 2:09PM ; [facility] Lumbosacral spinal stenosis PAIN MANAGEM ENT FOLLOW UP with HAYLIE Shakila BATISTAKHAI [facility] 04/14/2020 Last Documented On 0 2:09PM ; [facility] Myalgia PAIN MANAGEMENT FOLLOW UP with T CHIKIS L KHAI [facility] 04/14/2020 Last Documented On 0 2:09PM ; [facility] Sacroiliitis PAIN MANAGEMENT FOLLOW UP with T CHIKIS L KHAI [facility] 04/14/2020 Last Documented On 0 2:09PM ; [facility] Chronic pain syndrome PAIN MANAGEMENT FO LLOW UP with HAYLIE Shakila KHAI [facility] 03/15/2020 Last Documented On 0 3:12PM ; [facility] jail 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 PAIN M ANAGEMENT FOLLOW UP with HAYLIE Shakila KHAI [facility] 03/15/2020 Last Documented On 0 3:12PM ; [facility] Lumbar spondylosis with radiculopathy PA IN MANAGEMENT FOLLOW UP with HAYLIE Shakila BATISTAKHAI [facility] 03/15/2020 Last Documented On 0 3:12PM ; [facility] Lumbosacral spinal stenosis PAIN MANAGEM ENT FOLLOW UP with HAYLIE Shakila BATISTAKHAI [facility] 03/15/2020 Last Documented On 0 3:12PM ; [facility] Myalgia PAIN MANAGEMENT FOLLOW UP with T CHIKIS L KHAI [facility] 03/15/2020 Last Documented On 0 3:12PM ; [facility] Sacroiliitis PAIN MANAGEMENT FOLLOW UP with T CHIKIS L KHAI [facility] 03/15/2020 Last Documented On 0 3:12PM ; [facility] Chronic pain syndrome TELEHEALTH with HAYLIEABBY OWEN [facility] 02/12/2020 Last Documented On 0 4:34PM ; [facility] intermediate teacher 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 TELEHEALTH wit h HAYLIE Shakila HERNANDEZS [facility] 02/12/2020 Last Documented On 0 4:34PM ; [facility] Lumbar spondylosis with radiculopathy TE LEHEALTH with HAYLIE L KHAI [facility] 02/12/2020 Last Documented On 0 4:34PM ; [facility] Lumbosacral spinal stenosis TELEHEALTH with TAMTaylor IE Shakila KHAI [facility] 02/12/2020 Last Documented On 0 4:34PM ; [facility] Myalgia TELEHEALTH with HAYLIE L KHAI [facility] 02/12/2020 Last Documented On 0 4:34PM ; [facility] Oriented to time, place, and person TELE HEALTH with HAYLIE L KHAI [facility] 02/12/2020 Last Documented On 0 4:34PM ; [facility] Sacroiliitis TELEHEALTH with HAYLIE L KHAI [facility] 02/12/2020 Last Documented On 0 4:34PM ; [facility] Chronic pain syndrome PAIN MANAGEMENT FO LLOW UP with HAYLIE L KHAI [facility] 01/13/2020 Last Documented On 0 4:36PM ; [facility] jail 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 PAIN M ANAGEMENT FOLLOW UP with HAYLIE L KHAI [facility] 01/13/2020 Last Documented On 0 4:36PM ; [facility] Lumbar spondylosis with radiculopathy PA IN MANAGEMENT FOLLOW UP with HAYLIE L KHAI [facility] 01/13/2020 Last Documented On 0 4:36PM ; [facility] Lumbosacral spinal stenosis PAIN MANAGEM ENT FOLLOW UP with HAYLIE L KHAI [facility] 01/13/2020 Last Documented On 0 4:36PM ; [facility] Myalgia PAIN MANAGEMENT FOLLOW UP with T CHIKIS L KHAI [facility] 01/13/2020 Last Documented On 0 4:36PM ; [facility] Sacroiliitis PAIN MANAGEMENT FOLLOW UP with T CHIKIS L KHAI [facility] 01/13/2020 Last Documented On 0 4:36PM ; [facility] Chronic pain syndrome TELEHEALTH with HAYLIE L B LEXIE [facility] 12/16/2019 Last Documented On 0 10:17AM ; [facility] jail 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 TELEHEALTH wit h HAYLIE L KHAI [facility] 12/16/2019 Last Documented On 0 10:17AM ; [facility] Lumbar spondylosis with radiculopathy TE LEHEALTH with HAYLIE L KHAI [facility] 12/16/2019 Last Documented On 0 10:17AM ; [facility] Lumbosacral spinal stenosis TELEHEALTH with TAMM IE L KHAI [facility] 12/16/2019 Last Documented On 0 10:17AM ; [facility] Myalgia TELEHEALTH with HAYLIE L KHAI [facility] 12/16/2019 Last Documented On 0 10:17AM ; [facility] Sacroiliitis TELEHEALTH with HAYLIE L KHAI [facility] 12/16/2019 Last Documented On 0 10:17AM ; [facility] Chronic pain syndrome PAIN MANAGEMENT FO LLOW UP with HAYLIE L KHAI [facility] 10/16/2019 Last Documented On 0 4:36PM ; [facility] jail 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 PAIN M ANAGEMENT FOLLOW UP with HAYLIE L KHAI [facility] 10/16/2019 Last Documented On 0 4:36PM ; [facility] Lumbar spondylosis with radiculopathy PA IN MANAGEMENT FOLLOW UP with HAYLIE L KHAI [facility] 10/16/2019 Last Documented On 0 4:36PM ; [facility] Lumbosacral spinal stenosis PAIN MANAGEM ENT FOLLOW UP with HAYLIE L KHAI [facility] 10/16/2019 Last Documented On 0 4:36PM ; [facility] Myalgia PAIN MANAGEMENT FOLLOW UP with T CHIKIS L KHAI [facility] 10/16/2019 Last Documented On 0 4:36PM ; [facility] Sacroiliitis PAIN MANAGEMENT FOLLOW UP with T CHIKIS L KHAI [facility] 10/16/2019 Last Documented On 0 4:36PM ; [facility] Lumbar radiculopathy PAIN MANAGEMENT FOL LOW UP with HAYLIE L KHAI ANP-BC 09/01/2019 Last Documented On 0 11:04AM ; [facility] Lumbar spondylosis with radiculopathy PA IN MANAGEMENT FOLLOW UP with HAYLIE L KHAI ANP-BC 09/01/2019 Last Documented On 0 11:04AM ; [facility] Lumbosacral spinal stenosis PAIN MANAGEM ENT FOLLOW UP with HAYLIE L KHAI ANP-BC 09/01/2019 Last Documented On 0 11:04AM ; [facility] Myalgia PAIN MANAGEMENT FOLLOW UP with T CHIKIS L KHAI ANP-BC 09/01/2019 Last Documented On 0 11:04AM ; [facility] Sacroiliitis PAIN MANAGEMENT FOLLOW UP with T CHIKIS L KHAI ANP-BC 09/01/2019 Last Documented On 0 11:04AM ; [facility] Lumbar radiculopathy PAIN MANAGEMENT FOL LOW UP with HAYLIE L KHAI ANP-BC 11/14/2018 Last Documented On 9 11:16AM ; [facility] Lumbar spondylosis with radiculopathy PA IN MANAGEMENT FOLLOW UP with HAYLIE L KHAI ANP-BC 11/14/2018 Last Documented On 9 11:16AM ; [facility] Lumbosacral spinal stenosis PAIN MANAGEM ENT FOLLOW UP with HAYLIE L KHAI ANP-BC 11/14/2018 Last Documented On 9 11:16AM ; [facility] Myalgia PAIN MANAGEMENT FOLLOW UP with T CHIKIS L KHAI ANP-BC 11/14/2018 Last Documented On 9 11:16AM ; [facility] Sacroiliitis PAIN MANAGEMENT FOLLOW UP with T CHIKIS L KHAI ANP-BC 11/14/2018 Last Documented On 9 11:16AM ; [facility] Lumbar radiculopathy PAIN MANAGEMENT FOL LOW UP with HAYLIE L KHAI ANP-BC 10/09/2018 Last Documented On 9 11:17AM ; [facility] Lumbar spondylosis with radiculopathy PA IN MANAGEMENT FOLLOW UP with HAYLIE L KHAI ANP-BC 10/09/2018 Last Documented On 9 11:17AM ; [facility] Lumbosacral spinal stenosis PAIN MANAGEM ENT FOLLOW UP with HAYLIE L KHAI ANP-BC 10/09/2018 Last Documented On 9 11:17AM ; [facility] Myalgia PAIN MANAGEMENT FOLLOW UP with T CHIKIS L KHAI ANP-BC 10/09/2018 Last Documented On 9 11:17AM ; [facility] Sacroiliitis PAIN MANAGEMENT FOLLOW UP with T CHIKIS L KHAI ANP-BC 10/09/2018 Last Documented On 9 11:17AM ; [facility] Lumbar radiculopathy PAIN MANAGEMENT FOL LOW UP with HAYLIE L KHAI ANP-BC 09/11/2018 Last Documented On 9 2:12PM ; [facility] Lumbar spondylosis with radiculopathy PA IN MANAGEMENT FOLLOW UP with HAYLIE L KHAI ANP-BC 09/11/2018 Last Documented On 9 2:12PM ; [facility] Lumbosacral spinal stenosis PAIN MANAGEM ENT FOLLOW UP with HAYLIE L KHAI ANP-BC 09/11/2018 Last Documented On 9 2:12PM ; [facility] Myalgia PAIN MANAGEMENT FOLLOW UP with T CHIKIS L KHAI ANP-BC 09/11/2018 Last Documented On 9 2:12PM ; [facility] Sacroiliitis PAIN MANAGEMENT FOLLOW UP with T CHIKIS L KHAI ANP-BC 09/11/2018 Last Documented On 9 2:12PM ; [facility] Lumbar radiculopathy PAIN MANAGEMENT FOL LOW UP with HAYLIE L KHAI ANP-BC 07/09/2018 Last Documented On 8 11:25AM ; [facility] Lumbar spondylosis with radiculopathy PA IN MANAGEMENT FOLLOW UP with HAYLIE L KHAI ANP-BC 07/09/2018 Last Documented On 8 11:25AM ; [facility] Lumbosacral spinal stenosis PAIN MANAGEM ENT FOLLOW UP with HAYLIE L KHAI ANP-BC 07/09/2018 Last Documented On 8 11:25AM ; [facility] Myalgia PAIN MANAGEMENT FOLLOW UP with T CHIKIS L KHAI ANP-BC 07/09/2018 Last Documented On 8 11:25AM ; [facility] Sacroiliitis PAIN MANAGEMENT FOLLOW UP with T CHIKIS L KHAI ANP-BC 07/09/2018 Last Documented On 8 11:25AM ; [facility] Lumbar radiculopathy PAIN MANAGEMENT FOL LOW UP with HAYLIE L KHAI ANP-BC 04/16/2018 Last Documented On 8 1:50PM ; [facility] Lumbar spondylosis with radiculopathy PA IN MANAGEMENT FOLLOW UP with HAYLIE L KHAI ANP-BC 04/16/2018 Last Documented On 8 1:50PM ; [facility] Lumbosacral spinal stenosis PAIN MANAGEM ENT FOLLOW UP with HAYLIE L KHAI ANP-BC 04/16/2018 Last Documented On 8 1:50PM ; [facility] Myalgia PAIN MANAGEMENT FOLLOW UP with T CHIKIS L KHAI ANP-BC 04/16/2018 Last Documented On 8 1:50PM ; [facility] Sacroiliitis PAIN MANAGEMENT FOLLOW UP with T CHIKIS L KHAI ANP-BC 04/16/2018 Last Documented On 8 1:50PM ; [facility] Lumbar radiculopathy PAIN MANAGEMENT FOL LOW UP with HAYLIE L KHAI ANP-BC 03/05/2018 Last Documented On 8 11:21AM ; [facility] Lumbar spondylosis with radiculopathy PA IN MANAGEMENT FOLLOW UP with HAYLIE L KHAI ANP-BC 03/05/2018 Last Documented On 8 11:21AM ; [facility] Lumbosacral spinal stenosis PAIN MANAGEM ENT FOLLOW UP with HAYLIE L KHAI ANP-BC 03/05/2018 Last Documented On 8 11:21AM ; [facility] Myalgia PAIN MANAGEMENT FOLLOW UP with T CHIKIS L KHAI ANP-BC 03/05/2018 Last Documented On 8 11:21AM ; [facility] Sacroiliitis PAIN MANAGEMENT FOLLOW UP with T CHIKIS L KHAI ANP-BC 03/05/2018 Last Documented On 8 11:21AM ; [facility] Lumbar radiculopathy PAIN MANAGEMENT FOL LOW UP with HAYLIE L KHAI ANP-BC 01/22/2018 Last Documented On 8 4:46PM ; [facility] Lumbar spondylosis with radiculopathy PA IN MANAGEMENT FOLLOW UP with HAYLIE L KHAI ANP-BC 01/22/2018 Last Documented On 8 4:46PM ; [facility] Lumbosacral spinal stenosis PAIN MANAGEM ENT FOLLOW UP with HAYLIE L KHAI ANP-BC 01/22/2018 Last Documented On 8 4:46PM ; [facility] Myalgia PAIN MANAGEMENT FOLLOW UP with T CHIKIS L KHAI ANP-BC 01/22/2018 Last Documented On 8 4:46PM ; [facility] Sacroiliitis PAIN MANAGEMENT FOLLOW UP with T CHIKIS L KHAI ANP-BC 01/22/2018 Last Documented On 8 4:46PM ; [facility] Lumbar radiculopathy PAIN MANAGEMENT NEW CONSULT with HAYLIE L KHAI ANP-BC 12/20/2017 Last Documented On 8 1:05PM ; [facility] Lumbar spondylosis with radiculopathy PA IN MANAGEMENT NEW CONSULT with HAYLIE L KHAI ANP-BC 12/20/2017 Last Documented On 8 1:05PM ; [facility] Lumbosacral spinal stenosis PAIN MANAGEM ENT NEW CONSULT with HAYLIE L KHAI ANP-BC 12/20/2017 Last Documented On 8 1:05PM ; [facility] Myalgia PAIN MANAGEMENT NEW CONSULT with HAYLIE L KHAI ANP-BC 12/20/2017 Last Documented On 8 1:05PM ; [facility] Sacroiliitis PAIN MANAGEMENT NEW CONSULT with HAYLIE L KHAI ANP-CYNTHIA 12/20/2017 Last Documented On 8 1:05PM ; [facility] Instructions Includes: Instructions for all patient encounters Instructions to patient Intervention and counseling on cessation of tobacco use : Patient recieved smoking cessation handout Last Documented On 2 10:25AM ; [facility] Intervention and counseling on cessation of tobacco use : Patient recieved smoking cessation handout Last Documented On 1 2:00PM ; [facility] Intervention and counseling on cessation of tobacco use : Patient recieved smoking cessation handout Last Documented On 1 3:33PM ; [facility] Intervention and counseling on cessation of tobacco use : Patient recieved smoking cessation handout Last Documented On 1 11:43AM ; [facility] Intervention and counseling on cessation of tobacco use : Patient recieved smoking cessation handout Last Documented On 0 2:47PM ; [facility] Intervention and counseling on cessation of tobacco use : Patient recieved smoking cessation handout Last Documented On 0 1:48PM ; [facility] Intervention and counseling on cessation of tobacco use : Patient recieved smoking cessation handout Last Documented On 0 2:53PM ; [facility] Intervention and counseling on cessation of tobacco use : Patient recieved smoking cessation handout Last Documented On 0 4:07PM ; [facility] Intervention and counseling on cessation of tobacco use : Patient recieved smoking cessation handout Last Documented On 0 2:49PM ; [facility] Education and Decision Aids were provided during visit for: Pill Count: 20 Hydrocodone Last Documented On 2 10:39AM ; [facility] Pill Count: twelve Appropria te Last Documented On 1 2:01PM ; [facility] Pill Count: two Appropriate Last Documented On 1 3:33PM ; [facility] Pill Count: 89 Appropriate Last Documented On 1 11:17PM ; [facility] Pill Count: two Appropriate Last Documented On 1 11:56AM ; [facility] No Pill Count: two Appropria te Last Documented On 0 2:49PM ; [facility] Pill Count: two Appropriate Last Documented On 0 2:05PM ; [facility] Pill Count: Patient did not bring pain medication to appointment for pill count, per policy. Advised in order to continue to safely prescribe opioids, medication must be brought to each appointment Last Documented On 0 2:54PM ; [facility] Pill Count: eight Appropriat e PT COUNTED Last Documented On 0 4:32PM ; [facility] Pill Count: Patient did not bring pain medication to appointment for pill count, per policy. Advised in order to continue to safely prescribe opioids, medication must be brought to each appointment Last Documented On 0 4:09PM ; [facility] Pill Count: one Appropriate Last Documented On 0 10:15AM ; [facility] Pill Count: Patient did not bring pain medication to appointment for pill count, per policy. Advised in order to continue to safely prescribe opioids, medication must be brought to each appointment Last Documented On 0 4:11PM ; [facility] Medical Equipment - Implanted Devices Includes: Current and historical Devices No Medical Equipment Recorded Medications Includes: Current and historical Medications Current Medications (continue as prescribed) HYDROcodone-Acetaminophen 7. 5-325 MG Oral Tablet 10/21/2021 Provider: CATHY GUDINO APRN-MARY GRACE, EAR MACHINE OPERATOR-BC Diagnosis: Other spondylosi s with radiculopathy, lumbar region 1 po TID prn Last Documented On 2 2:25PM By CATHY MAHARAJP-BC ; [facility] Pregabalin 75 MG Oral Capsule 07/05/2021 Provider: HAYLIE RIDLEY ANP-BC Diagnosis: One tablet at bed time Last Documented On 1 8:31AM By HAYLIE ALMANZAR-BC ; [facility] Gabapentin 300MG Oral Capsule 09/30/2018 Provider: HAYLIE RIDLEY ANP-BC Diagnosis: TAKE 1 CAPSULE BY MOUTH THREE TIMES DAILY Last Documented On 2 10:40AM By Leyda Aj Alec ; [facility] Ventolin HFA 108 (90 Base)MCG/ACT Inhalation Aer osol, solution 12/20/2017 Provider: Diagnosis: Last Documented On 8 2:23PM By YONATHAN FELIPE ; [facility] Past Medications on file HYDROcodone-Acetaminophen 7. 5-325 MG Oral Tablet 09/19/2021 - 10/21/2021 Provider: HAYLIE TOLBERT Diagnosis: Other spondylosi s with radiculopathy, lumbar region 1 po TID prn Last Documented On 2 2:16PM By CATHY MAHARAJP-BC ; [facility] HYDROcodone-Acetaminophen 7. 5-325 MG Oral Tablet 08/15/2021 - 09/19/2021 Provider: HAYLIE TOLBERT Diagnosis: Other spondylosi s with radiculopathy, lumbar region 1 po TID prn Last Documented On 2 12:03PM By HAYLIE TOLBERT ; [facility] HYDROcodone-Acetaminophen 7. 5-325 MG Oral Tablet 07/21/2021 - 08/15/2021 Provider: HAYLIE TOLBERT Diagnosis: 1 po TID prn Last Documented On 2 11:01AM By HAYLIE TOLBERT ; [facility] Pregabalin 75 MG Oral Capsule 07/04/2021 - 07/05/2021 Provider: HAYLIE TOLBERT Diagnosis: TAKE ONE CAPSULE BY MOUTH AT BEDTIME Last Documented On 1 8:22AM By HAYLIE TOLBERT ; [facility] HYDROcodone-Acetaminophen 7. 5-325 MG Oral Tablet 06/20/2021 - 07/20/2021 Provider: HAYLIE TOLBERT Diagnosis: 1 po TID prn1/17 Last Documented On 1 2:03PM By HAYLIE TOLBERT ; [facility] HYDROcodone-Acetaminophen 7. 5-325 MG Oral Tablet 05/23/2021 - 06/20/2021 Provider: HAYLIE TOLBERT Diagnosis: Other spondylosis, lumbar region 1 po TID prn9/20 Last Documented On 1 1:49PM By HAYLIE TOLBERT ; [facility] HYDROcodone-Acetaminophen 7. 5-325 MG Oral Tablet 04/20/2021 - 05/19/2021 Provider: HAYLIE TOLBERT Diagnosis: 1 po TID pr Last Documented On 1 8:22AM By HAYLIE TOLBERT ; [facility] HYDROcodone-Acetaminophen 7. 5-325 MG Oral Tablet 03/24/2021 - 04/20/2021 Provider: HAYLIE TOLBERT Diagnosis: Radiculopathy, lumbar region 1 po TID prnfill 03/26 Last Documented On 1 2:28PM By HAYLIE TOLBERT ; [facility] HYDROcodone-Acetaminophen 7. 5-325 MG Oral Tablet 03/23/2021 - 03/24/2021 Provider: HAYLIE TOLBERT Diagnosis: 1 po TID prnfill 03/26 Last Documented On 1 4:18PM By HAYLIE TOLBERT ; [facility] HYDROcodone-Acetaminophen 7. 5-325 MG Oral Tablet 02/22/2021 - 03/23/2021 Provider: HAYLIE TOLBERT Diagnosis: Other spondylosi s with radiculopathy, lumbar region 1 po TID prnfill 02/24 Last Documented On 1 1:14PM By HAYLIE TOLBERT ; [facility] HYDROcodone-Acetaminophen 7. 5-325 MG Oral Tablet 02/17/2021 - 02/22/2021 Provider: HAYLIE TOLBERT Diagnosis: 1 po TID prnfill 02/10 Last Documented On 1 9:48AM By HAYLIE TOLBERT ; [facility] Pregabalin 75 MG Oral Capsule 02/17/2021 - 07/04/2021 Provider: HAYLIE TOLBERT Diagnosis: TAKE ONE CAPSULE BY MOUTH AT BEDTIME Last Documented On 1 2:28PM By HAYLIE TOLBERT ; [facility] Pregabalin 75 MG Oral Capsule 02/08/2021 - 02/17/2021 Provider: HAYLIE TOLBERT Diagnosis: Other spondylosi s with radiculopathy, lumbar region TAKE ONE CAPSULE BY MOUTH AT BEDTIME Last Documented On 1 3:49PM By HAYLIE TOLBERT ; [facility] HYDROcodone-Acetaminophen 7. 5-325 MG Oral Tablet 02/08/2021 - 02/17/2021 Provider: HAYLIE TOLBERT Diagnosis: 1 po TID prnfill 02/10 Last Documented On 1 3:50PM By HAYLIE TOLBERT ; [facility] HYDROcodone-Acetaminophen 7. 5-325 MG Oral Tablet 01/06/2021 - 02/08/2021 Provider: HAYLIE TOLBERT Diagnosis: Other spondylosi s with radiculopathy, lumbar region 1 po TID prn Last Documented On 1 1:08PM By HAYLIE TOLBERT ; [facility] Pregabalin 75 MG Oral Capsule 12/14/2020 - 02/08/2021 Provider: HAYLIE TOLBERT Diagnosis: Other spondylosi s with radiculopathy, lumbar region TAKE ONE CAPSULE BY MOUTH AT BEDTIME Last Documented On 1 1:35PM By HAYLIE TOLBERT ; [facility] HYDROcodone-Acetaminophen 7. 5-325 MG Oral Tablet 12/07/2020 - 01/06/2021 Provider: HAYLIE TOLBERT Diagnosis: Other spondylosi s with radiculopathy, lumbar region 1 po TID prn Last Documented On 1 2:18PM By HAYLIE TOLBERT ; [facility] HYDROcodone-Acetaminophen 7. 5-325 MG Oral Tablet 11/11/2020 - 12/07/2020 Provider: HAYLIE TOLBERT Diagnosis: Other spondylosi s with radiculopathy, lumbar region 1 po TID prn Last Documented On 1 2:02PM By HAYLIE TOLBERT ; [facility] HYDROcodone-Acetaminophen 7. 5-325 MG Oral Tablet 10/11/2020 - 11/09/2020 Provider: HAYLIE TOLBERT Diagnosis: Other spondylosi s with radiculopathy, lumbar region 1 po TID prn Last Documented On 1 8:17AM By HAYLIE TOLBERT ; [facility] Pregabalin 75 MG Oral Capsule 09/15/2020 - 12/14/2020 Provider: HAYLIE TOLBERT Diagnosis: Other spondylosi s with radiculopathy, lumbar region One tablet at bed time Last Documented On 1 10:23AM By HAYLIE TOLBERT ; [facility] HYDROcodone-Acetaminophen 7. 5-325 MG Oral Tablet 09/09/2020 - 10/11/2020 Provider: HAYLIE TOLBERT Diagnosis: Other spondylosi s with radiculopathy, lumbar region 1 po TID prnto fill 09/11/20 Last Documented On 1 11:57AM By HAYLIE TOLBERT ; [facility] HYDROcodone-Acetaminophen 7. 5-325 MG Oral Tablet 08/12/2020 - 09/09/2020 Provider: HAYLIE TOLBERT Diagnosis: Other spondylosi s with radiculopathy, lumbar region 1 po TID prnfill when due Last Documented On 1 2:27PM By HAYLIE TOLBERT ; [facility] HYDROcodone-Acetaminophen 7. 5-325 MG Oral Tablet 07/14/2020 - 08/12/2020 Provider: HAYLIE TOLBERT Diagnosis: Other spondylosi s with radiculopathy, lumbar region 1 po TID prnfill when due Last Documented On 1 12:21PM By HAYLIE TOLBERT ; [facility] Pregabalin 75 MG Oral Capsule 06/15/2020 - 09/14/2020 Provider: HAYLIE TOLBERT Diagnosis: Other spondylosi s with radiculopathy, lumbar region One tablet at bed time Last Documented On 1 1:41PM By HAYLIE TOLBERT ; [facility] HYDROcodone-Acetaminophen 7. 5-325 MG Oral Tablet 06/11/2020 - 07/13/2020 Provider: HAYLIE TOLBERT Diagnosis: Other spondylosi s with radiculopathy, lumbar region 1 po TID prnfill when due Last Documented On 0 1:08PM By HAYLIE TOLBERT ; [facility] HYDROcodone-Acetaminophen 7. 5-325 MG Oral Tablet 05/13/2020 - 06/11/2020 Provider: HAYLIE TOLBERT Diagnosis: Other spondylosi s with radiculopathy, lumbar region 1 po TID prnfill when due Last Documented On 0 1:00PM By HAYLIE TOLBERT ; [facility] HYDROcodone-Acetaminophen 7. 5-325 MG Oral Tablet 04/14/2020 - 05/13/2020 Provider: HAYLIE TOLBERT Diagnosis: Other spondylosi s with radiculopathy, lumbar region 1 po TID prn Last Documented On 0 11:59AM By HAYLIE TOLBERT ; [facility] Lyrica 75 MG Oral Capsule 03/15/2020 - 06/15/2020 Provider: HAYLIE TOLBERT Diagnosis: Other spondylosi s with radiculopathy, lumbar region One tablet at bed time Last Documented On 0 9:37AM By HAYLIE TOLBERT ; [facility] HYDROcodone-Acetaminophen 7. 5-325 MG Oral Tablet 03/15/2020 - 04/14/2020 Provider: HAYLIE TOLBERT Diagnosis: Other spondylosi s with radiculopathy, lumbar region 1 po TID prn Last Documented On 0 2:08PM By HAYLIE TOLBERT ; [facility] HYDROcodone-Acetaminophen 7. 5-325 MG Oral Tablet 02/12/2020 - 03/15/2020 Provider: HAYLIE TOLBERT Diagnosis: Other spondylosi s with radiculopathy, lumbar region 1 po TID prnto fill 02/14/20 Last Documented On 0 3:11PM By HAYLIE TOLBERT ; [facility] HYDROcodone-Acetaminophen 7. 5-325 MG Oral Tablet 01/13/2020 - 02/12/2020 Provider: HAYLIE TOLBERT Diagnosis: Other spondylosi s with radiculopathy, lumbar region 1 po TID prnto fill 01/16/20 Last Documented On 0 4:34PM By HAYLIE TOLBERT ; [facility] Lyrica 75 MG Oral Capsule 01/13/2020 - 03/15/2020 Provider: HAYLIE TOLBERT Diagnosis: Chronic pain syn drome 1 po qhs x 7 days then BID Last Documented On 0 3:11PM By HAYLIE TOLBERT ; [facility] HYDROcodone-Acetaminophen 7. 5-325 MG Oral Tablet 12/17/2019 - 01/13/2020 Provider: HAYLIE TOLBERT Diagnosis: Other spondylosi s with radiculopathy, lumbar region 1 po TID prn Last Documented On 0 4:26PM By HAYLIE TOLBERT ; [facility] HYDROcodone-Acetaminophen 7. 5-325 MG Oral Tablet 11/13/2019 - 12/16/2019 Provider: HAYLIE TOLBERT Diagnosis: Other spondylosi s with radiculopathy, lumbar region 1 po TID prnto fill 11/14/19 Last Documented On 0 10:16AM By HAYLIE TOLBERT ; [facility] HYDROcodone-Acetaminophen 7. 5-325 MG Oral Tablet 10/16/2019 - 11/13/2019 Provider: HAYLIE TOLBERT Diagnosis: Other spondylosi s with radiculopathy, lumbar region 1 po TID prn Last Documented On 0 4:16PM By HAYLIE TOLBERT ; [facility] HYDROcodone-Acetaminophen 7. 5-325 MG Oral Tablet 10/01/2019 - 10/16/2019 Provider: HAYLIE TOLBERT Diagnosis: Low back pain 1 po TID prn Last Documented On 0 4:35PM By HAYLIE TOLBERT ; [facility] HYDROcodone-Acetaminophen 7. 5-325 MG Oral Tablet 09/17/2019 - 10/01/2019 Provider: HAYLIE ESPITIABC Diagnosis: Low back pain 1 po TID prn Last Documented On 0 12:27PM By HAYLIE ALMANZAR-BC ; [facility] HYDROcodone-Acetaminophen 7.5-325MG Oral Tablet 11/20/2018 - 09/01/2019 Provider: HAYLIE RIDLEY ANP- Diagnosis: Chronic pain syndrome 1 po q 8 hours prn/ max 2 per day Last Documented On 0 2:48PM By Concepcion Cross Alec ; [facility] Lyrica 150MG Oral Capsule, conventional 11/14/2018 - 09/01/2019 Provider: HAYLIE ESPITIABC Diagnosis: Radiculopathy, l umbar region 1 CAPSULE TWO TIMES A DAY Last Documented On 0 2:48PM By Concepcion FELIPE ; [facility] Lyrica 75MG Oral Capsule, conventional 11/14/2018 - 09/01/2019 Provider: HAYLIE ESPITIA Diagnosis: Radiculopathy, l umbar region 1 CAPSULE TWO TIMES A DAY Last Documented On 0 2:48PM By Concepcion FELIPE ; [facility] HYDROcodone-Acetaminophen 7.5-325MG Oral Tablet 10/23/2018 - 11/20/2018 Provider: HAYLIE ESPITIABC Diagnosis: Chronic pain syndrome 1 po q 8 hours prn/ max 2 per day Last Documented On 9 3:15PM By HAYLIE ALMANZAR-BC ; [facility] HYDROcodone-Acetaminophen 7.5-325MG Oral Tablet 09/27/2018 - 10/23/2018 Provider: HAYLIE RIDLEY ANP-BC Diagnosis: Chronic pain syndrome 1 po q 8 hours prn/ max 2 per day Last Documented On 9 4:33PM By HAYLIE ALMANZAR-BC ; [facility] Gabapentin 300MG Oral Capsule 09/04/2018 - 09/30/2018 Provider: HAYLIE RIDLEY ANP-BC Diagnosis: One tablet three times a day Last Documented On 9 2:17PM By HAYLIE ALMANZAR- ; [facility] Hydrocodone-Acetaminophen 7.5-325MG Oral Tablet 08/29/2018 - 09/26/2018 Provider: HAYLIE RIDLEY ANP- Diagnosis: Chronic pain syndrome 1 po q 8 hours prn Last Documented On 9 8:24AM By HAYLIE ALMANZAR- ; [facility] Hydrocodone-Acetaminophen 7.5-325MG Oral Tablet 08/01/2018 - 08/01/2018 Provider: LUCY CARMONA MD Diagnosis: Chronic pain syndrome 1 po q 8 hours prn Last Documented On 8 12:21PM By Benton BELL ; [facility] Hydrocodone-Acetaminophen 7.5-325MG Oral Tablet 08/01/2018 - 08/29/2018 Provider: BENTON BELL Diagnosis: Chronic pain syndrome 1 po q 8 hours prn Last Documented On 9 1:09PM By HAYLIE RIDLEY [facility] ; [facility] Hydrocodone-Acetaminophen 7.5-325MG Oral Tablet 07/02/2018 - 08/01/2018 Provider: HAYLIE ALMANZAR- Diagnosis: Chronic pain syndrome 1 po q 8 hours prn Last Documented On 08/01/2018 9:48AM By LUCY CARMONA MD ; [facility] Gabapentin 300MG Oral Capsule, conventional 05/31/2018 - 09/04/2018 Provider: HAYLIE BROOKS ANP- Diagnosis: TAKE 1 CAPSULE BY MOUTH THREE TIMES DAILY Last Documented On 9 10:52AM By HAYLIE RIDLEY [facility]- ; [facility] Hydrocodone-Acetaminophen 7.5-325MG Oral Tablet 05/29/2018 - 07/02/2018 Provider: HAYLIE RIDLEY ANP- Diagnosis: Chronic pain syndrome 1 po q 8 hours prnto fill 06/02/18 Last Documented On 8 12:10PM By HAYLIE ALMANZAR- ; [facility] Gabapentin 300MG Oral Capsule 05/02/2018 - 05/31/2018 Provider: HAYLIEABBY TOLBERT Diagnosis: TAKE 1 CAPSULE BY MOUTH THREE TIMES DAILY Last Documented On 8 8:31AM By HAYLIE TOLBERT ; [facility] Hydrocodone-Acetaminophen 7.5-325MG Oral Tablet 05/02/2018 - 05/29/2018 Provider: HAYLIE TOLBERT Diagnosis: Chronic pain syndrome 1 po q 8 hours prnto fill 05/03/18 Last Documented On 8 11:13AM By HAYLIE TOLBERT ; [facility] Gabapentin 300MG Oral Capsule 04/02/2018 - 05/02/2018 Provider: HAYLIE TOLBERT Diagnosis: One tablet three times a day Last Documented On 8 4:10PM By HAYLIE TOLBERT ; [facility] Hydrocodone-Acetaminophen 7.5-325MG Oral Tablet 04/01/2018 - 05/01/2018 Provider: HAYLIE TOLBERT Diagnosis: Chronic pain syndrome 1 po q 8 hours prnto fill 04/03/18 Last Documented On 8 11:01AM By HAYLIE TOLBERT ; [facility] Gabapentin 300MG Oral Capsule 03/05/2018 - 04/02/2018 Provider: HAYLIE TOLBERT Diagnosis: Radiculopathy, l umbar region as directed QHS x 3 days, BI D x 3 days then TID Last Documented On 8 4:06PM By HAYLIE TOLBERT ; [facility] Hydrocodone-Acetaminophen 7.5-325MG Oral Tablet 02/27/2018 - 04/01/2018 Provider: HAYLIE TOLBERT Diagnosis: Chronic pain syndrome 1 po q 8 hours prnto fill 03/03/18 Last Documented On 8 1:09PM By HAYLIE TOLBERT ; [facility] Hydrocodone-Acetaminophen 7.5-325MG Oral Tablet 01/31/2018 - 02/27/2018 Provider: HAYLIE TOLBERT Diagnosis: Chronic pain syndrome 1 po q 8 hours prn Last Documented On 8 9:46AM By HAYLIE TOLBERT ; [facility] Hydrocodone-Acetaminophen 7.5-325MG Oral Tablet 01/01/2018 - 01/31/2018 Provider: HAYLIE TOLBERT Diagnosis: Chronic pain syndrome 1 po q 8 hours prn Last Documented On 8 3:36PM By HAYLIE TOLBERT ; [facility] Amitriptyline HCl 25MG Oral Tablet 12/20/2017 - 2018 Provider: Diagnosis: 1 tab at bedtime Last Documented On 9 11:48AM By HAYLIE TOLBERT ; [facility] Hydrocodone-Acetaminophen 7.5-325MG Oral Tablet 12/20/2017 - 01/01/2018 Provider: Diagnosis: 1 tab every 8 hours as needed Last Documented On 8 11:39AM By HAYLIE TOLBERT ; [facility] MetFORMIN HCl 1000MG Oral Tablet 12/20/2017 - 07/05/20 Provider: Diagnosis: 1 tab BID Last Documented On 1 8:23AM By HAYLIE TOLBERT ; [facility] Lisinopril-Hydrochlorothiazi de 20-25MG Oral Tablet 12/20/2017 - 09/01/2019 Provider: Diagnosis: 1 tab daily Last Documented On 0 2:49PM By Concepcion FELIPE ; [facility] RaNITidine HCl 300MG Oral Tablet 12/20/2017 - 04/20/20 Provider: Diagnosis: 1 tab daily Last Documented On 04/20/2021 2:00PM By Peggy FELIPE ; [facility] Medications Administered Includes: Administered Medications in patient's chart No Administered Medications Recorded Results Includes: Results from 07/24/2024 through 07/24/2025 No Results Recorded For Specified Dates History of Present Illness History of Present Illness not supported for this document type No History of Present Illness Recorded Social History Description Last Updated Current smoker 10/11/2020 Last Documented On 1 11:58AM ; [facility] Smoker 12/16/2019 Last Documented On 0 10:17AM ; [facility] Not using drugs 12/20/2017 Last Documented On 8 1:05PM ; [facility] Single 12/20/2017 Last Documented On 8 1:05PM ; [facility] Smoking status : Current everyday smoker 12/20/2017 Last Documented On 8 1:05PM ; [facility] Medical History Includes: Medical History in patient's chart Description Last Updated Has had no fall in the last 12 months. 0 08/15/2021 Last Documented On 2 1:24PM ; [facility] Denies a fear of falling. 08/15/2021 Last Documented On 2 1:24PM ; [facility] Reviewed and Unchanged 10/16/2019 Last Documented On 0 4:36PM ; [facility] Currently wearing eyeglasses 12/20/2017 Last Documented On 8 1:05PM ; [facility] Wearing contact lenses 12/20/2017 Last Documented On 8 1:05PM ; [facility] History of cancer skin 12/20/2017 Last Documented On 8 1:05PM ; [facility] History of hypertension 12/20/2017 Last Documented On 8 1:05PM ; [facility] Asthma 12/20/2017 Last Documented On 8 1:05PM ; [facility] History of diabetes mellitus 12/20/2017 Last Documented On 8 1:05PM ; [facility] Born by section 12/20/2017 Last Documented On 8 1:05PM ; [facility] Family History Includes: Family History in patient's chart Description Last Updated Family history of cancer 12/20/2017 Last Documented On 8 1:05PM ; [facility] Review of Systems Review of [...] Active Last Documented On 2 10:26AM ; [facility] Insurance Includes: Active Insurance Policies Plan Name Member ID Group # Subscriber Relationship Effect tawanna Dates 1 - [facility] [id number] RALEIGH BERMUDEZ Self Clinical Notes Includes: Signed Clinical Notes starting from 08/25/2022 No Clinical Notes Recorded
--- OUTSIDE RECORDS SUMMARY | 2025-07-24 13:27 | XMS_ITS | Continuity of Care Document ---
Author Organization [facility] [place] Address [address] [place] [address] Care Team Providers Care Recycling Operator Name Role Phone JEANA MAYERS Primary Care Provider Assessment Encounter Date Assessment Date Assessment LastModified by Organization Details LastModified Time 06/01/2025 06/01/2025 Annual gynecological exam performed. Patient will come back in a year unless there are new symptoms. [email or web address] Not available 06/01/2025 14:22:16 Plan of Treatment Reminders Order Date Submit Date Provider Last Modified By Organization Details Last Modified Time Details Appointments None recorded. Lab pap, IG + HR HPV - HPV regardless but if HPV is positive need subtyping 16,18/45 2024 025 [facility] (Lab), [address], [place], [address], 12:58:14 Referral None recorded. Procedures None recorded. Surgeries None recorded. Imaging None recorded. Medication Orders None recorded. Patient TargetsNo targets recorded. Patient InstructionsNo instructions recorded. Reason for Referral None Reported. Procedures Surgical History Date Name Laterality Status Provider Name and Address Organization Details Recorded Time 02/08/19 83 section completed [facility] 06/01/2025 14:33:09 04/09/19 81 section completed [facility] 06/01/2025 14:33:03 Cholecystectomy completed [facility] 06/01/2025 14:33:31 [facility] 14:33:58 Imaging Results None recorded. Procedure Notes None recorded. Medical Equipment None Reported. Allergies Allergen ID Allergen Name Allergen Category Reaction Reaction Severity Criticality Documentation Date Start Date Code Code System Note Provider Name and Address Organization Details Recorded Time 30884 Product containin g penicilli n (product) medicatio n Not available Not available Not available 06/01/2025 69849 8001 SN[facility]ED [facility] 14:27:18 Medications Name Sig Start [...] Updated DateTime 06/01/2025 157.48 cm 30.4 kg/m2 50342.33 g 128/72 mm[Hg] [facility] 06/01/2025 14:24:58 Social History Question Answer Notes LastModified by Organizat ion Details LastModified Time Tobacco Smoking Status Current Some Day Smoker Shelby Dan [facility] 06/01/2025 14:32:37 In The 14 Days Before Symptom Onset, Have You Had Close Contact With A Laboratory-confirm ed COVID-19 While That Case Was Ill? No [email or web address] Information n ot available 06/01/2025 In The 14 Days Before Symptom Onset, Have You Had Close Contact With A Person Who Is Under Investigation For COVID-19 While That Person Was Ill? No Information not available 06/01/2025 Have You Been To An Area Known To Be High Risk For COVID-19? No [email or web address] Information not available 06/01/2025 How Much Tobacco Do You Smoke? 1 PPW Information not available 06/01/2025 Sex: Unknown Functional Status None recorded. Mental Status None recorded. Family History Relationship Description Onset Age of this Age Resolved Age Notes LastModified by Organization Details LastModified Time Father Malignant neoplasm of colon [email or web address] Not available 2024 14:32:12 Medical History Condition [...] ICD10 Code Diagnosis IMO Codes Diagnosis Note [id number] MAUREEN Del Toro [place] [address] [address] 06/01/2025 13:59:28 06/01/2025 14:51:21 Gynecologic examination 19307391 Z01.299 [id number] WWEpostmen opausalPap - done todaySTI screen - [...] Padilla Member ID Guarantor Name 06/01/2025 1 [facility] (MEDICAID REPLACEMENT - HMO) Dilia [place] [id number] Dilia Molina Notes Date Note Type Note Provider Name and Address Organization Details Recorded Time 5 text/html Annual Engineering Design Manager Post-MenopausalReported by PatientGenitourinary symptomsFor menopausal symptoms, patient [...] wkDexa scheduled 5colonoscopy UTD 2023 Shelby blank [facility] 06/01/2025 17:54:05 OBGyn Episode No OBEpisode recorded.
--- OUTSIDE RECORDS SUMMARY | 2025-07-24 13:27 | XMS_ITS | Clinical Summary ---
Author Organization [facility] Address [address] [place] [address] Phone Care Team Providers Care Steam Hoist Operator Name Role Phone Freda Medrano PAC [...] week 02/05/2025 How often do you attend [facility] or christian services? 1 to 4 times per year 02/05/2025 Do you belong to any clubs o r organizations such as confucianism groups, unions, fraternal or athletic groups, or [...] medical care, and heating? Somewhat hard 02/05/2025 [facility] - Occupational Stress Questionnaire Answer Date [...] any time in the past 12 m [facility], were you homeless or living in a half-way (including now)? No 02/05/2025 [facility] Utilities Answer Date Recorded In the past [...] complete this topic Human Papillomavirus (HPV) Immunization (No Doses Required) Completed Meningococcal Immunization (ACWY) Aged Out No longer eligible based on patient's age to complete this topic Rotavirus Immunization Aged Out No lo nger eligible based on patient's age to complete this topic Procedures Procedure Name Priority Date/Time Associated Diagnosis Comments CMP (COMPREHENSIVE METABOLIC PANEL) 01/07/2025 12:00 AM CDT HM DILATED EYE EXAM 12/15/2024 1 2:00 AM CDT HEMOGLOBIN, A1C 06/23/2024 12:00 AM REED MAKER MAMMOGRAM BILATERAL GENERIC 01/17/2024 12:00 AM CDT HUMAN PAPILLOMA VIRUS (HPV) 09/29/2020 12:00 AM REED MAKER PATHOLOGY CYTOLOGY MEAT GRADING MACHINE OPERATOR 09/29/2020 12:00 AM REED MAKER from Last 3 Months or Most Recently Relevant to Health Maintenance Results * CMP (COMPREHENSIVE METABOLIC PANEL) (01/07/2025 12:00 AM CDT) 01/07/2025 us Provider Scan CHEMISTRY ORDERABLES Final Resul t Performing Organization Address [facility] de Phone Number SCAN * HM DILATED EYE EXAM (12/15/2024 12:00 AM CDT) 12/15/2024 us Provider Scan PROCEDURE/MINOR SURGICAL ORDERAB LES Final Result Performing Organization Address [facility] de Phone Number SCAN * HEMOGLOBIN, A1C (06/23/2024 12:00 AM REED MAKER) HGB-A1C 7.5 SCAN 06/23/2024 us Provider Scan CHEMISTRY ORDERABLES Final Resul t Performing Organization Address [facility] de Phone Number SCAN * MAMMOGRAM BILATERAL GENERIC (01/17/2024 12:00 AM CDT) 01/17/2024 us Provider Scan IMG MAMMO ORDERABLES Final Resul t Performing Organization Address [facility] de Phone Number SCAN * PATHOLOGY CYTOLOGY MEAT GRADING MACHINE OPERATOR (09/29/2020 12:00 AM REED MAKER) 09/29/2020 us Provider Scan PATHOLOGY/CYTOLOGY ORDERABLES Fi nal Result Performing Organization Address [facility] de Phone Number [facility] * HUMAN PAPILLOMA VIRUS (HPV) (09/29/2020 12:00 AM REED MAKER) 09/29/2020 us Provider Scan LAB SEND OUTS Final Result [facility] from Last 3 Months or Most Recently Relevant to Health Maintenance Insurance MEDICAID [employer] Care Teams Steam Hoist Operator Relationship Specialty Start Date End Date Freda Medrano, BRIAN [phone] [place] [address] PCP - General Physician Printing Equipment Mechanic 02/05/25
--- OUTSIDE RECORDS SUMMARY | 2025-07-24 13:27 | XMS_ITS | Clinical Summary ---
Author Organization [facility] Address [address] [place] [address] Phone Care Team Providers Care Nailhead Operator Name Role Phone KHAI TOLBERT, HAYLIE Jhaveri Unavailable [phone] HERI SHANKS Primary Care Provider [phone] BARRY SANTA MD Unavailable [phone] Reason for Visit and Chief [...] On 2 12:03PM By HAYLIE TOLBERT ; [facility] New / Renewed during this visit HAYLIE TOLBERT on 09/19/2021 HYDROcodone-Acetaminophen 7. 5-325 MG Oral Tablet Provider: HAYLIE TOLBERT 30 day supply: 90 tablet, 0 refills Diagnosis: Other spondylosis with radiculopathy, lumbar region 1 po TID prn [facility]: [facility] [address] [place] [address], [phone] - Last Documented On 2 2:16PM By CATHY DICK ; [facility] Current Medications (continue as prescribed) HYDROcodone-Acetaminophen 7. 5-325 MG Oral Tablet 10/21/2021 Provider: CATHY [facility]- Diagnosis: Other spondylosi s with radiculopathy, lumbar region 1 po TID prn Last Documented On 2 2:25PM By CATHY GUDINO ARTIFICIAL STONE SETTER- ; [facility] Pregabalin 75 MG Oral Capsule 07/05/2021 Provider: HAYLIE ESPITIA Diagnosis: One tablet at bed time Last Documented On 1 8:31AM By HAYLIE ESPITIA ; [facility] Gabapentin 300MG Oral Capsule 09/30/2018 Provider: HAYLIE ESPITIA Diagnosis: TAKE 1 CAPSULE BY MOUTH THREE TIMES DAILY Last Documented On 2 10:40AM By Leyda Aj Alec ; [facility] Ventolin HFA 108 (90 Base)MCG/ACT Inhalation Aer osol, solution 12/20/2017 Provider: Diagnosis: Last Documented On 8 2:23PM By YONATHAN DONNELLY Alec ; [facility] Medications Administered Includes: Administered Medications from this encounter No Administered Medications Recorded Results Includes: Results discussed during this encounter No Results Recorded For Specified Dates History of Present Illness Includes: History of Present Illness from this encounter No History of Present Illness Recorded Social History Description Last Updated Current smoker 10/11/2020 Last Documented On 2 11:53AM ; [facility] Smoker 12/16/2019 Last Documented On 2 11:53AM ; [facility] Single 12/20/2017 Last Documented On 2 11:53AM ; [facility] Smoking status : Current everyday smoker 12/20/2017 Last Documented On 2 11:53AM ; [facility] Medical History Includes: Medical [...] 11/14/2018 Active Last Documented On 10:26AM ; [facility] Encounters Encounter Provider Location Date Check-In Time Check-Out Time Diagnosis RX ISSUE/REFILL HAYLIE ALMANZAR-CYNTHIA 09/19/2021 11:52AM 11:59PM Insurance Includes: Active Insurance Policies Plan Name Member ID Group # Subscriber Relationship Effect tawanna Dates 1 - [facility] [id number] RALEIGH BERMUDEZ Self Clinical Notes Includes: Clinical Notes from this encounter No Clinical Notes Recorded
--- OUTSIDE RECORDS SUMMARY | 2025-07-24 13:27 | XMS_ITS | Data Portability ---
Author Organization [facility] JOSUEKelly [facility] Address [address] [place] [address] Care Team Providers Care Ic Designer Gate Arrays Name Role Phone CARLOS HARDY Nursing Coordinator AURELIO FENTON Primary Care Provider Unavailabl e Assessment No assessment recorded. Plan of Treatment Reminders Order Date Submit Date Provider Last Modified By Organization Details Last Modified Time Details Appointments None recorded . Lab HbA1c (hemoglo bin A1c), blood 2024 025 tro23 In-Office Order, Internal Use Only DO Not Attach Compendium DO Not Attach Compendium, Do Not Delete/merge, [id number] 5 17:17:46 CBC 2024 025 cyahlma [facility], [address] [place] [address] 2, [place], [address], 5 15:02:55 PT panel, coagulat ion, platelet poor plasma 2024 025 [facility], [address] [place] [address] 2, [place], [address], 5 15:54:09 HbA1c (hemoglo bin A1c), blood 2024 025 [email or web address], [address] [facility] 2, [place], [address], 5 15:54:39 lipid panel, serum 2024 025 ARCHIE [facility], [address] [facility], [facility] 2, [place], [address], 5 07:38:03 CMP, serum or plasma 2024 025 DUBOIS [facility], [address] [facility], [facility] 2, [place], [address], 5 07:38:04 HbA1c (hemoglo bin A1c), blood 2023 024 [email or web address] In-Office Order, Internal Use Only DO Not Attach Compendium DO Not Attach Compendium, Do Not Delete/merge, [id number] 4 13:05:11 Referral pain manageme nt referral - md is retiring and pt needs someone to take over pain manageme nt 2024 025 ARCHIE Jean Baptiste MD, [address] [facility] [address], [place], [address], 5 04:14:38 otolaryn gologist referral 2024 025 MACHO Hernadez MD, [address], [place], [address], 5 18:00:53 orthoped ic surgeon referral 2023 024 [facility], [address], [place], [address], 4 16:26:01 Procedures None recorded . Surgeries None recorded . Imaging None recorded . Medication Orders atorvast atin 80 mg tablet 2024 025 [facility] [place], [address], [place], [address], 5 17:17:49 metformi n 1,000 mg tablet 2024 025 [facility] [place], [address], [place], [address], 5 17:17:49 lisinopr il 20 mg-hydro chloroth iazide 12.5 mg tablet [address] [place] [address], [place], [address], 5 17:17:48 hydrocod one 7.5 mg-aceta minophen 325 mg tablet [address] [place], [place], [address], 5 17:17:52 atorvast atin 80 mg tablet 2024 025 [place] [address], [place], [address], 5 13:11:08 hydrocod one 7.5 mg-aceta minophen 325 mg tablet [address] [place], [place], [address], 5 15:36:47 naproxen 500 mg tablet [address] [place], [place], [address], 13:08:07 Patient TargetsNo targets recorded. Patient Instructions Encounter Date Encounter Id Patient Instructions Last Modified By Organization Details Last Modified Time 04/16/2024 [id number] learning about high blood pressure [email or web address] Not available 04/16/2024 15:06:06 06/23/2024 [id number] A healthy lifestyle: care instructions [email or web address] Not available 06/23/2024 14:12:07 A healthy lifestyle: care instructions [email or web address] Not available 06/23/2024 13:08:05 learning about high blood pressure [email or web address] Not available 06/23/2024 13:05:09 11/24/2024 [id number] learning about high blood pressure [email or web address] Not available 11/24/2024 15:36:46 02/25/2025 [id number] learning about type 2 diabetes Not available 02/25/2025 17:17:46 type 2 diabetes: care instructions Not available 02/25/2025 17:17:46 Reason for Referral Orthopedic Surgeon Referral for Pain of left knee region Increased left knee pain. Had repair medial meniscus tear in 2021 Referring Physician: Nereida Kam, Internal Medicine, Encounter Date: 06/23/2024 Processing Operator Referral fo r Impacted cerumen of bilateral [...] DO Not Attach Compendium, Do Not Delete/merge, [id number] 06/23/2024 13:04:57 10/29/19 25 11/04/2024 COMPL IANCE DRUG MARQUIS SIS, UR summary report (summary) FINAL ===== ===== ===== ===== ===== ===== ===== ===== ===== ===== ===== ===== ===== === TOXAS SURE COMP DRUG MARQUIS SIS,U R ===== ===== ===== ===== ===== ===== ===== ===== ===== ===== ===== ===== ===== === Test Resul t Flag Units Drug Prese nt Whipple codon e 2571 ng/mg creat Whipple morph one 2359 ng/mg creat Dihyd rocod eine 374 ng/mg creat Norhy droco done 1109 ng/mg creat Sourc es of hydro codon e inclu de sched uled presc ripti on medic ation s. Whipple morph one, dihyd rocod eine and norhy droco done are expec tere metab olite s of hydro codon e. Whipple morph one and dihyd rocod eine are [...] ===== ===== ===== === Not Available [facility]) [address] [facility], [place], [address], 11/04/2024 09:14:06 10/29/19 25 11/04/2024 COMPL LYN DRUG MARQUIS SIS, UR pdf . Not Available [facility]) [address] [facility], [place], [address], 11/04/2024 09:14:06 01/08/20 25 01/08/2025 LIPID PANEL , STAND CARI cholesterol, total 78 mg/dL <200 normal Not Available [facility] [address] [address] [place], [address], 01/08/2025 07:38:03 01/08/2001/08/2025 LIPID PANEL , STAND CARI HDL cholesterol 34 mg/dL > or = 50 low Not Available [facility] [address] [address] [place], [address], 01/08/2025 07:38:03 01/08/20 25 01/08/2025 LIPID PANEL , STAND CARI triglyceride s 151 mg/dL <150 high Not Available [facility] [address] [address] [place], [address], 01/08/2025 07:38:03 01/08/2001/08/2025 LIPID PANEL , STAND [...] 2061- 2068 (http ://ed ucati on.Qu estDi River [employer]. com/f aq/FA Q164) Not Available [facility] [place] [address] [place], [address], 01/08/2025 07:38:03 01/08/2001/08/2025 LIPID PANEL , STAND CARI chol/HDLC ratio 2.3 (calc ) <5.0 normal Not Available [address], [address], 01/08/2025 07:38:03 01/08/2001/08/2025 LIPID PANEL , STAND CARI non HDL cholesterol 44 mg/dL _(sho c) <130 normal For patie nts with diabe prudence plus 1 major ASCVD risk facto r, treat ing to a non-H DL-C goal of <100 mg/dL (LDL- C of <70 mg/dL ) is consi ramos a thera pekamlesh c optio n. Not Available [address], [address], 01/08/2025 07:38:03 01/08/2001/08/2025 COMPR EHENS NAFISA METAB OLIC PANEL glucose 126 mg/dL 65-99 high Fasti ng refer ence inter rohit For someo ne witho ut known diabe prudence, a gluco se value >125 mg/dL indic ates that they may have diabe prudence and this shoul d be confi rmed with a follo w-up test. Not Available [address], [address], 01/08/2025 07:38:04 01/08/2001/08/2025 COMPR EHENS NAFISA METAB OLIC PANEL urea nitrogen (BUN) 14 mg/dL 7-25 normal Not Available [address], [address], 01/08/2025 07:38:04 01/08/2001/08/2025 COMPR EHENS NAFISA METAB OLIC PANEL creatinine 0.73 mg/dL 0.50-1 .05 normal Not Available [address], [address], 01/08/2025 07:38:04 01/08/20 25 01/08/2025 COMPR EHENS NAFISA METAB OLIC PANEL eGFR 91 mL/mi n/1.7 3m2 > or = 60 normal Not Available [address], [address], 01/08/2025 07:38:04 01/08/20 25 01/08/2025 COMPR EHENS NAFISA METAB OLIC PANEL BUN/creatini ne ratio SEE NOTE: (calc ) 6-22 Not Repor tere: BUN and Creat inine are withi n refer ence range . Not Available [address], [address], 01/08/2025 07:38:04 01/08/20 25 01/08/2025 COMPR EHENS NAFISA METAB OLIC PANEL sodium 141 mmol/ L 135-14 6 normal Not Available [address], [address], 01/08/2025 07:38:04 01/08/20 25 01/08/2025 COMPR EHENS NAFISA METAB OLIC PANEL potassium 4.4 mmol/ L 3.5-5. 3 normal Not Available [address], [address], 01/08/2025 07:38:04 01/08/20 25 01/08/2025 COMPR EHENS NAFISA METAB OLIC PANEL chloride 106 mmol/ L 98-110 normal Not Available [address], [address], 01/08/2025 07:38:04 01/08/20 25 01/08/2025 COMPR EHENS NAFISA METAB OLIC PANEL carbon dioxide 24 mmol/ L 20-32 normal Not Available [address], [address], 01/08/2025 07:38:04 01/08/20 25 01/08/2025 COMPR EHENS NAFISA METAB OLIC PANEL calcium 8.8 mg/dL 8.6-10 .4 normal Not Available [address], [address], 01/08/2025 07:38:04 01/08/2001/08/2025 COMPR EHENS NAFISA METAB OLIC PANEL protein, total 6.5 g/dL 6.1-8. 1 normal Not Available [address], [address], 01/08/2025 07:38:04 01/08/20 25 01/08/2025 COMPR EHENS NAFISA METAB OLIC PANEL albumin 4.1 g/dL 3.6-5. 1 normal Not Available [address], [address], 01/08/2025 07:38:04 01/08/20 25 01/08/2025 COMPR EHENS NAFISA METAB OLIC PANEL globulin 2.4 g/dL_ (calc ) 1.9-3. 7 normal Not Available [address], [address], 01/08/2025 07:38:04 01/08/2001/08/2025 COMPR EHENS NAFISA METAB OLIC PANEL albumin/glob ulin ratio 1.7 (calc ) 1.0-2. 5 normal Not Available [address], [address], 01/08/2025 07:38:04 01/08/20 25 01/08/2025 COMPR EHENS NAFISA METAB OLIC PANEL bilirubin, total 0.4 mg/dL 0.2-1. 2 normal Not Available [address], [address], 01/08/2025 07:38:04 01/08/20 25 01/08/2025 COMPR EHENS NAFISA METAB OLIC PANEL alkaline phosphatase 57 U/L 37-153 normal Not Available [facility] [address], [address], 01/08/2025 07:38:04 01/08/20 25 01/08/2025 COMPR EHENS NAFISA METAB OLIC PANEL AST 19 U/L 10-35 normal Not Available [address], [address], 01/08/2025 07:38:04 01/08/20 25 01/08/2025 COMPR EHENS NAFISA METAB OLIC PANEL ALT 26 U/L 6-29 normal Not Available [address], [address], 01/08/2025 07:38:04 01/08/20 25 01/07/2025 Lipid 1996 [...] DO Not Attach Compendium, Do Not Delete/merge, [id number] 02/25/2025 15:55:37 06/30/20 24 06/30/2024 trans -thor acic echoc ardio gram (TTE) (PROC ) No observ ation record ed. [address], [place], [address], 07/22/2024 13:53:20 02/26/20 25 01/23/2023 MRI, lumba [...] Address Organization Details Recorded Time Diabetes mellitus 21227545 Active Jordan Moreno MD Attn: Shayne donato,[address] [facility], [place], [address], [facility] - S[facility] 6 11:16:28 Essential hypertens ion 18564678 Active Jordan Moreno MD Attn: Shayne donato,[address] [facility], [place], [address], [place] - [facility] 6 11:16:28 Gastroeso phageal reflux disease 115111919 Completed 09/04/2023 Nereida Kam MD Attn: Shayne donato,[address] [facility], [place], [address], [facility] - SIF 4 14:35:49 Asthma 397923957 Completed 09/04/2023 Nereida Kam MD Attn: Accountin g,[address] [facility], [place], [address], [place] - [facility] 4 14:46:23 Pain in left lower limb 094261814 Active Carlie Storey [place] null, [place] - [facility] 6 10:46:19 Diverticu litis 534138532 Completed 09/04/2023 Nereida Kam MD Attn: Accountin g,[address] [facility], [place], [address], [place] [facility] 4 14:41:43 Diverticu lar disease 322685556 Active 2023 Nereida Kam MD Attn: Accountin g,[address] [facility], [place], [address], [place] [facility] 4 14:35:32 Medicatio n monitorin g Active 2023 Nereida Kam MD Attn: Accountin g,[address] [facility], [place], [address], [place] [facility] 4 14:41:19 Pain of multiple joints 01797200 Active 2023 Back/L knee Nereida Kam MD Attn: Accountin g,[address] [facility], [place], [address], [place] [facility] 4 14:45:35 Pain of left knee region 241707080721 109 Active 2023 Nereida Kam MD Attn: Accountin g,[address] [facility], [place], [address], [place] [facility] 4 13:04:37 Bilateral earache 929264706 Active 2024 Nereida Kam MD Attn: Accountin g,[address] [facility], [place], [address], [place] [facility] 5 15:27:29 Impacted cerumen of bilateral ears 403357595999 9108 Active 2024 Nereida Kam MD Attn: Shayne donato,[address] [facility], [place], [address], [facility] - SI 5 15:30:02 History of blood disorder 237480414 Active 2024 Nereida Kam MD Attn: Shayne donato,[address], [place], [address], [facility] - SI 5 13:08:45 Problem Notes None recorded. Procedures Surgical History Date Name Laterality Status Provider Name and Address Organization Details Recorded Time 1 Most Recent Mammogram completed Ute Boyce MA [facility] 12/28/2020 14:46:04 1 Date of Last Pap Smear completed Ute Boyce MA [facility] 12/28/2020 14:45:31 1 cataract surgery completed Ute Boyce MA [facility] 09/29/2020 08:57:05 9 colonoscopy completed Ute Boyce MA [facility] 09/29/2020 08:57:29 5 Colonoscopy with biopsy completed Jordan Moreno MD Attn: Accounting,[address] , [place], [address], [facility] - SI 07/26/2015 11:04:39 Caesarean Section completed Ute Boyce [facility] 11/15/2015 11:51:59 Other completed Ute Boyce [facility] 11/15/2015 11:51:59 Imaging Results None recorded. Procedure Notes None recorded. Medical Equipment None Reported. Allergies Allergen ID Allergen Name Allergen Category Reaction Reaction Severity Criticality Documentation Date Start Date Code Code System Note Provider Name and Address Organization Details Recorded Time 19542 Product containin g penicilli n (product) medicatio n hives Not available Not available 10/02/2016 [address] 8001 [place] 7 11:36:03 Medications Name [...] (BMI) Body weight Heart rate Oxygen saturation Systolic And Diastolic Provider Name and Address Organization Details Last Updated DateTime 5 157.48 cm 30.9 kg/m2 59755.1 1 g 117 /min 97 % 120/60 mm[Hg] Therese Booker MA [facility] 5 14:59:39 Date Recorded Body height Body mass index (BMI) Body weight Heart rate Oxygen saturation Systolic And Diastolic Provider Name and Address Organization Details Last Updated DateTime 5 157.48 cm 30.4 kg/m2 81403.3 3 g 91 /min 97 % 167/75 mm[Hg] Alok Rivas MA [facility] 5 12:30:28 Date Recorded Body height Body mass index (BMI) Body weight Body temperature Respiratory rate Heart rate Systolic And Diastolic Provider Name and Address Organization Details Last Updated DateTime 5 157.48 cm 30.3 kg/m2 24953.1 8 g 98.4 [degF] 20 /min 105 /min 142/60 mm[Hg] Gala Matthews MA [facility] 5 14:58:05 Date Recorded Body height Body mass index (BMI) Body weight Heart rate Oxygen saturation Systolic And Diastolic Provider Name and Address Organization Details Last Updated DateTime 4 157.48 cm 30.7 kg/m2 15682.4 4 g 89 /min 95 % 133/72 mm[Hg] Alok Rivas MA [facility] 4 14:55:49 Date Recorded Body height Body mass index (BMI) Body weight Oxygen saturation Heart rate Systolic And Diastolic Provider Name and Address Organization Details Last Updated DateTime 4 157.48 cm 30 kg/m2 32999.1 5 g 95 % 92 /min 129/74 mm[Hg] Alok Rivas MA [facility] 4 12:38:18 Social History Question Answer Notes LastModified by Organizat ion Details LastModified Time Tobacco Smoking Status Current Every Day Smoker YULISSA Vargas, [facility] 09/29/2020 08:56:02 Is Blood Transfusion Acceptable In [...] Or The Highest Degree You Have Received? [id number] Information not available 09/29/2020 Live Alone Or [...] anxious, or unable to sleep at night)? [id number] Information not available 09/29/2020 Family History Relationship [...] 50 mcg/0.25mL dose 1 completed Not Available [facility] 02/25/2025 14:46:46 COVID-19, mRNA, LNP-S, PF, 100 mcg/0.5mL dose or 50 mcg/0.25mL dose 1 completed Not Available [facility] 02/25/2025 14:46:46 COVID-19, mRNA, LNP-S, bivalent, PF, 50 mcg/0.5 mL or 25mcg/0.25 mL dose 2 completed Not Available [facility] 02/25/2025 14:46:46 pneumococcal polysaccharide PPV23 5 completed Not Available [facility] 08/23/2019 02:49:51 Past Encounters Encounter ID Performer Location Encounter Start Date Encounter Closed Date Diagnosis/Indication Diagnosis SNOMED-CT Code Diagnosis ICD10 Code Diagnosis IMO Codes Diagnosis Note [id number] MD [place] Johnson (Adult Med) [address] [place] [address] 10/28/2014 10:53:55 10/28/2014 12:33:57 Diabetes mellitus 86553339 Continue same Essential hypertension 91248571 continue same Gastroesop hageal reflux disease 566940502 stable on Ranitine Family his tory of cancer of colon 556032842 last colonoscop y 11/16 pt is going to have another one this spring Asthma 194658984 stable on Albuterol prn [id number] MD [place] Johnson (Adult Med) [address] [facility] [place] [address] 11/26/2014 10:48:44 11/26/2014 12:02:00 Diabetes mellitus 23476947 A1c-7.2 Increase Metformine 1000mg bid Add statin Essential hypertension 14563029 continue same Screening mammography 73247677 Family his tory of cancer of colon 442103801 last colonoscop y 11/16 pt is going to have another one in 12/18 Administra tion of pneumococcal vaccine 92096249 [id number] [facility] [address] [place] [address] 03/29/2015 10:49:18 03/29/2015 11:23:12 Essential hypertension 44464338 continue same Diabetes mellitus 78715132 A1c-7.2 Increased Metformine 1000mg bid continue statin Family his tory of cancer of colon 126433499 last colonoscop y 11/16 pt supposed to have another one in 12/18-will do the referral [id number] [facility] [address] [place] [address] 07/14/2015 08:58:36 07/16/2015 17:01:42 Pain in left lower limb 627440994 M79.605 possibly related to chronic back problem for which pt is seeing pain mx -on gabapentin /Zanaflex/ hydrocodon e Add Mobic pt to f/u with pain mx-has apt on 07/23 [id number] [facility] [address] [place] [address] 07/26/2015 10:49:26 07/28/2015 11:03:04 Essential hypertension 29561571 I10 continue same Diabetes mellitus 463178 09 E11.9 A1c-7.0 Increased Metformine 1000mg bid continue statin [id number] [facility] (INJECTION MOULDING MACHINE OPERATOR) [address] [place] [address] 11/15/2015 11:25:48 11/15/2015 15:45:02 Gynecologic examination 92039140 Z01.419 Screening for malignant neoplasm of breast 414058562 Z12.39 UTD Screening for malignant neoplasm of colon 677142299 Z12.11 UTD [id number] MD Fara Johnsonhalto (Adult Med) [address] [place] [address] 11/25/2015 10:32:52 11/25/2015 11:34:25 Diverticulitis 105827056 K57.92 with LLQ tenderness and diarrhea pt to continue Cipro and Flagyl pt to hold Metformine for now Diabetes mellitus 621455 09 E11.9 A1c-7.0 Hold Metformine 1000mg bid due to diarrhea continue statin Essential hypertension 90167378 I10 continue same [id number] MD [place] Gutierrez (INJECTION MOULDING MACHINE OPERATOR) [address] [place] [address] 10/02/2016 10:54:34 10/03/2016 11:20:42 Tinea corporis 42413564 B35.4 Pt. with yeast in the skin of the vulva, dwp. Rx sent to pharmacy. Walt bennett discussed. Pruritus of vulva 208523 00 L29.2 culture sent [id number] MD [place] Gutierrez (INJECTION MOULDING MACHINE OPERATOR) [address] [place] [address] 05/13/2018 11:02:42 06/13/2018 16:38:35 Vaginal discharge 085088014 N89.8 Normal exam dwp. Culture sent. [id number] MD Montana Gutierrez (INJECTION MOULDING MACHINE OPERATOR) [address] [place] [address] 09/29/2020 08:34:57 10/01/2020 06:33:39 Gynecologic examination 02957990 Z01.419 Last pap done 04/23/13 was negative with negative hr-HPV. Therefore, pap due. Pap done. STD testing declined Screening for malignant neoplasm of breast 784585549 Z12.39 Last mammogram 2015. Mammogram ordered. Screening for malignant neoplasm of colon 475192846 Z12.11 UTD. Due 2021 Cigarette smoker 8494865 7 F17.210 Pt. down from 1 PPD to 1/2 PPD Type 2 maribeth betes mellitus 58961951 E11.9 Last HbA1c 2 mo ago and good P.t sees Dr Mayco Koch in [place] Candidal vulvovaginitis 61576098 B37.3 Diagnosis d/w pt. Rx sent to pharmacy. Walt bennett discussed. Obesity 147219790 E66.9 Nutrition and exercise discussed. [id number] MD [place] Gutierrez (INJECTION MOULDING MACHINE OPERATOR) [address] [place] [address] 12/28/2020 14:27:22 12/30/2020 09:42:22 Tinea corporis 35500463 B35.4 Pt. with yeast in the skin of the vulva, dwp. Rx sent to pharmacy. Walt bennett discussed. Pruritus of vulva 379564 00 L29.2 culture sent [id number] MD Jorge Alberto Becerra (Adult Med) [address] [place] [address] 09/04/2023 13:41:27 09/06/2023 15:44:37 Diabetes mellitus 59286940 E11.9 Essential hypertension 73361010 I10 Gastroesop hageal reflux disease 792744942 K21.00 Diverticular disease 397 575014 K57.90 Suggested stool softener Medication monitoring 39 6679873 Z51.81 Stool softener recommende d Pain of mu ltiple joints 83825268 M25.50 [id number] MD Jorge Alberto Becerra (Adult Med) [address] [place] [address] 11/26/2023 12:40:21 11/28/2023 12:40:33 Diabetes mellitus 52562279 E11.9 Cont current regimen Diverticular disease 397 579953 K57.90 Suggested stool softener Pain of mu ltiple joints 68431972 M25.50 Essential hypertension 65236816 I10 Continue to monitor BP [id number] MD Jorge Alberto Becerra (Adult Med) [address] [place] [address] 12/24/2023 16:44:02 12/26/2023 14:11:23 Essential hypertension 45123911 I10 Continue to monitor BP Medication monitoring 39 3942364 Z51.81 Stool softener recommende d Pain of mu ltiple joints 73237120 M25.50 Pain in le ft lower limb 578131535 M79.605 Diverticular disease 397 578559 K57.90 Suggested stool softener Diabetes mellitus 825265 09 E11.9 Cont current regimen [id number] MD Jorge Alberto Becerra (Adult Med) [address] [place] [address] 03/05/2024 15:20:16 03/06/2024 12:48:38 Essential hypertension 63036828 I10 Unchanged . Will start lisinopril /Hct 25/07.5 twice daily Pain of mu ltiple joints 70242300 M25.50 [id number] MD Jorge Alberto Becerra (Adult Med) [address] [place] [address] 04/16/2024 14:34:15 04/17/2024 12:11:48 Essential hypertension 03847961 I10 Well controlled Diabetes mellitus 679785 09 E11.9 Cont current regimen Diverticular disease 397 053918 K57.90 Suggested stool softener [id number] MD Jorge Alberto Becerra (Adult Med) [address] [place] [address] 06/23/2024 12:22:47 07/01/2024 15:16:59 Obesity 531659328 E66.9 Diabetes mellitus 765735 09 E11.9 Cont current regimen Essential hypertension 51166021 I10 Well controlled Pain of le ft knee region 4014852463 42651 M25.472 [id number] MD Jorge Alberto Becerra (Adult Med) [address] [place] [address] 11/24/2024 14:47:36 11/25/2024 11:32:13 Diverticular disease 133524838 K57.90 Suggested stool softener Essential hypertension 98439825 I10 Well controlled Bilateral earache 141618 003 H92.03 4387977 Impacted c erumen of bilateral ears 5465999521 779353 H61.23 482448 Pain of mu ltiple joints 96696212 M25.50 Diabetes mellitus 696777 09 E11.9 Cont current regimen [id number] MD Jorge Alberto Becerra (Adult Med) [address] [place] [address] 01/28/2025 11:31:39 01/29/2025 16:12:43 Pain of multiple joints 41213519 M25.50 Diabetes mellitus 586504 09 E11.9 Cont current regimen History of blood disorder 937002405 Z87.898 [id number] MD Jorge Alberto Mahajan (Adult Med) [address] [place] [address] 02/25/2025 14:46:05 02/26/2025 09:32:55 Bilateral earache 424379342 H92.03 0919740 Normal exam, pain mild, pt does not want ent referral at this time. Monitor Pain of mu ltiple joints 46663144 M25.50 Education done, referral to different pain management Essential hypertension 21494755 I10 Mild elevation, education, monitor, healthy lifestyle History of blood disorder 730545722 Z86.2 Hyperlipid emia noted Type 2 maribeth betes mellitus 32303452 E11.9 [id number] Uncontroll ed due to non-compli ance. Restart metformin, nutritioni st consult Health Concerns Section Related Observation LastModified by Organization Detai ls LastModified Time None Recorded Concern Status LastModified by Organization Details LastModified Time None Recorded Advance Directives Directive None Recorded Payers Insurance Date Sequence Insurance Name Policy Number Policy Padilla Covered Member ID Padilla Member ID Guarantor Name 04/09/2025 1 [facility] PRIOR TO 02/03/2021 (MEDICAID REPLACEMENT - HMO) Dilia Molina [id number] Dilia Molina 05/17/2025 1 [facility] ON OR AFTER 02/03/21 (MEDICAID REPLACEMENT - HMO) Dilia Molina [id number] Dilia Molina Notes Date Note Type Note Provider Name and Address Organization Details Recorded Time 04/16/2024 text/html Here for BP f/u. Tolerating med well Nereida Kam MD Attn: Accounting,[address] [facility], [place], [address], [facility] - [place] 04/16/2024 15:06:09 06/23/2024 text/html has increased pain in her left knee. pt is s/p repair of medial meniscus two years ago Nereida Kam MD Attn: Accounting,[address] [facility], [place], [address], [place] 06/23/2024 13:09:46 11/24/2024 text/html Here for check up. Seen in UC one month ago for ear pain. Treated with antibiotics. Her pain has persisted Leyland Eddy, MD Attn: Accounting,[address], [place], [address], [place] [facility] 11/24/2024 15:39:45 01/28/2025 text/html Started bruising easily a couple weeks ago. No obvious prolonged bleeding. Wants referral to pain management Nereida Kam MD Attn: Accounting,[address], [place], [address], [place] [facility] 01/28/2025 13:12:06 02/25/2025 text/html Diabetes [...] of spine. Previous pain management referral in [facility] does not accept her insurance. S/p seen in urgent care several weeks ago for bilateral ear pain due to cerumen impaction. No vertigo. Pt still with mild pain in right ear. No trauma or picking. No hearing loss Aurelio Fenton MD Attn: Accounting, [address], [place], [address], [facility] - [facility] 02/25/2025 17:19:38 OBGyn Episode Ob Episode Information Episode Created Date Number of Fetuses Patient Bloodtype Patient rh Status Prepregnancy Weight lbs Domestic Partner Domestic Partner Phone Father Name Pewter Caster Status 11/15/19 16 1 CLOSED Fetus Data First Name Last Name Admitted to NICU Weight (g) Sex Living Outcome Pediatric Complications Fetus ID Race Codes Race Delivery Type 3685.43 5 M Full Term [id number] Miguel A Calculation Initial Miguel A Date [...] Domestic Partner Domestic Partner Phone Father Name Pewter Caster Status 11/15/19 16 1 CLOSED Fetus Data First Name Last Name Admitted to NICU Weight (g) Sex Living Outcome Pediatric Complications Fetus ID Race Codes Race Delivery Type 3883.88 15 F Full Term [id number] Miguel A Calculation Initial Miguel A Date [...]
--- OUTSIDE RECORDS SUMMARY | 2025-07-24 13:27 | XMS_ITS | Clinical Summary ---
Author Organization [facility] Address [address] [place] [address] Phone Care Team Providers Care Waterside Worker Name Role Phone KHAI TOLBERT, HAYLIE Jhaveri Unavailable [phone] HERI SHANKS Primary Care Provider [phone] BARRY SANTA MD Unavailable [phone] Reason for Visit and Chief [...] On 2 2:25PM By CATHY DICK ; [facility] Pregabalin 75 MG Oral Capsule 07/05/2021 Provider: HAYLIE TOLBERT Diagnosis: One tablet at bed time Last Documented On 1 8:31AM By HAYLIE TOLBERT ; [facility] Gabapentin 300MG Oral Capsule 09/30/2018 Provider: HAYLIE TOLBERT Diagnosis: TAKE 1 CAPSULE BY MOUTH THREE TIMES DAILY Last Documented On 2 10:40AM By Leyda FELIPE ; [facility] Ventolin HFA 108 (90 Base)MCG/ACT Inhalation Aer osol, solution 12/20/2017 Provider: Diagnosis: Last Documented On 8 2:23PM By YONATHAN FELIPE ; [facility] Medications Administered Includes: Administered Medications from this encounter No Administered Medications Recorded Results Includes: Results discussed during this encounter No Results Recorded For Specified Dates History of Present Illness Includes: History of Present Illness from this encounter No History of Present Illness Recorded Social History Description Last Updated Current smoker 10/11/2020 Last Documented On 2 9:25AM ; [facility] Smoker 12/16/2019 Last Documented On 2 9:25AM ; [facility] Single 12/20/2017 Last Documented On 2 9:25AM ; [facility] Smoking status : Current everyday smoker 12/20/2017 Last Documented On 2 9:25AM ; [facility] Medical History Includes: Medical History addressed [...] Active Last Documented On 2 10:26AM ; [facility] Encounters Encounter Provider Location Date Check-In Time Check-Out Time Diagnosis * PHONE CALL HAYLIE ALMANZAR-CYNTHIA 11/10/2021 9:25AM 11:59PM Insurance Includes: Active Insurance Policies Plan Name Member ID Group # Subscriber Relationship Effect tawanna Dates 1 - [facility] [id number] RALEIGH BERMUDEZ Self Clinical Notes Includes: Clinical Notes from this encounter No Clinical Notes Recorded
--- OUTSIDE RECORDS SUMMARY | 2025-07-24 13:27 | XMS_ITS | Clinical Summary ---
Author Organization [facility] Address [address] [place] [address] Phone Care Team Providers Care Agricultural Economist Name Role Phone KHAI TOLBERT, HAYLIE Jhaveri Unavailable [phone] HERI SHANKS Primary Care Provider [phone] BARRY SANTA MD Unavailable [phone] Reason for Visit and Chief [...] 2:25PM By CATHY DICK ; [facility] Pregabalin 75 MG Oral Capsule 07/05/2021 Provider: HAYLIE TOLBERT Diagnosis: One tablet at bed time Last Documented On 1 8:31AM By HAYLIE TOLBERT ; [facility] Gabapentin 300MG Oral Capsule 09/30/2018 Provider: HAYLIE TOLBERT Diagnosis: TAKE 1 CAPSULE BY MOUTH THREE TIMES DAILY Last Documented On 2 10:40AM By Leyda FELIPE ; [facility] Ventolin HFA 108 (90 Base)MCG/ACT Inhalation Aer osol, solution 12/20/2017 Provider: Diagnosis: Last Documented On 8 2:23PM By YONATHAN FELIPE ; [facility] Medications Administered Includes: Administered Medications [...] Documented On 2 10:26AM ; [facility] Encounters Encounter Provider Location Date Check-In Time Check-Out Time Diagnosis [Patient Encounter] HAYLIE ALMANZAR- 11/10/2021 3:18PM 11:59PM Insurance Includes: Active Insurance Policies Plan Name Member ID Group # Subscriber Relationship Effect tawanna Dates 1 - [facility] [id number] RALEIGH Hatch Clinical Notes Includes: Clinical Notes from this encounter No Clinical Notes Recorded
--- OUTSIDE RECORDS SUMMARY | 2025-07-24 13:28 | XMS_ITS | Clinical Summary ---
Author Organization [facility] Address [facility] [place] [address] Care Team Providers Care Veneer Stock Layer Name Role Phone Mayco Belcher MD Primary Care Provider [phone] Social History Tobacco Use Types Packs/Day Years [...] patient's age to complete this topic Insurance [place] Care Teams Veneer Stock Layer Relationship Specialty Start Date End Date Mayco Belcher MD [address] [place] [address] PCP - General FAMILY PRACTICE 01/11/19
--- OUTSIDE RECORDS SUMMARY | 2025-07-24 13:28 | XMS_ITS | Clinical Summary ---
Author Organization [facility] Address [address] [place] [address] Care Team Providers Care Vibrator Equipment Tester Name Role Phone Unavailable Primary Care Provider Unavailabl e Source Comments [facility],non-owned Affiliates and Associated Physician Practices is amultiple site organization consisting of ambulatory clinics and hospital sitesin [place], [place], [place] and [place]. This disclosure is being madepursuant to the Care Everywhere program and may not contain all information available regarding this patient. Last updated 18.[facility] Allergies Active Allergy Reactions Criticality Noted Date [...] on file Legal Sex Female 1:29 PM AUTOMATIC SPINNING LATHE SETTER Gender Identity Not on file Sexual Orientation Not on file Last Filed Vital Signs Vital Sign Reading Time Taken Comments Blood Pressure 133/76 09/05/2019 1:47 PM AUTOMATIC SPINNING LATHE SETTER Pulse 86 09/05/2019 1:47 PM AUTOMATIC SPINNING LATHE SETTER Temperature 36.3 C (97.4 F) 09/05/2019 1:47 PM AUTOMATIC SPINNING LATHE SETTER Respiratory Rate 16 09/05/2019 1:47 PM AUTOMATIC SPINNING LATHE SETTER Oxygen Saturation 100% 09/05/2019 1:47 PM AUTOMATIC SPINNING LATHE SETTER Inhaled Oxygen Concentration - - Weight 81.6 kg (180 lb) 09/05/2019 1:47 PM AUTOMATIC SPINNING LATHE SETTER Height 160 cm (5' 3) 09/05/2019 1:47 PM AUTOMATIC SPINNING LATHE SETTER Body Mass Index 31.89 09/05/2019 1:47 PM AUTOMATIC SPINNING LATHE SETTER Plan of Treatment Health Maintenance Due Date [...] DEPRESSION SCREENING 08/06/2024 COVID-19 VACCINE (1 - 2024-2 6 season) 2025 INFLUENZA VACCINE (#1) 2025 COLON [...] patient's age to complete this topic Insurance [facility]
--- OUTSIDE RECORDS SUMMARY | 2025-07-24 13:28 | XMS_ITS | Data Portability ---
Author Organization [facility] [place] Address [address] [place] [address] Care Team Providers Care Hardware Assembler Name Role Phone JEANA MAYERS Primary Care Provider Assessment Encounter Date Assessment Date Assessment LastModified by Organization Details LastModified Time 06/01/2025 06/01/2025 Annual gynecological exam performed. Patient will come back in a year unless there are new symptoms. [email or web address] Not available 06/01/2025 14:22:16 Plan of Treatment Reminders Order Date Submit Date Provider Last Modified By Organization Details Last Modified Time Details Appointments None recorded. Lab pap, IG + HR HPV - HPV regardless but if HPV is positive need subtyping 16,18/45 2024 025 [facility] (Lab), [address], [place], [address], 12:58:14 Referral None recorded. Procedures None recorded. Surgeries None recorded. Imaging None recorded. Medication Orders None recorded. Patient TargetsNo targets recorded. Patient InstructionsNo instructions recorded. Reason for Referral None Reported. Procedures Surgical History Date Name Laterality Status Provider Name and Address Organization Details Recorded Time 02/08/19 83 section completed [facility] 06/01/2025 14:33:09 04/09/19 81 section completed [facility] 06/01/2025 14:33:03 Cholecystectomy completed [facility] 06/01/2025 14:33:31 total knee replacement [facility] 14:33:58 Imaging Results None recorded. Procedure Notes None recorded. Medical Equipment None Reported. Allergies Allergen ID Allergen Name Allergen Category Reaction Reaction Severity Criticality Documentation Date Start Date Code Code System Note Provider Name and Address Organization Details Recorded Time 18235 Product containin g penicilli n (product) medicatio n Not available Not available Not available 06/01/2025 05144 8001 SNOMED [facility] 14:[facility]:18 Medications Name Sig Start Date [...] Updated DateTime 06/01/2025 157.48 cm 30.4 kg/m2 45216.33 g 128/72 mm[Hg] Shelby Hannahney [facility] 06/01/2025 14:24:58 Social History Question Answer Notes LastModified by Organizat ion Details LastModified Time Tobacco Smoking Status Current Some Day Smoker Shelby blank [place] - [facility] 06/01/2025 14:32:37 In The 14 Days Before Symptom Onset, Have You Had Close Contact With A Laboratory-confirm ed COVID-19 While That Case Was Ill? No [email or web address] Information n ot available 06/01/2025 In The 14 Days Before Symptom Onset, Have You Had Close Contact With A Person Who Is Under Investigation For COVID-19 While That Person Was Ill? No [email or web address] Information not available 06/01/2025 Have You Been To An Area Known To Be High Risk For COVID-19? No Information not available 06/01/2025 How Much Tobacco Do You Smoke? 1 PPW [email or web address] Information not available 06/01/2025 Sex: Unknown Functional [...] ICD10 Code Diagnosis IMO Codes Diagnosis Note [id number] MAUREEN Del Toro [place] [address] [address] 06/01/2025 13:59:28 06/01/2025 14:51:21 Gynecologic examination 26139548 Z01.960 [id number] WWEpostmen opausalPap - done todaySTI screen - [...] Padilla Member ID Guarantor Name 05/29/2025 1 [facility] (MEDICAID REPLACEMENT - HMO) Dilia Jesse [id number] Dilia Molina Notes Date Note Type Note Provider Name and Address Organization Details Recorded Time 5 text/html Annual Banquet Houseperson Post-MenopausalReported by PatientGenitourinary symptomsFor menopausal symptoms, patient [...] wkDexa scheduled olonoscopy UTD 2023 Shelby blank [facility] 06/01/2025 17:54:05 OBGyn Episode Ob Episode Information Episode Created Date Number of Fetuses Patient Bloodtype Patient rh Status Prepregnancy Weight lbs Domestic Partner Domestic Partner Phone Father Name E Commerce Marketing Analyst Status 06/01/20 25 1 CLOSED Fetus Data First Name Last Name Admitted to NICU Weight (g) Sex Living Outcome Pediatric Complications Fetus ID Race Codes Race Delivery Type F Full Term 32994 Primary Miguel A Calculation Initial Miguel A [...] Domestic Partner Domestic Partner Phone Father Name E Commerce Marketing Analyst Status 06/01/20 1 CLOSED Fetus Data First Name Last Name Admitted to NICU Weight (g) Sex Living Outcome Pediatric Complications Fetus ID Race Codes Race Delivery Type M Full Term 09136 Repeat Miguel A Calculation Initial Miguel A [...]
--- OUTSIDE RECORDS SUMMARY | 2025-07-24 13:28 | XMS_ITS | Clinical Summary ---
Author Organization [facility] Address [address] [place] [address] Phone Care Team Providers Care Broaching Machine Operator Name Role Phone KHAI TOLBERT, HAYLIE Jhaveri Unavailable [phone] HERI SHANKS Primary Care Provider [phone] BARRY SANTA MD Unavailable [phone] Reason for Visit and Chief [...] On 2 2:25PM By CATHY DICK ; [facility] Pregabalin 75 MG Oral Capsule 07/05/2021 Provider: HAYLIE TOLBERT Diagnosis: One tablet at bed time Last Documented On 1 8:31AM By HAYLIE TOLBERT ; [facility] Gabapentin 300MG Oral Capsule 09/30/2018 Provider: HAYLIE TOLBERT Diagnosis: TAKE 1 CAPSULE BY MOUTH THREE TIMES DAILY Last Documented On 2 10:40AM By Leyda FELIPE ; [facility] Ventolin HFA 108 (90 Base)MCG/ACT Inhalation Aer osol, solution 12/20/2017 Provider: Diagnosis: Last Documented On 8 2:23PM By YONATHAN FELIPE ; [facility] Medications Administered Includes: Administered Medications from this encounter No Administered Medications Recorded Results Includes: Results discussed during this encounter No Results Recorded For Specified Dates History of Present Illness Includes: History of Present Illness from this encounter No History of Present Illness Recorded Social History Description Last Updated Current smoker 10/11/2020 Last Documented On 2 2:58PM ; [facility] Smoker 12/16/2019 Last Documented On 2 2:58PM ; [facility] Single 12/20/2017 Last Documented On 2 2:58PM ; [facility] Smoking status : Current everyday smoker 12/20/2017 Last Documented On 2 2:58PM ; [facility] Medical History Includes: Medical [...] Active Last Documented On 2 10:26AM ; [facility] Encounters Encounter Provider Location Date Check-In Time Check-Out Time Diagnosis * PHONE CALL HAYLIE TOLBERT 10/05/2021 2:58PM 11:59PM Insurance Includes: Active Insurance Policies Plan Name Member ID Group # Subscriber Relationship Effect tawanna Dates 1 - [facility] [id number] RALEIGH BERMUDEZ Self Clinical Notes Includes: Clinical Notes from this encounter No Clinical Notes Recorded
--- OUTSIDE RECORDS SUMMARY | 2025-07-24 13:28 | XMS_ITS | Clinical Summary ---
Author Organization [facility] Address [address] [place] [address] Phone Care Team Providers Care Medical Assistant Ob Gyn Name Role Phone KHAI TOLBERT, HAYLIE Jhaveri Unavailable [phone] HERI SHANKS Primary Care Provider [phone] BARRY SANTA MD Unavailable [phone] Reason for Visit and Chief Complaint RX ISSUE/REFILL Plan of Treatment No Plan of Treatment Recorded Assessments Includes: Assessments from this encounter No Assessments Recorded Medical Equipment - Implanted Devices Includes: Current Devices No Medical Equipment Recorded Medications Includes: Medications discussed during this encounter and other current Medications Discontinued / Stopped on this date HAYLIE TOBLERT on 09/19/2021 HYDROcodone-Acetaminophen 7. 5-325 MG Oral Tablet Provider: HAYLIE TOLBERT Diagnosis: Other spondylosi s with radiculopathy, lumbar region Last Documented On 2 2:16PM By CATHY DICK ; [facility] New / Renewed during this visit MAYELIN HOPSON on 10/21/2021 HYDROcodone-Acetaminophen 7. 5-325 MG Oral Tablet Provider: MAYELIN HOPSON 30 day supply: 90 tablet, 0 refills Diagnosis: Other spondylosis with radiculopathy, lumbar region 1 po TID prn Pharmacy: [facility] ([facility] - [address] , [facility], [phone] - Last Documented On 2 2:25PM By CATHY VENEGAS-BC ; [facility] Current Medications (continue as prescribed) Pregabalin 75 MG Oral Capsule 07/05/2021 Provider: HAYLIE TOLBERT Diagnosis: One tablet at bed time Last Documented On 1 8:31AM By HAYLIE TOLBERT ; [facility] Gabapentin 300MG Oral Capsule 09/30/2018 Provider: HAYLIE TOLBERT Diagnosis: TAKE 1 CAPSULE BY MOUTH THREE TIMES DAILY Last Documented On 2 10:40AM By Leyda Aj Alec ; [facility] Ventolin HFA 108 (90 Base)MCG/ACT Inhalation Aer osol, solution 12/20/2017 Provider: Diagnosis: Last Documented On 8 2:23PM By YONATHAN DONNELLY Alec ; [facility] Medications Administered Includes: Administered Medications from this encounter No Administered Medications Recorded Results Includes: Results discussed during this encounter No Results Recorded For Specified Dates History of Present Illness Includes: History of Present Illness from this encounter No History of Present Illness Recorded Social History Description Last Updated Current smoker 10/11/2020 Last Documented On 2 8:46AM ; [facility] Smoker 12/16/2019 Last Documented On 2 8:46AM ; [facility] Not using drugs 12/20/2017 Last Documented On 2 8:46AM ; [facility] Single 12/20/2017 Last Documented On 2 8:46AM ; [facility] Smoking status : Current everyday smoker 12/20/2017 Last Documented On 2 8:46AM ; [facility] Medical History Includes: Medical History addressed during this encounter Description Last Updated Has had no fall in the last 12 months. 0 08/15/2021 Last Documented On 2 8:46AM ; [facility] Denies a fear of falling. 08/15/2021 Last Documented On 2 8:46AM ; [facility] Reviewed and Unchanged 10/16/2019 Last Documented On 2 8:46AM ; [facility] Currently wearing eyeglasses 12/20/2017 Last Documented On 2 8:46AM ; [facility] Wearing contact lenses 12/20/2017 Last Documented On 2 8:46AM ; [facility] History of cancer skin 12/20/2017 Last Documented On 2 8:46AM ; [facility] History of hypertension 12/20/2017 Last Documented On 2 8:46AM ; [facility] Asthma 12/20/2017 Last Documented On 2 8:46AM ; [facility] History of diabetes mellitus 12/20/2017 Last Documented On 2 8:46AM ; [facility] Born by section 12/20/2017 Last Documented On 2 8:46AM ; [facility] Family History Includes: Family History addressed during this encounter Description Last Updated Family history of cancer 12/20/2017 Last Documented On 2 8:46AM ; [facility] Review of Systems Includes: Review of Systems [...] Documented On 2 10:26AM ; [facility] Encounters Encounter Provider Location Date Check-In Time Check-Out Time Diagnosis RX ISSUE/REFILL CATHY GUDINO AFTER SCHOOL DRIVER-FPA, PATIENT CARE ASSOCIATE-BC 10/21/2021 8:46AM 11:59PM Insurance Includes: Active Insurance Policies Plan Name Member ID Group # Subscriber Relationship Effect tawanna Dates - [facility] [id number] RALEIGH BERMUDEZ Self Clinical Notes Includes: Clinical Notes from this encounter No Clinical Notes Recorded
== END 2025-07-24 13:22 | disposition home or self-care (01) ==
PROVIDERS: PCP Nurse Practitioner Family; Visit Provider Nurse Practitioner Family
DX: Z12.31 Encounter for screening mammogram for malignant neoplasm of breast (principal)
CPT/HCPCS: 77063; 77067